=== PATIENT | female | born 2000 | race Caucasian/White ===

== ENCOUNTER 2021-01-19 09:00 | Emergency (ER) | payer BC, SELFPAY ==
[2021-01-19 09:09] VITALS: BP 142/97; PULSE 82; RESP 16; TEMP 36.9; O2SAT 98; BMI 35.4
--- NOTE | 2021-01-19 09:34 | ED_ITS ---
HPI - Nausea/Vomiting/Diarrhea General Chief complaint: Nausea/Vomiting/Diarrhea Stated complaint: flu like symptoms Time Seen by Provider: 01/19/21 09:27 Source: patient and family Mode of arrival: ambulatory Limitations: no limitations History of Present Illness HPI Narrative: 20 yo female here with upper AP, vomiting since Wednesday evening. Patient tells me she was drinking alot Wednesday night and since then continued pain and vomiting. Emesis NBNB. Also some chills and body aches. No fevers, urinary symptoms, diarrhea or constipation. No sick contact. Associated nausea: Yes Related Data Previous Rx's Medication Instructions Recorded omeprazole 40 mg capsule,delayed 40 mg PO DAILY #20 cap 01/19/21 release ondansetron 4 mg disintegrating 4 mg PO Q6H PRN #10 tab 01/19/21 tablet sucralfate 1 gram tablet (Carafate) 1 g PO .achs #60 tab 01/19/21 Allergies Allergy/AdvReac Type Severity Reaction Status Date / Time No Known Allergies Allergy Verified 01/19/21 09:09 Review of Systems Review of Systems: Yes all other systems are reviewed and are negative Constitutional: Constitutional: Reports no additional constitutional complaints, Reports body ache(s), Reports chills, Denies fever(s), Denies headache(s) and Denies weakness Eyes: Eyes: Reports no additional eye complaints and Denies change in vision ENT: Reports system reviewed and no additional complaints, except as documented, Denies dizziness, Denies headache(s), Denies nasal congestion, De nies nasal discharge and Denies neck pain Cardiovascular: Cardiovascular: Reports no additional cardiovascular complaints, Denies chest pain, Denies leg edema and Denies dyspnea Respiratory: Respiratory: Reports no additional respiratory complaints, Denies cough and Denies dyspnea Gastrointestinal: Gastrointestinal: Reports no additional gastrointestinal complaints, Reports abdominal pain, Denies diarrhea, Reports nausea and Reports vomiting Genitourinary: Genitourinary: Reports no additional female genitourinary complaints and Denies urinary incontinence Musculoskeletal: Musculoskeletal: Reports no additional musculoskeletal complaints, Denies back pain, Denies arthralgias, Denies joint swelling, Denies neck pain, Denies numbness and Denies tingling Integumentary/Breasts: Skin/Breast: Reports system reviewed and no additional complaints, except as docu and Denies rash Neurologic: Reports system reviewed and no additional complaints, except as documented, Denies Abnormal speech present, Denies dizziness, Denies headache(s), Denies numbness, Denies tingling and Denies weakness PMFSH Past Medical History Attestation statement: The following information was validated with the patient. Source: old records reviewed and nursing notes reviewed Social History Social History Advance Directives: No Advance Directives Information Provided: No Patient : No Physical Exam Vital Signs: Vital Signs: Last Vital Signs Temp 98.3 F 01/19/21 11:43 Pulse 76 01/19/21 11:43 Resp 16 01/19/21 11:43 BP 125/73 01/19/21 11:43 Pulse Ox 99 01/19/21 11:43 Body Mass Index 35.4 Const: General: cooperative, healthy appearing, comfortable and no acute distress Orientation/consciousness: patient oriented x3 Limitations: no limitations HENMT: Head: Yes normal to inspection Ears: hearing grossly normal bilaterally General nose exam: Normal external nose present Face and sinus: Yes normal facial exam Mouth: Normal oral and palatal mucosa present Throat: Yes posterior oropharynx normal Eyes: General: appearance normal, both eyes and all related structures Pupils: Equal, round and reactive pupils present Neck: Neck: Yes normal visual inspection Chest: Chest palpation & inspection: normal inspection of the chest Resp: Effort & Inspection: normal respiratory effort Auscultation: clear to auscultation bilaterally Cardio: Rate: regular rate Rhythm: regular rhythm Peripheral pulses: Peripheral pulses 2+ throughout GI: Inspection: Yes normal to inspection Palpation (GI): Soft to palpation, Tenderness to palpation present (GI) (mild epigastric ) Negative for with no rebound tenderness and no guarding Auscultation: normal bowel sounds Back/Spine/Pelvis: Thoracic/Lumbar Spine: thoracic and lumbar spine normal to inspection Skin: General skin exam: no rashes or lesions noted Neuro: General: patient oriented x3, no focal motor deficits and normal sensation to monofilament Cranial nerves: Yes Equal, round and reactive pupils present Cognition (Neuro): normal cognition Speech: No Abnormal speech present Gait exam (Neuro): Normal gait present Motor exam (neuro): 5/5 motor strength present throughout Extrem: General: Yes normal to inspection Course Course Course Narrative: 20 yo female here with complaints of epigastric AP, vomiting since Wednesday evening after drinking alcohol. Will check labs, UA,. WIll give NSB, antiemetic and PPI 1100-labs are unremarkable. Patient is complaining of some continued nausea. Pain is improved overall. Will re-dose with antiemetic and reassess. 1215-patient is feeling improved. Tolerating p.o.. Likely gastritis alcohol induced. Reviewed this with the patient. Recommended bland diet at home. Reviewed worrisome signs and symptoms when to return to the emergency department. Comfortable discharge home. MDM - Nausea/Vomiting/Diarrhea MDM Narrative Medical decision making narrative: gastritis Medical Records Attestation: I reviewed the patient's medical records. Lab Data Attestation: I reviewed the patient's lab results. Result diagrams: 01/19/21 09:45 01/19/21 09:45 Labs: Lab Results 01/19/21 01/19/21 01/19/21 Range/Units 09:45 09:45 09:45 WBC 9.4 (4.8-10.8) X10*3/uL RBC 4.44 (4.20-5.50) X10*6/uL Hgb 14.2 (12.0-16.0) g/dl Hct 41.9 (37-47) % MCV 94.4 (80-98) fL MCH 32.0 (27.0-33.0) pg MCHC 33.9 (31.0-35.0) g/dl RDW 12.3 (11.0-16.0) % Plt Count 286 (160-400) X10*3/uL MPV 10.2 (9.4-12.3) fL Immature Gran % (Auto) 0.3 (0.0-0.4) % Neut % (Auto) 75.8 H (45-73) % Lymph % (Auto) 16.0 L (20-40) % Kleberg % (Auto) 6.6 (2-11) % Eos % (Auto) 0.7 (0-4) % Baso % (Auto) 0.6 (0-2) % Lymph # (Auto) 1.5 (1.2-4.9) X10*3/uL Kle[place] # (Auto) 0.6 (0.1-1.2) X10*3/uL Eos # (Auto) 0.1 (0.0-0.4) X10*3/uL Baso # (Auto) 0.1 (0.0-0.2) X10*3/uL Abs Immat Gran (auto) 0.03 (0.00-0.03) X10*3/uL Absolute Neuts (auto) 7.1 (2.0-8.3) X10*3/uL Absolute Nucleated RBC 0.000 (0.0-0.012) X10*3/uL Nucleated RBC % (auto) 0.0 (0.0-0.2) /100WBC Sodium 139 (135-145) mmol/L Potassium 4.3 (3.3-5.1) mmol/L Chloride 107 (96-108) mmol/L Carbon Dioxide 21 L (22-29) mmol/L Anion Gap 15 (12-20) BUN 10 (9-16) mg/dL Creatinine 0.77 (0.5-1.4) mg/dL Estim Creat Clear Calc 125.6 Estimated GFR > 60 Random Glucose 93 (60-115) mg/dL Calcium 9.3 (8.4-10.2) mg/dL Magnesium 2.0 (1.6-2.6) mg/dL Total Bilirubin 1.1 H (0.0-1.0) mg/dL Direct Bilirubin 0.3 (0.0-0.5) mg/dL AST 23 (5-31) U/L ALT 14 (0-31) U/L Alkaline Phosphatase 59 (39-117) U/L Total Protein 7.2 (6.5-8.0) g/dL Albumin 4.1 (3.5-5.0) g/dL Lipase 4 L (8-78) U/L Urine Color Urine Appearance Urine pH (5.0-8.0) Ur Specific [place] (1.005-1.025) Urine Protein (NEG-TRACE) MG/DL Urine Glucose (UA) (NEG) MG/DL Urine Ketones (NEG) MG/DL Urine Blood (NEG) Urine Nitrite (NEG) Ur Leukocyte Esterase (NEG) Urine RBC (0) /HPF Urine WBC (0-4) /HPF Ur Squamous Epith Cells /LPF Urine Bacteria /LPF Urine Test (NEGATIVE) COVID-19 ([facility]ZZETTE) Negative (Negative) COVID-19 Clin Com See Note 01/19/21 01/19/21 Range/Units 10:29 10:29 WBC (4.8-10.8) X10*3/uL RBC (4.20-5.50) X10*6/uL Hgb (12.0-16.0) g/dl Hct (37-47) % MCV (80-98) fL MCH (27.0-33.0) pg MCHC (31.0-35.0) g/dl RDW (11.0-16.0) % Plt Count (160-400) X10*3/uL MPV (9.4-12.3) fL Immature Gran % (Auto) (0.0-0.4) % Neut % (Auto) (45-73) % Lymph % (Auto) (20-40) % Kleberg % (Auto) (2-11) % Eos % (Auto) (0-4) % Baso % (Auto) (0-2) % Lymph # (Auto) (1.2-4.9) X10*3/uL Kle[place] # (Auto) (0.1-1.2) X10*3/uL Eos # (Auto) (0.0-0.4) X10*3/uL Baso # (Auto) (0.0-0.2) X10*3/uL Abs Immat Gran (auto) (0.00-0.03) X10*3/uL Absolute Neuts (auto) (2.0-8.3) X10*3/uL Absolute Nucleated RBC (0.0-0.012) X10*3/uL Nucleated RBC % (auto) (0.0-0.2) /100WBC Sodium (135-145) mmol/L Potassium (3.3-5.1) mmol/L Chloride (96-108) mmol/L Carbon Dioxide (22-29) mmol/L Anion Gap (12-20) BUN (9-16) mg/dL Creatinine (0.5-1.4) mg/dL Estim Creat Clear Calc Estimated GFR Random Glucose (60-115) mg/dL Calcium (8.4-10.2) mg/dL Magnesium (1.6-2.6) mg/dL Total Bilirubin (0.0-1.0) mg/dL Direct Bilirubin (0.0-0.5) mg/dL AST (5-31) U/L ALT (0-31) U/L Alkaline Phosphatase (39-117) U/L Total Protein (6.5-8.0) g/dL Albumin (3.5-5.0) g/dL Lipase (8-78) U/L Urine Color YELLOW Urine Appearance HAZY Urine pH 6.0 (5.0-8.0) Ur Specific [place] 1.020 (1.005-1.025) Urine Protein NEG (NEG-TRACE) MG/DL Urine Glucose (UA) NEG (NEG) MG/DL Urine Ketones >=80 (NEG) MG/DL Urine Blood TRACE (NEG) Urine Nitrite NEG (NEG) Ur Leukocyte Esterase NEG (NEG) Urine RBC 0-2 (0) /HPF Urine WBC 0-2 (0-4) /HPF Ur Squamous Epith Cells 2+ /LPF Urine Bacteria 1+ /LPF Urine Test NEG (NEGATIVE) COVID-19 (LIZZETTE) (Negative) COVID-19 Clin Com Discharge Plan Discharge Clinical Impression: Gastritis Qualifiers: Gastritis type: alcoholic Chronicity: acute Gastritis bleeding: without bleeding Qualified Code(s): K29.20 - Alcoholic gastritis without bleeding Patient Disposition: Home, Self-Care Instructions: Gastritis (ED) Additional Instructions: Very bland diet Follow-up with GI if needed by end of week Prescriptions: New omeprazole 40 mg capsule,delayed release(DR/EC) 40 mg PO DAILY Qty: 20 RF: 0 sucralfate [Carafate] 1 gram tablet 1 g PO .achs Qty: 60 RF: 0 ondansetron 4 mg tablet,disintegrating 4 mg PO Q6H PRN (Reason: nausea and vomiting) Qty: 10 RF: 0 Referrals: Colin White MD [Physician] - 2 days Stand Alone Forms: Work/School Release Interventions: ED Discharge Assessment Last Done: 01/19/21 12:24 Discharge Date/Time: 01/19/21 12:24
[2021-01-19] MEDS: ondansetron HCL 4 MG/2 ML VIAL IVPUSH (09:47)
[2021-01-19] MEDS: Famotidine/PF 20 MG/2 ML VIAL IVPUSH (09:47)
[2021-01-19] MEDS: 0.9 % Sodium Chloride 1,000 ML 999 ML IV (09:48)
[2021-01-19 09:50] VITALS: BP 132/91; PULSE 62; RESP 18; O2SAT 100
[2021-01-19 09:58] LABS: MANUAL DIFF FLAG NO
[2021-01-19 10:00] LABS: Basophils Absolute Auto 0.1 X10*3/uL (0.0-0.2); Basophils Percent Auto 0.6 % (0-2); Eosinophils Absolute Auto 0.1 X10*3/uL (0.0-0.4); Eosinophils Percent Auto 0.7 % (0-4); Hematocrit 41.9 % (37-47); Hemoglobin 14.2 g/dl (12.0-16.0); Imm Gran Abs Auto 0.03 X10*3/uL (0.00-0.03); Imm Gran Pct Auto 0.3 % (0.0-0.4); Lymphocytes Absolute Auto 1.5 X10*3/uL (1.2-4.9); Mean Corpuscular HGB Conc 33.9 g/dl (31.0-35.0); Mean Corpuscular Volume 94.4 fL (80-98); Mean Platelet Volume 10.2 fL (9.4-12.3); Monocytes Absolute Auto 0.6 X10*3/uL (0.1-1.2); Monocytes Percent Auto 6.6 % (2-11); Neutrophils Absolute Auto 7.1 X10*3/uL (2.0-8.3); Neutrophils Percent Auto 75.8 % (45-73); Platelet Count 286 X10*3/uL (160-400); Red Blood Count 4.44 X10*6/uL (4.20-5.50); Red Cell Distribution Width 12.3 % (11.0-16.0); White Blood Count 9.4 X10*3/uL (4.8-10.8)
[2021-01-19 10:17] LABS: COVID-19 Test Negative (Negative)
[2021-01-19 10:33] LABS: Alanine Aminotransferase 14 U/L (0-31); Albumin Level 4.1 g/dL (3.5-5.0); Alkaline Phosphatase 59 U/L (39-117); Anion Gap 15 (12-20); Aspartate Amino Transferase 23 U/L (5-31); Bilirubin Direct 0.3 mg/dL (0.0-0.5); Bilirubin Total 1.1 mg/dL (0.0-1.0); Blood Urea Nitrogen 10 mg/dL (9-16); Calcium 9.3 mg/dL (8.4-10.2); Carbon Dioxide 21 mmol/L (22-29); Chloride 107 mmol/L (96-108); Creatinine Clr Calc Pharmacy 125.6; Estimated Glomerular Filt Rate > 60; Glucose Random 93 mg/dL (60-115); Lipase 4 U/L (8-78); Potassium 4.3 mmol/L (3.3-5.1); Sodium 139 mmol/L (135-145); Total Protein 7.2 g/dL (6.5-8.0)
[2021-01-19 10:44] LABS: Glucose Urine UA NEG (NEG); Leukocyte Esterase Urine NEG (NEG); Nitrite Urine NEG (NEG); UACC Culture Trigger NO; Urine Blood TRACE (NEG); Urine Ketones >=80 MG/DL (NEG); Urine Protein NEG (NEG-TRACE)
[2021-01-19] MEDS: Magnesium Hydrox/Alum Hydrox 30 ML ORAL.SUSP PO (10:44)
[2021-01-19] MEDS: Lidocaine HCl Viscous 2 % 15 ML SOLUTION MUCOUS MEM (10:44)
[2021-01-19 10:45] LABS: Appearance Urine HAZY; Color Urine YELLOW
[2021-01-19 10:48] LABS: UPreg QC Valid YES; Urine Pregnancy NEG (NEGATIVE)
[2021-01-19 10:54] LABS: Bacteria Urine 1+ /LPF; RBC Urine 0-2 /HPF (0); Squamous Epithelial Cell Urine 2+ /LPF; WBC Urine 0-2 /HPF (0-4)
[2021-01-19 11:43] VITALS: BP 125/73; PULSE 76; RESP 16; TEMP 36.8; O2SAT 99
== END 2021-01-19 12:24 | disposition home or self-care (01) ==
PROVIDERS: Nurse Practitioner Family; Emergency Provider Emergency Medicine
DX: K29.20 Alcoholic gastritis without bleeding (principal); R11.2 Nausea with vomiting, unspecified; R19.7 Diarrhea, unspecified; R79.89 Other specified abnormal findings of blood chemistry; Z79.899 Other long term (current) drug therapy; Z20.822 Contact with and (suspected) exposure to COVID-19
CPT/HCPCS: 36415; 80048; 80076; 81001; 81025; 83690; 83735; 85025; 87635; 99284; J2405; J2550

== ENCOUNTER 2022-02-16 01:30 | Emergency (ER) | payer BC, SELFPAY ==
--- NOTE | ~2022-02-16 | XR_ITS ---
EXAMINATION: XR CHEST CLINICAL INFORMATION: Cough, shortness of breath. COMPARISON: Most recent chest radiograph dated 10/02/2011. TECHNIQUE: 2 views of the chest were obtained. FINDINGS: The lungs are clear. The cardiomediastinal silhouette is normal in size. There is no pleural effusion or pneumothorax. No acute osseous abnormality. XR/XR chest 2V IMPRESSION: No acute cardiopulmonary findings.
[2022-02-16 02:02] LABS: Hematocrit 45.9 % (37.0-47.0); Hemoglobin 15.5 g/dl (12.0-16.0); Mean Corpuscular HGB Conc 33.8 g/dl (31.0-35.0); Mean Corpuscular Hemoglobin 31.5 pg (27.0-33.0); Mean Corpuscular Volume 93.3 fL (80.0-98.0); Mean Platelet Volume 9.5 fL (9.4-12.3); Platelet Count 330 X10*3/uL (160-400); Red Blood Count 4.92 X10*6/uL (4.20-5.50); Red Cell Distribution Width 12.5 % (11.0-16.0); White Blood Count 14.3 X10*3/uL (4.8-10.8)
[2022-02-16 02:05] VITALS: BP 116/86; PULSE 97; RESP 18; TEMP 36.9; O2SAT 95; BMI 35.4
[2022-02-16 02:14] LABS: IDNOW Serial# 16C4AD1C
[2022-02-16 02:15] LABS: COVID-19 Test Negative (Negative)
[2022-02-16 02:20] LABS: Alanine Aminotransferase 16 U/L (0-31); Albumin Level 4.6 g/dL (3.5-5.0); Alkaline Phosphatase 79 U/L (39-117); Anion Gap 16 (12-20); Aspartate Amino Transferase 18 U/L (5-31); Bilirubin Total 0.9 mg/dL (0.0-1.0); Blood Urea Nitrogen 11 mg/dL (9-16); Calcium 9.4 mg/dL (8.4-10.2); Carbon Dioxide 20 mmol/L (22-29); Chloride 108 mmol/L (96-108); Creatinine Clr Calc Pharmacy 127.9; Estimated Glomerular Filt Rate > 60; Glucose Random 117 mg/dL (60-115); Sodium 140 mmol/L (135-145); Total Protein 7.6 g/dL (6.5-8.0)
[2022-02-16 04:14] VITALS: BP 147/84; PULSE 81; RESP 18; O2SAT 96
[2022-02-16 07:41] VITALS: BP 155/87; PULSE 98; RESP 18; O2SAT 99
--- NOTE | 2022-02-16 10:53 | ED.GENADULT ---
HPI - General Adult General Chief complaint: General Medical Stated complaint: difficulty breathing, vomiting Time Seen by Provider: 02/16/22 10:16 Source: patient Mode of arrival: ambulatory Limitations: no limitations History of Present Illness HPI narrative: Patient is a 21 year old female presenting to the emergency department today with congestion and nausea. Patient states that for the last 3 days she has felt congested and starting last night, she began to feel nauseous and vomit. Patient denies any current dizziness, lightheadedness, abdominal pain, nausea, vomiting, fever, chills, blurry vision, double vision, loss of vision, chest pain, difficulty breathing, shortness of breath, back pain, night sweats, pain with urination, increased urinary frequency, increased urinary urgency, blood in her urine or stool, syncope or a near syncopal episode, recent trauma or falls, bowel incontinence, bladder incontinence, bowel retention, bladder retention, or any other complaints at this time. Onset (ago): day(s) (3) Severity: mild Severity scale (1-10): 1 Relieving factors: none Exacerbating factors: none Associated symptoms: nausea/vomiting Treatments prior to arrival: none Related Data Previous Rx's Medication Instructions Recorded omeprazole 40 mg capsule,delayed 40 mg PO DAILY #20 caps 01/19/21 release ondansetron 4 mg disintegrating 4 mg PO Q6H PRN nausea and 01/19/21 tablet vomiting #10 tabs sucralfate 1 gram tablet (Carafate) 1 g PO .achs #60 tabs 01/19/21 ondansetron 4 mg disintegrating 4 mg PO Q8H 3 days #9 tabs 02/16/22 tablet Allergies Allergy/AdvReac Type Severity Reaction Status Date / Time No Known Allergies Allergy Verified 01/19/21 09:09 Review of Systems Constitutional: Constitutional: Reports no additional constitutional complaints, Denies chills, Denies fever(s) and Denies night sweats Eyes: Eyes: Reports no additional eye complaints, Denies blurry vision, Denies change in vision, Denies diplopia, Denies eye discharge, Denies loss of vision and Denies eye pain ENT: Denies dizziness and Reports nasal congestion Cardiovascular: Cardiovascular: Reports no additional cardiovascular complaints, Denies chest pain, Denies lightheadedness, Denies Loss of Consciousness and Denies dyspnea Respiratory: Respiratory: Reports no additional respiratory complaints and Denies dyspnea Gastrointestinal: Gastrointestinal: Reports no additional gastrointestinal complaints, Denies abdominal pain, Denies melena, Denies hematochezia, Denies change in bowel habits, Denies change in stool character, Reports nausea and Reports vomiting Genitourinary: Genitourinary: Denies hematuria, Denies urinary frequency, Denies dysuria, Denies urinary incontinence, Denies urinary hesitancy and Denies urinary urgency Musculoskeletal: Musculoskeletal: Reports no additional musculoskeletal complaints, Denies numbness and Denies tingling Neurologic: Denies dizziness, Denies loss of vision, Denies numbness and Denies tingling Psychiatric: Psychiatric: Reports no additional psychiatric complaints Endocrine: Endocrine: Reports no additional endocrine complaints Hematologic/Lymphatic: Hematologic/Lymphatic: Reports no additional hematologic/lymphatic complaints Allergic/Immunologic: Allergic/Immunologic: Reports no additional allergic/immunologic complaints PMFSH Past Medical History Attestation statement: The following information was validated with the patient. Source: old records reviewed Social History Social History Advance Directives: No Advance Directives Information Provided: No Physical Exam ED Vital Signs: Vital Signs - 24 hr 02/16/22 02:05 02/16/22 04:14 02/16/22 07:41 Temperature 98.4 F Pulse Rate 97 81 98 Respiratory Rate 18 18 18 Blood Pressure 116/86 147/84 H 155/87 H Pulse Oximetry 95 96 99 Oxygen Delivery Method Room Air Room Air BMI result Body Mass Index 35.4 Const General: cooperative, no acute distress, alert and awake Nutritional Appearance: well nourished Orientation/consciousness: patient oriented x3 Limitations: no limitations HENWV Head: Yes normal to inspection and Yes atraumatic Ears: hearing grossly normal bilaterally and external ears normal General nose exam: Normal external nose present, no nasal discharge noted and no epistaxis Face and sinus: Yes normal facial exam, No abrasion and No laceration Mouth: Normal oral and palatal mucosa present, no drooling and no muffled voice Eyes General: appearance normal, both eyes and all related structures Periorbital: periorbital findings normal Eyelids: Yes eyelids normal Conjunctivae: conjunctivae normal Pupils: Equal, round and reactive pupils present EOM: EOMs intact bilaterally Neck Neck: Yes normal visual inspection, Yes full ROM and Yes no lymphadenopathy Chest Chest palpation & inspection: normal inspection of the chest Resp Effort & Inspection: normal respiratory effort and able to speak in complete sentences Auscultation: clear to auscultation bilaterally Cardio Rate: regular rate Rhythm: regular rhythm GI Inspection: Yes normal to inspection Palpation (GI): Soft to palpation, not firm, nontender and no guarding Neuro General: patient oriented x3 and moves all extremities Cranial nerves: Yes Equal, round and reactive pupils present Cognition (Neuro): normal cognition Motor exam (neuro): 5/5 motor strength present throughout Sensory Exam: Normal double simultaneous stimulation for sensation Coordination: [id number] test normal Extrem General: Yes normal to inspection, Yes full ROM and Yes capillary refill normal Psych Appearance: grossly normal Mental Status: mental status grossly normal Affect: normal affect Attitude: cooperative Thought process: Normal thought process present Thought content: Normal thought content present Insight: Good insight present (Psych) Medical Decision Making MDM Narrative Medical decision making narrative: Patient is a 21 year old female presenting to the emergency department today with nausea and congestion. Patient's physical exam was unremarkable. Patient's blood work showed an elevated WBC count however, I believe this to be a stress reaction secondary to the patient vomiting. Patient's chest x-ray showed no acute process. Based on the patient's clinical presentation, the patient is most likely experiencing a viral syndrome. I explained my physical exam findings as well as all test results to the patient. I answered all questions asked by the patient. I stressed the importance of the patient taking her medication as prescribed. I stressed the importance of the patient following up with her primary care provider. I stressed the importance of the patient returning to the emergency department immediately if her symptoms were to worsen or if she were to develop any dizziness, shortness of breath, difficulty breathing, chest pain, blurry vision, loss of vision, nausea, vomiting, abdominal pain, fever, chills, back pain, or any other complaints. Patient verbalized agreement and understanding with this treatment plan and discharge. Medical Records Medical records reviewed: Yes I reviewed the patient's medical records. Lab Data Lab results reviewed: Yes I reviewed the patient's lab results. Result diagrams: 02/16/22 01:47 02/16/22 01:47 Labs: Lab Results 02/16/22 02/16/22 02/16/22 Range/Units 01:47 01:47 01:47 WBC 14.3 H (4.8-10.8) X10*3/uL RBC 4.92 (4.20-5.50) X10*6/uL Hgb 15.5 (12.0-16.0) g/dl Hct 45.9 (37.0-47.0) % MCV 93.3 (80.0-98.0) fL MCH 31.5 (27.0-33.0) pg MCHC 33.8 (31.0-35.0) g/dl RDW 12.5 (11.0-16.0) % Plt Count 330 (160-400) X10*3/uL MPV 9.5 (9.4-12.3) fL Absolute Nucleated RBC 0.000 (0.0-0.012) X10*3/uL Nucleated RBC % (auto) 0.0 (0.0-0.2) /100WBC Sodium 140 (135-145) mmol/L Potassium 4.0 (3.3-5.1) mmol/L Chloride 108 (96-108) mmol/L Carbon Dioxide 20 L (22-29) mmol/L Anion Gap 16 (12-20) BUN 11 (9-16) mg/dL Creatinine 0.75 (0.5-1.4) mg/dL Estim Creat Clear Calc 127.9 Estimated GFR > 60 Random Glucose 117 H (60-115) mg/dL Calcium 9.4 (8.4-10.2) mg/dL Total Bilirubin 0.9 (0.0-1.0) mg/dL AST 18 (5-31) U/L ALT 16 (0-31) U/L Alkaline Phosphatase 79 D (39-117) U/L Total Protein 7.6 (6.5-8.0) g/dL Albumin 4.6 (3.5-5.0) g/dL COVID-19 ([facility]ZZETTE) Negative (Negative) COVID-19 Clin Com See Note Imaging Data Chest x-ray: Attestation: I personally reviewed and interpreted this imaging study as follows: My impression: No acute process. Radiologist's impression: EXAMINATION: XR CHEST CLINICAL INFORMATION: Cough, shortness of breath. COMPARISON: Most recent chest radiograph dated 10/02/2011. TECHNIQUE: 2 views of the chest were obtained. FINDINGS: The lungs are clear. The cardiomediastinal silhouette is normal in size. There is no pleural effusion or pneumothorax. No acute osseous abnormality. XR/XR chest 2V IMPRESSION: No acute cardiopulmonary findings. Dictated By: Femi Rodriguez MD Signed By: Electronically signed by Femi Rodriguez MD 02/16/22 [id number] Discharge Plan Discharge Clinical Impression: Viral illness Patient Disposition: Home, Self-Care Instructions: Viral Syndrome (ED) Additional Instructions: Follow up with your primary care provider. Return to the emergency department immediately if your symptoms worsen or if you develop any dizziness, shortness of breath, difficulty breathing, chest pain, blurry vision, loss of vision, nausea, vomiting, abdominal pain, fever, chills, back pain, or any other complaints. Prescriptions: New ondansetron 4 mg tablet,disintegrating 4 mg PO Q8H 3 Days Qty: 9 0RF No Action omeprazole 40 mg capsule,delayed release(DR/EC) 40 mg PO DAILY Qty: 20 0RF sucralfate [Carafate] 1 gram tablet 1 g PO .achs Qty: 60 0RF ondansetron 4 mg tablet,disintegrating 4 mg PO Q6H PRN (Reason: nausea and vomiting) Qty: 10 0RF Referrals: [facility] Group] (Call to establish and follow up with a primary care provider. If you already have a primary care provider, please follow up with them. ) [facility] [Provider Group] (Call to establish and follow up with a primary care provider. If you already have a primary care provider, please follow up with them. ) [facility] [Provider Group] (Call to establish and follow up with a primary care provider. If you already have a primary care provider, please follow up with them. ) Stand Alone Forms: Work/School Release Print Language: Portuguese
== END 2022-02-16 12:14 | disposition home or self-care (01) ==
PROVIDERS: Emergency Provider Emergency Medicine
DX: B34.9 Viral infection, unspecified (principal); Z20.822 Contact with and (suspected) exposure to COVID-19
CPT/HCPCS: 36415; 71046; 80053; 85027; 87635; 99283

== ENCOUNTER 2022-03-16 11:24 | Observation (INO) | payer BC, SELFPAY ==
--- NOTE | ~2022-03-16 | XR_ITS ---
EXAMINATION: PORTABLE CHEST 1 VIEW CLINICAL INFORMATION: sob cp . COMPARISON: 02/16/2022. TECHNIQUE: Portable frontal view of the chest was obtained. FINDINGS: The lungs are well expanded. No focal infiltrate, effusion, edema, or pneumothorax. Cardiac and mediastinal silhouettes are within normal limits for technique. No acute bony abnormality seen. XR/XR chest 1V IMPRESSION: No evidence of acute disease.
--- NOTE | ~2022-03-16 | XR_ITS ---
EXAMINATION: XR CHEST CLINICAL INFORMATION: Chest pain. COMPARISON: 03/16/2022 and 02/16/2022 chest radiographs. TECHNIQUE: Frontal view of the chest was obtained. FINDINGS: The lungs are clear. The heart and mediastinal structures are unremarkable. Old healed left lateral sixth rib fracture. XR/XR chest 1V IMPRESSION: No acute cardiopulmonary process.
[2022-03-16 12:46] VITALS: BP 148/86; PULSE 138; RESP 22; TEMP 36.8; O2SAT 96; BMI 35.4
--- NOTE | 2022-03-16 12:51 | PC.NURSE ---
CONGESTED AN WHEEZING THROUGHOUT
--- NOTE | 2022-03-16 16:21 | ED.SOB ---
HPI - SOB/Dyspnea General Chief Complaint: Dyspnea Stated Complaint: diff breathing Time Seen by Provider: 03/16/22 16:15 Source: patient Mode of arrival: ambulatory Limitations: no limitations History of Present Illness HPI Narrative: 21 year old female presents to the emergency department for progressively worsening difficulty breathing and dry cough x 2 days. Patient reports she has difficulty taking a deep breath in. Patient reports she went to [facility] earlier today in which she received 2 breathing treatments and steroids, which temporarily relieved her symptoms. Patient states she has a history of allergies, however states this feels different than her typical symptoms. Additionally patient reports a dry cough that has also worsened over the last two days. Patient denies smoking, recent travel. Patient reports she has nexplanon control. Patient is not on blood thinners. Denies fevers, chills, nausea, vomitting, weakness, headaches. Related Data Previous Rx's Medication Instructions Recorded omeprazole 40 mg capsule,delayed 40 mg PO DAILY #20 caps 01/19/21 release ondansetron 4 mg disintegrating 4 mg PO Q6H PRN nausea and 01/19/21 tablet vomiting #10 tabs sucralfate 1 gram tablet (Carafate) 1 g PO .achs #60 tabs 01/19/21 ondansetron 4 mg disintegrating 4 mg PO Q8H 3 days #9 tabs 02/16/22 tablet Allergies Allergy/AdvReac Type Severity Reaction Status Date / Time No Known Allergies Allergy Verified 01/19/21 09:09 Review of Systems Review of Systems: Constitutional : No Weight loss, No Fever, No Chills, No Fatigue, No Malaise ENT/Mouth : + sore throat, No Rhinorrhea Eyes: No Eye Pain, No Swelling, No Redness Cardiovascular : No Chest Pain, + SOB, No Dyspnea on Exertion, No Orthopnea, No Edema, No Palpitations Respiratory : + Cough, No Sputum, + Wheezing Gastrointestinal : No Nausea, No Vomiting, No Diarrhea, No Constipation, No abdominal Pain, No Hematochezia, No Melena Genitourinary : No Dysuria, No Urinary Frequency, No Hematuria, Musculoskeletal : No joint pain, No Myalgias, No Joint Swelling Skin : No Skin Lesions, No rash Neuro : No Weakness, No Numbness, No Dizziness, No Headache Psych : No Anxiety/Panic, No Depression Heme/Lymph: No Bruising, No Bleeding,No Lymphadenopathy Endocrine : No Polyuria, No Polydipsia All other systems reviewed and are negative Yes all other systems are reviewed and are negative [facility] Past Medical History Attestation statement: The following information was validated with the patient. Source: old records reviewed Social History Social History Advance Directives: No Advance Directives Information Provided: No Physical Exam Vital Signs: Vital Signs: Last Vital Signs Temp 987.2 F H 03/16/22 18:46 Pulse 127 H 03/16/22 18:46 Resp 29 H 03/16/22 18:46 BP 150/80 H 03/16/22 18:46 Pulse Ox 94 03/16/22 18:46 O2 Del Method 03/16/22 18:46 BMI result Body Mass Index 35.4 Tachycardia likely secondary to steroids, will repeat. Appearance: Alert.? Oriented X3.? No acute distress.? Head: Normocephalic, atraumatic, no step-offs or deformities Eyes: Pupils equal, round and reactive to light.? ENT: Pharynx normal.? Neck: Normal inspection.? Neck supple.? CVS: Normal heart rate and rhythm.? Pulses normal.? Respiratory: No respiratory distress.? Diminished breath sounds bilaterally with impressive expiratory wheezing throughout Abdomen: Soft and nontender.? Skin: Skin warm and dry.? Normal skin color.? Normal skin turgor.? Extremities: No lower extremity edema.? No calf ttp. 5/5 strength to bilateral upper and lower extremities Neuro: Oriented X 3.? No motor deficit.? No sensory deficit. CN 2-12 intact Course Reevaluation(s) Reevaluation #1: CBC with elevated leukocytosis likely reactive. Chemistry with no acute electrolyte abnormalities requiring intervention. Troponin negative, D-dimer negative. Unlikely ACS or PE. Urine clean. Flu/COVID/RSV negative. [place] negative. Strep negative. Chest x-ray with no acute findings. Despite multiple treatments, magnesium, Solu-Medrol patient continues to have significant wheezing. Discussed case with hospitalist who will admit patient for further evaluation and treatment. To note at time of admission patient is saturating 93% on room air at rest. Time: 20:00 MDM - SOB/Dyspnea MDM Narrative Medical decision making narrative: 1615 21 year old female reports to the emergency room for dyspnea and dry cough x 2 days. Patient came from urgent care. physical exam revealed wheezing through and diminished breath sounds bilaterally Likely asthma, or upper respiratory infection. Unlikely PE but will rule out Plan is to obtain basic labs, chest xray, dimer. Medical Records Attestation: I reviewed the patient's medical records. Lab Data Attestation: I reviewed the patient's lab results. Result diagrams: 03/16/22 16:38 03/16/22 16:38 Labs: Lab Results 03/16/22 03/16/22 03/16/22 Range/Units 16:38 16:38 16:38 WBC 15.4 H (4.8-10.8) X10*3/uL RBC 4.83 (4.20-5.50) X10*6/uL Hgb 15.6 (12.0-16.0) g/dl Hct 44.1 (37.0-47.0) % MCV 91.3 (80.0-98.0) fL MCH 32.3 (27.0-33.0) pg MCHC 35.4 H (31.0-35.0) g/dl RDW 12.6 (11.0-16.0) % Plt Count 309 (160-400) X10*3/uL MPV 10.1 (9.4-12.3) fL Immature Gran % (Auto) 0.4 (0.0-0.4) % Neut % (Auto) 95.6 H (45-73) % Lymph % (Auto) 3.1 L (20-40) % [place] % (Auto) 0.6 L (2-11) % Eos % (Auto) 0.0 (0-4) % Baso % (Auto) 0.3 (0-2) % Lymph # (Auto) 0.5 L (1.2-4.9) X10*3/uL [place] # (Auto) 0.1 (0.1-1.2) X10*3/uL Eos # (Auto) 0.0 (0.0-0.4) X10*3/uL Baso # (Auto) 0.1 (0.0-0.2) X10*3/uL Abs Immat Gran (auto) 0.06 H (0.00-0.03) X10*3/uL Absolute Neuts (auto) 14.7 H (2.0-8.3) x10*3/uL Absolute Nucleated RBC 0.000 (0.0-0.012) X10*3/uL Nucleated RBC % (auto) 0.0 (0.0-0.2) /100WBC Smear Tech's Comments VERIFIED D-Dimer High Sensitivty < 150 NG/ML Sodium 138 (135-145) mmol/L Potassium 4.2 (3.3-5.1) mmol/L Chloride 106 (96-108) mmol/L Carbon Dioxide 18 L (22-29) mmol/L Anion Gap 18 (12-20) BUN 10 (9-16) mg/dL Creatinine 0.76 (0.5-1.4) mg/dL Estim Creat Clear Calc 126.2 Estimated GFR > 60 Random Glucose 145 H (60-115) mg/dL Calcium 9.7 (8.4-10.2) mg/dL Magnesium 1.7 (1.6-2.6) mg/dL Total Bilirubin 0.7 (0.0-1.0) mg/dL AST 19 (5-31) U/L ALT 16 (0-31) U/L Alkaline Phosphatase 80 (39-117) U/L Troponin I High Sens (<3.5-17.0) ng/L Total Protein 7.6 (6.5-8.0) g/dL Albumin 4.5 (3.5-5.0) g/dL Urine Color Urine Appearance Urine pH (5.0-9.0) Ur Specific [place] (1.005-1.025) Urine Protein (Neg-Trace) mg/dL Urine Glucose (UA) (Negative) mg/dL Urine Ketones (Negative) mg/dL Urine Blood (Negative) Urine Nitrite (Negative) Ur Leukocyte Esterase (Negative) Urine RBC (0-2) /HPF Urine WBC (0-5) /HPF Ur Squamous Epith Cells (0-2) /HPF Urine Bacteria (None Seen) Hyaline Casts (0-2) /LPF COVID-19 (LIZZETTE) (Negative) COVID-19 Clin Com Monoscreen (Negative) Influenza Type A (PCR) (Negative) Influenza Type B (PCR) (Negative) RSV RNA Qual (PCR) (Negative) SARS-CoV-2 RNA (RT-PCR) (Negative) S. pyogenes GrpA NIGHAT (Negative) 03/16/22 03/16/22 03/16/22 Range/Units 16:38 16:38 16:40 WBC (4.8-10.8) X10*3/uL RBC (4.20-5.50) X10*6/uL Hgb (12.0-16.0) g/dl Hct (37.0-47.0) % MCV (80.0-98.0) fL MCH (27.0-33.0) pg MCHC (31.0-35.0) g/dl RDW (11.0-16.0) % Plt Count (160-400) X10*3/uL MPV (9.4-12.3) fL Immature Gran % (Auto) (0.0-0.4) % Neut % (Auto) (45-73) % Lymph % (Auto) (20-40) % [place] % (Auto) (2-11) % Eos % (Auto) (0-4) % Baso % (Auto) (0-2) % Lymph # (Auto) (1.2-4.9) X10*3/uL [place] # (Auto) (0.1-1.2) X10*3/uL Eos # (Auto) (0.0-0.4) X10*3/uL Baso # (Auto) (0.0-0.2) X10*3/uL Abs Immat Gran (auto) (0.00-0.03) X10*3/uL Absolute Neuts (auto) (2.0-8.3) x10*3/uL Absolute Nucleated RBC (0.0-0.012) X10*3/uL Nucleated RBC % (auto) (0.0-0.2) /100WBC Smear Tech's Comments D-Dimer High Sensitivty NG/ML Sodium (135-145) mmol/L Potassium (3.3-5.1) mmol/L Chloride (96-108) mmol/L Carbon Dioxide (22-29) mmol/L Anion Gap (12-20) BUN (9-16) mg/dL Creatinine (0.5-1.4) mg/dL Estim Creat Clear Calc Estimated GFR Random Glucose (60-115) mg/dL Calcium (8.4-10.2) mg/dL Magnesium (1.6-2.6) mg/dL Total Bilirubin (0.0-1.0) mg/dL AST (5-31) U/L ALT (0-31) U/L Alkaline Phosphatase (39-117) U/L Troponin I High Sens < 3.5 (<3.5-17.0) ng/L Total Protein (6.5-8.0) g/dL Albumin (3.5-5.0) g/dL Urine Color Urine Appearance Urine pH (5.0-9.0) Ur Specific [place] (1.005-1.025) Urine Protein (Neg-Trace) mg/dL Urine Glucose (UA) (Negative) mg/dL Urine Ketones (Negative) mg/dL Urine Blood (Negative) Urine Nitrite (Negative) Ur Leukocyte Esterase (Negative) Urine RBC (0-2) /HPF Urine WBC (0-5) /HPF Ur Squamous Epith Cells (0-2) /HPF Urine Bacteria (None Seen) Hyaline Casts (0-2) /LPF COVID-19 (LIZZETTE) Negative (Negative) COVID-19 Clin Com See Note Monoscreen (Negative) Influenza Type A (PCR) NEGATIVE (Negative) Influenza Type B (PCR) NEGATIVE (Negative) RSV RNA Qual (PCR) NEGATIVE (Negative) SARS-CoV-2 RNA (RT-PCR) NEGATIVE (Negative) S. pyogenes GrpA NIGHAT (Negative) 03/16/22 03/16/22 03/16/22 Range/Units 17:23 18:45 18:45 WBC (4.8-10.8) X10*3/uL RBC (4.20-5.50) X10*6/uL Hgb (12.0-16.0) g/dl Hct (37.0-47.0) % MCV (80.0-98.0) fL MCH (27.0-33.0) pg MCHC (31.0-35.0) g/dl RDW (11.0-16.0) % Plt Count (160-400) X10*3/uL MPV (9.4-12.3) fL Immature Gran % (Auto) (0.0-0.4) % Neut % (Auto) (45-73) % Lymph % (Auto) (20-40) % [place] % (Auto) (2-11) % Eos % (Auto) (0-4) % Baso % (Auto) (0-2) % Lymph # (Auto) (1.2-4.9) X10*3/uL [place] # (Auto) (0.1-1.2) X10*3/uL Eos # (Auto) (0.0-0.4) X10*3/uL Baso # (Auto) (0.0-0.2) X10*3/uL Abs Immat Gran (auto) (0.00-0.03) X10*3/uL Absolute Neuts (auto) (2.0-8.3) x10*3/uL Absolute Nucleated RBC (0.0-0.012) X10*3/uL Nucleated RBC % (auto) (0.0-0.2) /100WBC Smear Tech's Comments D-Dimer High Sensitivty NG/ML Sodium (135-145) mmol/L Potassium (3.3-5.1) mmol/L Chloride (96-108) mmol/L Carbon Dioxide (22-29) mmol/L Anion Gap (12-20) BUN (9-16) mg/dL Creatinine (0.5-1.4) mg/dL Estim Creat Clear Calc Estimated GFR Random Glucose (60-115) mg/dL Calcium (8.4-10.2) mg/dL Magnesium (1.6-2.6) mg/dL Total Bilirubin (0.0-1.0) mg/dL AST (5-31) U/L ALT (0-31) U/L Alkaline Phosphatase (39-117) U/L Troponin I High Sens (<3.5-17.0) ng/L Total Protein (6.5-8.0) g/dL Albumin (3.5-5.0) g/dL Urine Color Dark Yellow Urine Appearance Clear Urine pH 5.5 (5.0-9.0) Ur Specific [place] >= 1.030 H (1.005-1.025) Urine Protein 30 (1+) H (Neg-Trace) mg/dL Urine Glucose (UA) Negative (Negative) mg/dL Urine Ketones >=160 (Negative) mg/dL Urine Blood Small (1+) H (Negative) Urine Nitrite Negative (Negative) Ur Leukocyte Esterase Negative (Negative) Urine RBC 11-20 H (0-2) /HPF Urine WBC 0-5 (0-5) /HPF Ur Squamous Epith Cells 3-5 (0-2) /HPF Urine Bacteria 1+ (None Seen) Hyaline Casts 0-2 (0-2) /LPF COVID-19 (LIZZETTE) (Negative) COVID-19 Clin Com Monoscreen Negative (Negative) Influenza Type A (PCR) (Negative) Influenza Type B (PCR) (Negative) RSV RNA Qual (PCR) (Negative) SARS-CoV-2 RNA (RT-PCR) (Negative) S. pyogenes GrpA NIGHAT Negative (Negative) Critical Care Time Critical Care Time Critical Care Time: No Discharge Plan Discharge Clinical Impression: Asthma with exacerbation, Dyspnea Patient Disposition: Admitted As Inpatient Prescriptions: No Action omeprazole 40 mg capsule,delayed release(DR/EC) 40 mg PO DAILY Qty: 20 0RF sucralfate [Carafate] 1 gram tablet 1 g PO .achs Qty: 60 0RF ondansetron 4 mg tablet,disintegrating 4 mg PO Q6H PRN (Reason: nausea and vomiting) Qty: 10 0RF ondansetron 4 mg tablet,disintegrating 4 mg PO Q8H 3 Days Qty: 9 0RF
--- OUTSIDE RECORDS SUMMARY | 2022-03-16 16:22 | XMS_ITS | Continuity of Care Document ---
:2000 Author Organization [facility] Address [address] [place] [id number] Care Team Providers Name Role Phone Wendy Vargas MD Primary Care Physician Encounter [facility] Date(s): 02/16/22 - 02/16/[address] [id number]- Discharge Disposition: A-D/C Walkout Attending Physician: Not on Staff, Attending MD Admitting Physician: Not on Staff, Admitting MD Referring Physician: Not on Staff, Referring MD Allergies, Adverse Reactions, Alerts No Known Allergies Immunizations Given and Recorded Vaccine Date Status Refusal Reason Human Papillomavirus Vaccine 06/14/14 Given Human Papillomavirus Vaccine 02/08/14 Given Human Papillomavirus Vaccine 12/11/13 Given Meningococcal Conjugate Vaccine1 11/02/12 Given tetanus/diphtheria/pertussis, acel(Tdap)2 11/02/12 Given Measles/Mumps/Rubella/VaricellaVirusVac 10/04/06 Given Poliovirus Vaccine, Inactivated 10/04/06 Given Poliovirus Vaccine, Inactivated 10/11/02 Given Poliovirus Vaccine, Inactivated 01 Given Poliovirus Vaccine, Inactivated 01 Given Diphth/Pertussis,Acel/Tetanus (oldterm) 10/04/06 Given Haemophilus B conjugate (HbOC) vaccine 10/11/02 Given Haemophilus B conjugate (HbOC) vaccine 01 Given Haemophilus B conjugate (HbOC) vaccine 01 Given Haemophilus B conjugate (HbOC) vaccine 01 Given diphtheria/tetanus/pertussis, acel(DTaP) 10/11/02 Given diphtheria/tetanus/pertussis, acel(DTaP) 01 Given diphtheria/tetanus/pertussis, acel(DTaP) 01 Given diphtheria/tetanus/pertussis, acel(DTaP) 01 Given Varicella Virus Vaccine 07/20/02 Given Measles/Mumps/Rubella Virus Vaccine 07/20/02 Given pneumococcal 7-valent vaccine 03/15/02 Given pneumococcal 7-valent vaccine 01 Given pneumococcal 7-valent vaccine 01 Given hepatitis B pediatric vaccine 01 Given hepatitis B pediatric vaccine 01 Given hepatitis B pediatric vaccine 01 Given 1Admin Note: VIS dated 03/06/2011 [id number] Note: VIS dated 06/16/2011 given Medications naproxen 500 mg oral tablet 1 tablet = 500 mg, By Mouth, 2 times a day, PRN Pain, with food, # 20 tablet, 0 Refills, Maintenance, 10/14/16 17:00:34, Tablet Start Date: 10/14/16 Status: OrderedNo Home Meds Maintenance, 12/11/13 13:02:40, Compound Start Date: 12/11/13 Status: OrderedWrist splint/Immobilizer, left Wrist splint/Immobilizer, left, See Instructions, # 1 each, Refills 0, Tot. Refills 0, Maintenance, Use as directed during the day, 02/26/15 17:22:58, Compound Start Date: 02/26/15 Status: Ordered Problem List Condition Effective Dates Status Health Status Informant Obesity(Confirmed)(Improving) Active Social History Social History Type Response Smoking Status Never smoker; Tobacco user i n household: Yes; Type: Cigarettes; Other: mom; entered on: 10/14/16 Sex Care Team PersonnelName: Wendy Vargas MD [address]: [address] [place] [address] [address] [place], [place] [address]
[2022-03-16 16:30] VITALS: BP 152/91; PULSE 112; RESP 20; TEMP 37; O2SAT 95
[2022-03-16 16:41] VITALS: PULSE 126; RESP 22; O2SAT 97
[2022-03-16] MEDS: Albuterol Sulfate 7.5 MG, Albuterol Sulfate (0.083%) 2.5 MG 10 MG INHALE (16:41)
[2022-03-16 16:46] LABS: Basophils Absolute Auto 0.1 X10*3/uL (0.0-0.2); Basophils Percent Auto 0.3 % (0-2); Hematocrit 44.1 % (37.0-47.0); Hemoglobin 15.6 g/dl (12.0-16.0); Imm Gran Abs Auto 0.06 X10*3/uL (0.00-0.03); Imm Gran Pct Auto 0.4 % (0.0-0.4); Lymphocytes Absolute Auto 0.5 X10*3/uL (1.2-4.9); Lymphocytes Percent Auto 3.1 % (20-40); MANUAL DIFF FLAG SCAN; Mean Corpuscular HGB Conc 35.4 g/dl (31.0-35.0); Mean Corpuscular Hemoglobin 32.3 pg (27.0-33.0); Mean Corpuscular Volume 91.3 fL (80.0-98.0); Mean Platelet Volume 10.1 fL (9.4-12.3); Monocytes Absolute Auto 0.1 X10*3/uL (0.1-1.2); Monocytes Percent Auto 0.6 % (2-11); Neutrophils Absolute Auto 14.7 x10*3/uL (2.0-8.3); Neutrophils Percent Auto 95.6 % (45-73); Platelet Count 309 X10*3/uL (160-400); Red Blood Count 4.83 X10*6/uL (4.20-5.50); Red Cell Distribution Width 12.6 % (11.0-16.0); SCAN SMEAR FLAG 1; White Blood Count 15.4 X10*3/uL (4.8-10.8)
[2022-03-16] MEDS: methylPREDNISolone Sod Succ 125 MG/2 ML VIAL IVPUSH (16:53)
[2022-03-16] MEDS: Magnesium Sulfate/H2O 2 GM/50 ML PIGGYBACK IV (16:53)
[2022-03-16 16:56] LABS: D Dimer High Sensitivity < 150 NG/ML
[2022-03-16 17:04] LABS: COVID-19 Test Negative (Negative); IDNOW Serial# 16C4AD1C
[2022-03-16 17:06] LABS: Alanine Aminotransferase 16 U/L (0-31); Albumin Level 4.5 g/dL (3.5-5.0); Alkaline Phosphatase 80 U/L (39-117); Anion Gap 18 (12-20); Aspartate Amino Transferase 19 U/L (5-31); Bilirubin Total 0.7 mg/dL (0.0-1.0); Blood Urea Nitrogen 10 mg/dL (9-16); Calcium 9.7 mg/dL (8.4-10.2); Carbon Dioxide 18 mmol/L (22-29); Chloride 106 mmol/L (96-108); Creatinine Clr Calc Pharmacy 126.2; Estimated Glomerular Filt Rate > 60; Glucose Random 145 mg/dL (60-115); Magnesium 1.7 mg/dL (1.6-2.6); Potassium 4.2 mmol/L (3.3-5.1); Sodium 138 mmol/L (135-145); Total Protein 7.6 g/dL (6.5-8.0)
[2022-03-16 17:10] LABS: Troponin-I High Sensitivity < 3.5 ng/L (<3.5-17.0)
[2022-03-16 17:20] LABS: SLIDE REVIEW VERIFIED
[2022-03-16 17:28] LABS: Influenza A PCR NEGATIVE (Negative); Influenza B PCR NEGATIVE (Negative); Resp Syncy Virus RNA Qual PCR NEGATIVE (Negative); SARS COV2 PCR INHOUSE NEGATIVE (Negative)
[2022-03-16 17:36] LABS: Appearance Urine Clear; Color Urine Dark Yellow; Glucose Urine UA Negative (Negative); Leukocyte Esterase Urine Negative (Negative); Nitrite Urine Negative (Negative); PH 5.5 (5.0-9.0); Specific Gravity - Urine >= 1.030 (1.005-1.025); UMIC TRIGGER UACC YES; Urine Blood Small (1+) (Negative); Urine Ketones >=160 mg/dL (Negative); Urine Protein 30 (1+) mg/dL (Neg-Trace)
[2022-03-16 17:41] LABS: Bacteria Urine 1+ (None Seen); Hyaline Casts Urine 0-2 /LPF (0-2); WBC Urine 0-5 /HPF (0-5)
[2022-03-16] MEDS: LORazepam 1 MG TABLET PO (18:02)
[2022-03-16 18:46] VITALS: BP 150/80; PULSE 127; RESP 29; TEMP 530.7; TEMP 987.2; O2SAT 94
[2022-03-16 19:06] LABS: Strep A Nucleic Acid Negative (Negative)
[2022-03-16 19:07] LABS: Monotest Negative (Negative)
--- NOTE | 2022-03-16 19:10 | PC.NURSE ---
IV # 20 placed in right AC without problem
--- NOTE | 2022-03-16 19:44 | P.HPHOSP_ITS ---
History of Present Illness Date of Service: 03/16/22 Chief Complaint: Dyspnea and wheezing This is a 21-year-old female with no pertinent past medical history and who is not on prescription medications presents to the emergency department for evaluation of dyspnea and wheezing. Patient states it started 2 days prior to presentation. She has been having upper respiratory tract symptoms including runny nose and watering of eyes. Patient did not take anything for it and thought it was her allergies. Soon after she started having difficulty breathing, worse with ambulation and wheezing. Does not have history of asthma or COPD. Does smoke marijuana but no history of tobacco chewing or smoking. 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 Does have intermittent dry cough but no fever or chills, nausea, vomiting, chest discomfort, palpitations, abdominal pain, changes in urinary or bowel habits Patient went to urgent care earlier today where she received steroids and 2 rounds of breathing treatments. The treatment transiently relieved her symptoms but they recurred and she presented to the ER. In the emergency department patient got steroids, magnesium sulfate and multiple rounds of breathing treatments but continues to have significant expiratory wheezing and hence will be admitted for further evaluation and management. Review of Systems Review of Systems: All 13 review of systems are negative except as noted in [facility] Social History Advance Directives: No Advance Directives Information Provided: No Meds Allergies Allergy/AdvReac Type Severity Reaction Status Date / Time No Known Allergies Allergy Verified 01/19/21 09:09 Active Medications: Current Medications Acetaminophen (Acetaminophen 325 Mg Tablet) 650 mg PO Q6H PRN PRN Reason: Pain, Mild (Pain Scale 1-3) Albuterol/Ipratropium (Albuterol/Iprat 2.5/0.5mg 3 Ml Ampul.Neb) 3 ml INHALE Q4H EILEEN Albuterol/Ipratropium (Albuterol/Iprat 2.5/0.5mg 3 Ml Ampul.Neb) 3 ml INHALE Q4H PRN PRN Reason: Wheezing Benzonatate (Benzonatate 100 Mg Capsule) 200 mg PO TID PRN PRN Reason: Cough Fluticasone Propionate (Fluticasone Propionate Nasal 16 Gm [place]) 2 spray NOSTRIL-B BID EILEEN Melatonin (Melatonin 3 Mg Tablet) 6 mg PO BEDTIME PRN PRN Reason: Insomnia Ondansetron HCl (Ondansetron Hcl 4 Mg/2 Ml Vial) 4 mg IVPUSH Q8H PRN PRN Reason: Nausea and Vomiting Pharmacy Consult (Consult Rx Perform Med Rec) 1 each MISCELLANE ONCE STA Stop: 03/16/22 19:36 Prednisone (Prednisone 20 Mg Tablet) 40 mg PO DAILY [facility] Sodium Chloride (0.9 % Sodium Chloride Flush 3 Ml Syringe) 3 ml IVFLUSH QSHIFT EILEEN Physical Exam Vital Signs and Narrative: Vital Signs: Last Vital Signs Temp 987.2 F H 03/16/22 18:46 Pulse 127 H 03/16/22 18:46 Resp 29 H 03/16/22 18:46 BP 150/80 H 03/16/22 18:46 Pulse Ox 94 03/16/22 18:46 O2 Del Method 03/16/22 18:46 BMI result Body Mass Index 35.4 Young female lying in bed in no distress Neck supple, no JVD Tachycardic with regular rhythm, S1-S2 heard Bilateral expiratory wheeze appreciated Abdomen soft nontender, no guarding, no rigidity Patient is awake, alert and oriented to self, place, time and person ; no focal motor deficit Psych: Normal mood No pedal edema Results Labs CBC and Chem 7: 03/16/22 16:38 03/16/22 16:38 Labs: Laboratory Results - last 24 hr 03/16/22 03/16/22 03/16/22 16:38 16:38 16:38 MCV 91.3 MCH 32.3 MCHC 35.4 H RDW 12.6 Plt Count 309 MPV 10.1 Immature Gran % (Auto) 0.4 Neut % (Auto) 95.6 H Lymph % (Auto) 3.1 L [place] % (Auto) 0.6 L Eos % (Auto) 0.0 Baso % (Auto) 0.3 Lymph # (Auto) 0.5 L [place] # (Auto) 0.1 Eos # (Auto) 0.0 Baso # (Auto) 0.1 Abs Immat Gran (auto) 0.06 H Absolute Neuts (auto) 14.7 H Absolute Nucleated RBC 0.000 Nucleated RBC % (auto) 0.0 Smear Tech's Comments VERIFIED D-Dimer High Sensitivty < 150 Anion Gap 18 Estim Creat Clear Calc 126.2 Estimated GFR > 60 Random Glucose 145 H Calcium 9.7 Magnesium 1.7 Total Bilirubin 0.7 AST 19 ALT 16 Alkaline Phosphatase 80 Troponin I High Sens Total Protein 7.6 Albumin 4.5 Urine Color Urine Appearance Urine pH Ur Specific [place] Urine Protein Urine Glucose (UA) Urine Ketones Urine Blood Urine Nitrite Ur Leukocyte Esterase Urine RBC Urine WBC Ur Squamous Epith Cells Urine Bacteria Hyaline Casts COVID-19 (LIZZETTE) COVID-19 Clin Com Monoscreen Influenza Type A (PCR) Influenza Type B (PCR) RSV RNA Qual (PCR) SARS-CoV-2 RNA (RT-PCR) S. pyogenes GrpA NIGHAT 03/16/22 03/16/22 03/16/22 16:38 16:38 16:40 MCV MCH MCHC RDW Plt Count MPV Immature Gran % (Auto) Neut % (Auto) Lymph % (Auto) [place] % (Auto) Eos % (Auto) Baso % (Auto) Lymph # (Auto) [place] # (Auto) Eos # (Auto) Baso # (Auto) Abs Immat Gran (auto) Absolute Neuts (auto) Absolute Nucleated RBC Nucleated RBC % (auto) Smear Tech's Comments D-Dimer High Sensitivty Anion Gap Estim Creat Clear Calc Estimated GFR Random Glucose Calcium Magnesium Total Bilirubin AST ALT Alkaline Phosphatase Troponin I High Sens < 3.5 Total Protein Albumin Urine Color Urine Appearance Urine pH Ur Specific [place] Urine Protein Urine Glucose (UA) Urine Ketones Urine Blood Urine Nitrite Ur Leukocyte Esterase Urine RBC Urine WBC Ur Squamous Epith Cells Urine Bacteria Hyaline Casts COVID-19 (LIZZETTE) Negative COVID-19 Clin Com See Note Monoscreen Influenza Type A (PCR) NEGATIVE Influenza Type B (PCR) NEGATIVE RSV RNA Qual (PCR) NEGATIVE SARS-CoV-2 RNA (RT-PCR) NEGATIVE S. pyogenes GrpA NIGHAT 03/16/22 03/16/22 03/16/22 17:23 18:45 18:45 MCV MCH MCHC RDW Plt Count MPV Immature Gran % (Auto) Neut % (Auto) Lymph % (Auto) [place] % (Auto) Eos % (Auto) Baso % (Auto) Lymph # (Auto) [place] # (Auto) Eos # (Auto) Baso # (Auto) Abs Immat Gran (auto) Absolute Neuts (auto) Absolute Nucleated RBC Nucleated RBC % (auto) Smear Tech's Comments D-Dimer High Sensitivty Anion Gap Estim Creat Clear Calc Estimated GFR Random Glucose Calcium Magnesium Total Bilirubin AST ALT Alkaline Phosphatase Troponin I High Sens Total Protein Albumin Urine Color Dark Yellow Urine Appearance Clear Urine pH 5.5 Ur Specific [place] >= 1.030 H Urine Protein 30 (1+) H Urine Glucose (UA) Negative Urine Ketones >=160 Urine Blood Small (1+) H Urine Nitrite Negative Ur Leukocyte Esterase Negative Urine RBC 11-20 H Urine WBC 0-5 Ur Squamous Epith Cells 3-5 Urine Bacteria 1+ Hyaline Casts 0-2 COVID-19 (LIZZETTE) COVID-19 Clin Com Monoscreen Negative Influenza Type A (PCR) Influenza Type B (PCR) RSV RNA Qual (PCR) SARS-CoV-2 RNA (RT-PCR) S. pyogenes GrpA NIGHAT Negative Imaging Radiologist's Impressions: Impressions Chest X-Ray 03/16/22 17:00 IMPRESSION: No evidence of acute disease. Assessment and Plan (1) Dyspnea: Status: Acute (2) Exacerbation of asthma: Status: Acute Plan This is a 21-year-old female with no pertinent past medical history and who is not on prescription medications presents to the emergency department for evaluation of dyspnea and wheezing. #. Acute dyspnea due to exacerbation of obstructive lung disease, likely asthma -due to viral upper respiratory tract infection. No concern for bacterial superinfection. Will admit patient and initiate DuoNeb scheduled and p.r.n.. Initiate oral prednisone 40 mg daily. Does not have a history of asthma or COPD, will need spirometry after discharge as an outpatient. Also not on home maintenance inhalers. Symptomatic treatment for viral URI. #. Sinus tachycardia in the setting of above -monitor #. Leukocytosis due to steroid use DVT prophylaxis: None. Patient is ambulatory Diet: Regular diet Full code Quality Stroke Does the patient have a stroke diagnosis?: No VTE Prior VTE?: No VTE Risk Level:: Medical - low VTE Device Contraindication: Treatment Not Indicated VTE Drug Contraindication: Treatment Not Indicated
--- NOTE | 2022-03-16 20:38 | PHA.MEDREC ---
Pharmacy Consult ? Medication Reconciliation Pharmacy has completed the medication reconciliation. spoke with pt.
[2022-03-16 22:48] VITALS: BP 160/81; PULSE 120; RESP 20; TEMP 36.8; O2SAT 95
[2022-03-16] MEDS: Acetaminophen 325 MG TABLET 650 MG PO (23:00)
[2022-03-16] MEDS: Melatonin 3 MG TABLET 6 MG PO (23:11)
[2022-03-16] MEDS: Benzonatate 100 MG CAPSULE 200 MG PO (23:16)
[2022-03-17] VITALS (11 sets, daily range): BP systolic 115–172; BP diastolic 57–94; PULSE 94–139; RESP 12–22; TEMP 36.6–37.1; O2SAT 92–97
[2022-03-17] MEDS: Ketorolac Tromethamine 30 MG/ML VIAL IVPUSH (02:12)
--- NOTE | 2022-03-17 02:40 | PC.NURSE ---
pt ambulated to the bathroom with a steady gait.
[2022-03-17] MEDS: Butalb/Acetamin/Caff 50/325/40 TABLET 1 TAB PO (04:19)
--- NOTE | 2022-03-17 04:25 | PC.NURSE ---
The pt requested a PRN Duoneb approximately 60 minutes ago. She was administered the neb by RT and it completed approximately 30 minutes ago. the pt now [id number] to complain of a severe MAHER and her HR is elevated in the 140's. She also continues to have inspiratory and expiratory wheezes. Her room air sat's remain 95% or better. Her RR is WNL, no cyanosis, no retractions. Hospitalist Sanaz informed of all of this at this time via tiger text and he replied that he is aware. Patients' father remains at the bedside.
[2022-03-17 04:47] LABS: Basophils Percent Auto 0.1 % (0-2); Hematocrit 40.7 % (37.0-47.0); Hemoglobin 14.3 g/dl (12.0-16.0); Imm Gran Abs Auto 0.14 X10*3/uL (0.00-0.03); Imm Gran Pct Auto 0.6 % (0.0-0.4); Lymphocytes Absolute Auto 0.7 X10*3/uL (1.2-4.9); Lymphocytes Percent Auto 2.9 % (20-40); MANUAL DIFF FLAG SCAN; Mean Corpuscular HGB Conc 35.1 g/dl (31.0-35.0); Mean Corpuscular Hemoglobin 32.4 pg (27.0-33.0); Mean Corpuscular Volume 92.1 fL (80.0-98.0); Mean Platelet Volume 9.8 fL (9.4-12.3); Monocytes Absolute Auto 0.6 X10*3/uL (0.1-1.2); Monocytes Percent Auto 2.6 % (2-11); Neutrophils Absolute Auto 21.6 x10*3/uL (2.0-8.3); Neutrophils Percent Auto 93.8 % (45-73); Platelet Count 326 X10*3/uL (160-400); Red Blood Count 4.42 X10*6/uL (4.20-5.50); Red Cell Distribution Width 12.6 % (11.0-16.0); SCAN SMEAR FLAG 1
[2022-03-17 05:08] LABS: SLIDE REVIEW VERIFIED
[2022-03-17 05:09] LABS: Anion Gap 16 (12-20); Blood Urea Nitrogen 8 mg/dL (9-16); Calcium 9.2 mg/dL (8.4-10.2); Carbon Dioxide 18 mmol/L (22-29); Chloride 107 mmol/L (96-108); Estimated Glomerular Filt Rate > 60; Glucose Random 166 mg/dL (60-115); Potassium 3.3 mmol/L (3.3-5.1); Sodium 138 mmol/L (135-145)
[2022-03-17] MEDS: Albuterol/Iprat 2.5/0.5MG 3 ML AMPUL.NEB INHALE ×2 (05:30→07:54)
[2022-03-17] MEDS: Benzonatate 100 MG CAPSULE 200 MG PO ×2 (06:37→14:00)
[2022-03-17] MEDS: Metoprolol Tartrate 5 MG/5 ML VIAL 2.5 MG IVPUSH ×2 (06:38→19:59)
--- NOTE | 2022-03-17 07:47 | PC.NURSE ---
pt is a/o x 4 c/o sob no alysa noted. speaks in full sentences. lungs - insp/exp wheezing. heart sounds - regular but tachy (131). abd soft non-tender. bs + x 4 quads.c/o sore throat when swallowing. pt aware of plan of care.
[2022-03-17] MEDS: 0.9 % Sodium Chloride Flush 3 ML SYRINGE IVFLUSH ×3 (07:52→21:25)
[2022-03-17] MEDS: methylPREDNISolone Sod Succ 40 MG/ML VIAL IVPUSH ×2 (09:31→21:09)
[2022-03-17] MEDS: Loratadine 10 MG TABLET PO (09:31)
--- NOTE | 2022-03-17 10:22 | HO.PM.IMPN ---
Subjective Subjective Date of Service: 03/17/22 Interval History: seen and examined this AM feeling better but still has MACIAS and wheezing denies personal or family history of eczema or asthma; endorses personal history of allergies Review of Systems negative except HPI Physical Exam Vital Signs: Vital Signs: Last Vital Signs Temp 98.2 F 03/17/22 07:08 Pulse 139 H 03/17/22 07:58 Resp 21 H 03/17/22 07:58 BP 158/94 H 03/17/22 07:08 Pulse Ox 96 03/17/22 07:08 O2 Del Method 03/17/22 07:08 BMI result Body Mass Index 35.4 Const: Other: General - no acute distress, appears comfortable Cardiovascular -sinus tachycardia in the 120s on monitor Lungs - comfortable at rest but mildly tachypneic after convseraion Abdomen - soft, nontender, no rebound or guarding Extremities - no edema bilaterally Neuro - awake and alert, no focal deficits Objective Data Active Medications Acetaminophen (Acetaminophen 325 Mg Tablet) 650 mg PO Q6H PRN PRN Reason: Pain, Mild (Pain Scale 1-3) Last Admin: 03/16/22 23:00 Dose: 650 mg Documented By: RAVI Benzonatate (Benzonatate 100 Mg Capsule) 200 mg PO TID PRN PRN Reason: Cough Last Admin: 03/17/22 06:37 Dose: 200 mg Documented By: RAVI Fluticasone Propionate (Fluticasone Propionate Nasal 16 Gm [place]) 2 spray NOSTRIL-B BID [facility] Last Admin: 03/16/22 23:30 Dose: Not Given Documented By: RAVI Non-Admin Reason: Med Not Available Ipratropium [place] (Ipratropium [place] 0.5 Mg/2.5 Ml Solution) 0.5 mg INHALE RQ4H WHILE AWAKE [facility] Levalbuterol HCl (Levalbuterol Hcl 1.25 Mg/0.5 Ml Vial.Neb) 1.25 mg INHALE RQ4H WHILE AWAKE [facility] Levalbuterol HCl (Levalbuterol Hcl 1.25 Mg/0.5 Ml Vial.Neb) 1.25 mg INHALE Q3H PRN PRN Reason: Wheezing Loratadine (Loratadine 10 Mg Tablet) 10 mg PO DAILY [facility] Last Admin: 03/17/22 09:31 Dose: 10 mg Documented By: HERNANDEZ Melatonin (Melatonin 3 Mg Tablet) 6 mg PO BEDTIME PRN PRN Reason: Insomnia Last Admin: 03/16/22 23:11 Dose: 6 mg Documented By: RAVI Methylprednisolone Sodium Succinate (Methylprednisolone Sod Succ 40 Mg/Ml Vial) 40 mg IVPUSH BID [facility] Last Admin: 03/17/22 09:31 Dose: 40 mg Documented By: HERNANDEZ Ondansetron HCl (Ondansetron Hcl 4 Mg/2 Ml Vial) 4 mg IVPUSH Q8H PRN PRN Reason: Nausea and Vomiting Sodium Chloride (0.9 % Sodium Chloride Flush 3 Ml Syringe) 3 ml IVFLUSH QSHIFT [facility] Last Admin: 03/17/22 07:52 Dose: 3 ml Documented By: HERNANDEZ Labs CBC & Chem 7: 03/17/22 04:10 03/17/22 04:10 Labs: Laboratory Results - last 24 hr 03/16/22 03/16/22 03/16/22 16:38 16:38 16:38 MCV 91.3 MCH 32.3 MCHC 35.4 H RDW 12.6 Plt Count 309 MPV 10.1 Immature Gran % (Auto) 0.4 Neut % (Auto) 95.6 H Lymph % (Auto) 3.1 L [place] % (Auto) 0.6 L Eos % (Auto) 0.0 Baso % (Auto) 0.3 Lymph # (Auto) 0.5 L [place] # (Auto) 0.1 Eos # (Auto) 0.0 Baso # (Auto) 0.1 Abs Immat Gran (auto) 0.06 H Absolute Neuts (auto) 14.7 H Absolute Nucleated RBC 0.000 Nucleated RBC % (auto) 0.0 Smear Tech's Comments VERIFIED D-Dimer High Sensitivty < 150 Anion Gap 18 Estim Creat Clear Calc 126.2 Estimated GFR > 60 Random Glucose 145 H Calcium 9.7 Magnesium 1.7 Total Bilirubin 0.7 AST 19 ALT 16 Alkaline Phosphatase 80 Troponin I High Sens Total Protein 7.6 Albumin 4.5 Urine Color Urine Appearance Urine pH Ur Specific [place] Urine Protein Urine Glucose (UA) Urine Ketones Urine Blood Urine Nitrite Ur Leukocyte Esterase Urine RBC Urine WBC Ur Squamous Epith Cells Urine Bacteria Hyaline Casts COVID-19 ([facility]TE) COVID-19 Clin Com Monoscreen Influenza Type A (PCR) Influenza Type B (PCR) RSV RNA Qual (PCR) SARS-CoV-2 RNA (RT-PCR) S. pyogenes GrpA NIGHAT 03/16/22 03/16/22 03/16/22 16:38 16:38 16:40 MCV MCH MCHC RDW Plt Count MPV Immature Gran % (Auto) Neut % (Auto) Lymph % (Auto) [place] % (Auto) Eos % (Auto) Baso % (Auto) Lymph # (Auto) [place] # (Auto) Eos # (Auto) Baso # (Auto) Abs Immat Gran (auto) Absolute Neuts (auto) Absolute Nucleated RBC Nucleated RBC % (auto) Smear Tech's Comments D-Dimer High Sensitivty Anion Gap Estim Creat Clear Calc Estimated GFR Random Glucose Calcium Magnesium Total Bilirubin AST ALT Alkaline Phosphatase Troponin I High Sens < 3.5 Total Protein Albumin Urine Color Urine Appearance Urine pH Ur Specific [place] Urine Protein Urine Glucose (UA) Urine Ketones Urine Blood Urine Nitrite Ur Leukocyte Esterase Urine RBC Urine WBC Ur Squamous Epith Cells Urine Bacteria Hyaline Casts COVID-19 ([facility]TE) Negative COVID-19 Clin Com See Note Monoscreen Influenza Type A (PCR) NEGATIVE Influenza Type B (PCR) NEGATIVE RSV RNA Qual (PCR) NEGATIVE SARS-CoV-2 RNA (RT-PCR) NEGATIVE S. pyogenes GrpA NIGHAT 03/16/22 03/16/22 03/16/22 17:23 18:45 18:45 MCV MCH MCHC RDW Plt Count MPV Immature Gran % (Auto) Neut % (Auto) Lymph % (Auto) [place] % (Auto) Eos % (Auto) Baso % (Auto) Lymph # (Auto) [place] # (Auto) Eos # (Auto) Baso # (Auto) Abs Immat Gran (auto) Absolute Neuts (auto) Absolute Nucleated RBC Nucleated RBC % (auto) Smear Tech's Comments D-Dimer High Sensitivty Anion Gap Estim Creat Clear Calc Estimated GFR Random Glucose Calcium Magnesium Total Bilirubin AST ALT Alkaline Phosphatase Troponin I High Sens Total Protein Albumin Urine Color Dark Yellow Urine Appearance Clear Urine pH 5.5 Ur Specific [place] >= 1.030 H Urine Protein 30 (1+) H Urine Glucose (UA) Negative Urine Ketones >=160 Urine Blood Small (1+) H Urine Nitrite Negative Ur Leukocyte Esterase Negative Urine RBC 11-20 H Urine WBC 0-5 Ur Squamous Epith Cells 3-5 Urine Bacteria 1+ Hyaline Casts 0-2 COVID-19 ([facility]TE) COVID-19 Clin Com Monoscreen Negative Influenza Type A (PCR) Influenza Type B (PCR) RSV RNA Qual (PCR) SARS-CoV-2 RNA (RT-PCR) S. pyogenes GrpA NIGHAT Negative 03/17/22 03/17/22 04:10 04:10 MCV 92.1 MCH 32.4 MCHC 35.1 H RDW 12.6 Plt Count 326 MPV 9.8 Immature Gran % (Auto) 0.6 H Neut % (Auto) 93.8 H Lymph % (Auto) 2.9 L [place] % (Auto) 2.6 Eos % (Auto) 0.0 Baso % (Auto) 0.1 Lymph # (Auto) 0.7 L [place] # (Auto) 0.6 Eos # (Auto) 0.0 Baso # (Auto) 0.0 Abs Immat Gran (auto) 0.14 H Absolute Neuts (auto) 21.6 H Absolute Nucleated RBC 0.000 Nucleated RBC % (auto) 0.0 Smear Tech's Comments VERIFIED D-Dimer High Sensitivty Anion Gap 16 Estim Creat Clear Calc 137.0 Estimated GFR > 60 Random Glucose 166 H Calcium 9.2 Magnesium Total Bilirubin AST ALT Alkaline Phosphatase Troponin I High Sens Total Protein Albumin Urine Color Urine Appearance Urine pH Ur Specific [place] Urine Protein Urine Glucose (UA) Urine Ketones Urine Blood Urine Nitrite Ur Leukocyte Esterase Urine RBC Urine WBC Ur Squamous Epith Cells Urine Bacteria Hyaline Casts COVID-19 ([facility]ZZETTE) COVID-19 Clin Com Monoscreen Influenza Type A (PCR) Influenza Type B (PCR) RSV RNA Qual (PCR) SARS-CoV-2 RNA (RT-PCR) S. pyogenes GrpA NIGHAT Assessment and Plan (1) Asthma with exacerbation: Status: Acute Plan 21 yo F with a history of seasonal allergies who presents with a several day history of URI / allergic symptoms. Found to have diffuse wheezing with respiratory distress and tachycardia. Admitted for further treatment. 1. Suspected acute asthma exacerbation (undiagnosed formally) Change prednisone to solu-medrol BID for today change DuoNEbs to xopenex in light of tachycardia -- continue scheduled + PRN will likely need outpatient pulmonary follow up 2. Sinus tachycardia likely compensation due to acute asthma exacerbation + use of albuterol; changed to xopenex as above 3. Leukocytosis likely reactive + secondary to steroid use no evidence of acute infection at this time Reason for continued hospitalization: Pt continues to have wheezing and MACIAS on minimal exertion. Will continue with treatment for 24 hours and re-evaluate with likely d/c tomrorrow. Quality Stroke Does the patient have a stroke diagnosis?: No VTE Prior VTE?: No VTE Risk Level:: Medical - low VTE Device Contraindication: Treatment Not Indicated VTE Drug Contraindication: Treatment Not Indicated
[2022-03-17] MEDS: Ipratropium Bromide 0.5 MG/2.5 ML SOLUTION INHALE ×3 (11:04→19:29)
--- NOTE | 2022-03-17 13:59 | PC.NURSE ---
pt c/o sob, lungs - diminished all lobes, 02 applied at 2l/m via n/c. rt called for neb tx. pt aware of plan of care.
[2022-03-17] MEDS: Acetaminophen 325 MG TABLET 650 MG PO (14:00)
--- NOTE | 2022-03-17 16:30 | PC.NURSE ---
assumed care of pt in ED overflow, father at bedside.
--- NOTE | 2022-03-17 17:39 | PC.NURSE ---
pt a&ox3, sinus tach on monitor, single ep of hr going up to 160, rhythm strip sent by ICU monitor to provider. pt tearful in room after ending a phone call, other vss.
--- NOTE | 2022-03-17 18:01 | PM.EVENT ---
Event Note Date of Service: 03/17/22 Event Note: Transient tachycardia sinus tachy related to anxiety, beta agonist effect. Monitor
[2022-03-17] MEDS: LORazepam 1 MG TABLET PO (19:58)
--- NOTE | 2022-03-17 20:04 | PC.NURSE ---
pt having increased anxiety, hyperventilating, crying, father at bedside, HR in 160s, provider contacted, medicated per provider order. O2 @ 2L, other vss.
[2022-03-18] VITALS (8 sets, daily range): BP systolic 119–137; BP diastolic 62–88; PULSE 81–112; RESP 15–18; TEMP 36.6–37.3; O2SAT 92–98
[2022-03-18] MEDS: Acetaminophen 325 MG TABLET 650 MG PO (04:45)
[2022-03-18] MEDS: 0.9 % Sodium Chloride Flush 3 ML SYRINGE IVFLUSH ×3 (07:32→23:35)
[2022-03-18] MEDS: methylPREDNISolone Sod Succ 40 MG/ML VIAL IVPUSH (07:32)
[2022-03-18] MEDS: Loratadine 10 MG TABLET PO (07:32)
[2022-03-18] MEDS: Ipratropium Bromide 0.5 MG/2.5 ML SOLUTION INHALE ×3 (08:32→16:57)
--- NOTE | 2022-03-18 10:27 | MHC.CM.PN ---
ADITI 03/18/22, CM MET W/PT AND FATHER AT BEDSIDE, PT REPORTS SHE LIVES W/HER PARENTS,IS INDEP W/ALL CARE, DENIES USE OF DME/HOME SERVICES, PT VERIFIES [facility]ER[facility] X3 AND HER PCP IS CINTHIA VALDIVIA WHOM SHE HAS YET TO SEE BUT PLANS ON MAKING APPT ONCE DISCHARGED FROM HOSPITAL, PT EDUCATED ON AND DECLINED TO COMPLETE A HCP. DCP: HOME NO SERVICES W/FAMILY FOR TRANSPORT.
[2022-03-18] MEDS: Montelukast Sodium 10 MG TABLET PO (11:38)
[2022-03-18] MEDS: methylPREDNISolone Sod Succ 125 MG/2 ML VIAL 60 MG IVPUSH ×3 (11:38→23:31)
--- NOTE | 2022-03-18 14:02 | HO.PM.IMPN ---
Subjective Subjective Date of Service: 03/18/22 Interval History: Feels better today but remains wheezy Review of Systems Denies chest pain Denies shortness of breath Denies nausea vomiting diarrhea Denies fever chills Physical Exam Vital Signs: Vital Signs: Last Vital Signs Temp 98 F 03/18/22 11:02 Pulse 110 H 03/18/22 12:08 Resp 18 03/18/22 12:08 BP 137/77 03/18/22 11:02 Pulse Ox 95 03/18/22 11:02 O2 Del Method 03/18/22 11:02 BMI result Body Mass Index 35.4 Const: Other: Awake alert no acute distress speaking in full sentences. Neck: Other: No retractions Resp: Other: Diminished at bases with dense expiratory wheezes throughout Cardio: Other: No S4; positive S1-S2; no S3 murmurs rubs or gallops GI: Other: Soft nontender nondistended with normoactive bowel sounds Neuro: Other: Cranial nerves 2-12 grossly intact as tested. Motor is 5/5 all extremities sensation intact Extrem: Other: No edema bilaterally Objective Data Active Medications Acetaminophen (Acetaminophen 325 Mg Tablet) 650 mg PO Q6H PRN PRN Reason: Pain, Mild (Pain Scale 1-3) Last Admin: 03/18/22 04:45 Dose: 650 mg Documented By: MORRINL Benzonatate (Benzonatate 100 Mg Capsule) 200 mg PO TID PRN PRN Reason: Cough Last Admin: 03/17/22 14:00 Dose: 200 mg Documented By: HERNANDEZ Fluticasone Propionate (Fluticasone Propionate Nasal 16 Gm [place]) 2 spray NOSTRIL-B BID [facility] Last Admin: 03/18/22 09:17 Dose: Not Given Documented By: DEBBI Non-Admin Reason: Med Not Available Ipratropium [place] (Ipratropium [place] 0.5 Mg/2.5 Ml Solution) 0.5 mg INHALE RQ4H WHILE AWAKE [facility] Last Admin: 03/18/22 12:06 Dose: 0.5 mg Documented By: RIGOBERTO Levalbuterol HCl (Levalbuterol Hcl 1.25 Mg/0.5 Ml Vial.Neb) 1.25 mg INHALE RQ4H WHILE AWAKE [facility] Last Admin: 03/18/22 12:07 Dose: 1.25 mg Documented By: RIGOBERTO Levalbuterol HCl (Levalbuterol Hcl 1.25 Mg/0.5 Ml Vial.Neb) 1.25 mg INHALE Q3H PRN PRN Reason: Wheezing Loratadine (Loratadine 10 Mg Tablet) 10 mg PO DAILY [facility] Last Admin: 03/18/22 07:32 Dose: 10 mg Documented By: DEBBI Melatonin (Melatonin 3 Mg Tablet) 6 mg PO BEDTIME PRN PRN Reason: Insomnia Last Admin: 03/16/22 23:11 Dose: 6 mg Documented By: RAVI Methylprednisolone Sodium Succinate (Methylprednisolone Sod Succ 125 Mg/2 Ml Vial) 60 mg IVPUSH Q6H [facility] Last Admin: 03/18/22 11:38 Dose: 60 mg Documented By: DEBBI Ondansetron HCl (Ondansetron Hcl 4 Mg/2 Ml Vial) 4 mg IVPUSH Q8H PRN PRN Reason: Nausea and Vomiting Sodium Chloride (0.9 % Sodium Chloride Flush 3 Ml Syringe) 3 ml IVFLUSH QSHIFT [facility] Last Admin: 03/18/22 07:32 Dose: 3 ml Documented By: DEBBI Labs CBC & Chem 7: 03/17/22 04:10 03/17/22 04:10 Assessment and Plan (1) Asthma with exacerbation: Status: Acute Plan 21 yo F with a history of seasonal allergies who presents with a several day history of URI / allergic symptoms. Found to have diffuse wheezing with respiratory distress and tachycardia. Admitted for further treatment. 1. Suspected acute asthma exacerbation (undiagnosed formally) -continue methylprednisolone IV times 24 hours -scheduled Xopenex nebs -add Singulair 10 mg daily -spirometry done pre and post treatment with improvement after bronchodilation. Likely asthma recommend pulmonary follow-up as outpatient 2. Sinus tachycardia -likely related to asthma exacerbation and/beta agonists 3. Leukocytosis -likely combination of demarginalization secondary to steroids Requires ongoing hospitalization for IV steroids for minimal of 24 hours Quality Stroke Does the patient have a stroke diagnosis?: No VTE Prior VTE?: No VTE Risk Level:: Medical - low VTE Device Contraindication: Treatment Not Indicated VTE Drug Contraindication: Treatment Not Indicated
--- NOTE | 2022-03-18 15:14 | ECG_ITS ---
Test Reason : CHEST PAIN Blood Pressure : / mmHG Vent. Rate : 100 BPM Atrial Rate : 100 BPM P-R Int : 116 ms QRS Dur : 080 ms QT Int : 338 ms P-R-T Axes : 065 074 044 degrees QTc Int : 436 ms Normal sinus rhythm Sinus Arrhythmia Normal ECG No previous ECGs available Referred By: José Miguel Davison Electronically Signed By:LACI MARAVILLA MD
[2022-03-18] MEDS: Morphine Sulfate 4 MG/ML CARTRIDGE IVPUSH (15:52)
[2022-03-19] VITALS (13 sets, daily range): BP systolic 121–173; BP diastolic 62–99; PULSE 66–111; RESP 16–22; TEMP 36–37.1; O2SAT 93–97
[2022-03-19] MEDS: Morphine Sulfate 4 MG/ML CARTRIDGE IVPUSH (03:21)
[2022-03-19] MEDS: Milk of Magnesia 30 ML ORAL.SUSP PO ×2 (03:40→16:45)
[2022-03-19] MEDS: Ipratropium Bromide 0.5 MG/2.5 ML SOLUTION INHALE ×5 (03:42→19:21)
[2022-03-19] MEDS: methylPREDNISolone Sod Succ 125 MG/2 ML VIAL 60 MG IVPUSH ×3 (05:45→16:49)
[2022-03-19 07:16] LABS: MANUAL DIFF FLAG NO
[2022-03-19 07:20] LABS: Basophils Percent Auto 0.2 % (0-2); Hematocrit 42.7 % (37.0-47.0); Hemoglobin 14.8 g/dl (12.0-16.0); Imm Gran Abs Auto 0.18 X10*3/uL (0.00-0.03); Mean Corpuscular HGB Conc 34.7 g/dl (31.0-35.0); Mean Corpuscular Hemoglobin 32.6 pg (27.0-33.0); Mean Corpuscular Volume 94.1 fL (80.0-98.0); Mean Platelet Volume 10.5 fL (9.4-12.3); Monocytes Absolute Auto 0.6 X10*3/uL (0.1-1.2); Monocytes Percent Auto 3.2 % (2-11); Neutrophils Absolute Auto 15.5 x10*3/uL (2.0-8.3); Neutrophils Percent Auto 89.6 % (45-73); Platelet Count 321 X10*3/uL (160-400); Red Blood Count 4.54 X10*6/uL (4.20-5.50); Red Cell Distribution Width 13.2 % (11.0-16.0); White Blood Count 17.3 X10*3/uL (4.8-10.8)
[2022-03-19 08:02] LABS: Alanine Aminotransferase 6 U/L (0-31); Alkaline Phosphatase 71 U/L (39-117); Anion Gap 16 (12-20); Aspartate Amino Transferase 11 U/L (5-31); Bilirubin Total 0.4 mg/dL (0.0-1.0); Blood Urea Nitrogen 14 mg/dL (9-16); Calcium 9.1 mg/dL (8.4-10.2); Carbon Dioxide 21 mmol/L (22-29); Chloride 106 mmol/L (96-108); Creatinine Clr Calc Pharmacy 131.4; Estimated Glomerular Filt Rate > 60; Glucose Fasting 121 mg/dL (60-99); Potassium 4.5 mmol/L (3.3-5.1); Sodium 138 mmol/L (135-145); Total Protein 6.8 g/dL (6.5-8.0)
[2022-03-19] MEDS: Loratadine 10 MG TABLET PO (09:17)
[2022-03-19] MEDS: 0.9 % Sodium Chloride Flush 3 ML SYRINGE IVFLUSH ×2 (09:17→17:37)
[2022-03-19] MEDS: Fluticasone Propionate Nasal 16 GM SPRAY 2 SPRAY NOSTRIL-B ×2 (09:21→20:13)
--- NOTE | 2022-03-19 14:26 | HO.PM.IMPN ---
Subjective Subjective Date of Service: 03/19/22 Interval History: Breathing improved this morning. No further chest pain Review of Systems Denies chest pain Denies shortness of breath Denies nausea vomiting diarrhea Denies fever chills Physical Exam Vital Signs: Vital Signs: Last Vital Signs Temp 96.8 F 03/19/22 11:19 Pulse 103 H 03/19/22 11:49 Resp 18 03/19/22 11:49 BP 144/80 H 03/19/22 11:19 Pulse Ox 94 03/19/22 11:19 O2 Del Method 03/19/22 11:19 BMI result Body Mass Index 35.4 Const: Other: Awake alert no acute distress speaking in full sentences. Neck: Other: No retractions Resp: Other: Diminished at bases with dense expiratory wheezes throughout Cardio: Other: No S4; positive S1-S2; no S3 murmurs rubs or gallops GI: Other: Soft nontender nondistended with normoactive bowel sounds Neuro: Other: Cranial nerves 2-12 grossly intact as tested. Motor is 5/5 all extremities sensation intact Extrem: Other: No edema bilaterally Objective Data Active Medications Acetaminophen (Acetaminophen 325 Mg Tablet) 650 mg PO Q6H PRN PRN Reason: Pain, Mild (Pain Scale 1-3) Last Admin: 03/18/22 04:45 Dose: 650 mg Documented By: MORRINL Benzonatate (Benzonatate 100 Mg Capsule) 200 mg PO TID PRN PRN Reason: Cough Last Admin: 03/17/22 14:00 Dose: 200 mg Documented By: HERNANDEZ Fluticasone Propionate (Fluticasone Propionate Nasal 16 Gm [place]) 2 spray NOSTRIL-B BID [facility] Last Admin: 03/19/22 09:21 Dose: 2 spray Documented By: BEST Ipratropium [place] (Ipratropium [place] 0.5 Mg/2.5 Ml Solution) 0.5 mg INHALE RQ4H WHILE AWAKE [facility] Last Admin: 03/19/22 11:47 Dose: 0.5 mg Documented By: YG Levalbuterol HCl (Levalbuterol Hcl 1.25 Mg/0.5 Ml Vial.Neb) 1.25 mg INHALE RQ4H WHILE AWAKE [facility] Last Admin: 03/19/22 11:47 Dose: 1.25 mg Documented By: YG Levalbuterol HCl (Levalbuterol Hcl 1.25 Mg/0.5 Ml Vial.Neb) 1.25 mg INHALE Q3H PRN PRN Reason: Wheezing Loratadine (Loratadine 10 Mg Tablet) 10 mg PO DAILY [facility] Last Admin: 03/19/22 09:17 Dose: 10 mg Documented By: BEST Magnesium Hydroxide (Milk Of Magnesia 30 Ml Oral.Susp) 30 ml PO TID PRN PRN Reason: Heartburn Last Admin: 03/19/22 03:40 Dose: 30 ml Documented By: GISELLE Melatonin (Melatonin 3 Mg Tablet) 6 mg PO BEDTIME PRN PRN Reason: Insomnia Last Admin: 03/16/22 23:11 Dose: 6 mg Documented By: RAVI Methylprednisolone Sodium Succinate (Methylprednisolone Sod Succ 125 Mg/2 Ml Vial) 60 mg IVPUSH Q6H [facility] Last Admin: 03/19/22 11:40 Dose: 60 mg Documented By: BEST Morphine Sulfate (Morphine Sulfate 4 Mg/Ml Cartridge) 4 mg IVPUSH Q4H PRN; Protocol PRN Reason: Chest Pain Last Admin: 03/19/22 03:21 Dose: 4 mg Documented By: GISELLE Ondansetron HCl (Ondansetron Hcl 4 Mg/2 Ml Vial) 4 mg IVPUSH Q8H PRN PRN Reason: Nausea and Vomiting Sodium Chloride (0.9 % Sodium Chloride Flush 3 Ml Syringe) 3 ml IVFLUSH QSHIFT [facility] Last Admin: 03/19/22 09:17 Dose: 3 ml Documented By: BEST Labs CBC & Chem 7: 03/19/22 06:12 03/19/22 06:12 Labs: Laboratory Results - last 24 hr 03/19/22 03/19/22 06:12 06:12 MCV 94.1 MCH 32.6 MCHC 34.7 RDW 13.2 Plt Count 321 MPV 10.5 Immature Gran % (Auto) 1.0 H Neut % (Auto) 89.6 H Lymph % (Auto) 6.0 L [place] % (Auto) 3.2 Eos % (Auto) 0.0 Baso % (Auto) 0.2 Lymph # (Auto) 1.0 L [place] # (Auto) 0.6 Eos # (Auto) 0.0 Baso # (Auto) 0.0 Abs Immat Gran (auto) 0.18 H Absolute Neuts (auto) 15.5 H Absolute Nucleated RBC 0.000 Nucleated RBC % (auto) 0.0 Anion Gap 16 Estim Creat Clear Calc 131.4 Estimated GFR > 60 Fasting Glucose 121 H Calcium 9.1 Total Bilirubin 0.4 AST 11 D ALT 6 Alkaline Phosphatase 71 Total Protein 6.8 Albumin 4.0 Assessment and Plan (1) Asthma with exacerbation: Status: Acute Plan 21 yo F with a history of seasonal allergies who presents with a several day history of URI / allergic symptoms. Found to have diffuse wheezing with respiratory distress and tachycardia. Admitted for further treatment. 1. Suspected acute asthma exacerbation (undiagnosed formally) -continue methylprednisolone IV -scheduled Xopenex nebs -add Singulair 10 mg daily -spirometry done pre and post treatment with improvement after bronchodilation. -pulmonary consult 2. Sinus tachycardia -likely related to asthma exacerbation and/beta agonists 3. Leukocytosis -likely combination of demarginalization secondary to steroids Requires ongoing hospitalization for IV steroids for minimal of 24 hours Quality Stroke Does the patient have a stroke diagnosis?: No VTE Prior VTE?: No VTE Risk Level:: Medical - low VTE Device Contraindication: Treatment Not Indicated VTE Drug Contraindication: Treatment Not Indicated
[2022-03-19] MEDS: Acetaminophen 325 MG TABLET 650 MG PO (16:45)
[2022-03-19] MEDS: Benzonatate 100 MG CAPSULE 200 MG PO ×2 (16:59→20:07)
[2022-03-19] MEDS: oxyCODONE HCl Immed Release 5 MG TABLET PO (17:36)
--- NOTE | 2022-03-19 17:38 | PM.EVENT ---
Event Note Date of Service: 03/19/22 Event Note: I HAVE SEEN THIS PATIENT FOR PULMONARY CONSULTATION. COMPLETE NOTE WILL BE DICTATED. IMP. ACUTE EXACERBATION OF BRONCHIAL ASTHMA, PATIENT IMPROVING. [place] ; AGREE WITH THE CURRENT TREATMENT PLAN, EXPLAINED TO THE PATIENT AND SHE IS REASSURED. WILL CONTINUE TO FOLLOW HER ALONG.
[2022-03-19] MEDS: Ketorolac Tromethamine 30 MG/ML VIAL IVPUSH (20:07)
[2022-03-19] MEDS: Melatonin 3 MG TABLET 6 MG PO (20:07)
[2022-03-20] VITALS: BP 123/70; PULSE 75; RESP 14; TEMP 36.2; O2SAT 93
[2022-03-20] MEDS: methylPREDNISolone Sod Succ 125 MG/2 ML VIAL 60 MG IVPUSH ×2 (00:20→06:00)
[2022-03-20] MEDS: 0.9 % Sodium Chloride Flush 3 ML SYRINGE IVFLUSH ×2 (00:20→09:11)
[2022-03-20] MEDS: Milk of Magnesia 30 ML ORAL.SUSP PO (00:54)
[2022-03-20] MEDS: oxyCODONE HCl Immed Release 5 MG TABLET PO (00:54)
[2022-03-20 04:00] VITALS: BP 137/94; PULSE 70; RESP 17; TEMP 36.3; O2SAT 93
[2022-03-20 06:11] LABS: Alanine Aminotransferase 7 U/L (0-31); Albumin Level 3.5 g/dL (3.5-5.0); Alkaline Phosphatase 72 U/L (39-117); Anion Gap 17 (12-20); Aspartate Amino Transferase 11 U/L (5-31); Bilirubin Total 0.2 mg/dL (0.0-1.0); Blood Urea Nitrogen 23 mg/dL (9-16); Calcium 8.5 mg/dL (8.4-10.2); Carbon Dioxide 17 mmol/L (22-29); Chloride 107 mmol/L (96-108); Creatinine Clr Calc Pharmacy 129.6; Estimated Glomerular Filt Rate > 60; Glucose Fasting 108 mg/dL (60-99); Potassium 4.5 mmol/L (3.3-5.1); Sodium 136 mmol/L (135-145)
[2022-03-20 06:21] VITALS: PULSE 70; RESP 16; O2SAT 93
[2022-03-20 06:41] LABS: Basophils Percent Auto 0.2 % (0-2); Hematocrit 41.4 % (37.0-47.0); Hemoglobin 14.1 g/dl (12.0-16.0); Imm Gran Abs Auto 0.35 X10*3/uL (0.00-0.03); Imm Gran Pct Auto 1.8 % (0.0-0.4); Lymphocytes Absolute Auto 1.4 X10*3/uL (1.2-4.9); Lymphocytes Percent Auto 7.2 % (20-40); Mean Corpuscular HGB Conc 34.1 g/dl (31.0-35.0); Mean Corpuscular Hemoglobin 32.3 pg (27.0-33.0); Monocytes Absolute Auto 1.3 X10*3/uL (0.1-1.2); Monocytes Percent Auto 6.9 % (2-11); Neutrophils Absolute Auto 15.9 x10*3/uL (2.0-8.3); Neutrophils Percent Auto 83.9 % (45-73); Platelet Count 310 X10*3/uL (160-400); Red Blood Count 4.36 X10*6/uL (4.20-5.50); Red Cell Distribution Width 12.8 % (11.0-16.0); White Blood Count 18.9 X10*3/uL (4.8-10.8)
[2022-03-20 06:50] LABS: MANUAL DIFF FLAG NO
[2022-03-20 06:52] VITALS: BP 147/85; PULSE 85; RESP 16; TEMP 36.1; O2SAT 93
[2022-03-20] MEDS: Ipratropium Bromide 0.5 MG/2.5 ML SOLUTION INHALE (08:11)
[2022-03-20] MEDS: Fluticasone Propionate Nasal 16 GM SPRAY 2 SPRAY NOSTRIL-B (09:11)
[2022-03-20] MEDS: Loratadine 10 MG TABLET PO (09:11)
--- NOTE | 2022-03-20 09:25 | PM.DS ---
DS: Providers Provider Date of Service: 03/20/22 Date of admission: 03/16/22 19:41 Primary care physician: Darby Ramirez MD Consults: 03/19/22 09:11 Consult to Pulmonology Stat Consulting Provider: Elizabeth Molina Reason for consultation: Query asthma Has provider been notified: Yes DS: Diagnosis Discharge Diagnosis (1) Asthma with exacerbation: Status: Acute DS: Summary Hospital Course Hospital Course: Chief Complaint: Dyspnea and wheezing This is a 21-year-old female with no pertinent past medical history and who is not on prescription medications presents to the emergency department for evaluation of dyspnea and wheezing.? Patient states it started 2 days prior to presentation.? She has been having upper respiratory tract symptoms including runny nose and watering of eyes.? Patient did not take anything for it and thought it was her allergies.? Soon after she started having difficulty breathing, worse with ambulation and wheezing.? Does not have history of asthma or COPD.? Does smoke marijuana but no history of tobacco chewing or smoking.? Is not on any home inhalers and does not have a secretary receptionist.? Does have intermittent dry cough but no fever or chills, nausea, vomiting, chest discomfort, palpitations, abdominal pain, changes in urinary or bowel habits Patient went to urgent care earlier today where she received steroids and 2 rounds of breathing treatments.? The treatment transiently relieved her symptoms but they recurred and she presented to the ER.? In the emergency department patient got steroids, magnesium sulfate and multiple rounds of breathing treatments but continues to have significant expiratory wheezing and hence will be admitted for further evaluation and management. Hospital course: Patient with known history of asthma with presented with acute exacerbation associated with tachycardia, and respiratory distress but no evidence of acute infection, negative covid..required close monitoring of her respriatory status and was treated with IV steroid (solumedrol), bronchodilators (Levalbuterol due to tachycardia) by Neb sheduled and PRN, was seen by Rodding Anode Worker.. Over the course of hospitalization, she has signficantly improved and now brething easy, tachycardia resolved and feels comofortable going home. she had leukocytosis up to 23 and down to 18 likely reative and effect of steroid. Will discharge with oral prednisone meaghan. She advised to avoid marijuana, and tobacco Time Spent with Patient Time attestation: Total time spent providing and/or coordinating discharge services: Discharge coordination time: Greater than 30 minutes Quality: Safe Use of Opioids Does Pt have an Active Cancer Diagnosis on the Problem List?: No Quality: Stroke Does the patient have a stroke diagnosis?: No Physical Exam Vital Signs: Vital Signs: Last Vital Signs Temp 97 F 03/20/22 06:52 Pulse 85 03/20/22 06:52 Resp 16 03/20/22 06:52 BP 147/85 H 03/20/22 06:52 Pulse Ox 93 03/20/22 06:52 O2 Del Method 03/20/22 06:52 O2 Flow Rate 2.0 03/19/22 18:52 BMI result Body Mass Index 35.4 Const: Other: General: AO X 3, no acute distress Resp: mild rhonchi, no wheeze, no accessaory muscle use CVS: S1,S2,RRR GI: +BS, NT, no distention Skin: No rash Neuro: motor grossly intact Psych: appropriate affect DS: Data Data Completed and Pending Labs on day of discharge: Laboratory Results - last 24 hr 03/20/22 03/20/22 05:27 06:27 WBC 18.9 H RBC 4.36 Hgb 14.1 Hct 41.4 MCV 95.0 MCH 32.3 MCHC 34.1 RDW 12.8 Plt Count 310 MPV 10.0 Immature Gran % (Auto) 1.8 H Neut % (Auto) 83.9 H Lymph % (Auto) 7.2 L [place] % (Auto) 6.9 Eos % (Auto) 0.0 Baso % (Auto) 0.2 Lymph # (Auto) 1.4 [place] # (Auto) 1.3 H Eos # (Auto) 0.0 Baso # (Auto) 0.0 Abs Immat Gran (auto) 0.35 H Absolute Neuts (auto) 15.9 H Absolute Nucleated RBC 0.000 Nucleated RBC % (auto) 0.0 Sodium 136 Potassium 4.5 Chloride 107 Carbon Dioxide 17 L Anion Gap 17 BUN 23 H D Creatinine 0.74 Estim Creat Clear Calc 129.6 Estimated GFR > 60 Fasting Glucose 108 H Calcium 8.5 D Total Bilirubin 0.2 AST 11 ALT 7 Alkaline Phosphatase 72 Total Protein 6.0 L Albumin 3.5 Discharge Plan Discharge Anticipated Discharge Date/Time: 03/20/22 09:22 Patient Disposition: Home, Self-Care Discharge Diagnosis: Asthma exacerbation Referrals: Darby Davis MD [Primary Care Provider] - 1 Week Discharge Medications: New albuterol sulfate 90 mcg/actuation HFA aerosol inhaler 2 puff inhalation QID PRN (Reason: shortness of breath or wheezing) Qty: 8.5 0RF prednisone 10 mg tablet See Taper PO DAILY Qty: 20 0RF Taper: Prednisone 40 mg daily for 3 Days and 0 Hour 30 mg daily for 3 Days and 0 Hour 20 mg daily for 3 Days and 0 Hour 10 mg daily for 3 Days and 0 Hour No Action No Known Home Meds Discharge Orders: Discharge Order (Routine); Ordered 03/20/22 Ordered By: Gildardo Rosas Diet: Advance to usual diet Activity on Discharge: As tolerated Stand Alone Forms: Patient Portal Discharge page Care Plan Goals: Full recovery from asthma exacerbation. Health Concerns: Asthma Plan of Treatment: Use inhalers as directed, take prednisone as directed and follow up with primary care physician avoid smoking Assessment: As above
--- NOTE | 2022-03-20 10:09 | MHC.CM.PN ---
DP: PT MEDICALLY CLEARED FOR DC HOME , NO SERVICES. FAMILY TO TRANSPORT HOME.
--- NOTE | 2022-03-20 10:46 | P.CONPL_ITS ---
History of Present Illness History of Present Illness Consult date: 03/19/22 Requesting physician: José Miguel Davison Reason for consult: asthma Chief complaint: Dyspnea Narrative: This 21 years old female patient was seen by me for pulmonary consultation on 03/19 . She is a 21-year-old female with no pertinent past medical history , especially negative for bronchial asthma or COPD. Developed to nonspecific upper respiratory symptoms a few days earlier. Progressing into increased dyspnea ,cough and tachycardia. Because of tachycardia she was admitted to ICU for 2 days, and now she is in IMC unit . She has been treated with IV Solu-Medrol, nebulized levalbuterol, and Atrovent. As well as oxygen supplements. She has improved, and now she is off oxygen, still having mild intermittent cough and congested feeling in the chest. As noted above she does not have history of the bronchial asthma or COPD. She denies smoking cigarettes, but admits smoking marijuana about 2 times a day. She denies using any other illicit drugs. Review of Systems Review of Systems: Except for cough and shortness of breath she denies any other significant symptoms. Yes all other systems are reviewed and are negative PMFSH Social History Social History Household Members: Family Housing: House Do you presently have visiting nurse or other home services: No Alcohol intake: current Patient Tobacco Use Status: Never used Tobacco Smoked in Last 30 Days: No Patient Interested in Nicotine Replacement: No Second Hand Smoke Exposure: No Use of substances other than those prescribed or required for medical reasons: Yes Substance Use Type: Marijuana Substance Use Frequency: Daily Last Used Substance: Days (ago) Currently Displaying Signs/Symptoms of Drug Intoxication Withdrawal: No Any prior treatment program specific to substance use: No Have you been hit, kicked, punched, or otherwise hurt by someone within the past year? If so, by whom?: No Do you feel safe in your current relationship?: Yes Is there a partner from a previous relationship who is making you feel unsafe now?: No Are you made to feel afraid or neglected: No Spiritual Healthcare Practices: NA Episcopal Healthcare Practices: NA Cultural Healthcare Practices: NA Advance Directives: No Advance Directives Information Provided: No Do you have thoughts of harming others: None Do you have a plan to hurt others: No Plan Recently lost weight without trying: No How much weight loss: Not applicable Eating poorly because of decreased appetite: Yes Nutrition screen score: 1 Nutrition Risks: No Nutritional Risk Patient : No : No Poor oral hygiene: No service: No Current occupational status: employed Meds Allergies Allergy/AdvReac Type Severity Reaction Status Date / Time No Known Allergies Allergy Verified 01/19/21 09:09 Active Medications: Current Medications Acetaminophen (Acetaminophen 325 Mg Tablet) 650 mg PO Q6H PRN PRN Reason: Pain, Mild (Pain Scale 1-3) Last Admin: 03/19/22 16:45 Dose: 650 mg Benzonatate (Benzonatate 100 Mg Capsule) 200 mg PO TID PRN PRN Reason: Cough Last Admin: 03/19/22 20:07 Dose: 200 mg Fluticasone Propionate (Fluticasone Propionate Nasal 16 Gm [place]) 2 spray NOSTRIL-B BID [facility] Last Admin: 03/20/22 09:11 Dose: 2 spray Ipratropium [place] (Ipratropium [place] 0.5 Mg/2.5 Ml Solution) 0.5 mg INHALE RQ4H WHILE AWAKE [facility] Last Admin: 03/20/22 08:11 Dose: 0.5 mg Ketorolac Tromethamine (Ketorolac Tromethamine 30 Mg/Ml Vial) 30 mg IVPUSH Q6H PRN PRN Reason: Pain, Moderate (Pain Scale 4-6 Levalbuterol HCl (Levalbuterol Hcl 1.25 Mg/0.5 Ml Vial.Neb) 1.25 mg INHALE RQ4H WHILE AWAKE [facility] Last Admin: 03/20/22 08:11 Dose: 1.25 mg Levalbuterol HCl (Levalbuterol Hcl 1.25 Mg/0.5 Ml Vial.Neb) 1.25 mg INHALE Q3H PRN PRN Reason: Wheezing Last Admin: 03/20/22 06:19 Dose: 1.25 mg Loratadine (Loratadine 10 Mg Tablet) 10 mg PO DAILY [facility] Last Admin: 03/20/22 09:11 Dose: 10 mg Magnesium Hydroxide (Milk Of Magnesia 30 Ml Oral.Susp) 30 ml PO TID PRN PRN Reason: Heartburn Last Admin: 03/20/22 00:54 Dose: 30 ml Melatonin (Melatonin 3 Mg Tablet) 6 mg PO BEDTIME PRN PRN Reason: Insomnia Last Admin: 03/19/22 20:07 Dose: 6 mg Methylprednisolone Sodium Succinate (Methylprednisolone Sod Succ 125 Mg/2 Ml Vial) 60 mg IVPUSH Q6H [facility] Last Admin: 03/20/22 06:00 Dose: 60 mg Morphine Sulfate (Morphine Sulfate 4 Mg/Ml Cartridge) 4 mg IVPUSH Q4H PRN; Protocol PRN Reason: Chest Pain Last Admin: 03/19/22 03:21 Dose: 4 mg Ondansetron HCl (Ondansetron Hcl 4 Mg/2 Ml Vial) 4 mg IVPUSH Q8H PRN PRN Reason: Nausea and Vomiting Oxycodone HCl (Oxycodone Hcl Immed Release 5 Mg Tablet) 5 mg PO Q4H PRN PRN Reason: Pain, Severe (Pain Scale 7-10) Last Admin: 03/20/22 00:54 Dose: 5 mg Sodium Chloride (0.9 % Sodium Chloride Flush 3 Ml Syringe) 3 ml IVFLUSH QSHIFT [facility] Last Admin: 03/20/22 09:11 Dose: 3 ml Home Medications Medication Instructions Recorded Confirmed Last Taken Type No Known Home Meds 03/16/22 03/16/22 Unknown History Physical Exam Vital Signs: Vital Signs: Last Vital Signs Temp 97 F 03/20/22 06:52 Pulse 85 03/20/22 06:52 Resp 16 03/20/22 06:52 BP 147/85 H 03/20/22 06:52 Pulse Ox 93 03/20/22 06:52 O2 Del Method 03/20/22 06:52 O2 Flow Rate 2.0 03/19/22 18:52 BMI result Body Mass Index 35.4 Const: General: healthy appearing, comfortable, no acute distress, alert and awake Orientation/consciousness: patient oriented x3 HEENT: Head: Yes normal to inspection General nose exam: No nasal polyps present and No nasal discharge present Face and sinus: Yes sinuses nontender Mouth: oropharynx normal Throat: Yes posterior oropharynx normal Eyes: General: appearance normal, both eyes and all related structures Neck: Neck: Yes normal visual inspection, Yes no lymphadenopathy, Yes trachea midline and Yes no JVD Thyroid: Thyroid normal Chest: Chest palpation & inspection: normal inspection of the chest, normal palpation of entire chest wall and no tenderness Resp: Other: Percussion note is resonant, Breath sounds are equal on both sides. She does have a few expiratory wheezes more confined to the right mid chest in the back. Cardio: Palpation: normal PMI Rate: regular rate Rhythm: regular rhythm Heart sounds: no gallops and no murmurs Peripheral pulses: Peripheral pulses 2+ throughout GI: Palpation (GI): Soft to palpation, nontender, No hepatosplenomegaly present and no masses Auscultation: normal bowel sounds Back/Spine/Pelvis: Thoracic/Lumbar Spine: thoracic and lumbar spine normal to inspection Skin: General skin exam: no rashes or lesions noted Neuro: General: patient oriented x3 and no focal motor deficits Cranial nerves: Yes CN's II-XII intact bilaterally Extrem: General: Yes normal to inspection, Yes no clubbing, cyanosis or edema and Yes no calf tenderness Psych: Appearance: grossly normal and well kempt Speech and movement: Normal speech and movement present Results Laboratory Findings CBC and BMP: 03/20/22 06:27 03/20/22 05:27 Abnormal lab findings: Abnormal Labs 03/16/22 03/16/22 03/16/22 16:38 16:38 17:23 WBC 15.4 H MCHC 35.4 H Immature Gran % (Auto) Neut % (Auto) 95.6 H Lymph % (Auto) 3.1 L [place] % (Auto) 0.6 L Lymph # (Auto) 0.5 L [place] # (Auto) Abs Immat Gran (auto) 0.06 H Absolute Neuts (auto) 14.7 H Carbon Dioxide 18 L BUN Random Glucose 145 H Fasting Glucose Total Protein Ur Specific [place] >= 1.030 H Urine Protein 30 (1+) H Urine Blood Small (1+) H Urine RBC 11-20 H 03/17/22 03/17/22 03/19/22 04:10 04:10 06:12 WBC 23.0 H 17.3 H MCHC 35.1 H Immature Gran % (Auto) 0.6 H 1.0 H Neut % (Auto) 93.8 H 89.6 H Lymph % (Auto) 2.9 L 6.0 L [place] % (Auto) Lymph # (Auto) 0.7 L 1.0 L [place] # (Auto) Abs Immat Gran (auto) 0.14 H 0.18 H Absolute Neuts (auto) 21.6 H 15.5 H Carbon Dioxide 18 L BUN 8 L Random Glucose 166 H Fasting Glucose Total Protein Ur Specific [place] Urine Protein Urine Blood Urine RBC 03/19/22 03/20/22 03/20/22 06:12 05:27 06:27 WBC 18.9 H MCHC Immature Gran % (Auto) 1.8 H Neut % (Auto) 83.9 H Lymph % (Auto) 7.2 L [place] % (Auto) Lymph # (Auto) [place] # (Auto) 1.3 H Abs Immat Gran (auto) 0.35 H Absolute Neuts (auto) 15.9 H Carbon Dioxide 21 L 17 L BUN 23 H D Random Glucose Fasting Glucose 121 H 108 H Total Protein 6.0 L Ur Specific [place] Urine Protein Urine Blood Urine RBC Leukocytosis is more likely reactive , secondary to steroids Diagnostic Findings Chest x-ray: report reviewed and image reviewed Assessment and Plan (1) Asthma with exacerbation: Status: Acute Plan I think this patient does have underlying bronchial asthma, not diagnosed before. This time she is recovering from an acute exacerbation, which may be due to mild nonspecific respiratory infection. Smoking of marijuana may have contributed to some of her respiratory problem. Recc . Patient may be treated with prednisone 40 mg a day for 5 more days, Use levalbuterol updraft q.4 hours p.r.n., and may be prescribed HFA as outpatient. May be started on Flovent-220 2 puffs b.i.d. for the time being. Patient would need to have evaluation as outpatient, with complete pulmonary function test, and then the treatment regimen may be adjusted. For the time being she should be instructed not to smoke marijuana. Procedures Date of Service Date of Service: 03/19/22
[2022-03-20 11:04] VITALS: BP 128/60; PULSE 88; RESP 16; TEMP 36.8; O2SAT 94
== END 2022-03-20 12:08 | disposition home or self-care (01) ==
LOC: HO.ED 20:02 → HO.EDOVER 20:11 → HO.S3 03-17 19:06
PROVIDERS: Hospitalist; Physician Assistant; Admitting Provider Student in an Organized Health Care Education/Training Program; Emergency Provider Emergency Medicine; PCP Internal Medicine; Visit Provider Internal Medicine
DX: J06.9 Acute upper respiratory infection, unspecified (principal); J45.901 Unspecified asthma with (acute) exacerbation; R06.00 Dyspnea, unspecified; R00.0 Tachycardia, unspecified; D72.829 Elevated white blood cell count, unspecified; F12.90 Cannabis use, unspecified, uncomplicated; Z20.822 Contact with and (suspected) exposure to COVID-19
CPT/HCPCS: 0241U; 36415; 71045; 80048; 80053; 81001; 83735; 84484; 85025; 85379; 86308; 87635; 87651; 93005; 94640; 96365; 96366; 96375; 96376; 99218; 99285; J1885; J2270; J2920; J2930; J3475

== ENCOUNTER 2022-04-23 14:48 | Outpatient (REF) | payer BC, SELFPAY ==
--- NOTE | 2022-04-23 16:57 | PFT_ITS ---
FLOWS: FEV1 108% of predicted at 3.50 L. FVC 116% of predicted at 4.28 L. FEV1 to FVC ratio of 0.82. No bronchodilator response except in small to medium airways. LUNG VOLUMES: Total lung capacity 105% of predicted at 5.19 L. Residual volume 89% of predicted at 1.03 L. Slow vital capacity 111% of predicted at 4.17 L. Expiratory reserve volume 58% of predicted at 0.87 L. Diffusion capacity is normal. IMPRESSION: No obstructive or restrictive ventilatory defect. No bronchodilator response except in small to medium airways. Decreased expiratory reserve volume suggests extrathoracic restriction likely secondary to abdominal obesity. Cristofer Hand MD AP/MODL / [id number]
== END 2022-04-23 14:49 | disposition home or self-care (01) ==
LOC: HO.RESP 14:48
PROVIDERS: Visit Provider Internal Medicine
DX: J45.909 Unspecified asthma, uncomplicated (principal)
CPT/HCPCS: 94060; 94727; 94729

== ENCOUNTER → 2022-11-02 13:39 | Outpatient (BNVA) | payer BC, SELFPAY | PROVIDERS: PCP Internal Medicine; Visit Provider Internal Medicine ==

== ENCOUNTER 2022-12-23 13:36 | Outpatient (AMB) | payer BC, SELFPAY ==
[2022-12-23 13:53] VITALS: BP 138/76; PULSE 114; O2SAT 96; BMI 36.5
--- NOTE | 2022-12-23 13:53 | A.OFFVIS_ITS ---
Intake Vital Signs 12/23/22 13:53 Height 5 ft 3 in Weight 206 lb 2.115 oz BMI 36.5 BP 138/76 Blood Pressure Location Rt brachial Position Sitting Pulse 114 H Pulse Source Pulse Oximeter Pulse Oximetry (%) 96 Oxygen Delivery Method Room Air Intake Visit Reasons: Dyspnea, cough Intake Note: Pt reports wanting to get back on Symbicort. Hospice Home Care Coordinator Required: No Allergies No Known Allergies Allergy (Verified 12/23/22 14:14) Medication List - Last Reconciled 12/23/22 by Elizabeth Molina MD albuterol sulfate 90 mcg/actuation 2 puffs inhalation Q6H PRN fluticasone propionate 50 mcg/actuation (Flonase Allergy Relief) 1 spray intranasal BID fluticasone propionate 220 mcg/actuation (Flovent HFA) 2 puffs inhalation BID 30 days peak flow meter As directed Do you need a note to return to daycare/school/sports/work: No HPI Dyspnea HPI Details 22 years old female, with history of allergic rhinitis and bronchial asthma. Comes back for follow-up. Complains of increased amount of cough and shortness of breath on minimal exertion. Also continues to have runny nose on a daily basis and has been out of her Flonase. For her bronchial asthma she was prescribed Flovent 222 puffs b.i.d. which helped to some extent, but not completely. She has been checking her peak flows and daily twice a day and they have ranged between 200-300 L. [facility] Medical History Allergic rhinitis Asthma Social History Household Members: Family Housing: House Do you presently have visiting nurse or other home services: No Alcohol intake: current Patient Tobacco Use Status: Never used Tobacco Second Hand Smoke Exposure: No Substance Use Type: Marijuana service: No Current occupational status: employed Review of Systems Const All systems reviewed & are unremarkable except as noted in HPI and below Denies snoring Eyes Reports no additional complaints ENT Reports nasal congestion (Mild off and on) Card Reports no additional complaints and Denies dyspnea Resp Reports cough (Mild occasional), Denies dyspnea, Denies snoring and Denies wheezing GI Reports no additional complaints Reports no additional complaints Musc Reports no additional complaints Skin/Breast Reports system reviewed and no additional complaints, except as documented Neuro Reports no additional complaints Endo Reports no additional complaints Aller/Immun Reports no additional complaints and Denies wheezing Physical Exam Vital Signs: Last Vital Signs Pulse 114 H 12/23/22 13:53 BP 138/76 12/23/22 13:53 Pulse Ox 96 12/23/22 13:53 Oxygen Delivery Method Room Air 12/23/22 13:53 BMI result Body Mass Index 36.5 Const General: healthy appearing, comfortable, no acute distress, alert and awake Orientation/consciousness: patient oriented x3 HEENT Head: Yes normal to inspection General nose exam: No nasal polyps present, No nasal discharge present and Other nasal findings present (Mild nasal congestion in Both nostrils) Face and sinus: Yes sinuses nontender Mouth: oropharynx normal Throat: Yes posterior oropharynx normal Eyes General: appearance normal, both eyes and all related structures Neck Neck: Yes normal visual inspection, Yes no lymphadenopathy, Yes trachea midline and Yes no JVD Thyroid: Thyroid normal Chest Chest palpation & inspection: normal inspection of the chest, normal palpation of entire chest wall and no tenderness Resp Other: Percussion note resonant, has good breath sounds on both sides. SCATTERED EXPIRATORY WHEEZES CAN BE HEARD ON BOTH SIDES OF THE CHEST. Cardio Palpation: normal PMI Rate: regular rate Rhythm: regular rhythm Heart sounds: no gallops and no murmurs Peripheral pulses: Peripheral pulses 2+ throughout GI Palpation (GI): Soft to palpation, nontender, No hepatosplenomegaly present and no masses Auscultation: normal bowel sounds Back/Spine/Pelvis Thoracic/Lumbar Spine: thoracic and lumbar spine normal to inspection Skin General skin exam: no rashes or lesions noted Neuro General: patient oriented x3 and no focal motor deficits Cranial nerves: Yes CN's II-XII intact bilaterally Extrem General: Yes normal to inspection, Yes no clubbing, cyanosis or edema and Yes no calf tenderness Psych Speech and movement: Normal speech and movement present Results Reviewed Results Reviewed: Peak Flow with her personal peak flow meter= 225 L Assessment & Plan Assessment & Plan (1) Allergic rhinitis: Comment: She has mild intermittent nasal congestion with postnasal drip. Most likely has a mild allergic rhinitis, TX : Advised to resume using Flonase -50 1 spray intranasal b.i.d.. Code(s): J30.9 - Allergic rhinitis, unspecified (2) Asthma: Comment: Patient has the bronchial asthma in addition to allergic rhinitis. Symptoms are not well controlled at this time. TX: I think she will benefit from combination of ICS/LABA AND HENCE I HAVE ORDERED SYMBICORT 80-4.52 PUFFS B.I.D.. USE ALBUTEROL HFA 2 PUFFS Q. 4-6 HOURS P.R.N. WILL RECHECK IN 4-6 WEEKS Code(s): J45.909 - Unspecified asthma, uncomplicated Medications: New budesonide-formoterol 80-4.5 mcg/actuation (Symbicort) 2 puffs inhalation Q12H 10.2 grams 3RF ASTHMA 30 days albuterol sulfate 90 mcg/actuation 2 puffs inhalation Q4-6H PRN 8.5 grams 3RF shortness of breath or wheezing 30 days Coding Level of Care Code Est Pt Level 3 (55481) Diagnoses Allergic rhinitis J30.9 Asthma J45.909
== END 2022-12-23 14:15 | disposition home or self-care (01) ==
PROVIDERS: PCP Internal Medicine; Visit Provider Internal Medicine
DX: J45.909 Unspecified asthma, uncomplicated (principal)
CPT/HCPCS: 99213

== ENCOUNTER → 2022-12-23 13:36 | Outpatient (BNVA) | payer BC, SELFPAY | PROVIDERS: PCP Internal Medicine; Visit Provider Internal Medicine ==

== ENCOUNTER 2023-01-19 03:27 | Observation (INO) | payer BC, SELFPAY ==
[2023-01-19] VITALS (14 sets, daily range): BP systolic 130–142; BP diastolic 59–86; PULSE 92–155; RESP 13–26; TEMP 36.4–37.2; O2SAT 91–96; BMI 35.8
--- NOTE | 2023-01-19 | ECG_ITS ---
Test Reason : SOB/CHESTPAIN Blood Pressure : / mmHG Vent. Rate : 117 BPM Atrial Rate : 117 BPM P-R Int : 118 ms QRS Dur : 076 ms QT Int : 300 ms P-R-T Axes : 075 084 031 degrees QTc Int : 418 ms Sinus tachycardia Otherwise normal ECG When compared with ECG of 18-MAR-2022 15:19, No significant change was found Referred By: Generic ED Physician Electronically Signed By:AVINASH AMBROSE
--- NOTE | ~2023-01-19 | XR_ITS ---
EXAMINATION: XR CHEST CLINICAL INFORMATION: Dyspnea. COMPARISON: None available. TECHNIQUE: Frontal view of the chest was obtained. FINDINGS: The cardiomediastinal silhouette is normal. There is no focal lung consolidation or pleural effusion. The bony structures and soft tissues are unremarkable. XR/XR chest 1V IMPRESSION: No active cardiopulmonary disease.
--- NOTE | 2023-01-19 03:49 | ED.PEDSOB ---
HPI - Pediatric SOB/Dyspnea General Chief Complaint: Dyspnea Stated Complaint: Difficulty breathing Time Seen by Provider: 01/19/23 03:42 Source: patient Mode of arrival: ambulatory Limitations: no limitations History of Present Illness HPI Narrative: Patient comes to the emergency room complaining of asthma exacerbation for the last 3 days. Patient used inhaler treatments at home with no improvement. Patient went to see her coding quality analyst Dr. Molina on 12/23/2022, a prescription of Symbicort was sent to the patient's pharmacy. Patient states that her insurance did not cover it and therefore she has not been using it. Related Data Home Medications Medication Instructions Recorded Confirmed fluticasone propionate 50 1 spray intranasal BID 03/31/22 12/23/22 mcg/actuation nasal spray,suspension (Flonase Allergy Relief) albuterol sulfate 90 mcg/actuation 2 puff inhalation Q6H PRN 05/06/22 12/23/22 aerosol inhaler Previous Rx's Medication Instructions Recorded fluticasone propionate 220 2 puff inhalation BID ASTHMA 30 11/02/22 mcg/actuation HFA aerosol inhaler days #12 grams (Flovent HFA) peak flow meter #1 ea 11/02/22 albuterol sulfate 90 mcg/actuation 2 puff inhalation Q4-6H PRN 12/23/22 aerosol inhaler shortness of breath or wheezing 30 days #8.5 grams budesonide-formoterol HFA 80 2 puff inhalation Q12H ASTHMA 30 12/23/22 mcg-4.5 mcg/actuation aerosol days #10.2 grams inhaler (Symbicort) Allergies Allergy/AdvReac Type Severity Reaction Status Date / Time No Known Allergies Allergy Verified 12/23/22 14:14 Pediatric Review of Systems Review of Systems: Constitutional : No Weight loss, No Fever, No Chills, No Night Sweats, No Fatigue, No Malaise ENT/Mouth : No Hearing loss, No Ear Pain, No Nasal Congestion, No Sinus Pain, No Hoarseness, No sore throat, No Rhinorrhea, No Swallowing Difficulty Eyes: No Eye Pain, No Swelling, No Redness, No Foreign Body, No Discharge, No Vision Changes Cardiovascular : No Chest Pain, No SOB, No Dyspnea on Exertion, No Orthopnea, No Edema, No Palpitations Respiratory : No Cough, No Sputum, complaining of wheezing, No Smoke Exposure, No Dyspnea Gastrointestinal : No Nausea, No Vomiting, No Diarrhea, No Constipation, No abdominal Pain, No Hematochezia, No Melena Genitourinary : no irregular bleeding, No Dysuria, No Urinary Frequency, No Hematuria, No Urinary Incontinence, No Urgency, No Flank Pain, No Urinary Flow Changes, No Hesitancy Musculoskeletal : No joint pain, No Myalgias, No Joint Swelling Skin : No Skin Lesions, No rash Neuro : No Weakness, No Numbness, No Paresthesias, No Loss of Consciousness, No Dizziness, No Headache Psych : No Anxiety/Panic, No Depression, No SI/HI/AH/VH, No Social Issues, Heme/Lymph: No Bruising, No Bleeding,No Lymphadenopathy Endocrine : No Polyuria, No Polydipsia, No Temperature Intolerance PMFSH Past Medical History Medical History Allergic rhinitis Asthma Social History Social History Household Members: Family Housing: House Do you presently have visiting nurse or other home services: No Alcohol intake: current Alcohol intake frequency: holidays/special occasions only Patient Tobacco Use Status: Never used Tobacco Smoked in Last 30 Days: No Second Hand Smoke Exposure: No Use of substances other than those prescribed or required for medical reasons: Yes Substance Use Type: Marijuana Last Used Substance: Days (ago) Advance Directives: No Advance Directives Information Provided: Yes service: No Current occupational status: employed Pediatric Exam Narrative: Physical exam: Appearance: Alert. Oriented X3. No acute distress. Eyes: Pupils equal, round and reactive to light. ENT: Pharynx normal. Neck: Normal inspection. Neck supple. No lymph nodes noted. No crepitus CVS: Normal heart rate and rhythm. Pulses normal. Normal S1 and S2 Respiratory: No respiratory distress. Bilateral wheezing, no rales Abdomen: Soft and nontender. No rigidity. No distention. Skin: Skin warm and dry. Normal skin color. Normal skin turgor. Extremities: No lower extremity edema. No Lacerations. No Rash Neuro: Oriented X 3. No motor deficit. No sensory deficit. Moving all extremities. No slurred speech. CN 2 through 12 grossly intact Psych: calm, cooperative, normal affect General: Limitations: no limitations Course Course Course Narrative: -patient is getting an hour long nebulization treatment, IV Solu-Medrol and magnesium. Medications Administered Discontinued Medications Generic Name Dose Route Start Last Admin Trade Name Ed PRN Reason Stop Dose Admin Albuterol Sulfate 10 mg 01/19/23 03:47 01/19/23 03:53 Albuterol Sulfate (0.083%) 2.5 Mg/3 Ml Vial.Neb INHALE 01/19/23 03:48 10 mg ONCE ONE Administration Magnesium Sulfate 2 gm in 50 mls @ 25 mls/hr 01/19/23 03:47 01/19/23 04:06 Magnesium Sulfate/H2o IV 01/19/23 05:46 25 mls/hr ONCE ONE Administration Methylprednisolone Sodium Succinate 125 mg 01/19/23 03:47 01/19/23 04:06 Methylprednisolone Sod Succ 125 Mg/2 Ml Vial IVPUSH 01/19/23 03:48 125 mg ONCE ONE Administration Ondansetron HCl 4 mg 01/19/23 05:27 01/19/23 05:32 Ondansetron Hcl 4 Mg/2 Ml Vial IVPUSH 01/19/23 05:28 4 mg ONCE ONE Administration Medical Decision Making Medical Decision Making [facility] Narrative: -despite IV treatment and multiple nebulization treatments, patient remains wheezing. Oxygen saturation 93%. However, patient still tachypneic and still has significant wheezing. I discussed the patient with Dr. Zee , patient being admitted -patient agrees with plan Differential Diagnosis Differential Diagnoses: The differential diagnosis associated with the presentation includes (Asthma, pneumonia, viral URI) Admission/Observation Consideration of admission/observation: Escalation of care including admission/observation considered Consult Healthcare Provider Management of the patient was discussed with: Hospitalist Lab Data [facility] Lab Attestation statement: I reviewed the patient's lab results. 01/19/23 03:40 01/19/23 04:32 Labs: Lab Results 01/19/23 01/19/23 01/19/23 Range/Units 03:40 03:40 04:32 WBC 12.6 H (4.8-10.8) X10*3/uL RBC 4.88 (4.20-5.50) X10*6/uL Hgb 15.6 (12.0-16.0) g/dl Hct 45.1 (37.0-47.0) % MCV 92.4 (80.0-98.0) fL MCH 32.0 (27.0-33.0) pg MCHC 34.6 (31.0-35.0) g/dl RDW 12.4 (11.0-16.0) % Plt Count 287 (160-400) X10*3/uL MPV 10.9 (9.4-12.3) fL Immature Gran % (Auto) 0.2 (0.0-0.4) % Neut % (Auto) 66.7 (45-73) % Lymph % (Auto) 16.4 L (20-40) % [place] % (Auto) 6.9 (2-11) % Eos % (Auto) 8.5 H (0-4) % Baso % (Auto) 1.3 (0-2) % Lymph # (Auto) 2.1 (1.2-4.9) X10*3/uL [place] # (Auto) 0.9 (0.1-1.2) X10*3/uL Eos # (Auto) 1.1 H (0.0-0.4) X10*3/uL Baso # (Auto) 0.2 (0.0-0.2) X10*3/uL Abs Immat Gran (auto) 0.03 (0.00-0.03) X10*3/uL Absolute Neuts (auto) 8.4 H (2.0-8.3) x10*3/uL Absolute Nucleated RBC 0.000 (0.0-0.012) X10*3/uL Nucleated RBC % (auto) 0.0 (0.0-0.2) /100WBC Sodium 138 (135-145) mmol/L Potassium 3.1 L D (3.3-5.1) mmol/L Chloride 109 H (96-108) mmol/L Carbon Dioxide 18 L (22-29) mmol/L Anion Gap 14 (12-20) BUN 10 (9-16) mg/dL Creatinine 0.80 (0.5-1.4) mg/dL Estim Creat Clear Calc 119.5 Estimated GFR > 60 Random Glucose 165 H (60-115) mg/dL Calcium 8.8 (8.4-10.2) mg/dL Total Bilirubin 0.5 (0.0-1.0) mg/dL AST 19 (5-31) U/L ALT 11 (0-31) U/L Alkaline Phosphatase 68 (39-117) U/L Troponin I High Sens (<3.5-17.0) ng/L Total Protein 7.3 (6.5-8.0) g/dL Albumin 4.1 (3.5-5.0) g/dL Influenza Type A (PCR) NEGATIVE (Negative) Influenza Type B (PCR) NEGATIVE (Negative) RSV RNA Qual (PCR) NEGATIVE (Negative) SARS-CoV-2 RNA (RT-PCR) NEGATIVE (Negative) 01/19/23 Range/Units 04:32 WBC (4.8-10.8) X10*3/uL RBC (4.20-5.50) X10*6/uL Hgb (12.0-16.0) g/dl Hct (37.0-47.0) % MCV (80.0-98.0) fL MCH (27.0-33.0) pg MCHC (31.0-35.0) g/dl RDW (11.0-16.0) % Plt Count (160-400) X10*3/uL MPV (9.4-12.3) fL Immature Gran % (Auto) (0.0-0.4) % Neut % (Auto) (45-73) % Lymph % (Auto) (20-40) % [place] % (Auto) (2-11) % Eos % (Auto) (0-4) % Baso % (Auto) (0-2) % Lymph # (Auto) (1.2-4.9) X10*3/uL [place] # (Auto) (0.1-1.2) X10*3/uL Eos # (Auto) (0.0-0.4) X10*3/uL Baso # (Auto) (0.0-0.2) X10*3/uL Abs Immat Gran (auto) (0.00-0.03) X10*3/uL Absolute Neuts (auto) (2.0-8.3) x10*3/uL Absolute Nucleated RBC (0.0-0.012) X10*3/uL Nucleated RBC % (auto) (0.0-0.2) /100WBC Sodium (135-145) mmol/L Potassium (3.3-5.1) mmol/L Chloride (96-108) mmol/L Carbon Dioxide (22-29) mmol/L Anion Gap (12-20) BUN (9-16) mg/dL Creatinine (0.5-1.4) mg/dL Estim Creat Clear Calc Estimated GFR Random Glucose (60-115) mg/dL Calcium (8.4-10.2) mg/dL Total Bilirubin (0.0-1.0) mg/dL AST (5-31) U/L ALT (0-31) U/L Alkaline Phosphatase (39-117) U/L Troponin I High Sens < 2.7 (<3.5-17.0) ng/L Total Protein (6.5-8.0) g/dL Albumin (3.5-5.0) g/dL Influenza Type A (PCR) (Negative) Influenza Type B (PCR) (Negative) RSV RNA Qual (PCR) (Negative) SARS-CoV-2 RNA (RT-PCR) (Negative) Independent Interpretation I performed an independent interpretation of an: Plain X-Ray Radiology Impression Discussion of test interpretation with radiology: I have reviewed the radiologist's reading. Radiologist Impression: The cardiomediastinal silhouette is normal. There is no focal lung consolidation or pleural effusion. The bony structures and soft tissues are unremarkable. XR/XR chest 1V IMPRESSION: No active cardiopulmonary disease. Critical Care Time Critical Care Time Critical Care Time: Yes Total Critical Care Time: 60 Attestation: I have personally provided critical care time. Time includes review of lab data, radiology results, discussion with consultants, and monitoring for potential decompensation. Intervention performed as documented. Discharge Plan Discharge Clinical Impression: Asthma Patient Disposition: Admitted As Inpatient Prescriptions: No Action fluticasone propionate [Flonase Allergy Relief] 50 mcg/actuation spray,suspension 1 spray intranasal BID Rx Instructions: administer into each nostril albuterol sulfate 90 mcg/actuation HFA aerosol inhaler 2 puff inhalation Q6H PRN fluticasone propionate [Flovent HFA] 220 mcg/actuation HFA aerosol inhaler 2 puff inhalation BID 30 Days Qty: 12 3RF Rx Instructions: administer with spacer (DME) peak flow meter Device See Rx Instructions .Route Qty: 1 0RF Rx Instructions: As directed budesonide-formoterol [Symbicort] 80-4.5 mcg/actuation HFA aerosol inhaler 2 puff inhalation Q12H 30 Days Qty: 10.2 3RF albuterol sulfate 90 mcg/actuation HFA aerosol inhaler 2 puff inhalation Q4-6H PRN (Reason: shortness of breath or wheezing) 30 Days Qty: 8.5 3RF
[2023-01-19 03:52] LABS: MANUAL DIFF FLAG NO
[2023-01-19 03:53] LABS: Mean Platelet Volume 10.9 fL (9.4-12.3); Monocytes Absolute Auto 0.9 X10*3/uL (0.1-1.2); Neutrophils Percent Auto 66.7 % (45-73)
[2023-01-19] MEDS: Albuterol Sulfate (0.083%) 2.5 MG/3 ML VIAL.NEB 10 MG INHALE ×2 (03:53→06:38)
[2023-01-19 03:55] LABS: Basophils Absolute Auto 0.2 X10*3/uL (0.0-0.2); Basophils Percent Auto 1.3 % (0-2); Eosinophils Absolute Auto 1.1 X10*3/uL (0.0-0.4); Eosinophils Percent Auto 8.5 % (0-4); Hematocrit 45.1 % (37.0-47.0); Hemoglobin 15.6 g/dl (12.0-16.0); Imm Gran Abs Auto 0.03 X10*3/uL (0.00-0.03); Imm Gran Pct Auto 0.2 % (0.0-0.4); Lymphocytes Absolute Auto 2.1 X10*3/uL (1.2-4.9); Lymphocytes Percent Auto 16.4 % (20-40); Mean Corpuscular HGB Conc 34.6 g/dl (31.0-35.0); Mean Corpuscular Volume 92.4 fL (80.0-98.0); Monocytes Percent Auto 6.9 % (2-11); Neutrophils Absolute Auto 8.4 x10*3/uL (2.0-8.3); Red Blood Count 4.88 X10*6/uL (4.20-5.50); Red Cell Distribution Width 12.4 % (11.0-16.0)
[2023-01-19 03:58] LABS: Platelet Count 287 X10*3/uL (160-400); White Blood Count 12.6 X10*3/uL (4.8-10.8)
[2023-01-19] MEDS: Magnesium Sulfate/H2O 2 GM/50 ML PIGGYBACK IV (04:06)
[2023-01-19] MEDS: methylPREDNISolone Sod Succ 125 MG/2 ML VIAL IVPUSH (04:06)
[2023-01-19 04:32] LABS: Influenza A PCR NEGATIVE (Negative); Influenza B PCR NEGATIVE (Negative); Resp Syncy Virus RNA Qual PCR NEGATIVE (Negative); SARS COV2 PCR INHOUSE NEGATIVE (Negative)
[2023-01-19 05:10] LABS: Alanine Aminotransferase 11 U/L (0-31); Albumin Level 4.1 g/dL (3.5-5.0); Alkaline Phosphatase 68 U/L (39-117); Anion Gap 14 (12-20); Aspartate Amino Transferase 19 U/L (5-31); Bilirubin Total 0.5 mg/dL (0.0-1.0); Blood Urea Nitrogen 10 mg/dL (9-16); Calcium 8.8 mg/dL (8.4-10.2); Carbon Dioxide 18 mmol/L (22-29); Chloride 109 mmol/L (96-108); Creatinine Clr Calc Pharmacy 119.5; Estimated Glomerular Filt Rate > 60; Glucose Random 165 mg/dL (60-115); Potassium 3.1 mmol/L (3.3-5.1); Sodium 138 mmol/L (135-145); Total Protein 7.3 g/dL (6.5-8.0); Troponin-I High Sensitivity < 2.7 ng/L (<3.5-17.0)
[2023-01-19] MEDS: ondansetron HCL 4 MG/2 ML VIAL IVPUSH (05:32)
--- NOTE | 2023-01-19 06:29 | P.HPHOSP_ITS ---
History of Present Illness Date of Service: 01/19/23 Chief Complaint: Dyspnea This is a 22-year-old female with pertinent history of asthma and allergic rhinitis who presents to the emergency department for evaluation of dyspnea and wheezing.? Patient states it started 3 days prior to presentation.? Patient states she has been having dyspnea, worse with ambulation which has been progressive over the last 2-3 days. She woke up in the middle of the night on the day of presentation because she could not breathe. It is associated with wheezing and nonproductive cough. Denies fevers or chills. 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 Patient states it was canceled as insurance did not cover it. Patient tried her home inhaler without relief. No chest discomfort, palpitations, abdominal pain, changes in urinary or bowel habits. In the emergency department, patient with wheezing despite multiple DuoNeb treatments. Review of Systems Constitutional: Constitutional: Reports fatigue Cardiovascular: Cardiovascular: Reports dyspnea on exertion Respiratory: Respiratory: Reports cough, Reports dyspnea on exertion and Reports wheezing Gastrointestinal: Gastrointestinal: Reports no additional gastrointestinal complaints Genitourinary: Genitourinary: Reports no additional female genitourinary complaints Endocrine: Endocrine: Reports fatigue Allergic/Immunologic: Allergic/Immunologic: Reports wheezing [facility] Medical History Allergic rhinitis Asthma Pertinent family history: No pertinent family history of CAD Social History Household Members: Family Housing: House Do you presently have visiting nurse or other home services: No Alcohol intake: current Alcohol intake frequency: holidays/special occasions only Patient Tobacco Use Status: Never used Tobacco Smoked in Last 30 Days: No Second Hand Smoke Exposure: No Use of substances other than those prescribed or required for medical reasons: Yes Substance Use Type: Marijuana Last Used Substance: Days (ago) Advance Directives: No Advance Directives Information Provided: Yes service: No Current occupational status: employed Meds Allergies Allergy/AdvReac Type Severity Reaction Status Date / Time No Known Allergies Allergy Verified 12/23/22 14:14 Active Medications: Current Medications Potassium Chloride (Potassium Chloride Packet 20 Meq Packet) 40 meq PO ONCE ONE Stop: 01/19/23 06:28 Home Medications Medication Instructions Recorded Confirmed Last Taken Type fluticasone propionate 50 1 spray intranasal BID 03/31/22 12/23/22 Unknown History mcg/actuation nasal spray,suspension (Flonase Allergy Relief) albuterol sulfate 90 mcg/actuation 2 puff inhalation Q6H PRN Wheezing 05/06/22 12/23/22 Unknown History aerosol inhaler Physical Exam Vital Signs and Narrative: Vital Signs: Last Vital Signs Temp 98.0 F 01/19/23 05:37 Pulse 136 H 01/19/23 05:37 Resp 14 01/19/23 05:37 BP 134/75 01/19/23 05:37 Pulse Ox 96 01/19/23 05:37 O2 Del Method Room Air 01/19/23 03:30 BMI result Body Mass Index 35.8 Young female lying in bed in mild di stress Neck supple , no JVD Tachycard ic with regular rh ythm, S1-S2 heard Bilateral expirato ry wheeze apprecia armida Abdomen soft n ontender, no guard ing, no rigidity P atient is awake, a lert and oriented to self, place, ti me and person ; no focal motor defic it Psych: Normal m ood No pedal edema Results Labs 01/19/23 03:40 01/19/23 04:32 Labs: Laboratory Results - last 24 hr 01/19/23 01/19/23 01/19/23 03:40 03:40 04:32 MCV 92.4 MCH 32.0 MCHC 34.6 RDW 12.4 Plt Count 287 MPV 10.9 Immature Gran % (Auto) 0.2 Neut % (Auto) 66.7 Lymph % (Auto) 16.4 L [place] % (Auto) 6.9 Eos % (Auto) 8.5 H Baso % (Auto) 1.3 Lymph # (Auto) 2.1 [place] # (Auto) 0.9 Eos # (Auto) 1.1 H Baso # (Auto) 0.2 Abs Immat Gran (auto) 0.03 Absolute Neuts (auto) 8.4 H Absolute Nucleated RBC 0.000 Nucleated RBC % (auto) 0.0 Anion Gap 14 Estim Creat Clear Calc 119.5 Estimated GFR > 60 Random Glucose 165 H Calcium 8.8 Total Bilirubin 0.5 AST 19 ALT 11 Alkaline Phosphatase 68 Total Protein 7.3 Albumin 4.1 Influenza Type A (PCR) NEGATIVE Influenza Type B (PCR) NEGATIVE RSV RNA Qual (PCR) NEGATIVE SARS-CoV-2 RNA (RT-PCR) NEGATIVE Imaging Radiologist's Impressions: Impressions Chest X-Ray 01/19/23 03:54 IMPRESSION: No active cardiopulmonary disease. Assessment and Plan (1) Asthma: Status: Acute Plan This is a 21-year-old female with no pertinent past medical history and who is not on prescription medications presents to the emergency department for evaluation of dyspnea and wheezing. #.? Acute dyspnea due to acute exacerbation of asthma -Will admit patient and initiate DuoNeb scheduled and p.r.n..? Initiate IV Solu- Medrol.? Not on home maintenance inhalers as Symbicort was not covered by insurance. #.? Sinus tachycardia in the setting of above. Monitor #. Hypokalemia. Repleted #.? Reactive leukocytosis DVT prophylaxis: None.? Patient is ambulatory Diet: Regular diet Full code Time Spent With Patient Time: Total time managing care of this patient today ____ minutes. Quality Stroke Does the patient have a stroke diagnosis?: No VTE Prior VTE?: No VTE Risk Level:: Medical - low VTE Device Contraindication: Treatment Not Indicated VTE Drug Contraindication: Treatment Not Indicated
[2023-01-19] MEDS: Potassium Chloride Packet 20 MEQ PACKET 40 MEQ PO (06:42)
--- NOTE | 2023-01-19 07:20 | PC.NURSE ---
CARE ASSUMED OF THIS PATIENT. PT REPORTS TO BE ON THIRD ALBUTEROL TREATMENT. 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 SINUS TACH 160S
[2023-01-19] MEDS: 0.9 % Sodium Chloride Flush 3 ML SYRINGE IVFLUSH ×3 (07:32→22:24)
[2023-01-19] MEDS: methylPREDNISolone Sod Succ 40 MG/ML VIAL IVPUSH ×2 (07:32→17:56)
[2023-01-19] MEDS: Acetaminophen 325 MG TABLET 650 MG PO (10:31)
--- NOTE | 2023-01-19 10:33 | PC.NURSE ---
medicated with tylenol for headache. jamal sent to md for medication for acid reflux.
--- NOTE | 2023-01-19 12:19 | PC.NURSE ---
Paged Dr. Hawley patient c/o acid reflux and headache awaiting medications or response
--- NOTE | 2023-01-19 12:25 | MHC.CM.PN ---
Met with patient and father, Lance, in regards to discharge planning. Patient lives with her parents, ambulates independently and had no services prior to coming to the hospital. No services anticipated to be needed because patient is not homebound. PCP verified. Patient has received 3 Moderna vaccines. Obs notice explained and signed. Family will transport patient when medically stable. Continue to monitor for d/c needs.
--- NOTE | 2023-01-19 12:34 | PM.EVENT ---
Event Note Date of Service: 01/19/23 Event Note: Seen and evaluated get winded quickly with ambulation wheezing seems to be improving Continue steroids, nebulizers and Azithromycin Cough medicine Time Spent With Patient Time: Total time managing care of this patient today ____ minutes.
[2023-01-19] MEDS: Butalb/Acetamin/Caff 50/325/40 TABLET 1 TAB PO ×2 (13:18→21:42)
[2023-01-19] MEDS: Magnesium Hydrox/Alum Hydrox 30 ML ORAL.SUSP PO (13:18)
--- NOTE | 2023-01-19 13:21 | PC.NURSE ---
Patient alert and oriented x 3. independent. 94% on room air. tele: sinus tachycardia 120-130's. Called report to Jennifer MCDOWELL awaiting transport. medicated for headache and acid reflux just prior to leaving ER. Will continue with plan of care.
[2023-01-19] MEDS: levalbuterol HCL 1.25 MG/3 ML VIAL.NEB INHALE ×2 (14:42→19:36)
[2023-01-19] MEDS: Melatonin 3 MG TABLET 6 MG PO (22:22)
[2023-01-20] MEDS: Acetaminophen 325 MG TABLET 650 MG PO (01:20)
[2023-01-20 03:04] VITALS: BP 153/73; PULSE 64; RESP 20; TEMP 36.4; O2SAT 98
[2023-01-20] MEDS: levalbuterol HCL 1.25 MG/3 ML VIAL.NEB INHALE ×2 (03:33→07:39)
[2023-01-20 03:37] VITALS: PULSE 64; RESP 20; O2SAT 98
[2023-01-20] MEDS: diphenhydrAMINE HCL 50 MG/ML VIAL IVPUSH (04:06)
[2023-01-20 05:56] LABS: Hematocrit 40.8 % (37.0-47.0); Mean Corpuscular HGB Conc 34.3 g/dl (31.0-35.0); Mean Corpuscular Volume 93.2 fL (80.0-98.0); Mean Platelet Volume 9.5 fL (9.4-12.3); Platelet Count 359 X10*3/uL (160-400); Red Blood Count 4.38 X10*6/uL (4.20-5.50); Red Cell Distribution Width 12.7 % (11.0-16.0)
[2023-01-20 05:57] LABS: WBC ABN SCTR FOR CBC 1
[2023-01-20 06:10] LABS: Anion Gap 14 (12-20); Blood Urea Nitrogen 8 mg/dL (9-16); Calcium 10.3 mg/dL (8.4-10.2); Carbon Dioxide 19 mmol/L (22-29); Chloride 110 mmol/L (96-108); Estimated Glomerular Filt Rate > 60; Glucose Random 132 mg/dL (60-115); Potassium 4.6 mmol/L (3.3-5.1); Sodium 138 mmol/L (135-145)
[2023-01-20] MEDS: methylPREDNISolone Sod Succ 40 MG/ML VIAL IVPUSH (06:42)
[2023-01-20] MEDS: Butalb/Acetamin/Caff 50/325/40 TABLET 1 TAB PO (06:44)
[2023-01-20 07:08] VITALS: BP 124/65; PULSE 89; RESP 18; TEMP 36.7; O2SAT 95
[2023-01-20 07:40] VITALS: PULSE 100; RESP 18; O2SAT 98
[2023-01-20 07:40] LABS: Band Neutrophils Percent 4 % (3-5); Lymphocytes Percent Manual 3 % (20-40); Monocytes Percent Manual 2 % (2-11); Neutrophils Percent Manual 91 % (45-73)
[2023-01-20 07:41] LABS: Lymphocytes Absolute Manual 0.9 X10*3/uL (1.2-4.9); Monocytes Absolute Manual 0.6 X10*3/uL (0.1-1.2); Neutrophils Absolute Manual 28.1 X10*3/uL (2.0-8.3); Platelet Estimate NORMAL (NORMAL); Platelet Morphology Comment NORMAL; RBC Morphology NORMAL; White Blood Count 29.6 X10*3/uL (4.8-10.8)
[2023-01-20] MEDS: 0.9 % Sodium Chloride Flush 3 ML SYRINGE IVFLUSH (09:23)
--- NOTE | 2023-01-20 10:49 | P.DS_ITS ---
DS: Providers Provider Date of Service: 01/20/23 Date of admission: 01/19/23 06:27 Primary care physician: Darby Ramirez MD DS: Diagnosis Discharge Diagnosis (1) Asthma: Status: Acute DS: Summary Hospital Course Hospital Course: from initial hpi: 22-year-old female with pertinent history of asthma and allergic rhinitis who presents to the emergency department for evaluation of dyspnea and wheezing.? Patient states it started 3 days prior to presentation.? Patient states she has been having dyspnea, worse with ambulation which has been progressive over the last 2-3 days.? She woke up in the middle of the night on the day of presentation because she could not breathe.? It is associated with wheezing and nonproductive cough.? Denies fevers or chills.? Patient saw her linseed oil temperer earlier this month and was sent a prescription of Symbicort.? Patient states it was canceled as insurance did not cover it.? Patient tried her home inhaler without relief.? No chest discomfort, palpitations, abdominal pain, changes in urinary or bowel habits. In the emergency department, patient with wheezing despite multiple DuoNeb treatments. hospital course: Patient was admitted for moderate persistent asthma with acute decompensation. She was treated with IV Solu-Medrol and bronchodilators. She will be discharged home with 5 more days of prednisone and follow up with Pulmonary. Hypokalemia was replaced. Time Spent with Patient Time attestation: Total time managing care of this patient today ____ minutes. Discharge coordination time: Greater than 30 minutes Quality: Safe Use of Opioids Does Pt have an Active Cancer Diagnosis on the Problem List?: No Quality: Stroke Does the patient have a stroke diagnosis?: No Physical Exam Vital Signs: Vital Signs: Last Vital Signs Temp 98.1 F 01/20/23 07:08 Pulse 100 01/20/23 07:40 Resp 18 01/20/23 07:40 BP 124/65 01/20/23 07:08 Pulse Ox 95 01/20/23 07:08 O2 Del Method Room Air 01/20/23 07:08 BMI result Body Mass Index 35.8 General: AO X 3, no acute distress Resp: CTA bilateral, no accessory muscles used CVS: S1,S2,RRR GI: soft, non tender, non distended Neuro: motor grossly intact, alert Psych: appropriate affect, appropriate insight DS: Data Data Completed and Pending Labs on day of discharge: Laboratory Results - last 24 hr 01/20/23 01/20/23 05:41 05:41 WBC 29.6 H RBC 4.38 Hgb 14.0 Hct 40.8 MCV 93.2 MCH 32.0 MCHC 34.3 RDW 12.7 Plt Count 359 D MPV 9.5 Immature Gran % (Auto) Cancelled Neut % (Auto) Cancelled Lymph % (Auto) Cancelled [place] % (Auto) Cancelled Eos % (Auto) Cancelled Baso % (Auto) Cancelled Lymph # (Auto) Cancelled [place] # (Auto) Cancelled Eos # (Auto) Cancelled Baso # (Auto) Cancelled Abs Immat Gran (auto) Cancelled Absolute Neuts (auto) Cancelled Absolute Nucleated RBC 0.000 Nucleated RBC % (auto) 0.0 Neutrophils % (Manual) 91 H Band Neutrophils % 4 Lymphocytes % (Manual) 3 L Monocytes % (Manual) 2 Abs Neuts (Manual) 28.1 H Lymphocytes # (Manual) 0.9 L Monocytes # (Manual) 0.6 Platelet Estimate NORMAL Plt Morphology Comment NORMAL RBC Morphology NORMAL Sodium 138 Potassium 4.6 D Chloride 110 H Carbon Dioxide 19 L Anion Gap 14 BUN 8 L Creatinine 0.73 Estim Creat Clear Calc 131.0 Estimated GFR > 60 Random Glucose 132 H Calcium 10.3 H D Discharge Plan Discharge Anticipated Discharge Date/Time: 01/20/23 10:43 Patient Disposition: Home, Self-Care Discharge Diagnosis: asthma Referrals: Darby Davis MD [Primary Care Provider] - 1 Week Discharge Medications: New levalbuterol HCl 1.25 mg/3 mL Solution For Nebulization 1.25 mg inhalation Q3H PRN (Reason: Shortness Of Breath/Wheezing) Qty: 90 1RF prednisone 20 mg tablet 40 mg PO DAILY Qty: 10 0RF Continued albuterol sulfate 90 mcg/actuation HFA aerosol inhaler 2 puff inhalation Q6H PRN (Reason: Wheezing) Qty: 8.5 1RF fluticasone propionate [Flovent HFA] 220 mcg/actuation HFA aerosol inhaler 2 puff inhalation BID 30 Days Qty: 12 3RF Rx Instructions: administer with spacer (DME) peak flow meter Device See Rx Instructions .Route Qty: 1 0RF Rx Instructions: As directed Discharge Orders: Discharge Order (Routine); Ordered 01/20/23 Ordered By: Anthony Colunga Diet: Advance to usual diet Activity on Discharge: As tolerated Stand Alone Forms: Patient Portal Discharge page Care Plan Goals: recovery Health Concerns: asthma Plan of Treatment: prednisone, inhalers, nebs, follow up pulmonary Assessment: see above
--- NOTE | 2023-01-20 11:01 | MHC.CM.PN ---
Patient has been medically cleared for dc to home today, self care.
[2023-01-20 11:12] VITALS: BP 132/63; PULSE 97; RESP 18; TEMP 37; O2SAT 97
== END 2023-01-20 12:12 | disposition home or self-care (01) ==
LOC: HO.ED 06:28 → HO.EDOVER 06:32 → HO.IMC 12:31
PROVIDERS: Admitting Provider Student in an Organized Health Care Education/Training Program; Emergency Provider Emergency Medicine; PCP Internal Medicine; Visit Provider Internal Medicine
DX: J45.901 Unspecified asthma with (acute) exacerbation (principal); E87.6 Hypokalemia; D72.829 Elevated white blood cell count, unspecified; R06.00 Dyspnea, unspecified; J30.9 Allergic rhinitis, unspecified; R00.0 Tachycardia, unspecified; Z20.822 Contact with and (suspected) exposure to COVID-19; Z20.828 Contact with and (suspected) exposure to other viral communicable diseases
CPT/HCPCS: 0241U; 36415; 71045; 80048; 80053; 84484; 85007; 85025; 85027; 93005; 94640; 96365; 96366; 96375; 96376; 99222; 99285; J1200; J2405; J2920; J2930; J3475

== ENCOUNTER → 2023-01-19 06:27 | Outpatient (BNV) | payer BC, SELFPAY | PROVIDERS: Admitting Provider Student in an Organized Health Care Education/Training Program; Emergency Provider Emergency Medicine; Visit Provider Student in an Organized Health Care Education/Training Program | DX: J45.909 Unspecified asthma, uncomplicated (principal) | CPT/HCPCS: 99222; 99239; 99499 ==

== ENCOUNTER 2023-02-11 09:13 | Outpatient (AMB) | payer BC, SELFPAY ==
[2023-02-11 09:19] VITALS: BP 100/70; PULSE 77; O2SAT 98; BMI 37.0
--- NOTE | 2023-02-11 09:19 | A.OFFVIS_ITS ---
Intake Vital Signs 02/11/23 09:19 Height 5 ft 3 in Weight 209 lb BMI 37.0 BP 100/70 Blood Pressure Location Lt brachial Position Sitting Pulse 77 Pulse Source Pulse Oximeter Pulse Oximetry (%) 98 Oxygen Delivery Method Room Air Intake Visit Reasons: Dyspnea Intake Note: pt is here for follow up and states she was in for overnight stay for asthma, and now feels okay, she is using a nebulizer at home now, that is helping a lot. Now using nebulizer bid prn. Supervisor Cigarette Making Department Required: No Allergies No Known Allergies Allergy (Verified 02/11/23 09:35) Medication List - Last Reconciled 02/11/23 by Elizabeth Molina MD albuterol sulfate 90 mcg/actuation 2 puffs inhalation Q6H PRN fluticasone propionate 220 mcg/actuation (Flovent HFA) 2 puffs inhalation BID 30 days levalbuterol HCl 1.25 mg (3 mL) inhalation Q3H PRN peak flow meter As directed Do you need a note to return to daycare/school/sports/work: No HPI Dyspnea HPI Details This 22 years old female, a known asthmatic, also has allergic rhinitis. Was admitted to the hospital for overnight treatment of acute exacerbation of asthma, a few weeks ago. She since then has been doing well. In addition to Flovent and albuterol she also has inhalation solution of levalbuterol, to use in the nebulizer 2 or 3 times a day as needed. Since her discharge home she has cut down its use, but still uses about once or twice a day. She was not able to get Symbicort due to insurance restriction. So had to go back to Flovent. She also is not able to get Flonase is, so continues to have mild nasal congestion on a daily basis. Does not smoke cigarettes but she does smoke marijuana a few times during the day. [facility] Medical History Allergic rhinitis Asthma Social History Household Members: Family Housing: House Do you presently have visiting nurse or other home services: No Alcohol intake: current Alcohol intake frequency: holidays/special occasions only Patient Tobacco Use Status: Never used Tobacco Second Hand Smoke Exposure: No Substance Use Type: Marijuana service: No Current occupational status: employed Review of Systems Const All systems reviewed & are unremarkable except as noted in HPI and below Denies snoring Eyes Reports no additional complaints ENT Reports nasal congestion (Mild off and on) Card Reports no additional complaints and Denies dyspnea Resp Reports cough (Mild occasional), Denies dyspnea, Denies snoring and Denies wheezing GI Reports no additional complaints Reports no additional complaints Musc Reports no additional complaints Skin/Breast Reports system reviewed and no additional complaints, except as documented Neuro Reports no additional complaints Endo Reports no additional complaints Aller/Immun Reports no additional complaints and Denies wheezing Physical Exam Vital Signs: Last Vital Signs Pulse 77 02/11/23 09:19 BP 100/70 02/11/23 09:19 Pulse Ox 98 02/11/23 09:19 Oxygen Delivery Method Room Air 02/11/23 09:19 BMI result Body Mass Index 37.0 Const General: healthy appearing, comfortable, no acute distress, alert and awake Orientation/consciousness: patient oriented x3 HEENT Head: Yes normal to inspection General nose exam: No nasal polyps present, No nasal discharge present and Other nasal findings present (Mild nasal congestion in Both nostrils) Face and sinus: Yes sinuses nontender Mouth: oropharynx normal Throat: Yes posterior oropharynx normal Eyes General: appearance normal, both eyes and all related structures Neck Neck: Yes normal visual inspection, Yes no lymphadenopathy, Yes trachea midline and Yes no JVD Thyroid: Thyroid normal Chest Chest palpation & inspection: normal inspection of the chest, normal palpation of entire chest wall and no tenderness Resp Other: Percussion note resonant, has good breath sounds on both sides. Today her lungs are very clear and no wheezes or rhonchi are noted, PEAK FLOW, 325 L/MINUTE Cardio Palpation: normal PMI Rate: regular rate Rhythm: regular rhythm Heart sounds: no gallops and no murmurs Peripheral pulses: Peripheral pulses 2+ throughout GI Palpation (GI): Soft to palpation, nontender, No hepatosplenomegaly present and no masses Auscultation: normal bowel sounds Back/Spine/Pelvis Thoracic/Lumbar Spine: thoracic and lumbar spine normal to inspection Skin General skin exam: no rashes or lesions noted Neuro General: patient oriented x3 and no focal motor deficits Cranial nerves: Yes CN's II-XII intact bilaterally Extrem General: Yes normal to inspection, Yes no clubbing, cyanosis or edema and Yes no calf tenderness Psych Speech and movement: Normal speech and movement present Assessment & Plan Assessment & Plan (1) Asthma: Comment: TREATED IN HOSPITAL FOR AN ACUTE EXACERBATION OF BRONCHIAL ASTHMA, A FEW WEEKS AGO, HAS COMPLETED THE COURSE OF PREDNISONE. STABLE AT PRESENT. AT TO GO BACK ON TO FLOVENT-220 , 2 PUFFS B.I.D. ( NON COVERAGE OF SYMBICORT BY INSURANCE ) ALBUTEROL HFA 2 PUFFS Q 4-6 HOURS P.R.N. WHEN OUTDOORS. LEVALBUTEROL SOLUTION FOR WHY NEBULIZER Q 4- 6 HOURS P.R.N. AT HOME CHECK 5 PEAK FLOWS ON A DAILY BASIS, GOAL IS TO KEEP IT ABOVE 300. Code(s): J45.909 - Unspecified asthma, uncomplicated (2) Allergic rhinitis: Comment: She has mild intermittent nasal congestion with postnasal drip. Most likely has a mild allergic rhinitis, [place] : Advised to resume using Flonase-50 1 spray intranasal b.i.d( however it is not covered by insurance and she has hard time to buy out of pocket) May use loratadine 10 mg once a day p.r.n.. Code(s): J30.9 - Allergic rhinitis, unspecified Coding Level of Care Code Est Pt Level 3 (79192) Diagnoses Asthma J45.909 Allergic rhinitis J30.9
== END 2023-02-11 09:34 | disposition home or self-care (01) ==
PROVIDERS: PCP Internal Medicine; Visit Provider Internal Medicine
DX: J45.909 Unspecified asthma, uncomplicated (principal); J30.9 Allergic rhinitis, unspecified
CPT/HCPCS: 99213

== ENCOUNTER → 2023-02-11 09:13 | Outpatient (BNVA) | payer BC, SELFPAY | PROVIDERS: PCP Internal Medicine; Visit Provider Internal Medicine ==

== ENCOUNTER 2023-02-20 09:38 | Inpatient (IN) | payer BC, SELFPAY ==
[2023-02-20] VITALS (15 sets, daily range): BP systolic 122–152; BP diastolic 48–88; PULSE 113–168; RESP 17–35; TEMP 36.6–37.3; O2SAT 92–95; BMI 35.4; BMI 35.6
--- NOTE | ~2023-02-20 | XR_ITS ---
EXAMINATION: XR PORTABLE CHEST CLINICAL INFORMATION: Shortness of breath COMPARISON: 01/19/2023 TECHNIQUE: AP portable upright view of the chest FINDINGS: Lungs are clear. No consolidation, pneumothorax, or pleural effusion. Cardiac and mediastinal contours are normal. Pulmonary vasculature is unremarkable. Old healed right clavicular fracture. No acute fractures. XR/XR chest 1V IMPRESSION: No acute cardiopulmonary findings
--- NOTE | ~2023-02-20 | CT_ITS ---
EXAMINATION: CT CHEST WITHOUT CONTRAST CLINICAL INFORMATION: Asthma COMPARISON: Radiograph 02/20/2023 TECHNIQUE: Multidetector volumetric CT imaging of the chest was done. Axial MIP volume rendering provided. Sagittal and coronal reformatted images were obtained. This CT examination was performed using dose optimization techniques as appropriate, variously including the following: *Automated exposure control *Adjustment of mA and/or kV according to patient size (this includes techniques or standardized protocols for targeted exams where dose is matched to indication/reason for exam; i.e. extremities or head) *Use of iterative reconstruction technique DLP: 388 mGy-cm FINDINGS: COMPUTER BUILDER: Hyperinflation consistent with asthma. LUNGS: Hyperinflation consistent with airway disease with scattered areas of groundglass opacities consistent small airway disease. There is minor atelectasis at both lung bases medially within the medial segment of the right middle lobe and inferior segment lingula of the left upper lobe. MEDIASTINUM: The mediastinum is normal. CORONARY ARTERY CALCIFICATION: None visualized on this study. PLEURA: There is no pleural effusion. No pleural mass or thickening. AXILLA: No lymphadenopathy. UPPER ABDOMEN: Unremarkable. OSSEOUS STRUCTURES: Unremarkable. CT/CT chest wo IV con IMPRESSION: Hyperinflation and minor groundglass opacities most consistent with asthma. Minor atelectasis. No suspicious pulmonary nodules. Fleischner guidelines were followed.
--- NOTE | 2023-02-20 09:45 | ED.GENADULT ---
HPI - General Adult General Chief complaint: Asthma Stated complaint: asthma Time Seen by Provider: 02/20/23 09:44 Source: patient Mode of arrival: ambulatory Limitations: no limitations History of Present Illness HPI narrative: Patient is a 22 year old assigned female at with a history of asthma presenting to the emergency department today with an asthma exacerbation. Patient states that she was admitted here in December for the same thing. Patient states that she is short of breath with increased wheezing. Patient denies any dizziness, lightheadedness, abdominal pain, nausea, vomiting, fever, chills, blurry vision, double vision, loss of vision, chest pain, back pain, night sweats, pain with urination, increased urinary frequency, increased urinary urgency, blood in her urine or stool, syncope or a near syncopal episode, recent trauma or falls, bowel incontinence, bladder incontinence, bowel retention, bladder retention, or any other complaints at this time. Onset (ago): day(s) Severity: moderate Severity scale (1-10): 5 Relieving factors: none Exacerbating factors: none Associated symptoms: shortness of breath Treatments prior to arrival: none Related Data Home Medications Medication Instructions Recorded Confirmed acetaminophen 500 mg tablet 1,500 mg PO BID PRN Pain 02/20/23 02/20/23 levalbuterol HCl 1.25 mg/0.5 mL 1.25 mg inhalation BID 02/20/23 02/20/23 solution for nebulization Previous Rx's Medication Instructions Recorded fluticasone propionate 220 2 puff inhalation BID ASTHMA 30 11/02/22 mcg/actuation HFA aerosol inhaler days #12 grams (Flovent HFA) peak flow meter #1 ea 11/02/22 albuterol sulfate 90 mcg/actuation 2 puff inhalation Q6H PRN Wheezing 01/20/23 aerosol inhaler #8.5 grams levalbuterol HCl 1.25 mg/3 mL 1.25 mg (3 mL) inhalation Q3H PRN 01/20/23 solution for nebulization Shortness Of Breath/Wheezing #90 mL Allergies Allergy/AdvReac Type Severity Reaction Status Date / Time No Known Allergies Allergy Verified 02/11/23 09:35 Review of Systems Constitutional: Constitutional: Reports no additional constitutional complaints, Denies chills, Denies fever(s) and Denies night sweats Eyes: Eyes: Reports no additional eye complaints, Denies blurry vision, Denies change in vision, Denies diplopia, Denies eye discharge, Denies loss of vision and Denies eye pain ENT: Denies dizziness Cardiovascular: Cardiovascular: Reports no additional cardiovascular complaints, Denies chest pain, Denies lightheadedness, Denies Loss of Consciousness and Reports dyspnea Respiratory: Respiratory: Reports no additional respiratory complaints, Reports dyspnea and Reports wheezing Gastrointestinal: Gastrointestinal: Reports no additional gastrointestinal complaints, Denies abdominal pain, Denies melena, Denies hematochezia, Denies change in bowel habits and Denies change in stool character Genitourinary: Genitourinary: Denies hematuria, Denies urinary frequency, Denies dysuria, Denies urinary incontinence, Denies urinary hesitancy and Denies urinary urgency Musculoskeletal: Musculoskeletal: Reports no additional musculoskeletal complaints, Denies numbness and Denies tingling Neurologic: Denies dizziness, Denies loss of vision, Denies numbness and Denies tingling Psychiatric: Psychiatric: Reports no additional psychiatric complaints Endocrine: Endocrine: Reports no additional endocrine complaints Hematologic/Lymphatic: Hematologic/Lymphatic: Reports no additional hematologic/lymphatic complaints Allergic/Immunologic: Allergic/Immunologic: Reports no additional allergic/immunologic complaints and Reports wheezing PMFSH Past Medical History Attestation statement: The following information was validated with the patient. Source: old records reviewed and nursing notes reviewed Medical History Allergic rhinitis Asthma Social History Social History Household Members: Family Housing: House Do you presently have visiting nurse or other home services: No Alcohol intake: current Alcohol intake frequency: holidays/special occasions only Patient Tobacco Use Status: Never used Tobacco Smoked in Last 30 Days: No Second Hand Smoke Exposure: No Use of substances other than those prescribed or required for medical reasons: Yes Substance Use Type: Marijuana Advance Directives: No Advance Directives Information Provided: No service: No Current occupational status: employed Physical Exam ED Vital Signs: Vital Signs - 24 hr 02/20/23 09:47 02/20/23 10:28 02/20/23 10:51 Temperature 98.1 F Pulse Rate 150 H 137 H 168 H Respiratory Rate 28 H 28 H 35 H Blood Pressure 148/88 H Pulse Oximetry 92 Oxygen Delivery Method Nasal Cannula 02/20/23 11:15 02/20/23 12:00 02/20/23 12:59 Temperature 99.2 F Pulse Rate 153 H 147 H 155 H Respiratory Rate 25 H 32 H 30 H Blood Pressure 152/88 H 127/48 L Pulse Oximetry 93 93 94 Oxygen Delivery Method Room Air Room Air Room Air BMI result Body Mass Index 35.4 Const General: cooperative, no acute distress, alert and awake Nutritional Appearance: well nourished Orientation/consciousness: patient oriented x3 Limitations: no limitations HENMT Head: Yes normal to inspection and Yes atraumatic Ears: hearing grossly normal bilaterally and external ears normal General nose exam: Normal external nose present, no nasal discharge noted and no epistaxis Face and sinus: Yes normal facial exam, No abrasion and No laceration Mouth: Normal oral and palatal mucosa present, no drooling and no muffled voice Eyes General: appearance normal, both eyes and all related structures Periorbital: periorbital findings normal Eyelids: Yes eyelids normal Conjunctivae: conjunctivae normal Pupils: Equal, round and reactive pupils present EOM: EOMs intact bilaterally Neck Neck: Yes normal visual inspection, Yes full ROM and Yes no lymphadenopathy Chest Chest palpation & inspection: normal inspection of the chest Resp Effort & Inspection: able to speak in complete sentences and labored Auscultation: wheezes scattered wheezes and throughout Cardio Rate: regular rate Rhythm: regular rhythm GI Inspection: Yes normal to inspection Palpation (GI): Soft to palpation, not firm, nontender and no guarding Neuro General: patient oriented x3 and moves all extremities Cranial nerves: Yes Equal, round and reactive pupils present Cognition (Neuro): normal cognition Motor exam (neuro): 5/5 motor strength present throughout Sensory Exam: Normal double simultaneous stimulation for sensation Coordination: [id number] test normal Extrem General: Yes normal to inspection, Yes full ROM and Yes capillary refill normal Psych Appearance: grossly normal Mental Status: mental status grossly normal Affect: normal affect Attitude: cooperative Thought process: Normal thought process present Thought content: Normal thought content present Insight: Good insight present (Psych) Medications Administered Discontinued Medications Generic Name Dose Route Start Last Admin Trade Name Freq PRN Reason Stop Dose Admin Adenosine 6 mg 02/20/23 10:07 02/20/23 10:14 Adenosine 6 Mg/2 Ml Vial IVPUSH 02/20/23 10:08 6 mg ONCE ONE Administration Adenosine 12 mg 02/20/23 10:16 02/20/23 10:14 Adenosine 6 Mg/2 Ml Vial IVPUSH 02/20/23 10:17 12 mg STAT STA Administration Albuterol Sulfate 7.5 mg/ 10 mg 02/20/23 10:26 02/20/23 10:27 Albuterol Sulfate 2.5 mg INHALE 02/20/23 10:27 10 mg ONCE ONE Administration Benzonatate 200 mg 02/20/23 11:20 02/20/23 11:59 Benzonatate 100 Mg Capsule PO 02/20/23 11:21 200 mg ONCE ONE Administration Levalbuterol HCl 5 mg/ 0 mg 02/20/23 10:49 02/20/23 10:50 Ipratropium [place] 0.5 mg INHALE 02/20/23 10:50 5 dose ONCE ONE Administration Diltiazem HCl 20 mg 02/20/23 11:00 02/20/23 11:08 Diltiazem Hcl 50 Mg/10 Ml Vial IVPUSH 02/20/23 11:01 20 mg STAT STA Administration Sodium Chloride 1,000 mls @ 999 mls/hr 02/20/23 10:15 02/20/23 11:12 Ns IV 02/20/23 11:15 Infused .Q1H1M EILEEN Infusion Magnesium Sulfate 2 gm in 50 mls @ 25 mls/hr 02/20/23 10:16 02/20/23 12:48 Magnesium Sulfate/H2o IV 02/20/23 12:15 Infused ONCE ONE Infusion Lorazepam 1 mg 02/20/23 10:22 02/20/23 10:18 Lorazepam 2 Mg/Ml Vial IVPUSH 02/20/23 10:23 1 mg ONCE ONE Administration Lorazepam 1 mg 02/20/23 10:32 02/20/23 10:43 Lorazepam 2 Mg/Ml Vial IVPUSH 02/20/23 10:33 1 mg ONCE ONE Administration Methylprednisolone Sodium Succinate 60 mg 02/20/23 09:56 02/20/23 10:04 Methylprednisolone Sod Succ 125 Mg/2 Ml Vial IVPUSH 02/20/23 09:57 60 mg ONCE ONE Administration Ondansetron HCl 4 mg 02/20/23 11:24 02/20/23 11:27 Ondansetron Hcl 4 Mg/2 Ml Vial IVPUSH 02/20/23 11:25 4 mg ONCE ONE Administration Medical Decision Making Medical Decision Making [facility] Narrative: Patient is a 22 year old assigned female at with a history of asthma presenting to the emergency department today with wheezing and an asthma exacerbation. Patient's physical exam was as noted in the physical exam portion of this note. Patient's blood work showed an elevated WBC count of 16.7. Patient's WBC count appears to be chronically elevated. Patient's chest x-ray showed no acute process. Patient was immediately given a duoneb breathing treatment, IV solu-medrol and IV magnesium. Approximately 3/[address]ths of [address] way through her breathing treatment, the patient's heart rate jumped to 190bpm. EKG was obtained that showed SVT. At that time, I consulted my attending physician Dr. Parsons. He recommended giving 6mg of IV adenosine and 1mg of IV Ativan. Patient's heart rate remained unchanged. Patient was then given 12mg of Adenosine which decreased her heart rate to 160bpm. Repeat EKG was obtained which showed sinus tachycardia. Patient was then given 20mg of IV Cardizem. Patient's heart rate remaind elevated in the 150s. I consulted with cardiology who recommended treating the asthma as that is the underlying cause of the tachycardia. Patient was given a treatment of Xopenex however, she continued to have profound wheezing. I spoke to the hospitalist who agreed to admission. I explained my physical exam findings as well as all test results to the patient. I answered all questions asked by the patient. Patient verbalized agreement and understanding with this treatment plan and admission. Differential Diagnosis Differential Diagnoses: The differential diagnosis associated with the presentation includes Asthma exacerbation SVT Sinus tachycardia Admission/Observation Consideration of admission/observation: Escalation of care including admission/observation considered Patient admitted. Consult Healthcare Provider Management of the patient was discussed with: Hospitalist (agreed to admission) and Mold Yard Crane Operator (spoke to the hydraulic strainer operator as noted in the rational portion of this note.) Lab Data [facility] Lab Attestation statement: I reviewed the patient's lab results. My interpretation of these results are noted in the rationale portion of this note. 02/20/23 10:40 02/20/23 10:40 Labs: Lab Results 02/20/23 02/20/23 02/20/23 Range/Units 10:30 10:31 10:40 WBC 16.7 H (4.8-10.8) X10*3/uL RBC 4.43 (4.20-5.50) X10*6/uL Hgb 14.6 (12.0-16.0) g/dl Hct 42.5 (37.0-47.0) % MCV 95.9 (80.0-98.0) fL MCH 33.0 (27.0-33.0) pg MCHC 34.4 (31.0-35.0) g/dl RDW 12.8 (11.0-16.0) % Plt Count 363 (160-400) X10*3/uL MPV 9.2 L (9.4-12.3) fL Immature Gran % (Auto) 0.4 (0.0-0.4) % Neut % (Auto) 89.2 H (45-73) % Lymph % (Auto) 3.9 L (20-40) % Ripley % (Auto) 5.6 (2-11) % Eos % (Auto) 0.4 (0-4) % Baso % (Auto) 0.5 (0-2) % Lymph # (Auto) 0.7 L (1.2-4.9) X10*3/uL Ripley # (Auto) 0.9 (0.1-1.2) X10*3/uL Eos # (Auto) 0.1 (0.0-0.4) X10*3/uL Baso # (Auto) 0.1 (0.0-0.2) X10*3/uL Abs Immat Gran (auto) 0.06 H (0.00-0.03) X10*3/uL Absolute Neuts (auto) 14.9 H (2.0-8.3) x10*3/uL Absolute Nucleated RBC 0.000 (0.0-0.012) X10*3/uL Nucleated RBC % (auto) 0.0 (0.0-0.2) /100WBC PT 12.1 (11.1-13.3) SEC INR 1.0 (0.9-1.1) APTT 29.8 (26.0-36.4) SEC D-Dimer High Sensitivty < 150 NG/ML Sodium 143 (135-145) mmol/L Potassium 3.3 D (3.3-5.1) mmol/L Chloride 110 H (96-108) mmol/L Carbon Dioxide 18 L (22-29) mmol/L Anion Gap 18 (12-20) BUN 11 (9-16) mg/dL Creatinine 0.77 (0.5-1.4) mg/dL Estim Creat Clear Calc 123.5 Estimated GFR > 60 Random Glucose 172 H (60-115) mg/dL Calcium 9.2 D (8.4-10.2) mg/dL Phosphorus (2.7-4.5) mg/dL Total Bilirubin 0.8 (0.0-1.0) mg/dL AST 15 (5-31) U/L ALT 11 (0-31) U/L Alkaline Phosphatase 69 (39-117) U/L Total Protein 7.0 (6.5-8.0) g/dL Albumin 4.2 (3.5-5.0) g/dL TSH (0.32-4.0) uIU/mL Beta HCG, Quant < 2 mIU/mL Urine Opiates Screen (Not Detect) Urine Fentanyl Screen (Not Detect) Ur Barbiturates Screen (Not Detect) Ur Phencyclidine Scrn (Not Detect) Ur Amphetamines Screen (Not Detect) U Benzodiazepines Scrn (Not Detect) Urine Cocaine Screen (Not Detect) U Marijuana (THC) Screen (Not Detect) Influenza Type A (PCR) NEGATIVE (Negative) Influenza Type B (PCR) NEGATIVE (Negative) RSV RNA Qual (PCR) NEGATIVE (Negative) SARS-CoV-2 RNA (RT-PCR) NEGATIVE (Negative) S. pyogenes GrpA NIGHAT Negative (Negative) 02/20/23 02/20/23 Range/Units 13:09 13:14 WBC (4.8-10.8) X10*3/uL RBC (4.20-5.50) X10*6/uL Hgb (12.0-16.0) g/dl Hct (37.0-47.0) % MCV (80.0-98.0) fL MCH (27.0-33.0) pg MCHC (31.0-35.0) g/dl RDW (11.0-16.0) % Plt Count (160-400) X10*3/uL MPV (9.4-12.3) fL Immature Gran % (Auto) (0.0-0.4) % Neut % (Auto) (45-73) % Lymph % (Auto) (20-40) % Ripley % (Auto) (2-11) % Eos % (Auto) (0-4) % Baso % (Auto) (0-2) % Lymph # (Auto) (1.2-4.9) X10*3/uL [place]ipley # (Auto) (0.1-1.2) X10*3/uL Eos # (Auto) (0.0-0.4) X10*3/uL Baso # (Auto) (0.0-0.2) X10*3/uL Abs Immat Gran (auto) (0.00-0.03) X10*3/uL Absolute Neuts (auto) (2.0-8.3) x10*3/uL Absolute Nucleated RBC (0.0-0.012) X10*3/uL Nucleated RBC % (auto) (0.0-0.2) /100WBC PT (11.1-13.3) SEC INR (0.9-1.1) APTT (26.0-36.4) SEC D-Dimer High Sensitivty NG/ML Sodium (135-145) mmol/L Potassium (3.3-5.1) mmol/L Chloride (96-108) mmol/L Carbon Dioxide (22-29) mmol/L Anion Gap (12-20) BUN (9-16) mg/dL Creatinine (0.5-1.4) mg/dL Estim Creat Clear Calc Estimated GFR Random Glucose (60-115) mg/dL Calcium (8.4-10.2) mg/dL Phosphorus 1.7 L (2.7-4.5) mg/dL Total Bilirubin (0.0-1.0) mg/dL AST (5-31) U/L ALT (0-31) U/L Alkaline Phosphatase (39-117) U/L Total Protein (6.5-8.0) g/dL Albumin (3.5-5.0) g/dL TSH 0.67 (0.32-4.0) uIU/mL Beta HCG, Quant mIU/mL Urine Opiates Screen Not Detected (Not Detect) Urine Fentanyl Screen Not Detected (Not Detect) Ur Barbiturates Screen Not Detected (Not Detect) Ur Phencyclidine Scrn Not Detected (Not Detect) Ur Amphetamines Screen Not Detected (Not Detect) U Benzodiazepines Scrn Not Detected (Not Detect) Urine Cocaine Screen Not Detected (Not Detect) U Marijuana (THC) Screen POSITIVE H (Not Detect) Influenza Type A (PCR) (Negative) Influenza Type B (PCR) (Negative) RSV RNA Qual (PCR) (Negative) SARS-CoV-2 RNA (RT-PCR) (Negative) S. pyogenes GrpA NIGHAT (Negative) Independent Interpretation I performed an independent interpretation of an: EKG and Plain X-Ray Interpretation: My interpretation is in agreement with the radiologist's impression of this imaging study. EXAMINATION: XR PORTABLE CHEST CLINICAL INFORMATION: Shortness of breath COMPARISON: 01/19/2023 TECHNIQUE: AP portable upright view of the chest FINDINGS: Lungs are clear. No consolidation, pneumothorax, or pleural effusion. Cardiac and mediastinal contours are normal. Pulmonary vasculature is unremarkable. Old healed right clavicular fracture. No acute fractures. XR/XR chest 1V IMPRESSION: No acute cardiopulmonary findings Dictated By: N Signed By: Electronically signed by N 02/20/23 1147 Vent. Rate: 179 BPM Atrial Rate: 000 BPM P-R Int: 000 ms QRS Dur: 070 ms QT Int: 268 ms P-R-T Axes: 000 074 032 degrees QTc Int: [address] & T wave abnormality, consider inferior ischemia Abnormal ECG When compared with ECG of 19-JAN-2023 03:39, Vent. rate has increased BY 62 BPM DD/ 1000 Vent. Rate: 165 BPM Atrial Rate: 165 BPM P-R Int: 128 ms QRS Dur: 074 ms QT Int: 264 ms P-R-T Axes: 084 075 017 degrees QTc Int: [address] & T wave abnormality, consider inferior ischemia Abnormal ECG DD/ 1016 Radiology Impression Discussion of test interpretation with radiology: I have reviewed the radiologist's reading. External Record Review External record reviewed: Inpatient record and Office record Chronic Conditions Patient?s care impacted by: Other (asthma) Critical Care Time Critical Care Time Critical Care Time: Yes Total Critical Care Time: 60 Attestation: I spent 60 minutes of Critical Care Time with this patient. This does not include time spent on separately reported billable procedures. Discharge Plan Discharge Clinical Impression: Asthma, SVT (supraventricular tachycardia), Tachycardia Patient Disposition: Admitted As Inpatient Prescriptions: No Action levalbuterol HCl 1.25 mg/3 mL Solution For Nebulization 1.25 mg inhalation Q3H PRN (Reason: Shortness Of Breath/Wheezing) Qty: 90 1RF albuterol sulfate 90 mcg/actuation HFA aerosol inhaler 2 puff inhalation Q6H PRN (Reason: Wheezing) Qty: 8.5 1RF acetaminophen 500 mg Tablet 1,500 mg PO BID PRN (Reason: Pain) levalbuterol HCl 1.25 mg/0.5 mL solution for nebulization 1.25 mg inhalation BID fluticasone propionate [Flovent HFA] 220 mcg/actuation HFA aerosol inhaler 2 puff inhalation BID 30 Days Qty: 12 3RF Rx Instructions: administer with spacer (DME) peak flow meter Device See Rx Instructions .Route Qty: 1 0RF Rx Instructions: As directed
--- NOTE | 2023-02-20 09:55 | ECG_ITS ---
Test Reason : PALPITATIONS Blood Pressure : / mmHG Vent. Rate : 179 BPM Atrial Rate : 000 BPM P-R Int : 000 ms QRS Dur : 070 ms QT Int : 268 ms P-R-T Axes : 000 074 032 degrees QTc Int : [address] & T wave abnormality, consider inferior ischemia Abnormal ECG When compared with ECG of 19-JAN-2023 03:39, Vent. rate has increased BY 62 BPM Referred By: Maria E Elizabeth Electronically Signed By:AVINASH AMBROSE
[2023-02-20] MEDS: methylPREDNISolone Sod Succ 125 MG/2 ML VIAL 60 MG IVPUSH (10:04)
[2023-02-20] MEDS: 0.9 % Sodium Chloride 1,000 ML 999 ML IV (10:04)
[2023-02-20] MEDS: Adenosine 6 MG/2 ML VIAL IVPUSH (10:14)
[2023-02-20] MEDS: Adenosine 6 MG/2 ML VIAL 12 MG IVPUSH (10:14)
[2023-02-20] MEDS: LORazepam 2 MG/ML VIAL 1 MG IVPUSH ×2 (10:18→10:43)
[2023-02-20] MEDS: Magnesium Sulfate/H2O 2 GM/50 ML PIGGYBACK IV (10:23)
[2023-02-20] MEDS: Albuterol Sulfate 7.5 MG, Albuterol Sulfate (0.083%) 2.5 MG 10 MG INHALE (10:27)
[2023-02-20 10:45] LABS: MANUAL DIFF FLAG NO
[2023-02-20 10:47] LABS: Basophils Absolute Auto 0.1 X10*3/uL (0.0-0.2); Basophils Percent Auto 0.5 % (0-2); Eosinophils Absolute Auto 0.1 X10*3/uL (0.0-0.4); Eosinophils Percent Auto 0.4 % (0-4); Hematocrit 42.5 % (37.0-47.0); Hemoglobin 14.6 g/dl (12.0-16.0); Imm Gran Abs Auto 0.06 X10*3/uL (0.00-0.03); Imm Gran Pct Auto 0.4 % (0.0-0.4); Lymphocytes Absolute Auto 0.7 X10*3/uL (1.2-4.9); Lymphocytes Percent Auto 3.9 % (20-40); Mean Corpuscular HGB Conc 34.4 g/dl (31.0-35.0); Mean Corpuscular Volume 95.9 fL (80.0-98.0); Mean Platelet Volume 9.2 fL (9.4-12.3); Monocytes Absolute Auto 0.9 X10*3/uL (0.1-1.2); Monocytes Percent Auto 5.6 % (2-11); Neutrophils Absolute Auto 14.9 x10*3/uL (2.0-8.3); Neutrophils Percent Auto 89.2 % (45-73); Platelet Count 363 X10*3/uL (160-400); Red Blood Count 4.43 X10*6/uL (4.20-5.50); Red Cell Distribution Width 12.8 % (11.0-16.0); White Blood Count 16.7 X10*3/uL (4.8-10.8)
--- NOTE | 2023-02-20 10:48 | PC.NURSE ---
pt aox4, comes in with asthma exacerbation. pt HR elevated up to high 180s during albuterol treatment. EKG indicates SVT. adenosine 6mg followed by 12mg given followed by 1mg Ativan IV push. Pt HR remains high 160s. another 1mg Ativan given. plan of care ongoing
[2023-02-20] MEDS: levalbuterol HCL 5 MG, Ipratropium Bromide 0.5 MG INHALE (10:50)
[2023-02-20 10:54] LABS: Prothrombin Time 12.1 SEC (11.1-13.3)
[2023-02-20 10:56] LABS: Partial Thromboplastin Time 29.8 SEC (26.0-36.4)
[2023-02-20 11:01] LABS: D Dimer High Sensitivity < 150 NG/ML
[2023-02-20 11:07] LABS: IDNOW Serial# 08D9AD1C; Strep A Nucleic Acid Negative (Negative)
[2023-02-20 11:08] LABS: Alanine Aminotransferase 11 U/L (0-31); Albumin Level 4.2 g/dL (3.5-5.0); Alkaline Phosphatase 69 U/L (39-117); Anion Gap 18 (12-20); Aspartate Amino Transferase 15 U/L (5-31); Bilirubin Total 0.8 mg/dL (0.0-1.0); Blood Urea Nitrogen 11 mg/dL (9-16); Calcium 9.2 mg/dL (8.4-10.2); Carbon Dioxide 18 mmol/L (22-29); Chloride 110 mmol/L (96-108); Creatinine Clr Calc Pharmacy 123.5; Estimated Glomerular Filt Rate > 60; Glucose Random 172 mg/dL (60-115); HCG Quantitative < 2 mIU/mL; Potassium 3.3 mmol/L (3.3-5.1); Sodium 143 mmol/L (135-145)
[2023-02-20] MEDS: dilTIAZem HCL 50 MG/10 ML VIAL 20 MG IVPUSH (11:08)
[2023-02-20 11:27] LABS: Influenza A PCR NEGATIVE (Negative); Influenza B PCR NEGATIVE (Negative); Resp Syncy Virus RNA Qual PCR NEGATIVE (Negative); SARS COV2 PCR INHOUSE NEGATIVE (Negative)
[2023-02-20] MEDS: ondansetron HCL 4 MG/2 ML VIAL IVPUSH ×2 (11:27→17:27)
--- NOTE | 2023-02-20 11:29 | PC.NURSE ---
cardizem brought heart rate to 150s, with coughing spell HR came back up to 170s. pt had bought of vomiting with coughing. zofran given. tesselon PO waiting for nausea to subside.
[2023-02-20] MEDS: Benzonatate 100 MG CAPSULE 200 MG PO (11:59)
[2023-02-20 13:30] LABS: Amphetamine Screen Urine Not Detected (Not Detect); Barbiturates, Urine Not Detected (Not Detect); Benzodiazepines Screen Urine Not Detected (Not Detect); Cannabinoid Screen Urine POSITIVE (Not Detect); Cocaine Screen Urine Not Detected (Not Detect); Fentanyl, urine Not Detected (Not Detect); Opiate Screen Urine Not Detected (Not Detect); Phencyclidine Screen Urine Not Detected (Not Detect)
[2023-02-20 14:01] LABS: Phosphorus 1.7 mg/dL (2.7-4.5)
--- NOTE | 2023-02-20 14:02 | PM.IMHP ---
History of Present Illness Date of Service: 02/20/23 <ASHLEY Dyson - Last Filed: 02/20/23 16:34> Attending physician on admission: Renata Awad <ASHLEY Dyson - Last Filed: 02/20/23 16:34> Chief Complaint: Wheezing, SOB <ASHLEY Dyson - Last Filed: 02/20/23 16:34> Pt is a 22-year-old female with a PMH significant for?moderate persistent asthma and allergic rhinitis who presents to the ED with?increased shortness of breath and wheezing since last night. Patient states she is having such significant D.O. E that she can barely walk across the room. Has taken her home inhalers to no effect. Patient also has been experiencing sore throat and stuffiness/congestion since yesterday. States she has been breathing through her mouth which makes it harder for her to breathe. Of note, patient was admitted to the hospital for similar symptoms 1 month ago on 01/19/2023 through 01/20/2023 and treated for asthma exacerbation. Patient is followed by Dr. Talita Guerrero and pulmonology. Was prescribed Symbicort but patient's insurance does not cover it so patient has been unable to fill this prescription. She has had no medications/inhaler changes since last admission. In the ED pt was immediately given Solu-Medrol, Mag, and DuoNebs. About [address] through her treatment heart rate franchesca into 190s and EKG read rhythm as SVT. Patient was then given adenosine which decreased heart rate into the 60s, and patient was then given 20 mg IV Cardizem. ED consult Cardiology who recommended treating asthma as the underlying condition for a tachycardia. Patient currently endorses palpitations, SOB, wheezing, and continue MACIAS. Has had some nausea and increased nonproductive cough, but no vomiting. Denies chest pain/pressure. No fever, chills, abdominal pain. In the ED patient was afebrile, but tachycardic up to 200s, tachypneic up to 35, and hypertensive as high as 152/88, satting at 93% on RA. Labs were significant for chronic leukocytosis of 16.7, phosphorus 1.7, potassium borderline at 3.3. Patient tested negative for influenza type a and B, RSV, COVID, and strep throat. CXR showed no acute cardiopulmonary findings. EKG demonstrated sinus tachycardia [address] and T-wave abnormalities. Pt was treated with Solu-Medrol, IVF, adenosine, lorazepam, Mag sulfate, DuoNebs, diltiazem, ondansetron, and benzonatate. Pt will be admitted to the hospital for treatment and further evaluation of acute asthma exacerbation and persistent tachycardia. <ASHLEY Dyson - Last Filed: 02/20/23 16:34> Review of Systems Review of Systems: Shortness of breath, wheezing, MACIAS Sore throat, congestion Nonproductive cough Palpitations Nausea, no vomiting Denies chest pain/pressure No fever, chills, abdominal pain <ASHLEY Dyson - Last Filed: 02/20/23 16:34> [facility] Medical History: Medical History Allergic rhinitis Asthma <ASHLEY Dyson - Last Filed: 02/20/23 16:34> Social History: Social History Household Members: Family Housing: House Do you presently have visiting nurse or other home services: No Alcohol intake: current Alcohol intake frequency: holidays/special occasions only Patient Tobacco Use Status: Never used Tobacco Smoked in Last 30 Days: No Second Hand Smoke Exposure: No Use of substances other than those prescribed or required for medical reasons: Yes Substance Use Type: Marijuana Substance Use Frequency: Daily Last Used Substance: Days (ago) Currently Displaying Signs/Symptoms of Drug Intoxication Withdrawal: No Any prior treatment program specific to substance use: No Do you feel safe in your current relationship?: Yes Is there a partner from a previous relationship who is making you feel unsafe now?: No Advance Directives: No Advance Directives Information Provided: No Do you have thoughts of harming others: None Do you have a plan to hurt others: No Plan Nutrition Risks: No Nutritional Risk Patient : No service: No Current occupational status: employed <ASHLEY Dyson - Last Filed: 02/20/23 16:34> Meds Allergies/Adverse reactions: Allergies Allergy/AdvReac Type Severity Reaction Status Date / Time No Known Allergies Allergy Verified 02/11/23 09:35 <ASHLEY Dyson - Last Filed: 02/20/23 16:34> Home medications: Home Medications Medication Instructions Recorded Confirmed Last Taken Type acetaminophen 500 mg tablet 1,500 mg PO BID PRN Pain 02/20/23 02/20/23 Unknown History levalbuterol HCl 1.25 mg/0.5 mL 1.25 mg inhalation BID 02/20/23 02/20/23 Unknown History solution for nebulization <ASHLEY Dyson Last Filed: 02/20/23 16:34> Physical Exam Vital Signs and Narrative: Vital Signs: Last Vital Signs Temp 99.2 F 02/20/23 12:59 Pulse 155 H 02/20/23 12:59 Resp 30 H 02/20/23 12:59 BP 127/48 L 02/20/23 12:00 Pulse Ox 94 02/20/23 12:59 O2 Del Method Room Air 02/20/23 12:59 BMI result Body Mass Index 35.4 <ASHLEY Dyson - Last Filed: 02/20/23 16:34> Constitutional: Alert, in no acute distress. Mental Status: Oriented to person, place and time. Eyes: Pupils are equal, round, and reactive to light. Ear, Nose, and Throat: Oropharynx clear, mucous membranes moist. Ears and nose without deformities. Trachea midline. Rear of oropharynx erythematous, no exudate seen Respiratory: Diffuse wheezing bilaterally Cardiovascular: S1, S2, tachycardic. No murmurs, rubs, or gallops. Gastrointestinal: Abdomen soft, non-tender, non-distended. Normal bowel sounds. Neurologic: Cranial nerves II-XII are grossly intact bilaterally. No focal neurological deficits. Moves all extremities spontaneously. Skin: No rashes or lesions noted. Musculoskeletal: No cyanosis or clubbing. Extremities: No edema. Psychiatric: Normal mood and affect. <ASHLEY Dyson - Last Filed: 02/20/23 16:34> Results Labs CBC and Chem 7: 02/21/23 05:41 02/21/23 05:41 <ASHLEY Dyson - Last Filed: 02/20/23 16:34> Labs: Laboratory Results - last 24 hr 02/20/23 02/20/23 02/20/23 10:30 10:31 10:40 MCV 95.9 MCH 33.0 MCHC 34.4 RDW 12.8 Plt Count 363 MPV 9.2 L Immature Gran % (Auto) 0.4 Neut % (Auto) 89.2 H Lymph % (Auto) 3.9 L Moca % (Auto) 5.6 Eos % (Auto) 0.4 Baso % (Auto) 0.5 Lymph # (Auto) 0.7 L Moca # (Auto) 0.9 Eos # (Auto) 0.1 Baso # (Auto) 0.1 Abs Immat Gran (auto) 0.06 H Absolute Neuts (auto) 14.9 H Absolute Nucleated RBC 0.000 Nucleated RBC % (auto) 0.0 PT 12.1 INR 1.0 APTT 29.8 D-Dimer High Sensitivty < 150 Anion Gap 18 Estim Creat Clear Calc 123.5 Estimated GFR > 60 Random Glucose 172 H Calcium 9.2 D Total Bilirubin 0.8 AST 15 ALT 11 Alkaline Phosphatase 69 Total Protein 7.0 Albumin 4.2 Beta HCG, Quant < 2 Urine Opiates Screen Urine Fentanyl Screen Ur Barbiturates Screen Ur Phencyclidine Scrn Ur Amphetamines Screen U Benzodiazepines Scrn Urine Cocaine Screen U Marijuana (THC) Screen Influenza Type A (PCR) NEGATIVE Influenza Type B (PCR) NEGATIVE RSV RNA Qual (PCR) NEGATIVE SARS-CoV-2 RNA (RT-PCR) NEGATIVE S. pyogenes GrpA NIGHAT Negative 02/20/23 13:09 MCV MCH MCHC RDW Plt Count MPV Immature Gran % (Auto) Neut % (Auto) Lymph % (Auto) Moca % (Auto) Eos % (Auto) Baso % (Auto) Lymph # (Auto) Moca # (Auto) Eos # (Auto) Baso # (Auto) Abs Immat Gran (auto) Absolute Neuts (auto) Absolute Nucleated RBC Nucleated RBC % (auto) PT INR APTT D-Dimer High Sensitivty Anion Gap Estim Creat Clear Calc Estimated GFR Random Glucose Calcium Total Bilirubin AST ALT Alkaline Phosphatase Total Protein Albumin Beta HCG, Quant Urine Opiates Screen Not Detected Urine Fentanyl Screen Not Detected Ur Barbiturates Screen Not Detected Ur Phencyclidine Scrn Not Detected Ur Amphetamines Screen Not Detected U Benzodiazepines Scrn Not Detected Urine Cocaine Screen Not Detected U Marijuana (THC) Screen POSITIVE H Influenza Type A (PCR) Influenza Type B (PCR) RSV RNA Qual (PCR) SARS-CoV-2 RNA (RT-PCR) S. pyogenes GrpA NIGHAT <ASHLEY Dyson - Last Filed: 02/20/23 16:34> Imaging Radiologist's Impressions: Impressions Chest X-Ray 02/20/23 11:31 IMPRESSION: No acute cardiopulmonary findings <ASHLEY Dyson - Last Filed: 02/20/23 16:34> Assessment and Plan (1) Tachycardia: Status: Acute <ASHLEY Dyson - Last Filed: 02/20/23 16:34> (2) Exacerbation of asthma: Qualifiers: Asthma persistence: persistent Asthma severity: moderate Qualified Code(s): J45.41 - Moderate persistent asthma with (acute) exacerbation <ASHLEY Dyson - Last Filed: 02/20/23 16:34> Status: Resolved <ASHLEY Dyson - Last Filed: 02/20/23 16:34> Pt is a 22-year-old female with a PMH significant for?moderate persistent asthma and allergic rhinitis who presents to the ED with?increased shortness of breath and wheezing since last night. Acute moderate persistent asthma exacerbation Patient with wheezing, SOB, D.O. E since last night; patient admitted for similar symptoms 1 month prior Likely caused by URI: Patient will sore throat, congestion, nonproductive cough Symptomatic treatment for URI; pt tested negative for strep throat, influenza a and B, COVID, RSV Patient with significant wheezing on exam despite receiving multiple rounds of breathing treatments as well as Solu-Medrol Will give Xopenex, Solu-Medrol Hold albuterol d/t tachycardia Tachycardia Patient with elevated heart rate as high as 190s, likely secondary to asthma exacerbation and albuterol treatments Patient treated in ED for SVT with adenosine, Ativan, vagal maneuvers, and IV carvedilol Cardiology consulted, recommend treating underlying asthma exacerbation as above Will hold albuterol Will monitor on telemetry Hypophosphatemia Patient's phosphorus 1.7 at time of admission Will supplement with Neutra-Phos Check phosphorus levels tomorrow Borderline potassium Patient's potassium low normal at 3.3 Will give potassium 40 mEq x1 dose Leukocytosis Patient with chronically elevated leukocytosis Likely due to steroid use Pt not septic, tachypnea secondary to asthma exacerbation, tachycardia d/t albuterol treatments; no sign of bacterial infection Full Code Attending:?Dr. Awad DVT Prophylaxis: Lovenox Pt will require a hospitalization of at least two nights for treatment of?acute moderate persistent asthma attack with persistent tachycardia with breathing treatments, IV steroids, and close monitoring. <ASHLEY Dyson - Last Filed: 02/20/23 16:34> Pt is a 22-year-old female with a PMH significant for?moderate persistent asthma and allergic rhinitis who presents to the ED with?increased shortness of breath and wheezing since last night. Acute moderate persistent asthma exacerbation Patient with wheezing, SOB, D.O. E since last night; patient admitted for similar symptoms 1 month prior Likely caused by URI: Patient will sore throat, congestion, nonproductive cough Symptomatic treatment for URI; pt tested negative for strep throat, influenza a and B, COVID, RSV Patient with significant wheezing on exam despite receiving multiple rounds of breathing treatments as well as Solu-Medrol Will give Xopenex, Solu-Medrol Hold albuterol d/t tachycardia Tachycardia Patient with elevated heart rate as high as 190s, likely secondary to asthma exacerbation and albuterol treatments Patient treated in ED for SVT with adenosine, Ativan, vagal maneuvers, and IV carvedilol Cardiology consulted, recommend treating underlying asthma exacerbation as above Will hold albuterol Will monitor on telemetry Hypophosphatemia Patient's phosphorus 1.7 at time of admission Will supplement with Neutra-Phos Check phosphorus levels tomorrow Borderline potassium Patient's potassium low normal at 3.3 Will give potassium 40 mEq x1 dose Leukocytosis Patient with chronically elevated leukocytosis Likely due to steroid use Pt not septic, tachypnea secondary to asthma exacerbation, tachycardia d/t albuterol treatments; no sign of bacterial infection Full Code Attending:?Dr. Awad DVT Prophylaxis: Lovenox Pt will require a hospitalization of at least two nights for treatment of?acute moderate persistent asthma attack with persistent tachycardia with breathing treatments, IV steroids, and close monitoring. Addendum to history and physical by the advanced practice provider, ASHLEY Phillips I interviewed and examined the patient. I discussed their presentation and management with the ADDIS. I reviewed the history and physical and agree with the documentation, with the following additions and corrections: 22yo F with recently diagnosed mod persistent asthma, prescribed Symbicort but not covered by her insurance presenting with 1d of URI symptoms and worsening dyspnea flu/RSV/Covid negative persistent wheezing and then developed tachycardia to 190s [pred max heart rate, though, is 220-21 = 199]. EKG read by computer as SVT but I see P waves in V1. However, ED gaver her adenosine and revealed the underlying sinus tachycardia likely tachycardia triggered by albuterol admit to [facility] for status asthmaticus- levalbuterol, methylprednisolone <Renata Awad MD - Last Filed: 02/21/23 10:36> Time Spent With Patient Time: Total time managing care of this patient today ____ minutes. <ASHLEY Dyson - Last Filed: 02/20/23 16:34> Quality Stroke Does the patient have a stroke diagnosis?: No <ASHLEY Dyson - Last Filed: 02/20/23 16:34> VTE Prior VTE?: No <ASHLEY Dyson - Last Filed: 02/20/23 16:34> VTE Risk Level:: Medical - moderate - high <ASHLEY Dyson - Last Filed: 02/20/23 16:34> VTE Device Contraindication: Treatment Not Indicated <ASHLEY Dyson - Last Filed: 02/20/23 16:34> VTE Drug Contraindication: N/A - Med Ordered <ASHLEY Dyson - Last Filed: 02/20/23 16:34>
--- NOTE | 2023-02-20 14:12 | PHA.MEDREC ---
Pharmacy Consult ? Medication Reconciliation Pharmacy has completed the medication reconciliation. spoke with patient to confirm medications. patient explained she sometimes forgets to take her flovent and that she usually uses her nebulizer BID but when having SOB, uses q3h.
[2023-02-20 14:17] LABS: TSH reflex Free T4 0.67 uIU/mL (0.32-4.0)
[2023-02-20] MEDS: Ketorolac Tromethamine 15 MG/ML VIAL IVPUSH (14:22)
[2023-02-20] MEDS: levalbuterol HCL 1.25 MG/3 ML VIAL.NEB INHALE ×3 (16:44→22:53)
[2023-02-20] MEDS: Enoxaparin Sodium 40 MG/0.4 ML SYRINGE SUBCUT (17:03)
[2023-02-20] MEDS: Potassium Chloride Packet 20 MEQ PACKET 40 MEQ PO (17:03)
[2023-02-20] MEDS: 0.9 % Sodium Chloride Flush 3 ML SYRINGE IVFLUSH ×2 (17:09→23:16)
[2023-02-20] MEDS: Acetaminophen 325 MG TABLET 650 MG PO ×2 (18:03→23:43)
[2023-02-20] MEDS: Benzonatate 100 MG CAPSULE PO (18:03)
--- NOTE | 2023-02-20 18:04 | PC.NURSE ---
pt had bought of coughing which precipitated vomiting. medicated for nausea, pain and cough with prn medications
[2023-02-20] MEDS: Fluticasone Propionate 250 MCG BLST.W.DEV 2 PUFF INHALE (19:42)
[2023-02-20] MEDS: methylPREDNISolone Sod Succ 40 MG/ML VIAL IVPUSH (23:15)
[2023-02-21] VITALS (24 sets, daily range): BP systolic 120–149; BP diastolic 56–83; PULSE 68–169; RESP 15–25; TEMP 36.5–37; O2SAT 89–99
[2023-02-21] MEDS: levalbuterol HCL 1.25 MG/3 ML VIAL.NEB INHALE ×6 (03:24→23:12)
--- NOTE | 2023-02-21 05:49 | PC.NURSE ---
patient heart rate 120's-130's with increased work of breathing when ambulating to the bathroom. MD made aware and applied 2L Via NC. patient heart rate now sinus rhythm to low sinus tachycardia.
[2023-02-21 06:03] LABS: Hemoglobin 13.8 g/dl (12.0-16.0); Mean Corpuscular HGB Conc 33.7 g/dl (31.0-35.0); Mean Corpuscular Hemoglobin 32.5 pg (27.0-33.0); Mean Corpuscular Volume 96.7 fL (80.0-98.0); Mean Platelet Volume 9.6 fL (9.4-12.3); Platelet Count 369 X10*3/uL (160-400); Red Blood Count 4.24 X10*6/uL (4.20-5.50); Red Cell Distribution Width 13.2 % (11.0-16.0)
[2023-02-21 06:17] LABS: Anion Gap 15 (12-20); Blood Urea Nitrogen 9 mg/dL (9-16); Calcium 9.6 mg/dL (8.4-10.2); Carbon Dioxide 17 mmol/L (22-29); Chloride 111 mmol/L (96-108); Creatinine Clr Calc Pharmacy 144.5; Estimated Glomerular Filt Rate > 60; Glucose Random 122 mg/dL (60-115); Phosphorus 3.4 mg/dL (2.7-4.5); Potassium 4.6 mmol/L (3.3-5.1); Sodium 138 mmol/L (135-145)
[2023-02-21] MEDS: Benzonatate 100 MG CAPSULE PO (07:40)
[2023-02-21] MEDS: Acetaminophen 325 MG TABLET 650 MG PO ×2 (07:40→18:30)
[2023-02-21] MEDS: 0.9 % Sodium Chloride Flush 3 ML SYRINGE IVFLUSH ×3 (07:41→23:20)
[2023-02-21] MEDS: Fluticasone Propionate 250 MCG BLST.W.DEV 2 PUFF INHALE ×2 (08:28→19:33)
--- NOTE | 2023-02-21 08:34 | MHC.CM.PN ---
Lives w/parents; owns nebulizer, no prev. services, drives self. At time of D/C, Pt. will drive self home; car in [facility] lot. CM to follow.
[2023-02-21] MEDS: methylPREDNISolone Sod Succ 40 MG/ML VIAL IVPUSH (10:09)
--- NOTE | 2023-02-21 10:36 | HO.PM.IMPN ---
Subjective Subjective Date of Service: 02/21/23 Interval History: ongoing wheezing, dyspnea, tachycardia no fever Review of Systems Review of Systems: Yes all other systems are reviewed and are negative Physical Exam Vital Signs: Vital Signs: Last Vital Signs Temp 98.2 F 02/21/23 07:43 Pulse 127 H 02/21/23 08:30 Resp 20 02/21/23 08:30 BP 128/56 L 02/21/23 07:43 Pulse Ox 98 02/21/23 07:43 O2 Del Method Nasal Cannula 02/21/23 07:43 O2 Flow Rate 3 02/21/23 07:43 BMI result Body Mass Index 35.6 Gen: mild resp distress HEENT: sclera anicteric, moist mucus membranes Neck: supple Lungs: extensive insp + exp wheezing Heart: regular, tachycardic, no murmurs Abd: soft, non-tender, non-distended Ext: no edema Skin: warm/well-perfused Neuro: alert and oriented x3, no focal findings Psych: appropriate affect Objective Data Active Medications Acetaminophen (Acetaminophen 325 Mg Tablet) 650 mg PO Q6H PRN PRN Reason: Pain, Mild (Pain Scale 1-3) Last Admin: 02/21/23 07:40 Dose: 650 mg Documented By: VIKAS-SAROJ Benzonatate (Benzonatate 100 Mg Capsule) 100 mg PO TID PRN PRN Reason: Cough Last Admin: 02/21/23 07:40 Dose: 100 mg Documented By: VIKAS-SAROJ Docusate Sodium (Docusate Sodium 100 Mg Capsule) 100 mg PO DAILY PRN PRN Reason: Constipation Enoxaparin Sodium (Enoxaparin Sodium 40 Mg/0.4 Ml Syringe) 40 mg SUBCUT Q24H ON LICENSE OF [facility] Last Admin: 02/20/23 17:03 Dose: 40 mg Documented By: JOSE MARIA Fluticasone Propionate (Fluticasone Propionate 250 Mcg Blst.W.Dev) 2 puff INHALE RBID ON LICENSE OF [facility] Last Admin: 02/21/23 08:28 Dose: 2 puff Documented By: NELSY Ipratropium Brierfield (Ipratropium [place] 0.5 Mg/2.5 Ml Solution) 0.5 mg INHALE RQ4H WHILE AWAKE ON LICENSE OF [facility] Levalbuterol HCl (Levalbuterol Hcl 1.25 Mg/3 Ml Vial.Neb) 1.25 mg INHALE Q2H PRN PRN Reason: Shortness of Breath/Wheezing Levalbuterol HCl (Levalbuterol Hcl 1.25 Mg/3 Ml Vial.Neb) 1.25 mg INHALE RQ4H ON LICENSE OF [facility] Last Admin: 02/21/23 08:28 Dose: 1.25 mg Documented By: NELSY Methylprednisolone Sodium Succinate (Methylprednisolone Sod Succ 40 Mg/Ml Vial) 40 mg IVPUSH Q12H ON LICENSE OF [facility] Last Admin: 02/21/23 10:09 Dose: 40 mg Documented By: ORVILLE Ondansetron HCl (Ondansetron Hcl 4 Mg/2 Ml Vial) 4 mg IVPUSH Q8H PRN PRN Reason: Nausea and Vomiting Last Admin: 02/20/23 17:27 Dose: 4 mg Documented By: JOSE MARIA Sodium Chloride (0.9 % Sodium Chloride Flush 3 Ml Syringe) 3 ml IVFLUSH QSHIFT ON LICENSE OF [facility] Last Admin: 02/21/23 10:09 Dose: 3 ml Documented By: ORVILLE Labs 02/21/23 05:41 02/21/23 05:41 Labs: Laboratory Results - last 24 hr 02/20/23 02/20/23 02/20/23 10:30 10:31 10:40 MCV 95.9 MCH 33.0 MCHC 34.4 RDW 12.8 Plt Count 363 MPV 9.2 L Immature Gran % (Auto) 0.4 Neut % (Auto) 89.2 H Lymph % (Auto) 3.9 L [place] % (Auto) 5.6 Eos % (Auto) 0.4 Baso % (Auto) 0.5 Lymph # (Auto) 0.7 L [place] # (Auto) 0.9 Eos # (Auto) 0.1 Baso # (Auto) 0.1 Abs Immat Gran (auto) 0.06 H Absolute Neuts (auto) 14.9 H Absolute Nucleated RBC 0.000 Nucleated RBC % (auto) 0.0 PT 12.1 INR 1.0 APTT 29.8 D-Dimer High Sensitivty < 150 Anion Gap 18 Estim Creat Clear Calc 123.5 Estimated GFR > 60 Random Glucose 172 H Calcium 9.2 D Phosphorus Total Bilirubin 0.8 AST 15 ALT 11 Alkaline Phosphatase 69 Total Protein 7.0 Albumin 4.2 TSH Beta HCG, Quant < 2 Urine Opiates Screen Urine Fentanyl Screen Ur Barbiturates Screen Ur Phencyclidine Scrn Ur Amphetamines Screen U Benzodiazepines Scrn Urine Cocaine Screen U Marijuana (THC) Screen Influenza Type A (PCR) NEGATIVE Influenza Type B (PCR) NEGATIVE RSV RNA Qual (PCR) NEGATIVE SARS-CoV-2 RNA (RT-PCR) NEGATIVE S. pyogenes GrpA NIGHAT Negative 02/20/23 02/20/23 02/21/23 13:09 13:14 05:41 MCV 96.7 MCH 32.5 MCHC 33.7 RDW 13.2 Plt Count 369 MPV 9.6 Immature Gran % (Auto) Neut % (Auto) Lymph % (Auto) Sandoval % (Auto) Eos % (Auto) Baso % (Auto) Lymph # (Auto) [place] # (Auto) Eos # (Auto) Baso # (Auto) Abs Immat Gran (auto) Absolute Neuts (auto) Absolute Nucleated RBC 0.000 Nucleated RBC % (auto) 0.0 PT INR APTT D-Dimer High Sensitivty Anion Gap 15 Estim Creat Clear Calc 144.5 Estimated GFR > 60 Random Glucose 122 H Calcium 9.6 Phosphorus 1.7 L 3.4 Total Bilirubin AST ALT Alkaline Phosphatase Total Protein Albumin TSH 0.67 Beta HCG, Quant Urine Opiates Screen Not Detected Urine Fentanyl Screen Not Detected Ur Barbiturates Screen Not Detected Ur Phencyclidine Scrn Not Detected Ur Amphetamines Screen Not Detected U Benzodiazepines Scrn Not Detected Urine Cocaine Screen Not Detected U Marijuana (THC) Screen POSITIVE H Influenza Type A (PCR) Influenza Type B (PCR) RSV RNA Qual (PCR) SARS-CoV-2 RNA (RT-PCR) S. pyogenes GrpA NIGHAT Assessment and Plan (1) Status asthmaticus: Status: Acute Plan d2 22yo F with recently diagnosed mod persistent asthma presenting with 1d of URI symptoms and admitted for status asthmaticus moderate persistent asthma with status asthmaticus - methylprednisolone IV 02/20-, give continuous 5 mg levalbuterol/0.5 mg ipratropium neb now, scheduled 1.25 mg levalbuterol/0.5 mg ipratropium q4h, prn levalbuterol q2h - checked with [facility] and both Symbicort and Advair are covered with $15 copay - needs outpt Pulm f/u and should also have allergy testing [had 8.5% eosinophils in December] sinus tachycardia - due to albuterol; no SVT VTE ppx - LMWH Time Spent With Patient Time: Total time managing care of this patient today __40__ minutes. Quality Stroke Does the patient have a stroke diagnosis?: No VTE Prior VTE?: No VTE Risk Level:: Medical - moderate - high VTE Device Contraindication: Treatment Not Indicated VTE Drug Contraindication: N/A - Med Ordered
[2023-02-21] MEDS: levalbuterol HCL 1.25 MG/3 ML VIAL.NEB 5 MG INHALE (10:40)
[2023-02-21] MEDS: Ipratropium Bromide 0.5 MG/2.5 ML SOLUTION INHALE ×3 (10:40→19:33)
--- NOTE | 2023-02-21 11:42 | PC.NURSE ---
Patient was on nebulizer treatment when HR spiked to 169bpm, Sinus Tachycardia with some narrow complexes- Dr. Ritesh MD aware at this time. Treatment taken off immediately. Respiratory at bedside, continues with ins/exp wheezes throughout, increased WOB, and anxious at this time. at 1149- patient HR sustaining in the 150's. At 1158- patient began c/o dull sternal chest pain, reproducible upon palpation, nonradiating. Dr. Ritesh MD. aware. Patient administered meds- see eMAR. At 1210- patient desaturated to 89% on room air and placed on 2L via NC. Dr. Ritesh MD. aware
[2023-02-21] MEDS: Morphine Sulfate 2 MG/ML CARTRIDGE IVPUSH (12:16)
[2023-02-21] MEDS: methylPREDNISolone Sod Succ 125 MG/2 ML VIAL IVPUSH (12:21)
[2023-02-21] MEDS: Enoxaparin Sodium 40 MG/0.4 ML SYRINGE SUBCUT (12:27)
--- NOTE | 2023-02-21 13:15 | P.CONCC_ITS ---
History of Present Illness Data of Consult Service Date: 02/21/23 Requesting physician: Renata Awad Primary Care Provider: Darby Ramirez MD HPI Reason for consult: status asthmaticus/persistent tachycardia 22-year-old female with a recent history dating back 2-3 years of asthma no etiology ever discovered and she is just on maintenance nebulizer therapy at home including inhaled fluticasone presented to the emergency room with increased shortness of breath and cough without fever chills nor any sputum productivity and a toxicology screen was positive only for cannabis and for 24 hours she seen no improvement despite aggressive high-dose inhaled albuterol and leave albuterol therapy and she has remained afebrile and chest x-ray that basically shows no evidence of barotrauma no fluid no infiltrate and rome sinus tachycardia with heart rates as high as almost 200 but purely sinus no acute ST- T changes no dysrhythmia unchanged from previous EKGs and lab work that really is not telltale and I brought her down for BiPAP therapy and if that were not to improve her subjectively over the 1st 3-4 hours we will going to start her on IV aminophylline I am holding off on any systemic use of sympathomimetics including ketamine or IV epinephrine drips etc. because of the persistent degree of tachycardia I question the possibility of toxicity even though this is commercially sold cannabis at a dispensary and I plan to send her over for a dry CT scan of the chest bedside echo showed globally normal systolic wall motion of left ventricle and right ventricle and no primary valve or pericardial disease Review of Systems 2 Review of Systems: Yes all other systems are reviewed and are negative PMFSH Past Medical History Medical History (Updated 02/21/23 @ 18:31 by Pippa Anthony MD) Allergic rhinitis Asthma Social History Social History Household Members: Family Housing: House Do you presently have visiting nurse or other home services: No Alcohol intake: current Alcohol intake frequency: holidays/special occasions only Patient Tobacco Use Status: Never used Tobacco Smoked in Last 30 Days: No Second Hand Smoke Exposure: No Use of substances other than those prescribed or required for medical reasons: Yes Substance Use Type: Marijuana Substance Use Frequency: Daily Last Used Substance: Days (ago) Currently Displaying Signs/Symptoms of Drug Intoxication Withdrawal: No Any prior treatment program specific to substance use: No Do you feel safe in your current relationship?: Yes Is there a partner from a previous relationship who is making you feel unsafe now?: No Advance Directives: No Advance Directives Information Provided: No Do you have thoughts of harming others: None Do you have a plan to hurt others: No Plan Nutrition Risks: No Nutritional Risk Patient : No service: No Current occupational status: employed Meds Allergies Allergy/AdvReac Type Severity Reaction Status Date / Time No Known Allergies Allergy Verified 02/11/23 09:35 Active Medications: Current Medications Acetaminophen (Acetaminophen 325 Mg Tablet) 650 mg PO Q6H PRN PRN Reason: Pain, Mild (Pain Scale 1-3) Last Admin: 02/21/23 07:40 Dose: 650 mg Enoxaparin Sodium (Enoxaparin Sodium 40 Mg/0.4 Ml Syringe) 40 mg SUBCUT Q24H [facility] Last Admin: 02/21/23 12:27 Dose: 40 mg Fluticasone Propionate (Fluticasone Propionate 250 Mcg Blst.W.Dev) 2 puff INHALE RBID [facility] Last Admin: 02/21/23 08:28 Dose: 2 puff Ipratropium Goldsmith (Ipratropium Goldsmith 0.5 Mg/2.5 Ml Solution) 0.5 mg INHALE RQ4H WHILE AWAKE [facility] Last Admin: 02/21/23 10:45 Dose: Not Given Levalbuterol HCl (Levalbuterol Hcl 1.25 Mg/3 Ml Vial.Neb) 1.25 mg INHALE Q2H PRN PRN Reason: Shortness of Breath/Wheezing Levalbuterol HCl (Levalbuterol Hcl 1.25 Mg/3 Ml Vial.Neb) 1.25 mg INHALE RQ4H [facility] Last Admin: 02/21/23 10:45 Dose: Not Given Methylprednisolone Sodium Succinate (Methylprednisolone Sod Succ 40 Mg/Ml Vial) 60 mg IVPUSH Q8H [facility] Last Admin: 02/21/23 12:21 Dose: Not Given Methylprednisolone Sodium Succinate (Methylprednisolone Sod Succ 125 Mg/2 Ml Vial) 125 mg IVPUSH ONCE ONE Stop: 02/21/23 20:01 Last Admin: 02/21/23 12:21 Dose: 125 mg Sodium Chloride (0.9 % Sodium Chloride Flush 3 Ml Syringe) 3 ml IVFLUSH QSHIFT [facility] Last Admin: 02/21/23 10:09 Dose: 3 ml Home Medications Medication Instructions Recorded Confirmed Last Taken Type acetaminophen 500 mg tablet 1,500 mg PO BID PRN Pain 02/20/23 02/20/23 Unknown History levalbuterol HCl 1.25 mg/0.5 mL 1.25 mg inhalation BID 02/20/23 02/20/23 Unknown History solution for nebulization Physical Exam 2 Vital Signs: Vital Signs: Last Vital Signs Temp 97.8 F 02/21/23 11:19 Pulse 131 H 02/21/23 11:19 Resp 15 02/21/23 11:19 BP 149/68 H 02/21/23 11:19 Pulse Ox 99 02/21/23 11:19 O2 Del Method Nasal Cannula 02/21/23 07:43 O2 Flow Rate 3 02/21/23 07:43 BMI result Body Mass Index 35.6 sinus tachycardia at 01:24 unchanged with blood pressure 140/70 respiratory rate is not bad without accessory muscle use at 16-20 and oxygen saturations are compensated FiO2 is 28% and that is at 96% good bilateral carotid upstrokes no neck vein distension no gallops no murmurs no rubs abdomen soft no organomegaly definitely no has paddle splenomegaly no lymphadenopathy skin is clear lungs without accessory muscle use and no significant diaphragmatic effort but there is definitely bilateral end-expiratory wheezing Results Labs 02/21/23 05:41 02/21/23 05:41 Labs: Short CBC 02/21/23 Range/Units 05:41 WBC 18.0 H (4.8-10.8) X10*3/uL Hgb 13.8 (12.0-16.0) g/dl Hct 41.0 (37.0-47.0) % Plt Count 369 (160-400) X10*3/uL BMP 02/21/23 05:41 Sodium 138 Potassium 4.6 D Chloride 111 H Carbon Dioxide 17 L BUN 9 Creatinine 0.66 Calcium 9.6 Assessment and Plan (1) Status asthmaticus: Status: Acute (2) Tachycardia: Status: Acute (3) Allergic rhinitis: Status: Acute (4) 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
--- NOTE | 2023-02-21 13:58 | PC.NURSE ---
Called report to JEREMIAS Gray assuming care of patient in ICU.
--- NOTE | 2023-02-21 15:00 | PC.NURSE ---
Patient off floor at this time.
--- NOTE | 2023-02-21 15:58 | PC.RT ---
Pt placed on bipap per MD order. Pt aleena well initially but began coughing spurts causing discomfort while wearing Bipap 02/25. Dr. nAthony aware . Will try cpap after pt rests, RN aware.
[2023-02-21] MEDS: DEXTROSE 5% IV ×2 (19:42→20:13)
[2023-02-21] MEDS: AMINOPHYLLINE IV ×2 (19:42→20:13)
[2023-02-21] MEDS: methylPREDNISolone Sod Succ 40 MG/ML VIAL 60 MG IVPUSH (20:11)
[2023-02-21] MEDS: Pantoprazole Sodium 40 MG/10 ML VIAL IVPUSH (23:20)
[2023-02-22] VITALS (31 sets, daily range): BP systolic 101–154; BP diastolic 39–80; PULSE 81–151; RESP 13–33; TEMP 36.4–37.3; O2SAT 29–97; BMI 36.3
[2023-02-22] MEDS: ondansetron HCL 4 MG/2 ML VIAL IVPUSH ×2 (01:51→08:31)
[2023-02-22] MEDS: Acetaminophen 325 MG TABLET 650 MG PO ×3 (02:59→20:39)
[2023-02-22] MEDS: levalbuterol HCL 1.25 MG/3 ML VIAL.NEB INHALE ×6 (03:11→23:11)
[2023-02-22] MEDS: methylPREDNISolone Sod Succ 40 MG/ML VIAL 60 MG IVPUSH (04:02)
[2023-02-22 05:33] LABS: Basophils Percent Auto 0.1 % (0-2); Hematocrit 40.4 % (37.0-47.0); Hemoglobin 13.5 g/dl (12.0-16.0); Imm Gran Abs Auto 0.17 X10*3/uL (0.00-0.03); Imm Gran Pct Auto 0.8 % (0.0-0.4); Lymphocytes Absolute Auto 0.7 X10*3/uL (1.2-4.9); Lymphocytes Percent Auto 3.2 % (20-40); MANUAL DIFF FLAG SCAN; Mean Corpuscular HGB Conc 33.4 g/dl (31.0-35.0); Mean Corpuscular Hemoglobin 32.1 pg (27.0-33.0); Mean Platelet Volume 9.5 fL (9.4-12.3); Monocytes Percent Auto 4.9 % (2-11); Neutrophils Absolute Auto 18.4 x10*3/uL (2.0-8.3); Platelet Count 412 X10*3/uL (160-400); Red Blood Count 4.21 X10*6/uL (4.20-5.50); Red Cell Distribution Width 13.2 % (11.0-16.0); SCAN SMEAR FLAG 1; White Blood Count 20.3 X10*3/uL (4.8-10.8)
[2023-02-22] MEDS: DEXTROSE 5% IV (05:45)
[2023-02-22] MEDS: AMINOPHYLLINE IV (05:45)
[2023-02-22 05:51] LABS: Alanine Aminotransferase 10 U/L (0-31); Albumin Level 4.2 g/dL (3.5-5.0); Alkaline Phosphatase 61 U/L (39-117); Anion Gap 15 (12-20); Aspartate Amino Transferase 14 U/L (5-31); Bilirubin Total 0.3 mg/dL (0.0-1.0); Blood Urea Nitrogen 11 mg/dL (9-16); Calcium 9.3 mg/dL (8.4-10.2); Carbon Dioxide 20 mmol/L (22-29); Chloride 107 mmol/L (96-108); Creatinine Clr Calc Pharmacy 136.3; Estimated Glomerular Filt Rate > 60; Glucose Random 155 mg/dL (60-115); Magnesium 1.9 mg/dL (1.6-2.6); Potassium 3.8 mmol/L (3.3-5.1); Sodium 138 mmol/L (135-145); Total Protein 7.1 g/dL (6.5-8.0)
[2023-02-22 06:00] LABS: SLIDE REVIEW VERIFIED
[2023-02-22] MEDS: Pantoprazole Sodium 40 MG/10 ML VIAL IVPUSH (06:37)
[2023-02-22] MEDS: Fluticasone Propionate 250 MCG BLST.W.DEV 2 PUFF INHALE ×2 (07:34→19:53)
[2023-02-22] MEDS: Ipratropium Bromide 0.5 MG/2.5 ML SOLUTION INHALE ×4 (07:35→19:54)
[2023-02-22] MEDS: 0.9 % Sodium Chloride Flush 3 ML SYRINGE IVFLUSH ×3 (08:04→21:42)
[2023-02-22] MEDS: methylPREDNISolone Sod Succ 125 MG/2 ML VIAL IVPUSH ×3 (09:01→20:39)
[2023-02-22] MEDS: LORazepam 2 MG/ML VIAL 0.5 MG IVPUSH ×3 (09:18→20:38)
--- NOTE | 2023-02-22 12:34 | PM.CCPN ---
Subjective Subjective Date of Service: 02/22/23 Interval History: 22-year-old female who I believe from the CT scan appearance and history smoked pot and now has a hypersensitivity pneumonitis with status asthmaticus which I think is beginning to subside because today initially she was clearly hyperventilating panicked heart rate up to 160 in sinus and then after 0.5 mg of IV Ativan the whole process went away she remained on the CPAP of 6 with tidal volumes in the mid for to mid 500s as opposed to the hyperventilatory at tidal volumes that were close to 1500 cc which probably led to some degree of air trapping so at this point I think she is actually doing well not using accessory muscles and her diaphragmatic effort although it is mildly prolonged his is not terrible Critical Care Time (minutes): 35 Physical Exam Vital Signs: Vital Signs: Last Vital Signs Temp 97.5 F 02/22/23 12:00 Pulse 122 H 02/22/23 12:03 Resp 24 H 02/22/23 12:03 BP 117/62 02/22/23 12:00 Pulse Ox 94 02/22/23 12:00 O2 Del Method Nasal Cannula 02/22/23 12:00 O2 Flow Rate 2 02/22/23 12:00 FiO2 28 02/22/23 11:00 BMI result Body Mass Index 36.3 again she initially was in distress but is she really looked like she was hyperventilating and given the Ativan response sleeping very comfortably with no respiratory effort and comfortable tidal volumes made the case she tripled her resting tidal volume when she was hyperventilating no adventitious sounds bedside echo again reveals normal LV function abdomen soft benign with no organomegaly Objective Data Labs 02/22/23 05:10 02/22/23 05:10 Labs: Laboratory Results - last 24 hr 02/22/23 05:10 WBC 20.3 H RBC 4.21 Hgb 13.5 Hct 40.4 MCV 96.0 MCH 32.1 MCHC 33.4 RDW 13.2 Plt Count 412 H MPV 9.5 Immature Gran % (Auto) 0.8 H Neut % (Auto) 91.0 H Lymph % (Auto) 3.2 L [place] % (Auto) 4.9 Eos % (Auto) 0.0 Baso % (Auto) 0.1 Lymph # (Auto) 0.7 L [place] # (Auto) 1.0 Eos # (Auto) 0.0 Baso # (Auto) 0.0 Abs Immat Gran (auto) 0.17 H Absolute Neuts (auto) 18.4 H Absolute Nucleated RBC 0.000 Nucleated RBC % (auto) 0.0 Smear Tech's Comments VERIFIED Sodium 138 Potassium 3.8 Chloride 107 Carbon Dioxide 20 L Anion Gap 15 BUN 11 Creatinine 0.70 Estim Creat Clear Calc 136.3 Estimated GFR > 60 Random Glucose 155 H Calcium 9.3 Magnesium 1.9 Total Bilirubin 0.3 AST 14 ALT 10 Alkaline Phosphatase 61 Total Protein 7.1 Albumin 4.2 Progress Note: A&P Assessment and plan (1) 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: Status: Acute (2) Status asthmaticus: Status: Acute (3) Tachycardia: Status: Acute (4) Asthma: Status: Acute (5) Allergic rhinitis: Status: Acute (6) Asthma: Status: Acute Plan I stop the aminophylline and I increased her steroids but I think the p.r.nRosio Amy is going to help make a difference if she is comfortable by this evening I might yet be able to transfer her backup status to the floor without the use of CPAP Quality Stroke Does the patient have a stroke diagnosis?: No VTE Prior VTE?: No VTE Risk Level:: Medical - moderate - high VTE Device Contraindication: Treatment Not Indicated VTE Drug Contraindication: N/A - Med Ordered
[2023-02-22] MEDS: Enoxaparin Sodium 40 MG/0.4 ML SYRINGE SUBCUT (15:00)
--- NOTE | 2023-02-22 15:47 | MHC.CM.PN ---
EMR REVIEWED. PT REMAINS ON CPAP INTERMITTENTLY FOR WOB IN ICU. CM WILL CONTINUE TO FOLLOW FOR ANY CHANGES IN DC PLAN/NEEDS.
[2023-02-23] VITALS (32 sets, daily range): BP systolic 108–147; BP diastolic 52–89; PULSE 69–139; RESP 12–30; TEMP 36.3–37.4; O2SAT 83–100; BMI 36.9
[2023-02-23] MEDS: levalbuterol HCL 1.25 MG/3 ML VIAL.NEB INHALE ×2 (00:59→04:08)
[2023-02-23] MEDS: methylPREDNISolone Sod Succ 125 MG/2 ML VIAL IVPUSH ×4 (02:55→20:25)
[2023-02-23] MEDS: LORazepam 2 MG/ML VIAL 0.5 MG IVPUSH (02:55)
[2023-02-23 04:59] LABS: VBG HCO3 21 mmol/L (22-26); VBG pCO2 29 mmHg; VBG pH 7.46 (7.32-7.43); VBG pO2 65 mmHg
[2023-02-23 05:09] LABS: Basophils Percent Auto 0.1 % (0-2); Hemoglobin 14.1 g/dl (12.0-16.0); Imm Gran Abs Auto 0.17 X10*3/uL (0.00-0.03); Lymphocytes Absolute Auto 0.7 X10*3/uL (1.2-4.9); Lymphocytes Percent Auto 3.9 % (20-40); MANUAL DIFF FLAG SCAN; Mean Corpuscular HGB Conc 33.6 g/dl (31.0-35.0); Mean Corpuscular Hemoglobin 32.4 pg (27.0-33.0); Mean Corpuscular Volume 96.6 fL (80.0-98.0); Mean Platelet Volume 9.4 fL (9.4-12.3); Monocytes Absolute Auto 0.5 X10*3/uL (0.1-1.2); Monocytes Percent Auto 2.7 % (2-11); Neutrophils Absolute Auto 15.2 x10*3/uL (2.0-8.3); Neutrophils Percent Auto 92.3 % (45-73); Platelet Count 390 X10*3/uL (160-400); Red Blood Count 4.35 X10*6/uL (4.20-5.50); Red Cell Distribution Width 13.2 % (11.0-16.0); SCAN SMEAR FLAG 1; White Blood Count 16.5 X10*3/uL (4.8-10.8)
[2023-02-23 05:32] LABS: Albumin Level 4.2 g/dL (3.5-5.0); Anion Gap 16 (12-20); Blood Urea Nitrogen 15 mg/dL (9-16); Calcium 9.5 mg/dL (8.4-10.2); Carbon Dioxide 20 mmol/L (22-29); Chloride 105 mmol/L (96-108); Creatinine Clr Calc Pharmacy 122.1; Estimated Glomerular Filt Rate > 60; Glucose Random 143 mg/dL (60-115); Magnesium 2.1 mg/dL (1.6-2.6); Potassium 3.9 mmol/L (3.3-5.1); Sodium 137 mmol/L (135-145)
[2023-02-23] MEDS: Pantoprazole Sodium 40 MG/10 ML VIAL IVPUSH (05:43)
[2023-02-23 06:18] LABS: SLIDE REVIEW VERIFIED
[2023-02-23 06:19] LABS: Venous Blood Gas Refer to POC result
[2023-02-23] MEDS: Albuterol/Iprat 2.5/0.5MG 3 ML AMPUL.NEB INHALE ×4 (07:56→19:44)
[2023-02-23] MEDS: Fluticasone Propionate 250 MCG BLST.W.DEV 2 PUFF INHALE ×2 (07:56→19:44)
[2023-02-23] MEDS: 0.9 % Sodium Chloride Flush 3 ML SYRINGE IVFLUSH ×3 (09:17→20:24)
[2023-02-23] MEDS: Doxycycline Hyclate 100 MG in 0.9 % Sodium Chloride 250 ML 166.67 MG IV ×2 (09:58→20:24)
[2023-02-23] MEDS: Ketamine HCl 500 MG in 0.9 % Sodium Chloride 250 ML 19.28 MG IVCONT (09:58)
[2023-02-23] MEDS: Ketamine HCl/NS 50 MG/5 ML SYRINGE IVPUSH (11:23)
--- NOTE | 2023-02-23 13:52 | MHC.CM.PN ---
Pt continues care in ICU: on nasal cannula O2 and showing clinical improvement. D/C plan remains for a return to home w/family who will transport pt when d/c'd.
[2023-02-23] MEDS: Enoxaparin Sodium 40 MG/0.4 ML SYRINGE SUBCUT (14:55)
--- NOTE | 2023-02-23 16:35 | P.PNCC_ITS ---
Subjective Subjective Date of Service: 02/23/23 Interval History: 22-year-old with short history of asthma unqualified came in with clinical status asthmaticus with very very subtle ground-glass bilateral infiltrates and toxicology was positive for marijuana and this may very well have been a form of hypersensitivity pneumonitis Presented with an elevated white count before any steroids were administered but she remained on steroids empiric support with intermittent CPAP which she never really seemed to tolerate comfortably without increased coughing and then was on IV aminophylline in addition to bronchodilator therapy and that was stopped because of nausea and then actually today placed on a ketamine drip which made her feel little bit trunk but it certainly took some of the emotional overlay and and the contribution of her Angst which always made her increasingly tachypneic because it always seems that when she did fall asleep she breathes very much more comfortably and that took away the the hyperventilation which was davalos in her ability to tolerate But without having significantly improved at least subjectively and she I objectively still has persistent bilateral wheezing I am going to empirically add doxycycline I did the initial bedside echo demonstrating perfectly normal LV and RV function with no primary valve or pericardial disease Critical Care Time (minutes): 45 Physical Exam 2 Vital Signs: Vital Signs: Last Vital Signs Temp 99.3 F 02/23/23 16:28 Pulse 120 H 02/23/23 16:28 Resp 22 H 02/23/23 16:28 BP 146/75 H 02/23/23 16:28 Pulse Ox 95 02/23/23 16:28 O2 Del Method Nasal Cannula 02/23/23 16:28 O2 Flow Rate 3 02/23/23 16:28 FiO2 36 02/23/23 06:00 Oxygen Flow Rate 4 02/23/23 01:21 BMI result Body Mass Index 36.9 The degree of sinus tachycardia is much diminished over time and I take that as an objective or surrogate indicator of diminished work of breathing Persistent bilateral wheezing Abdomen soft with no organomegaly No peripheral edema with excellent peripheral color no acrocyanosis Objective Data Labs 02/24/23 04:45 02/24/23 04:45 Labs: Laboratory Results - last 24 hr 02/23/23 02/23/23 04:53 04:54 WBC 16.5 H RBC 4.35 Hgb 14.1 Hct 42.0 MCV 96.6 MCH 32.4 MCHC 33.6 RDW 13.2 Plt Count 390 MPV 9.4 Immature Gran % (Auto) 1.0 H Neut % (Auto) 92.3 H Lymph % (Auto) 3.9 L [place] % (Auto) 2.7 Eos % (Auto) 0.0 Baso % (Auto) 0.1 Lymph # (Auto) 0.7 L [place] # (Auto) 0.5 Eos # (Auto) 0.0 Baso # (Auto) 0.0 Abs Immat Gran (auto) 0.17 H Absolute Neuts (auto) 15.2 H Absolute Nucleated RBC 0.000 Nucleated RBC % (auto) 0.0 Smear Tech's Comments VERIFIED VBG pH 7.46 H VBG pCO2 29 VBG pO2 65 VBG HCO3 21 L VBG O2 Saturation 92.0 VBG Base Excess -1.0 Sodium 137 Potassium 3.9 Chloride 105 Carbon Dioxide 20 L Anion Gap 16 BUN 15 Creatinine 0.79 Estim Creat Clear Calc 122.1 Estimated GFR > 60 Random Glucose 143 H Calcium 9.5 Phosphorus 4.0 Magnesium 2.1 Albumin 4.2 Progress Note: A&P Assessment and plan (1) 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 use of CPAP and time I think is going to move this in the right direction Quality Stroke Does the patient have a stroke diagnosis?: No VTE Prior VTE?: No VTE Risk Level:: Medical - moderate - high VTE Device Contraindication: Treatment Not Indicated VTE Drug Contraindication: N/A - Med Ordered
[2023-02-23] MEDS: ondansetron HCL 4 MG/2 ML VIAL IVPUSH (16:48)
[2023-02-23] MEDS: Acetaminophen 325 MG TABLET 650 MG PO (20:29)
[2023-02-23] MEDS: hydrOXYzine HCL 25 MG TABLET PO (20:29)
--- NOTE | 2023-02-23 22:06 | PC.NURSE ---
Assumed care of patient at 19:00. Ketamine gtt dispensed/delivered directly from pharmacy (not from the pyxis) and initiated during the day was discontinued per [employer] order. Remaining volume of 80.837ml was wasted with RN witness VIOLA.
[2023-02-24] VITALS (19 sets, daily range): BP systolic 106–148; BP diastolic 48–83; PULSE 66–109; RESP 14–26; TEMP 36.4–37.3; O2SAT 92–95; BMI 36.9
[2023-02-24] MEDS: methylPREDNISolone Sod Succ 125 MG/2 ML VIAL IVPUSH (03:40)
[2023-02-24 04:51] LABS: VBG Base Excess 2.5 mmol/L; VBG HCO3 25 mmol/L (22-26); VBG pCO2 35 mmHg; VBG pH 7.47 (7.32-7.43); VBG pO2 75 mmHg
[2023-02-24 04:56] LABS: MANUAL DIFF FLAG NO
[2023-02-24 05:00] LABS: Basophils Percent Auto 0.3 % (0-2); Hematocrit 38.5 % (37.0-47.0); Hemoglobin 13.1 g/dl (12.0-16.0); Imm Gran Abs Auto 0.14 X10*3/uL (0.00-0.03); Imm Gran Pct Auto 1.2 % (0.0-0.4); Lymphocytes Absolute Auto 0.8 X10*3/uL (1.2-4.9); Lymphocytes Percent Auto 7.1 % (20-40); Mean Platelet Volume 9.5 fL (9.4-12.3); Monocytes Absolute Auto 0.5 X10*3/uL (0.1-1.2); Monocytes Percent Auto 3.8 % (2-11); Neutrophils Absolute Auto 10.2 x10*3/uL (2.0-8.3); Neutrophils Percent Auto 87.6 % (45-73); Platelet Count 348 X10*3/uL (160-400); Red Blood Count 3.97 X10*6/uL (4.20-5.50); Red Cell Distribution Width 13.1 % (11.0-16.0); White Blood Count 11.7 X10*3/uL (4.8-10.8)
[2023-02-24 05:10] LABS: Venous Blood Gas Refer to POC result
[2023-02-24 05:20] LABS: Albumin Level 3.7 g/dL (3.5-5.0); Anion Gap 12 (12-20); Blood Urea Nitrogen 15 mg/dL (9-16); Carbon Dioxide 24 mmol/L (22-29); Chloride 106 mmol/L (96-108); Creatinine Clr Calc Pharmacy 133.2; Estimated Glomerular Filt Rate > 60; Glucose Random 133 mg/dL (60-115); Magnesium 2.2 mg/dL (1.6-2.6); Phosphorus 4.4 mg/dL (2.7-4.5); Potassium 4.4 mmol/L (3.3-5.1); Sodium 138 mmol/L (135-145)
[2023-02-24] MEDS: Pantoprazole Sodium 40 MG/10 ML VIAL IVPUSH (06:06)
--- NOTE | 2023-02-24 07:17 | P.PNCC_ITS ---
Subjective Subjective Date of Service: 02/24/23 Interval History: 22-year-old female with status asthmaticus I believe based on a hypersensitivity pneumonitis from the smoked marijuana as the very subtle ground-glass infiltrates for implying and she definitely has a ever diminishing white count and finally subjectively says she still has a sense of persistent congestion but definitely better and at this point she clearly has less respiratory rate no diaphragmatic effort what so ever normal expiratory time Critical Care Time (minutes): 35 Physical Exam 2 Vital Signs: Vital Signs: Last Vital Signs Temp 97.6 F 02/23/23 22:00 Pulse 92 02/24/23 06:00 Resp 14 02/24/23 06:00 BP 116/49 L 02/24/23 06:00 Pulse Ox 93 02/24/23 06:00 O2 Del Method Nasal Cannula 02/24/23 06:00 O2 Flow Rate 3 02/24/23 06:00 FiO2 35 02/23/23 23:00 Oxygen Flow Rate 4 02/23/23 01:21 BMI result Body Mass Index 36.9 Stable vital signs No neck vein distension and has good bilateral carotid upstrokes and peripheral pulses with no peripheral edema Abdomen benign no organomegaly Significantly diminished bilateral wheezing Objective Data Labs 02/24/23 04:45 02/24/23 04:45 Labs: Laboratory Results - last 24 hr 02/24/23 02/24/23 04:45 04:46 WBC 11.7 H RBC 3.97 L Hgb 13.1 Hct 38.5 MCV 97.0 MCH 33.0 MCHC 34.0 RDW 13.1 Plt Count 348 MPV 9.5 Immature Gran % (Auto) 1.2 H Neut % (Auto) 87.6 H Lymph % (Auto) 7.1 L [place] % (Auto) 3.8 Eos % (Auto) 0.0 Baso % (Auto) 0.3 Lymph # (Auto) 0.8 L [place] # (Auto) 0.5 Eos # (Auto) 0.0 Baso # (Auto) 0.0 Abs Immat Gran (auto) 0.14 H Absolute Neuts (auto) 10.2 H Absolute Nucleated RBC 0.000 Nucleated RBC % (auto) 0.0 VBG pH 7.47 H VBG pCO2 35 VBG pO2 75 VBG HCO3 25 VBG O2 Saturation 96.0 VBG Base Excess 2.5 Sodium 138 Potassium 4.4 Chloride 106 Carbon Dioxide 24 Anion Gap 12 BUN 15 Creatinine 0.73 Estim Creat Clear Calc 133.2 Estimated GFR > 60 Random Glucose 133 H Calcium 9.0 Phosphorus 4.4 Magnesium 2.2 Albumin 3.7 Progress Note: A&P Assessment and plan (1) 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: Status: Acute (2) Status asthmaticus: Status: Acute (3) Tachycardia: Status: Acute (4) Asthma: Status: Acute (5) Allergic rhinitis: Status: Acute Plan Clinically the status asthmaticus is now broken at this point and I think we can start to switch her from high-dose Solu-Medrol over to prednisone and then very slowly taper and probably be able to start to mobilize her and transfer her upstairs at this point Quality Stroke Does the patient have a stroke diagnosis?: No VTE Prior VTE?: No VTE Risk Level:: Medical - moderate - high VTE Device Contraindication: Treatment Not Indicated VTE Drug Contraindication: N/A - Med Ordered
[2023-02-24] MEDS: Fluticasone Propionate 250 MCG BLST.W.DEV 2 PUFF INHALE ×2 (08:03→19:14)
[2023-02-24] MEDS: Albuterol/Iprat 2.5/0.5MG 3 ML AMPUL.NEB INHALE (08:03)
[2023-02-24] MEDS: 0.9 % Sodium Chloride Flush 3 ML SYRINGE IVFLUSH ×2 (08:19→22:16)
[2023-02-24] MEDS: Doxycycline Hyclate 100 MG in 0.9 % Sodium Chloride 250 ML 166.67 MG IV ×2 (08:19→20:45)
[2023-02-24] MEDS: predniSONE 20 MG TABLET 40 MG PO (08:19)
--- NOTE | 2023-02-24 11:37 | PC.NURSE ---
Patient transferred from ICU to Med/Tele room 452. Patient oriented to unit, call painter, and plan of care. High fall risk precautions in place. VSS. Assessment WNL, except on 3L NC, inspiratory/expiratory wheezing noted throughout. Patient verbalized understanding of plan. All needs met.
--- NOTE | 2023-02-24 12:06 | MHC.CM.PN ---
Patient is not yet medically cleared for dc (IV Doxycycline); home is the goal and CM will continue to follow.
[2023-02-24] MEDS: Acetaminophen 325 MG TABLET 650 MG PO (13:40)
[2023-02-24] MEDS: Enoxaparin Sodium 40 MG/0.4 ML SYRINGE SUBCUT (13:41)
--- NOTE | 2023-02-24 13:50 | HO.PM.IMPN ---
Subjective Subjective Date of Service: 02/24/23 Interval History: asthma Review of Systems sob and tachycardia improving denies any chest pain or fever orchills Physical Exam Vital Signs: Vital Signs: Last Vital Signs Temp 99.1 F 02/24/23 11:06 Pulse 85 02/24/23 11:06 Resp 20 02/24/23 11:06 BP 134/74 02/24/23 11:06 Pulse Ox 92 02/24/23 11:06 O2 Del Method Nasal Cannula 02/24/23 11:06 O2 Flow Rate 3 02/24/23 11:06 FiO2 35 02/23/23 23:00 Oxygen Flow Rate 4 02/23/23 01:21 BMI result Body Mass Index 36.9 Appearance: Alert.? Oriented X3.? not in distress.?. cvs: rrr, [id number] , no murmur res: air entry fair ,has b/l wheezing abd: no rebound or guarding ,nt, bs present. ext pulses present , no cyanosis . neuro: axo3 , nonfocal. Objective Data Active Medications Acetaminophen (Acetaminophen 325 Mg Tablet) 650 mg PO Q6H PRN PRN Reason: Pain, Mild (Pain Scale 1-3) Last Admin: 02/23/23 20:29 Dose: 650 mg Documented By: HATTIE Albuterol Sulfate (Albuterol Sulfate 90 Mcg 8 Gm Inhaler) 2 puff INHALE Q6H PRN PRN Reason: Wheezing Enoxaparin Sodium (Enoxaparin Sodium 40 Mg/0.4 Ml Syringe) 40 mg SUBCUT Q24H [facility] Last Admin: 02/23/23 14:55 Dose: 40 mg Documented By: TRACYMA Fluticasone Propionate (Fluticasone Propionate 250 Mcg Blst.W.Dev) 2 puff INHALE RBID [facility] Last Admin: 02/24/23 08:03 Dose: 2 puff Documented By: REINALDO Hydrocodone Bit/Homatropine Methylb (Hydrocodone/Homat 5/1.5/5 Ml 5 Ml Syrup) 5 ml PO Q6H PRN PRN Reason: Cough Hydroxyzine HCl (Hydroxyzine Hcl 25 Mg Tablet) 25 mg PO Q6H PRN PRN Reason: Anxiety Last Admin: 02/23/23 20:29 Dose: 25 mg Documented By: HATTIE Doxycycline Hyclate 100 mg/ (Sodium Chloride) 250 mls @ 166.67 mls/hr IV BID [facility] Last Infusion: 02/24/23 09:51 Dose: Infused Documented By: REGINALDO Levalbuterol HCl (Levalbuterol Hcl 1.25 Mg/3 Ml Vial.Neb) 1.25 mg INHALE Q3H PRN PRN Reason: Shortness Of Breath/Wheezing Levalbuterol HCl (Levalbuterol Hcl 1.25 Mg/3 Ml Vial.Shayne) 1.25 mg INHALE QID [facility] Lorazepam (Lorazepam 2 Mg/Ml Vial) 0.5 mg IVPUSH Q4H PRN PRN Reason: Anxiety Last Admin: 02/23/23 02:55 Dose: 0.5 mg Documented By: HATTIE Omeprazole (Omeprazole 20 Mg Capsule.Dr) 20 mg PO DAILY@0630 [facility] Prednisone (Prednisone 20 Mg Tablet) 40 mg PO DAILY [facility] Last Admin: 02/24/23 08:19 Dose: 40 mg Documented By: REGINALDO Sodium Chloride (0.9 % Sodium Chloride Flush 3 Ml Syringe) 3 ml IVFLUSH QSHIFT [facility] Last Admin: 02/24/23 08:19 Dose: 3 ml Documented By: REGINALDO Labs 02/24/23 04:45 02/24/23 04:45 Labs: Laboratory Results - last 24 hr 02/24/23 02/24/23 04:45 04:46 MCV 97.0 MCH 33.0 MCHC 34.0 RDW 13.1 Plt Count 348 MPV 9.5 Immature Gran % (Auto) 1.2 H Neut % (Auto) 87.6 H Lymph % (Auto) 7.1 L [place] % (Auto) 3.8 Eos % (Auto) 0.0 Baso % (Auto) 0.3 Lymph # (Auto) 0.8 L [place] # (Auto) 0.5 Eos # (Auto) 0.0 Baso # (Auto) 0.0 Abs Immat Gran (auto) 0.14 H Absolute Neuts (auto) 10.2 H Absolute Nucleated RBC 0.000 Nucleated RBC % (auto) 0.0 VBG pH 7.47 H VBG pCO2 35 VBG pO2 75 VBG HCO3 25 VBG O2 Saturation 96.0 VBG Base Excess 2.5 Anion Gap 12 Estim Creat Clear Calc 133.2 Estimated GFR > 60 Random Glucose 133 H Calcium 9.0 Phosphorus 4.4 Magnesium 2.2 Albumin 3.7 Assessment and Plan (1) 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 Minor atelectasis. No suspicious pulmonary nodules. Patient initially got IV Solu-Medrol, nebs-subsequently patient did not improve-needed ICU level of care: With aminophylline and ketamine drip as well as intermittent CPAP: With above management patient seems to be improved significantly: Work of breathing improving, continue nebs, steroids, cough syrup, doxycycline. sinus tachycardia - due to albuterol/anxiety, improved. VTE ppx - LMWH Ongoing hospitalization need: moderate persistent asthma with status asthmaticus-respiratory status is not abdominal CT, continue steroids, nebs, antibiotics. Time Spent With Patient Time: Total time managing care of this patient today ____ minutes. Quality Stroke Does the patient have a stroke diagnosis?: No VTE Prior VTE?: No VTE Risk Level:: Medical - moderate - high VTE Device Contraindication: Treatment Not Indicated VTE Drug Contraindication: N/A - Med Ordered
[2023-02-24] MEDS: HYDROcodone/Homat 5/1.5/5 ML 5 ML SYRUP PO ×2 (13:53→18:20)
[2023-02-24] MEDS: levalbuterol HCL 1.25 MG/3 ML VIAL.NEB INHALE ×3 (14:17→19:14)
--- NOTE | 2023-02-24 18:08 | PM.PSYCN ---
History of Present Illness Date of Service: 02/24/23 Chief Complaint: asthma exacerbation, SVT Reason for Consult: Severe anxiety Requesting physician: Ana Thorne Discussed with referring provider: Yes Sources of Information: patient interviewed, chart reviewed and crisis/core team assessment reviewed HPI Narrative: Pt is a 22-year-old female with a PMH significant for moderate persistent asthma and allergic rhinitis who presents to the ED with increased shortness of breath and wheezing. Patient was admitted to the hospital for similar symptoms 1 month ago on 01/19/2023 through 01/20/2023 and treated for asthma exacerbation. Pt admitted to the hospital for treatment and further evaluation of acute asthma exacerbation and persistent tachycardia. During psychiatric consult assessment, pt presents calm and cooperative; she reports coming into the hospital d/t an asthma attack . Patient stated, I'm anxious because I don't like being alone; it's been five days. Plus, I feel like I can't breath and I don't know exactly what's going on with my breathing . Patient denies any hx of mental illness. Pt stated, I'm a pretty happy person, just not when I'm in the hospital. I don't feel like I need a therapist . Denies SI/HI/VH/AH at this time. Past Psychiatric History: none. Review of Systems Constitutional: Reports as per HPI Eyes: Reports as per HPI Reports as per HPI Cardiovascular: Reports as per HPI Respiratory: Reports as per HPI Gastrointestinal: Reports as per HPI Genitourinary: Reports as per HPI Musculoskeletal: Reports as per HPI Skin/Breast: Reports as per HPI Reports as per HPI Psychiatric: Reports as per HPI Endocrine: Reports as per HPI Hematologic/Lymphatic: Reports as per HPI Allergic/Immunologic: Reports as per HPI [facility] Medical History (Updated 02/24/23 @ 18:09 by Kathryn Stallworth NP) Allergic rhinitis Asthma Family History: Twin brother has depression. Social History: Lives with parents, aunt and boyfriend. Works fulltime at [employer] in [place], [place]. No kids. Substance History: Smoke a gram of marijuana daily. Trauma History: denies Diagnostics Vital Signs (24Hr): Vital Signs - 24 hr 02/23/23 19:00 02/23/23 19:45 02/23/23 20:00 Temperature 97.8 F Pulse Rate 108 H 101 H 114 H Respiratory Rate 16 24 H 30 H Blood Pressure 128/65 128/65 Pulse Oximetry 91 L 92 Oxygen Delivery Method Nasal Cannula Nasal Cannula Oxygen Flow Rate 3 3 Fraction of Inspired Oxygen 02/23/23 21:00 02/23/23 21:18 02/23/23 22:00 Temperature 97.6 F Pulse Rate 89 76 Respiratory Rate 22 H 22 H 21 H Blood Pressure 123/68 120/61 Pulse Oximetry 93 94 Oxygen Delivery Method Nasal Cannula CPAP Oxygen Flow Rate 3 6 Fraction of Inspired Oxygen 35 02/23/23 23:00 02/24/23 00:00 02/24/23 01:00 Temperature Pulse Rate 82 69 106 H Respiratory Rate 23 H 20 20 Blood Pressure 120/61 108/71 110/63 Pulse Oximetry 95 94 94 Oxygen Delivery Method CPAP Nasal Cannula Nasal Cannula Oxygen Flow Rate 6 3 3 Fraction of Inspired Oxygen 35 02/24/23 02:00 02/24/23 03:00 02/24/23 04:00 Temperature Pulse Rate 70 70 66 Respiratory Rate 19 19 18 Blood Pressure 113/61 111/57 L 111/48 L Pulse Oximetry 94 93 94 Oxygen Delivery Method Nasal Cannula Nasal Cannula Nasal Cannula Oxygen Flow Rate 3 3 3 Fraction of Inspired Oxygen 02/24/23 05:00 02/24/23 06:00 02/24/23 07:00 Temperature Pulse Rate 68 92 93 Respiratory Rate 18 14 14 Blood Pressure 106/51 L 116/49 L 108/58 L Pulse Oximetry 93 93 93 Oxygen Delivery Method Nasal Cannula Nasal Cannula Nasal Cannula Oxygen Flow Rate 3 3 3 Fraction of Inspired Oxygen 02/24/23 08:00 02/24/23 08:04 02/24/23 09:00 Temperature 98.3 F Pulse Rate 109 H 87 92 Respiratory Rate 22 H 16 26 H Blood Pressure 126/68 120/66 Pulse Oximetry 92 93 Oxygen Delivery Method Nasal Cannula Nasal Cannula Oxygen Flow Rate 3 3 Fraction of Inspired Oxygen 02/24/23 10:00 02/24/23 11:06 02/24/23 14:18 Temperature 98.9 F 99.1 F Pulse Rate 99 85 89 Respiratory Rate 20 20 18 Blood Pressure 148/83 H 134/74 Pulse Oximetry 94 92 Oxygen Delivery Method Nasal Cannula Nasal Cannula Oxygen Flow Rate 3 3 Fraction of Inspired Oxygen 02/24/23 15:09 02/24/23 16:27 Temperature 98.8 F Pulse Rate 90 90 Respiratory Rate 20 18 Blood Pressure 129/60 Pulse Oximetry 92 Oxygen Delivery Method Nasal Cannula Oxygen Flow Rate 3 Fraction of Inspired Oxygen BMI result Body Mass Index 36.9 Labs 02/24/23 04:45 02/24/23 04:45 Labs: Laboratory Results - last 48 hr 02/23/23 02/23/23 02/24/23 04:53 04:54 04:45 WBC 16.5 H 11.7 H RBC 4.35 3.97 L Hgb 14.1 13.1 Hct 42.0 38.5 MCV 96.6 97.0 MCH 32.4 33.0 MCHC 33.6 34.0 RDW 13.2 13.1 Plt Count 390 348 MPV 9.4 9.5 Immature Gran % (Auto) 1.0 H 1.2 H Neut % (Auto) 92.3 H 87.6 H Lymph % (Auto) 3.9 L 7.1 L Barton % (Auto) 2.7 3.8 Eos % (Auto) 0.0 0.0 Baso % (Auto) 0.1 0.3 Lymph # (Auto) 0.7 L 0.8 L Barton # (Auto) 0.5 0.5 Eos # (Auto) 0.0 0.0 Baso # (Auto) 0.0 0.0 Abs Immat Gran (auto) 0.17 H 0.14 H Absolute Neuts (auto) 15.2 H 10.2 H Absolute Nucleated RBC 0.000 0.000 Nucleated RBC % (auto) 0.0 0.0 Smear Tech's Comments VERIFIED VBG pH 7.46 H VBG pCO2 29 VBG pO2 65 VBG HCO3 21 L VBG O2 Saturation 92.0 VBG Base Excess -1.0 Sodium 137 138 Potassium 3.9 4.4 Chloride 105 106 Carbon Dioxide 20 L 24 Anion Gap 16 12 BUN 15 15 Creatinine 0.79 0.73 Estim Creat Clear Calc 122.1 133.2 Estimated GFR > 60 > 60 Random Glucose 143 H 133 H Calcium 9.5 9.0 Phosphorus 4.0 4.4 Magnesium 2.1 2.2 Albumin 4.2 3.7 02/24/23 04:46 WBC RBC Hgb Hct MCV MCH MCHC RDW Plt Count MPV Immature Gran % (Auto) Neut % (Auto) Lymph % (Auto) Barton % (Auto) Eos % (Auto) Baso % (Auto) Lymph # (Auto) Barton # (Auto) Eos # (Auto) Baso # (Auto) Abs Immat Gran (auto) Absolute Neuts (auto) Absolute Nucleated RBC Nucleated RBC % (auto) Smear Tech's Comments VBG pH 7.47 H VBG pCO2 35 VBG pO2 75 VBG HCO3 25 VBG O2 Saturation 96.0 VBG Base Excess 2.5 Sodium Potassium Chloride Carbon Dioxide Anion Gap BUN Creatinine Estim Creat Clear Calc Estimated GFR Random Glucose Calcium Phosphorus Magnesium Albumin Imaging Radiology Impressions: ITS Impressions Chest X-Ray 02/20/23 11:31 IMPRESSION: No acute cardiopulmonary findings Chest CT 02/21/23 20:57 IMPRESSION: Hyperinflation and minor groundglass opacities most consistent with asthma. Minor atelectasis. No suspicious pulmonary nodules. Fleischner guidelines were followed. Mental Status Exam Mental Status Exam Narrative: Pt is alert and oriented; behavior is cooperative, friendly and calm; dressed in casual attire; mood is described as okay ; eye contact appropriate; Speech is normal rate, volume and prosody and not pressured; no psychomotor agitation/retardation present; thought process is organized; Thought content is on tx; otherwise pertinent to relevant topics and without any delusional content, paranoid ideations or grandiosity; denies SI/HI. There is no evidence of perceptual disturbance. Patients insight and judgment are fair. Medications Medications Current Medications Acetaminophen (Acetaminophen 325 Mg Tablet) 650 mg PO Q6H PRN PRN Reason: Pain, Mild (Pain Scale 1-3) Last Admin: 02/24/23 13:40 Dose: 650 mg Albuterol Sulfate (Albuterol Sulfate 90 Mcg 8 Gm Inhaler) 2 puff INHALE Q6H PRN PRN Reason: Wheezing Enoxaparin Sodium (Enoxaparin Sodium 40 Mg/0.4 Ml Syringe) 40 mg SUBCUT Q24H [facility] Last Admin: 02/24/23 13:41 Dose: 40 mg Fluticasone Propionate (Fluticasone Propionate 250 Mcg Blst.W.Dev) 2 puff INHALE RBID [facility] Last Admin: 02/24/23 08:03 Dose: 2 puff Hydrocodone Bit/Homatropine Methylb (Hydrocodone/Homat 5/1.5/5 Ml 5 Ml Syrup) 5 ml PO Q6H PRN PRN Reason: Cough Last Admin: 02/24/23 13:53 Dose: 5 ml Hydroxyzine HCl (Hydroxyzine Hcl 25 Mg Tablet) 25 mg PO Q6H PRN PRN Reason: Anxiety Last Admin: 02/23/23 20:29 Dose: 25 mg Doxycycline Hyclate 100 mg/ (Sodium Chloride) 250 mls @ 166.67 mls/hr IV BID [facility] Last Infusion: 02/24/23 09:51 Dose: Infused Levalbuterol HCl (Levalbuterol Hcl 1.25 Mg/3 Ml Vial.Neb) 1.25 mg INHALE Q3H PRN PRN Reason: Shortness Of Breath/Wheezing Levalbuterol HCl (Levalbuterol Hcl 1.25 Mg/3 Ml Vial.Neb) 1.25 mg INHALE QID [facility] Last Admin: 02/24/23 16:26 Dose: 1.25 mg Lorazepam (Lorazepam 2 Mg/Ml Vial) 0.5 mg IVPUSH Q4H PRN PRN Reason: Anxiety Last Admin: 02/23/23 02:55 Dose: 0.5 mg Omeprazole (Omeprazole 20 Mg Capsule.Dr) 20 mg PO DAILY@0630 [facility] Prednisone (Prednisone 20 Mg Tablet) 40 mg PO DAILY [facility] Last Admin: 02/24/23 08:19 Dose: 40 mg Sodium Chloride (0.9 % Sodium Chloride Flush 3 Ml Syringe) 3 ml IVFLUSH QSHIFT [facility] Last Admin: 02/24/23 14:28 Dose: Not Given Allergies Allergies Allergy/AdvReac Type Severity Reaction Status Date / Time No Known Allergies Allergy Verified 02/11/23 09:35 Assessment & Plan Assessment & Plan (1) Anxiety about health: Status: Acute Code(s): F41.8 - Other specified anxiety disorders Plan Pt is a 22-year-old female with a PMH significant for moderate persistent asthma and allergic rhinitis who presents to the ED with increased shortness of breath and wheezing. Patient was admitted to the hospital for similar symptoms 1 month ago on 01/19/2023 through 01/20/2023 and treated for asthma exacerbation. Pt admitted to the hospital for treatment and further evaluation of acute asthma exacerbation and persistent tachycardia. Consult was placed to psychiatry for severe anxiety. Recommendations: Patient appears to be presenting with anxiety d/t current illness. There is no clinical indication for start of psychiatric medications at this time. Patient would benefit from additional education regarding asthma. Total time managing care of this patient today _30___ minutes. Patient educated on: therapeutic strategies and medical condition Informed Consent: understands
[2023-02-25] VITALS (10 sets, daily range): BP systolic 118–131; BP diastolic 66–84; PULSE 76–101; RESP 18–20; TEMP 36.6–37.4; O2SAT 91–96
[2023-02-25] MEDS: Omeprazole 20 MG CAPSULE.DR PO (05:45)
[2023-02-25] MEDS: levalbuterol HCL 1.25 MG/3 ML VIAL.NEB INHALE ×2 (07:54→11:34)
[2023-02-25] MEDS: Fluticasone Propionate 250 MCG BLST.W.DEV 2 PUFF INHALE ×2 (08:00→19:16)
[2023-02-25] MEDS: predniSONE 20 MG TABLET 40 MG PO (08:13)
[2023-02-25] MEDS: HYDROcodone/Homat 5/1.5/5 ML 5 ML SYRUP PO ×2 (08:14→14:15)
[2023-02-25] MEDS: Doxycycline Hyclate 100 MG in 0.9 % Sodium Chloride 250 ML 166.67 MG IV (08:15)
[2023-02-25] MEDS: 0.9 % Sodium Chloride Flush 3 ML SYRINGE IVFLUSH (08:19)
--- NOTE | 2023-02-25 10:47 | HE.PHANOTE ---
RE IV TO PO DOXYCYCLINE DOXYCYCLINE IV 100 MG Q12 CHANGE TO PO 100 MG Q12 STARTING 02/25 @1999
--- NOTE | 2023-02-25 13:38 | HO.PM.IMPN ---
Subjective Subjective Date of Service: 02/25/23 Interval History: Asthma exacerbation, possible hypersensitivity pneumonitis. Review of Systems some feels short of breath with exertion. Also desats in 88 need 89 range with exertion Physical Exam Vital Signs: Vital Signs: Last Vital Signs Temp 98.8 F 02/25/23 11:48 Pulse 95 02/25/23 11:48 Resp 18 02/25/23 11:48 BP 128/72 02/25/23 11:48 Pulse Ox 93 02/25/23 11:48 O2 Del Method Room Air 02/25/23 11:48 O2 Flow Rate 2.5 02/25/23 07:48 FiO2 35 02/23/23 23:00 Oxygen Flow Rate 4 02/23/23 01:21 BMI result Body Mass Index 36.9 Appearance: Alert.? Oriented X3.? not in distress.?. cvs: rrr, [id number] , no murmur res: air entry fair ,has b/l wheezing abd: no rebound or guarding ,nt, bs present. ext pulses present , no cyanosis . neuro: axo3 , nonfocal. Objective Data Active Medications Acetaminophen (Acetaminophen 325 Mg Tablet) 650 mg PO Q6H PRN PRN Reason: Pain, Mild (Pain Scale 1-3) Last Admin: 02/24/23 13:40 Dose: 650 mg Documented By: JHOAN Albuterol Sulfate (Albuterol Sulfate 90 Mcg 8 Gm Inhaler) 2 puff INHALE Q6H PRN PRN Reason: Wheezing Doxycycline Monohydrate (Doxycycline Monohydrate 100 Mg Capsule) 100 mg PO Q12H [facility] Enoxaparin Sodium (Enoxaparin Sodium 40 Mg/0.4 Ml Syringe) 40 mg SUBCUT Q24H [facility] Last Admin: 02/24/23 13:41 Dose: 40 mg Documented By: JHOAN Fluticasone Propionate (Fluticasone Propionate 250 Mcg Blst.W.Dev) 2 puff INHALE RBID [facility] Last Admin: 02/25/23 08:00 Dose: 2 puff Documented By: JOHNATHAN Hydrocodone Bit/Homatropine Methylb (Hydrocodone/Homat 5/1.5/5 Ml 5 Ml Syrup) 5 ml PO Q6H PRN PRN Reason: Cough Last Admin: 02/25/23 08:14 Dose: 5 ml Documented By: MOHINI Hydroxyzine HCl (Hydroxyzine Hcl 25 Mg Tablet) 25 mg PO Q6H PRN PRN Reason: Anxiety Last Admin: 02/23/23 20:29 Dose: 25 mg Documented By: HATTIE Levalbuterol HCl (Levalbuterol Hcl 1.25 Mg/3 Ml Vial.Neb) 1.25 mg INHALE Q3H PRN PRN Reason: Shortness Of Breath/Wheezing Levalbuterol HCl (Levalbuterol Hcl 1.25 Mg/3 Ml Vial.Neb) 1.25 mg INHALE QID [facility] Last Admin: 02/25/23 11:34 Dose: 1.25 mg Documented By: JOHNATHAN Lorazepam (Lorazepam 2 Mg/Ml Vial) 0.5 mg IVPUSH Q4H PRN PRN Reason: Anxiety Last Admin: 02/23/23 02:55 Dose: 0.5 mg Documented By: HATTIE Omeprazole (Omeprazole 20 Mg Capsule.Dr) 20 mg PO DAILY@0630 [facility] Last Admin: 02/25/23 05:45 Dose: 20 mg Documented By: JANICE Prednisone (Prednisone 20 Mg Tablet) 40 mg PO DAILY [facility] Last Admin: 02/25/23 08:13 Dose: 40 mg Documented By: MOHINI Sodium Chloride (0.9 % Sodium Chloride Flush 3 Ml Syringe) 3 ml IVFLUSH QSHIFT [facility] Last Admin: 02/25/23 08:19 Dose: 3 ml Documented By: MOHINI Labs 02/24/23 04:45 02/24/23 04:45 Assessment and Plan (1) 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: Status: Acute (2) Status asthmaticus: Status: Acute (3) Anxiety about health: Status: Acute Plan DAY-8: 22yo F with recently diagnosed mod persistent asthma presenting with 1d of URI symptoms and admitted for status asthmaticus moderate persistent asthma with status asthmaticus ct chest:Hyperinflation and minor groundglass opacities most consistent with asthma. Minor atelectasis. No suspicious pulmonary nodules. Patient initially got IV Solu-Medrol, nebs-subsequently patient did not improve-needed ICU level of care: With aminophylline and ketamine drip as well as intermittent CPAP: With above management patient seems to be improved significantly: Work of breathing improving, continue nebs, steroids, cough syrup, doxycycline. sinus tachycardia - due to albuterol/anxiety, improved. VTE ppx - LMWH Ongoing hospitalization need: moderate persistent asthma with status asthmaticus-respiratory status is not Optimal yet, continue steroids, nebs, antibiotics. Time Spent With Patient Time: Total time managing care of this patient today ____ minutes. Quality Stroke Does the patient have a stroke diagnosis?: No VTE Prior VTE?: No VTE Risk Level:: Medical - moderate - high VTE Device Contraindication: Treatment Not Indicated VTE Drug Contraindication: N/A - Med Ordered
[2023-02-25] MEDS: Enoxaparin Sodium 40 MG/0.4 ML SYRINGE SUBCUT (15:27)
[2023-02-26] MEDS: Acetaminophen 325 MG TABLET 650 MG PO (00:15)
[2023-02-26 04:00] VITALS: BP 132/78; PULSE 81; RESP 18; TEMP 36.7; O2SAT 94
[2023-02-26] MEDS: Omeprazole 20 MG CAPSULE.DR PO (05:38)
[2023-02-26 06:00] VITALS: BMI 38.2
[2023-02-26 07:31] VITALS: BP 141/88; PULSE 75; RESP 12; TEMP 36.2; O2SAT 95
[2023-02-26 08:01] VITALS: PULSE 84; RESP 18; O2SAT 94
[2023-02-26] MEDS: Fluticasone Propionate 250 MCG BLST.W.DEV 2 PUFF INHALE (08:01)
[2023-02-26] MEDS: predniSONE 20 MG TABLET 40 MG PO (08:57)
[2023-02-26 11:36] VITALS: BP 134/64; PULSE 92; RESP 18; TEMP 36.3; O2SAT 94
[2023-02-26 12:32] VITALS: PULSE 98; RESP 18; O2SAT 94
--- NOTE | 2023-02-26 15:25 | PM.DS ---
DS: Providers Provider Date of Service: 02/26/23 Date of admission: 02/20/23 15:58 Date of discharge: 02/26/23 Primary care physician: Darby Ramirez MD Consults: 02/24/23 08:20 Consult to Psychiatry Routine Consulting Provider: Psych Covering Reason for consultation: Severe anxiety Has provider been notified: No Attending physician on discharge: Ana Thorne Discharging clinician: Ana Thorne DS: Diagnosis Discharge Diagnosis (1) 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: Status: Acute (2) Status asthmaticus: Status: Acute (3) Anxiety about health: Status: Acute DS: Summary Hospital Course Hospital Course: 22-year-old female with a PMH significant for?moderate persistent asthma and allergic rhinitis who presents to the ED with?increased shortness of breath and wheezing since last night. Patient states she is having such significant D.O. E that she can barely walk across the room. Has taken her home inhalers to no effect. Patient also has been experiencing sore throat and stuffiness/congestion since yesterday. States she has been breathing through her mouth which makes it harder for her to breathe. Of note, patient was admitted to the hospital for similar symptoms 1 month ago on 01/19/2023 through 01/20/2023 and treated for asthma exacerbation. Patient is followed by Dr. Talita Guerrero and pulmonology. Was prescribed Symbicort but patient's insurance does not cover it so patient has been unable to fill this prescription. She has had no medications/inhaler changes since last admission. In the ED pt was immediately given Solu-Medrol, Mag, and DuoNebs. About [address] through her treatment heart rate franchesca into 190s and EKG read rhythm as SVT. Patient was then given adenosine which decreased heart rate into the 60s, and patient was then given 20 mg IV Cardizem. ED consult Cardiology who recommended treating asthma as the underlying condition for a tachycardia. Patient currently endorses palpitations, SOB, wheezing, and continue MACIAS. Has had some nausea and increased nonproductive cough, but no vomiting. Denies chest pain/pressure. No fever, chills, abdominal pain. In the ED patient was afebrile, but tachycardic up to 200s, tachypneic up to 35, and hypertensive as high as 152/88, satting at 93% on RA. Labs were significant for chronic leukocytosis of 16.7, phosphorus 1.7, potassium borderline at 3.3. Patient tested negative for influenza type a and B, RSV, COVID, and strep throat. CXR showed no acute cardiopulmonary findings. EKG demonstrated sinus tachycardia [address] and T-wave abnormalities. Pt was treated with Solu-Medrol, IVF, adenosine, lorazepam, Mag sulfate, DuoNebs, diltiazem, ondansetron, and benzonatate. Pt will be admitted to the hospital for treatment and further evaluation of acute asthma exacerbation and persistent tachycardia. hospital course: Patient was admitted for status asthmaticus and also found to have hypersensitivity pneumonitis: Patient was started on IV steroids, nebs, also needed ICU level of care and received aminophylline and ketamine drip as well as intermittent CPAP.ct chest:Hyperinflation and minor groundglass opacities most consistent with asthma. Minor atelectasis. No suspicious pulmonary nodules. With above management patient shortness of breath seems to be improved significantly now patient is satting 93% with walking. No shortness of breath. Patient was strongly advised to abstain from marijuana smoking to avoid further episode of hypersensitivity pneumonitis. Patient was given p.o. steroid taper and doxycycline upon discharge, patient says that she has nebulizer at home. plan: Please complete steroid taper. Please complete p.o. doxycycline 100 mg b.i.d. for 7 days. Follow up with Pulmonary. Assessment plan coordination time spent 50 minute. Time Spent with Patient Time attestation: Total time managing care of this patient today ____ minutes. Discharge coordination time: Greater than 30 minutes Quality: Safe Use of Opioids Does Pt have an Active Cancer Diagnosis on the Problem List?: No Quality: Stroke Does the patient have a stroke diagnosis?: No Physical Exam Vital Signs: Vital Signs: Last Vital Signs Temp 97.3 F 02/26/23 11:36 Pulse 98 02/26/23 12:32 Resp 18 02/26/23 12:32 BP 134/64 02/26/23 11:36 Pulse Ox 94 02/26/23 11:36 O2 Del Method Room Air 02/26/23 11:36 O2 Flow Rate 1 02/26/23 07:31 FiO2 35 02/23/23 23:00 Oxygen Flow Rate 4 02/23/23 01:21 BMI result Body Mass Index 38.2 Appearance: Alert.? Oriented X3.? not in distress.?. cvs: rrr, [id number] , no murmur res: air entry fair ,has b/l wheezing abd: no rebound or guarding ,nt, bs present. ext pulses present , no cyanosis . neuro: axo3 , nonfocal. DS: Data Imaging Chest x-ray: Radiologist's impression: ITS Impressions Chest X-Ray 02/20/23 11:31 IMPRESSION: No acute cardiopulmonary findings Chest CT 02/21/23 20:57 IMPRESSION: Hyperinflation and minor groundglass opacities most consistent with asthma. Minor atelectasis. No suspicious pulmonary nodules. Fleischner guidelines were followed. Discharge Plan Discharge Anticipated Discharge Date/Time: 02/26/23 15:06 Patient Disposition: Home, Self-Care Discharge Diagnosis: asthmatic status , hypersensitivity pneumonitis Referrals: Darby Davis MD [Primary Care Provider] - 1 Week Discharge Medications: New budesonide-formoterol [Symbicort] 160-4.5 mcg/actuation HFA aerosol inhaler 2 puff inhalation BID Qty: 10.2 0RF doxycycline monohydrate 100 mg Capsule 100 mg PO Q12H Qty: 14 0RF prednisone 10 mg tablet See Taper PO DIRECTED Qty: 30 0RF Taper: Prednisone 40 mg daily for 3 Days and 0 Hour 30 mg daily for 3 Days and 0 Hour 20 mg daily for 3 Days and 0 Hour 10 mg daily for 3 Days and 0 Hour Rx Instructions: see taper instructions Continued levalbuterol HCl 1.25 mg/3 mL Solution For Nebulization 1.25 mg inhalation Q3H PRN (Reason: Shortness Of Breath/Wheezing) Qty: 90 1RF albuterol sulfate 90 mcg/actuation HFA aerosol inhaler 2 puff inhalation Q6H PRN (Reason: Wheezing) Qty: 8.5 1RF acetaminophen 500 mg Tablet 1,500 mg PO BID PRN (Reason: Pain) levalbuterol HCl 1.25 mg/0.5 mL solution for nebulization 1.25 mg inhalation BID (DME) peak flow meter Device See Rx Instructions .Route Qty: 1 0RF Rx Instructions: As directed Discontinued fluticasone propionate [Flovent HFA] 220 mcg/actuation HFA aerosol inhaler 2 puff inhalation BID 30 Days Qty: 12 3RF Rx Instructions: administer with spacer Discharge Orders: Discharge Order (Routine); Ordered 02/26/23 Ordered By: Ana Thorne Diet: Advance to usual diet Activity on Discharge: As tolerated Stand Alone Forms: Patient Portal Discharge page Care Plan Goals: Patient was admitted for status asthmaticus and also found to have hypersensitivity pneumonitis: Patient was started on IV steroids, nebs, also needed ICU level of care and received aminophylline and ketamine drip as well as intermittent CPAP.ct chest:Hyperinflation and minor groundglass opacities most consistent with asthma. Minor atelectasis. No suspicious pulmonary nodules. With above management patient shortness of breath seems to be improved significantly now patient is satting 93% with walking. No shortness of breath. Patient was strongly advised to abstain from marijuana smoking to avoid further episode of hypersensitivity pneumonitis. Patient was given p.o. steroid taper and doxycycline upon discharge, patient says that she has nebulizer at home. Assessment plan coordination time spent 50 minute. Health Concerns: As above. Plan of Treatment: Please complete steroid taper. Please complete p.o. doxycycline 100 mg b.i.d. for 7 days. Follow up with Pulmonary. Assessment: As above.
[2023-02-26 15:32] VITALS: BP 129/87; PULSE 89; RESP 20; TEMP 36.2; O2SAT 92
--- NOTE | 2023-02-26 15:35 | MHC.CM.PN ---
PT WILL DC HOME TODAY WITH NO SERVICES VIA SELF TRANSPORT
== END 2023-02-26 17:05 | disposition home or self-care (01) | DRG 141 ==
LOC: HO.ED 14:22 → HO.EDOVER 15:59 → HO.IMC 18:04 → HO.ICU 02-21 15:45 → HO.IMC 02-24 09:36
PROVIDERS: Internal Medicine Cardiovascular Disease; Nurse Practitioner Family; Physician Assistant Medical; Admitting Provider Student in an Organized Health Care Education/Training Program; Emergency Provider Emergency Medicine; PCP Internal Medicine; Visit Provider Internal Medicine
DX: J45.42 Moderate persistent asthma with status asthmaticus (principal); E83.39 Other disorders of phosphorus metabolism; J70.4 Drug-induced interstitial lung disorders, unspecified; Z68.38 Body mass index [BMI] 38.0-38.9, adult; E66.09 Other obesity due to excess calories; F41.8 Other specified anxiety disorders; R00.0 Tachycardia, unspecified; D72.829 Elevated white blood cell count, unspecified; T38.0X5A Adverse effect of glucocorticoids and synthetic analogues, initial encounter; Z20.822 Contact with and (suspected) exposure to COVID-19; Z79.899 Other long term (current) drug therapy
CPT/HCPCS: 0241U; 36415; 71045; 71250; 80048; 80053; 80307; 82040; 82803; 83735; 84100; 84443; 84702; 85025; 85027; 85379; 85610; 85730; 87651; 93005; 94640; 94660; 99285; J0153; J0280; J1650; J1885; J2060; J2270; J2405; J2920; J2930; J3475

== ENCOUNTER → 2023-02-20 15:58 | Outpatient (BNV) | payer BC, SELFPAY | PROVIDERS: Admitting Provider Student in an Organized Health Care Education/Training Program; Emergency Provider Emergency Medicine; PCP Internal Medicine; Visit Provider Registered Nurse | DX: F41.8 Other specified anxiety disorders (principal) | CPT/HCPCS: 99222 ==

== ENCOUNTER → 2023-02-20 15:58 | Outpatient (BNV) | payer BC, SELFPAY | PROVIDERS: Admitting Provider Student in an Organized Health Care Education/Training Program; Emergency Provider Emergency Medicine; PCP Internal Medicine; Visit Provider Student in an Organized Health Care Education/Training Program | DX: J67.9 Hypersensitivity pneumonitis due to unspecified organic dust (principal); J45.42 Moderate persistent asthma with status asthmaticus; F41.8 Other specified anxiety disorders | CPT/HCPCS: 99223; 99232; 99239 ==

== ENCOUNTER → 2023-02-20 15:58 | Outpatient (BNV) | payer BC, SELFPAY | PROVIDERS: Admitting Provider Student in an Organized Health Care Education/Training Program; Emergency Provider Emergency Medicine; PCP Internal Medicine; Visit Provider Internal Medicine Cardiovascular Disease | DX: J67.9 Hypersensitivity pneumonitis due to unspecified organic dust (principal); J45.902 Unspecified asthma with status asthmaticus; R00.0 Tachycardia, unspecified; J30.9 Allergic rhinitis, unspecified | CPT/HCPCS: 99233; 99291 ==

== ENCOUNTER 2023-03-18 09:45 | Outpatient (AMB) | payer BC, SELFPAY ==
--- NOTE | 2023-03-18 09:55 | MHC.OFFVIS ---
Intake Vital Signs 03/18/23 09:57 Height 5 ft 3 in Weight 213 lb BMI 37.7 BP 132/80 Blood Pressure Location Lt brachial Position Sitting Pulse 93 Pulse Source Pulse Oximeter Pulse Oximetry (%) 99 Oxygen Delivery Method Room Air Intake Visit Reasons: Asthma exacerbation Intake Note: pt is here for follow up of for asthma and now still struggling to get to baseline, chest feels like its on fire still, and chest heaviness with a lot of exertion or movement/picking up things. pcp is questioning pulmonary rehab. would like to discuss less hours and/or restrictions at work. 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 Allergies No Known Allergies Allergy (Verified 03/18/23 10:16) Medication List - Last Reconciled 03/18/23 by Elizabeth Molina MD acetaminophen 1,500 mg PO BID PRN albuterol sulfate 90 mcg/actuation 2 puffs inhalation Q6H PRN budesonide-formoterol 160-4.5 mcg/actuation (Symbicort) 2 puffs inhalation BID levalbuterol HCl 1.25 mg inhalation BID levalbuterol HCl 1.25 mg (3 mL) inhalation Q3H PRN peak flow meter As directed Do you need a note to return to daycare/school/sports/work: No HPI Asthma exacerbation HPI Details 22 YEARS OLD FEMALE A KNOWN ASTHMATIC, WAS TREATED FOR AN ACUTE EXACERBATION OF BRONCHIAL ASTHMA/BRONCHITIS IN THE HOSPITAL, 2 WEEKS AGO SHE IS RECOVERING SLOWLY, BUT STILL FEELS WEAK AND GETS TIRED EASILY. AND SHE STATES THAT SHE WOULD NOT BE ABLE TO WORK FOR MORE THAN 4-6 HOURS A DAY. 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 SHE HAS COMPLETED COURSE OF PREDNISONE AND ALSO HAS FINISHED HER ANTIBIOTIC, DOXYCYCLINE. NOW SHE DOES HAVE SYMBICORT 160-4.52 PUFFS B.I.D.. SHE USES ALBUTEROL LESS FREQUENTLY THAN BEFORE. [facility] Medical History Allergic rhinitis Asthma Social History Household Members: Family Housing: House Do you presently have visiting nurse or other home services: No Alcohol intake: current Alcohol intake frequency: holidays/special occasions only Patient Tobacco Use Status: Never used Tobacco Second Hand Smoke Exposure: No Substance Use Type: Marijuana service: No Current occupational status: employed Review of Systems Const All systems reviewed & are unremarkable except as noted in HPI and below Denies snoring Eyes Reports no additional complaints ENT Reports nasal congestion (Mild off and on) Card Reports no additional complaints and Denies dyspnea Resp Reports cough (Mild occasional), Denies dyspnea, Denies snoring and Denies wheezing GI Reports no additional complaints Reports no additional complaints Musc Reports no additional complaints Skin/Breast Reports system reviewed and no additional complaints, except as documented Neuro Reports no additional complaints Endo Reports no additional complaints Aller/Immun Reports no additional complaints and Denies wheezing Physical Exam Vital Signs: Last Vital Signs Pulse 93 03/18/23 09:57 BP 132/80 03/18/23 09:57 Pulse Ox 99 03/18/23 09:57 Oxygen Delivery Method Room Air 03/18/23 09:57 BMI result Body Mass Index 37.7 Const General: healthy appearing, comfortable, no acute distress, alert and awake Orientation/consciousness: patient oriented x3 HEENT Head: Yes normal to inspection General nose exam: No nasal polyps present, No nasal discharge present and Other nasal findings present (Mild nasal congestion in Both nostrils) Face and sinus: Yes sinuses nontender Mouth: oropharynx normal Throat: Yes posterior oropharynx normal Eyes General: appearance normal, both eyes and all related structures Neck Neck: Yes normal visual inspection, Yes no lymphadenopathy, Yes trachea midline and Yes no JVD Thyroid: Thyroid normal Chest Chest palpation & inspection: normal inspection of the chest, normal palpation of entire chest wall and no tenderness Resp Other: Percussion note resonant, has good breath sounds on both sides. Today her lungs are CLEAR and no wheezes or rhonchi are noted, However the breath sounds are somewhat harsh in cracked ir in the upper parts of the chest. Cardio Palpation: normal PMI Rate: regular rate Rhythm: regular rhythm Heart sounds: no gallops and no murmurs Peripheral pulses: Peripheral pulses 2+ throughout GI Palpation (GI): Soft to palpation, nontender, No hepatosplenomegaly present and no masses Auscultation: normal bowel sounds Back/Spine/Pelvis Thoracic/Lumbar Spine: thoracic and lumbar spine normal to inspection Skin General skin exam: no rashes or lesions noted Neuro General: patient oriented x3 and no focal motor deficits Cranial nerves: Yes CN's II-XII intact bilaterally Extrem General: Yes normal to inspection, Yes no clubbing, cyanosis or edema and Yes no calf tenderness Psych Speech and movement: Normal speech and movement present Results Reviewed Results Reviewed: Hospital course reviewed Assessment & Plan Assessment & Plan (1) Asthma: Comment: TREATED IN HOSPITAL FOR AN ACUTE EXACERBATION OF BRONCHIAL ASTHMA, A FEW WEEKS AGO, HAS COMPLETED THE COURSE OF PREDNISONE AND DOXY. STABLE AT PRESENT BUT WEAK TX : SYMBICORT 160-4.5 2 PUFFS B.I.D.. ALBUTEROL HFA 2 PUFFS Q 4-6 HOURS P.R.N. WHEN OUTDOORS. LEVALBUTEROL SOLUTION FOR WHY NEBULIZER Q 4-6 HOURS P.R.N. AT HOME CHECK 5 PEAK FLOWS ON A DAILY BASIS, GOAL IS TO KEEP IT ABOVE 300. * note given that she for the next 2 weeks she should work no more than 6 hours a day. Code(s): J45.909 - Unspecified asthma, uncomplicated (2) Allergic rhinitis: Comment: She has mild intermittent nasal congestion with postnasal drip. Most likely has a mild allergic rhinitis, [place] : Advised to resume using Flonase-50 1 spray intranasal b.i.d( however it is not covered by insurance and she has hard time to buy out of pocket) May use loratadine 10 mg once a day p.r.n.. I have added Singulair 10 mg p.o. daily, Code(s): J30.9 - Allergic rhinitis, unspecified Medications: New montelukast 10 mg PO QPM 30 days 30 tabs 3RF Allergic Rhinitis Coding Level of Care Code Est Pt Level 3 (11609) Diagnoses Asthma J45.909 Allergic rhinitis J30.9
[2023-03-18 09:57] VITALS: BP 132/80; PULSE 93; O2SAT 99; BMI 37.7
== END 2023-03-18 10:16 | disposition home or self-care (01) ==
PROVIDERS: PCP Internal Medicine; Visit Provider Internal Medicine
DX: J45.909 Unspecified asthma, uncomplicated (principal); J30.9 Allergic rhinitis, unspecified
CPT/HCPCS: 99213

== ENCOUNTER → 2023-03-18 09:45 | Outpatient (BNVA) | payer BC, SELFPAY | PROVIDERS: PCP Internal Medicine; Visit Provider Internal Medicine ==

== ENCOUNTER 2023-04-02 15:42 | Emergency (ER) | payer BC, SELFPAY ==
--- NOTE | 2023-04-02 15:44 | ECG_ITS ---
Test Reason : CHEST PAIN Blood Pressure : / mmHG Vent. Rate : 093 BPM Atrial Rate : 093 BPM P-R Int : 112 ms QRS Dur : 080 ms QT Int : 350 ms P-R-T Axes : 042 068 031 degrees QTc Int : 435 ms Normal sinus rhythm Normal ECG When compared with ECG of 20-FEB-2023 10:00, Vent. rate has decreased BY [address] no longer depressed in Lateral leads Referred By: Tonya Clifford Electronically Signed By:LACI MARAVILLA MD
[2023-04-02 16:04] VITALS: BP 145/87; PULSE 93; RESP 18; TEMP 36.9; O2SAT 98; BMI 37.6
--- NOTE | 2023-04-02 16:04 | ED_ITS ---
HPI - URI/Sore Throat General Chief Complaint: Upper Respiratory Symptoms Stated Complaint: Chest pain/SOB/+Covid Time Seen by Provider: 04/02/23 16:19 Source: patient Mode of arrival: ambulatory Limitations: no limitations History of Present Illness HPI Narrative: patient is a 22-year-old female who presents to the emergency department, tested COVID-19 positive 03/29/23, symptom onset 03/28/23. Diffuse anterior chest pain, worse with cough and deep breathing, onset 2 days ago, progressive SOB and wheezing has only been using symbicort inhaler not albuterol. She had a recent admission 1 month ago for 5 days due to asthma exacerbation requiring ICU care. She is worried about progression of symptoms. Denies fevers, chills, sore throat, orthopnea, edema Related Data Home Medications Medication Instructions Recorded Confirmed acetaminophen 500 mg tablet 1,500 mg PO BID PRN Pain 02/20/23 02/20/23 levalbuterol HCl 1.25 mg/0.5 mL 1.25 mg inhalation BID 02/20/23 02/20/23 solution for nebulization Previous Rx's Medication Instructions Recorded peak flow meter #1 ea 11/02/22 albuterol sulfate 90 mcg/actuation 2 puff inhalation Q6H PRN Wheezing 01/20/23 aerosol inhaler #8.5 grams levalbuterol HCl 1.25 mg/3 mL 1.25 mg (3 mL) inhalation Q3H PRN 01/20/23 solution for nebulization Shortness Of Breath/Wheezing #90 mL budesonide-formoterol HFA 160 2 puff inhalation BID #10.2 grams 02/21/23 mcg-4.5 mcg/actuation aerosol inhaler (Symbicort) montelukast 10 mg tablet 10 mg PO QPM Allergic Rhinitis 30 03/18/23 days #30 tabs Allergies Allergy/AdvReac Type Severity Reaction Status Date / Time No Known Allergies Allergy Verified 04/02/23 16:04 Review of Systems Review of Systems: Yes all other systems are reviewed and are negative PMFSH Past Medical History Attestation statement: The following information was validated with the patient. Source: old records reviewed Medical History Allergic rhinitis Asthma Social History Social History Household Members: Family Housing: House Do you presently have visiting nurse or other home services: No Alcohol intake: current Alcohol intake frequency: holidays/special occasions only Patient Tobacco Use Status: Never used Tobacco Second Hand Smoke Exposure: No Substance Use Type: Marijuana Advance Directives: No Advance Directives Information Provided: No service: No Current occupational status: employed Physical Exam Vital Signs: Vital Signs: Last Vital Signs Temp 98.5 F 04/02/23 16:04 Pulse 93 04/02/23 16:04 Resp 18 04/02/23 16:04 BP 145/87 H 04/02/23 16:04 Pulse Ox 98 04/02/23 16:04 O2 Del Method Room Air 04/02/23 16:04 BMI result Body Mass Index 37.6 Appearance: Alert.?Oriented to person, place and time. No acute distress.?Normal affect. Eyes: Pupils equal, round and reactive to light.? ENT: Pharynx normal.?? Neck: Normal inspection.? Neck supple.?? CVS: Heart sounds normal. Normal heart rate and rhythm.? Pulses normal.?? Respiratory: No respiratory distress.? Lung sounds clear to auscultation bilaterally. Chest wall tenderness to palp Abdomen: Soft and non-tender. Normoactive bowel sounds. Skin: Skin warm and dry.? Normal skin color.? Extremities: No lower extremity edema.? No calf ttp? Neuro: Moves all extremities spontaneously. Sensation intact bilaterally. No focal neuro deficits. Ambulates with normal steady gait. Medical Decision Making Medical Decision Making MDM Narrative: patient is a 22-year-old female past medical history of asthma presenting to emergency department for evaluation of cough, reproducible chest pain to inspiration and cough, shortness of breath on exertion. She has known COVID- 19 positive. She has not been using her albuterol inhaler at home. At the time my examination she is nontoxic, afebrile, no hypoxia tachypnea or tachycardia. She speaking clear full sentences. Her ambulatory O2 trial with O2 saturation greater than 96% for duration. Wells score negative, unlikely PE, examination not consistent with acute asthma exacerbation. Less likely ACS/ PNA. Symptoms greater than 5 days, does not meet criteria for Paxlovid treatment. discussed strict return precautuions, worrisome signs and symptoms that would warrant re- evaluation emergency department, outpatient follow-up with PCP. all questions answered. Stable for discharge. Differential Diagnosis Differential Diagnoses: The differential diagnosis associated with the presentation includes ( As noted above) External Record Review External record reviewed: Inpatient record (February 2023) Tests considered The following testing was considered but not selected: CXR: see narrative above Prescription Management I considered prescription management with: Antiviral ( see narrative above) Chronic Conditions Patient?s care impacted by: Other ( asthma) Discharge Plan Discharge Clinical Impression: COVID-19 Patient Disposition: Home, Self-Care Instructions: COVID-19 (Coronavirus Disease 2019) (ED) Additional Instructions: please be sure to use your albuterol inhaler if you are experiencing wheezing or shortness of breath. Be sure to rest, stay well hydrated drinking plenty of fluids, eat small frequent meals. Tylenol/ibuprofen can be used as needed for fever/pain. [id number] cold medications may be helpful as well for symptoms. Saline nasal spray, humidifier may be helpful for nasal congestion. You may return to the emergency department with any new or worsening symptoms or concerns. Follow-up with your primary care provider as needed. Prescriptions: No Action levalbuterol HCl 1.25 mg/3 mL Solution For Nebulization 1.25 mg inhalation Q3H PRN (Reason: Shortness Of Breath/Wheezing) Qty: 90 1RF albuterol sulfate 90 mcg/actuation HFA aerosol inhaler 2 puff inhalation Q6H PRN (Reason: Wheezing) Qty: 8.5 1RF acetaminophen 500 mg Tablet 1,500 mg PO BID PRN (Reason: Pain) levalbuterol HCl 1.25 mg/0.5 mL solution for nebulization 1.25 mg inhalation BID budesonide-formoterol [Symbicort] 160-4.5 mcg/actuation HFA aerosol inhaler 2 puff inhalation BID Qty: 10.2 0RF (DME) peak flow meter Device See Rx Instructions .Route Qty: 1 0RF Rx Instructions: As directed montelukast 10 mg tablet 10 mg PO QPM 30 Days Qty: 30 3RF Referrals: Darby Davis MD [Primary Care Provider] - Discharge Date/Time: 04/02/23 16:23
== END 2023-04-02 16:23 | disposition home or self-care (01) ==
PROVIDERS: Emergency Provider Emergency Medicine; PCP Internal Medicine
DX: U07.1 COVID-19 (principal); R07.89 Other chest pain; R06.02 Shortness of breath; R05.9 Cough, unspecified
CPT/HCPCS: 93005; 99283

== ENCOUNTER 2023-04-12 08:46 | Outpatient (AMB) | payer BC, SELFPAY ==
--- NOTE | 2023-04-12 08:57 | MHC.OFFVIS ---
Intake Vital Signs 04/12/23 08:59 Height 5 ft 3 in Weight 213 lb 13.574 oz BMI 37.9 BP 110/74 Blood Pressure Location Lt brachial Position Sitting Pulse 64 Pulse Oximetry (%) 99 Oxygen Delivery Method Room Air Intake Visit Reasons: Asthma exacerbation Intake Note: pt is here for follow but had ER visit for covid again, tx with paxlovid and feeling better. 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 Allergies No Known Allergies Allergy (Verified 04/12/23 09:03) Medication List - Last Reconciled 04/12/23 by Elizabeth Molina MD acetaminophen 1,500 mg PO BID PRN albuterol sulfate 90 mcg/actuation 2 puffs inhalation Q6H PRN budesonide-formoterol 160-4.5 mcg/actuation (Symbicort) 2 puffs inhalation BID levalbuterol HCl 1.25 mg inhalation BID levalbuterol HCl 1.25 mg (3 mL) inhalation Q3H PRN montelukast 10 mg PO QPM 30 days peak flow meter As directed Do you need a note to return to daycare/school/sports/work: No HPI Asthma exacerbation HPI Details 22 years old female with a diagnosis of bronchial asthma is here for routine follow-up. After her last visit , on 03/18 she contracted COVID-19 infection and was seen in the emergency room on 04/02. Her PCP . Did treat her with a course of Paxlovid and. She recovered well For the last few weeks she her bronchial asthma has been well controlled and she has not been using the rescue inhaler much, She has also not use the nebulizers. She is back to full-time work at . [facility] Medical History Allergic rhinitis Asthma Social History Household Members: Family Housing: House Do you presently have visiting nurse or other home services: No Alcohol intake: current Alcohol intake frequency: holidays/special occasions only Patient Tobacco Use Status: Never used Tobacco Second Hand Smoke Exposure: No Substance Use Type: Marijuana service: No Current occupational status: employed Review of Systems Const All systems reviewed & are unremarkable except as noted in HPI and below Denies snoring Eyes Reports no additional complaints ENT Reports nasal congestion (Mild off and on) Card Reports no additional complaints and Denies dyspnea Resp Reports cough (Mild occasional), Denies dyspnea, Denies snoring and Denies wheezing GI Reports no additional complaints Reports no additional complaints Musc Reports no additional complaints Skin/Breast Reports system reviewed and no additional complaints, except as documented Neuro Reports no additional complaints Endo Reports no additional complaints Aller/Immun Reports no additional complaints and Denies wheezing Physical Exam Vital Signs: Last Vital Signs Pulse 64 04/12/23 08:59 BP 110/74 04/12/23 08:59 Pulse Ox 99 04/12/23 08:59 Oxygen Delivery Method Room Air 04/12/23 08:59 BMI result Body Mass Index 37.9 Const General: healthy appearing, comfortable, no acute distress, alert and awake Orientation/consciousness: patient oriented x3 HEENT Head: Yes normal to inspection General nose exam: No nasal polyps present, No nasal discharge present and Other nasal findings present (Mild nasal congestion in Both nostrils) Face and sinus: Yes sinuses nontender Mouth: oropharynx normal Throat: Yes posterior oropharynx normal Eyes General: appearance normal, both eyes and all related structures Neck Neck: Yes normal visual inspection, Yes no lymphadenopathy, Yes trachea midline and Yes no JVD Thyroid: Thyroid normal Chest Chest palpation & inspection: normal inspection of the chest, normal palpation of entire chest wall and no tenderness Resp Other: Percussion note resonant, has good breath sounds on both sides. Today her lungs are CLEAR and no wheezes or rhonchi are noted, Cardio Palpation: normal PMI Rate: regular rate Rhythm: regular rhythm Heart sounds: no gallops and no murmurs Peripheral pulses: Peripheral pulses 2+ throughout GI Palpation (GI): Soft to palpation, nontender, No hepatosplenomegaly present and no masses Auscultation: normal bowel sounds Back/Spine/Pelvis Thoracic/Lumbar Spine: thoracic and lumbar spine normal to inspection Skin General skin exam: no rashes or lesions noted Neuro General: patient oriented x3 and no focal motor deficits Cranial nerves: Yes CN's II-XII intact bilaterally Extrem General: Yes normal to inspection, Yes no clubbing, cyanosis or edema and Yes no calf tenderness Psych Speech and movement: Normal speech and movement present Results Reviewed Results Reviewed: Peak flow recordings are reviewed. Mostly ranging FROM 300-400 L Assessment & Plan Assessment & Plan (1) Asthma: Comment: BRONCHIAL ASTHMA is well controlled at this time and she will continue the following meds, TX : SYMBICORT 160-4.5 2 PUFFS B.I.D.. SINGULAIR 10 MG DAILY ALBUTEROL HFA 2 PUFFS Q 4-6 HOURS P.R.N. WHEN OUTDOORS. LEVALBUTEROL SOLUTION FOR WHY NEBULIZER Q 4-6 HOURS P.R.N. AT HOME CHECK 5 PEAK FLOWS ON A DAILY BASIS, GOAL IS TO KEEP IT ABOVE 300. Code(s): J45.909 - Unspecified asthma, uncomplicated (2) Allergic rhinitis: Comment: She has mild intermittent nasal congestion with postnasal drip. Most likely has a mild allergic rhinitis, TX : Advised to resume using Flonase-50 1 spray intranasal b.i.d( however it is not covered by insurance and she has hard time to buy out of pocket) May use loratadine 10 mg once a day p.r.n.. Singulair 10 mg p.o. daily, Code(s): J30.9 - Allergic rhinitis, unspecified Coding Level of Care Code Est Pt Level 3 (68264) Diagnoses Asthma J45.909 Allergic rhinitis J30.9
[2023-04-12 08:59] VITALS: BP 110/74; PULSE 64; O2SAT 99; BMI 37.9
== END 2023-04-12 09:13 | disposition home or self-care (01) ==
PROVIDERS: PCP Internal Medicine; Visit Provider Internal Medicine
DX: J45.909 Unspecified asthma, uncomplicated (principal); J30.9 Allergic rhinitis, unspecified
CPT/HCPCS: 99213

== ENCOUNTER → 2023-04-12 08:46 | Outpatient (BNVA) | payer BC, SELFPAY | PROVIDERS: PCP Internal Medicine; Visit Provider Internal Medicine ==

== ENCOUNTER 2023-07-05 09:15 | Outpatient (AMB) | payer BC, SELFPAY ==
--- NOTE | 2023-07-05 09:20 | A.OFFVIS_ITS ---
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 Required: No Allergies No Known Allergies Allergy (Verified 07/05/23 09:25) Medication List - Last Reconciled 07/05/23 by Elizabeth Molina MD acetaminophen 1,500 mg PO BID PRN albuterol sulfate 90 mcg/actuation 2 puffs inhalation Q6H PRN budesonide-formoterol 160-4.5 mcg/actuation (Symbicort) 2 puffs inhalation BID levalbuterol HCl 1.25 mg inhalation BID levalbuterol HCl 1.25 mg (3 mL) inhalation Q3H PRN montelukast 10 mg PO QPM 30 days peak flow meter As directed Do you need a note to return to daycare/school/sports/work: No HPI Asthma exacerbation HPI Details 23 years old female, case of allergic rh initis and bronchial asthma, Comes for follow-up after a few months. Lately she has no active symptoms and has not been using Symbicort or montelukast. She does have the nebulizer with says levalbuterol solution, but also has not needed to use the rescue inhaler or nebulizer. She is working at and there is no problem during the workup hours. Also no specific allergy issues at home. [facility] Medical History Allergic rhinitis Asthma Social History Household Members: Family Housing: House Do you presently have visiting nurse or other home services: No Alcohol intake: current Alcohol intake frequency: holidays/special occasions only Comment: refused bed alarm. pt rings appropriately Patient Tobacco Use Status: Never used Tobacco Second Hand Smoke Exposure: No Substance Use Type: Marijuana service: No Current occupational status: employed Review of Systems Const All systems reviewed & are unremarkable except as noted in HPI and below Denies snoring Eyes Reports no additional complaints ENT Reports nasal congestion (Mild off and on) Card Reports no additional complaints and Denies dyspnea Resp Reports cough (Mild occasional), Denies dyspnea, Denies snoring and Denies wheezing GI Reports no additional complaints Reports no additional complaints Musc Reports no additional complaints Skin/Breast Reports system reviewed and no additional complaints, except as documented Neuro Reports no additional complaints Endo Reports no additional complaints Aller/Immun Reports no additional complaints and Denies wheezing Physical Exam Vital Signs: Last Vital Signs Pulse 87 07/05/23 09:21 BP 102/70 07/05/23 09:21 Pulse Ox 97 07/05/23 09:21 Oxygen Delivery Method Room Air 07/05/23 09:21 BMI result Body Mass Index 38.5 Const General: healthy appearing, comfortable, no acute distress, alert and awake Orientation/consciousness: patient oriented x3 HEENT Head: Yes normal to inspection General nose exam: No nasal polyps present, No nasal discharge present and Other nasal findings present (Mild nasal congestion in Both nostrils) Face and sinus: Yes sinuses nontender Mouth: oropharynx normal Throat: Yes posterior oropharynx normal Eyes General: appearance normal, both eyes and all related structures Neck Neck: Yes normal visual inspection, Yes no lymphadenopathy, Yes trachea midline and Yes no JVD Thyroid: Thyroid normal Chest Chest palpation & inspection: normal inspection of the chest, normal palpation of entire chest wall and no tenderness Resp Other: Percussion note resonant, has good breath sounds on both sides. Today her lungs are CLEAR and no wheezes or rhonchi are noted, Cardio Palpation: normal PMI Rate: regular rate Rhythm: regular rhythm Heart sounds: no gallops and no murmurs Peripheral pulses: Peripheral pulses 2+ throughout GI Palpation (GI): Soft to palpation, nontender, No hepatosplenomegaly present and no masses Auscultation: normal bowel sounds Back/Spine/Pelvis Thoracic/Lumbar Spine: thoracic and lumbar spine normal to inspection Skin General skin exam: no rashes or lesions noted Neuro General: patient oriented x3 and no focal motor deficits Cranial nerves: Yes CN's II-XII intact bilaterally Extrem General: Yes normal to inspection, Yes no clubbing, cyanosis or edema and Yes no calf tenderness Psych Speech and movement: Normal speech and movement present Office Procedures Spirometry Testing Spirometry Comments: In office spirometry testing completed. Results to Dr Molina. 58999- Spirometry Results Reviewed Results Reviewed: SPIROMETERY FVC=94 % FEV1=87% FEV1/FVC =81 FEF 25-75 = 64 % C/W MINIMAL SMALL AIRWAYS OBSTRUCTIVE DISORDER Assessment & Plan Assessment & Plan (1) Asthma: Comment: BRONCHIAL ASTHMA is well controlled at this time and she does not need to use the maintenance regimen. Code(s): J45.909 - Unspecified asthma, uncomplicated Plan: TX : SYMBICORT 160-4.5 keep on hand and use only p.r.n. SINGULAIR 10 MG DAILY keep on hand and start using if there is any recurrence of nasal congestion or cough or wheezing. ALBUTEROL HFA 2 PUFFS Q 4-6 HOURS P.R.N. WHEN OUTDOORS. LEVALBUTEROL SOLUTION FOR WHY NEBULIZER Q 4-6 HOURS P.R.N. AT HOME (2) Allergic rhinitis: Comment: She has history of paroxysmal nasal congestion with postnasal drip, . Goes along with bronchial asthma Most likely allergic rhinitis. Currently does not need to use any medicine. Code(s): J30.9 - Allergic rhinitis, unspecified Plan: Advised to start using montelukast 10 mg daily, and Flonase-52 spray in each nostril daily, if she starts having active symptoms of nasal congestion or postnasal drip. Orders: Orders AMB Spirometry Testing Today J45.909 - Unspecified asthma, uncomplicated Coding Level of Care Code Est Pt Level 3 (47133) Diagnoses Asthma J45.909 Allergic rhinitis J30.9 CPT Codes Spirometry - CPT: 53146- Spirometry ([id number])
[2023-07-05 09:21] VITALS: BP 102/70; PULSE 87; O2SAT 97; BMI 38.5
== END 2023-07-05 09:51 | disposition home or self-care (01) ==
PROVIDERS: PCP Internal Medicine; Visit Provider Internal Medicine
DX: J45.909 Unspecified asthma, uncomplicated (principal); J30.9 Allergic rhinitis, unspecified
CPT/HCPCS: 94010; 99213

== ENCOUNTER → 2023-07-05 09:15 | Outpatient (BNVA) | payer BC, SELFPAY | PROVIDERS: PCP Internal Medicine; Visit Provider Internal Medicine | DX: J45.909 Unspecified asthma, uncomplicated (principal) | CPT/HCPCS: 94010 ==

== ENCOUNTER 2023-07-24 10:23 | Observation (INO) | payer BC, SELFPAY ==
[2023-07-24] VITALS (8 sets, daily range): BP systolic 132–153; BP diastolic 81–95; PULSE 93–123; RESP 16–20; TEMP 36.3–36.9; O2SAT 95–99; BMI 37.7
--- NOTE | ~2023-07-24 | XR_ITS ---
EXAMINATION: XR CHEST CLINICAL INFORMATION: Chest tightness COMPARISON: 02/20/2023 TECHNIQUE: Frontal view of the chest was obtained. FINDINGS: No significant abnormality is noted involving the heart, lungs, mediastinum, bony thorax or soft tissues. XR/XR chest 1V IMPRESSION: Unremarkable examination.
--- NOTE | 2023-07-24 10:29 | ECG_ITS ---
Test Reason : CHEST TIGHTNESS Blood Pressure : / mmHG Vent. Rate : 101 BPM Atrial Rate : 101 BPM P-R Int : 128 ms QRS Dur : 080 ms QT Int : 326 ms P-R-T Axes : 062 078 037 degrees QTc Int : 422 ms Sinus tachycardia Otherwise normal ECG When compared with ECG of 02-APR-2023 15:58, No significant change was found Referred By: Generic ED Physician Electronically Signed By:BOB NOBLES
[2023-07-24 10:56] LABS: MANUAL DIFF FLAG NO
[2023-07-24 10:58] LABS: Basophils Absolute Auto 0.1 X10*3/uL (0.0-0.2); Basophils Percent Auto 0.7 % (0-2); Eosinophils Absolute Auto 0.1 X10*3/uL (0.0-0.4); Eosinophils Percent Auto 0.6 % (0-4); Hematocrit 42.8 % (37.0-47.0); Imm Gran Abs Auto 0.03 X10*3/uL (0.00-0.03); Imm Gran Pct Auto 0.3 % (0.0-0.4); Lymphocytes Absolute Auto 0.7 X10*3/uL (1.2-4.9); Lymphocytes Percent Auto 6.1 % (20-40); Mean Corpuscular Hemoglobin 31.7 pg (27.0-33.0); Mean Corpuscular Volume 90.5 fL (80.0-98.0); Mean Platelet Volume 9.5 fL (9.4-12.3); Monocytes Absolute Auto 0.7 X10*3/uL (0.1-1.2); Monocytes Percent Auto 6.2 % (2-11); Neutrophils Absolute Auto 9.3 x10*3/uL (2.0-8.3); Neutrophils Percent Auto 86.1 % (45-73); Platelet Count 308 X10*3/uL (160-400); Red Blood Count 4.73 X10*6/uL (4.20-5.50); Red Cell Distribution Width 12.5 % (11.0-16.0); White Blood Count 10.8 X10*3/uL (4.8-10.8)
[2023-07-24 11:12] LABS: Alanine Aminotransferase 12 U/L (0-31); Albumin Level 4.4 g/dL (3.5-5.0); Alkaline Phosphatase 77 U/L (39-117); Anion Gap 14 (12-20); Aspartate Amino Transferase 19 U/L (5-31); Bilirubin Total 0.8 mg/dL (0.0-1.0); Blood Urea Nitrogen 10 mg/dL (9-16); Calcium 9.5 mg/dL (8.4-10.2); Carbon Dioxide 19 mmol/L (22-29); Chloride 111 mmol/L (96-108); Creatinine Clr Calc Pharmacy 131.8; Estimated Glomerular Filt Rate > 60; Glucose Random 108 mg/dL (60-115); Potassium 3.9 mmol/L (3.3-5.1); Sodium 140 mmol/L (135-145); Total Protein 7.5 g/dL (6.5-8.0)
[2023-07-24 11:19] LABS: Troponin-I High Sensitivity < 2.7 ng/L (<3.5-17.0)
[2023-07-24 11:44] LABS: Influenza A PCR NEGATIVE (Negative); Influenza B PCR NEGATIVE (Negative); Resp Syncy Virus RNA Qual PCR NEGATIVE (Negative); SARS COV2 PCR INHOUSE NEGATIVE (Negative)
--- NOTE | 2023-07-24 13:57 | ED.ASTHMA ---
HPI - Asthma General Chief Complaint: Asthma Stated Complaint: asthma Time Seen by Provider: 07/24/23 13:39 Source: patient Mode of arrival: ambulatory Limitations: no limitations History of Present Illness HPI Narrative: This is a 23-year-old female history of asthma complicated by status asthmaticus, anxiety presenting to the emergency department for evaluation of shortness of breath, wheezing, cough, low-grade fever all of which started yesterday worsening. Patient reports she has been using nebulizing treatments at home with little to no relief. Patient tells me she just does not feel well. She has been hospitalized up to 6 days because of asthma. She is currently on Nexplanon, smokes marijuana, no recent travel and no history of malignancy. Reports this morning he thinks she was coughing so much she had an episode of vomiting. Denies chest pain, nausea, vomiting, headache, vision changes, dizziness, weakness, changes in urination or bowel habits at this time. Related Data Home Medications Medication Instructions Recorded Confirmed acetaminophen 500 mg tablet 1,500 mg PO BID PRN Pain 02/20/23 07/05/23 levalbuterol HCl 1.25 mg/0.5 mL 1.25 mg inhalation BID 02/20/23 07/05/23 solution for nebulization Previous Rx's Medication Instructions Recorded peak flow meter #1 ea 11/02/22 albuterol sulfate 90 mcg/actuation 2 puff inhalation Q6H PRN Wheezing 01/20/23 aerosol inhaler #8.5 grams levalbuterol HCl 1.25 mg/3 mL 1.25 mg (3 mL) inhalation Q3H PRN 01/20/23 solution for nebulization Shortness Of Breath/Wheezing #90 mL budesonide-formoterol HFA 160 2 puff inhalation BID #10.2 grams 02/21/23 mcg-4.5 mcg/actuation aerosol inhaler (Symbicort) montelukast 10 mg tablet 10 mg PO QPM Allergic Rhinitis 30 07/13/23 days #30 tabs Allergies Allergy/AdvReac Type Severity Reaction Status Date / Time No Known Allergies Allergy Verified 07/24/23 10:29 Review of Systems Review of Systems: Yes all other systems are reviewed and are negative PMFSH Past Medical History Attestation statement: The following information was validated with the patient. Source: old records reviewed and nursing notes reviewed Medical History Allergic rhinitis Asthma Social History Social History Household Members: Family Housing: House Do you presently have visiting nurse or other home services: No Alcohol intake: current Alcohol intake frequency: holidays/special occasions only Comment: refused bed alarm. pt rings appropriately Patient Tobacco Use Status: Never used Tobacco Second Hand Smoke Exposure: No Substance Use Type: Marijuana Advance Directives: No Advance Directives Information Provided: No service: No Current occupational status: employed Physical Exam Vital Signs: Vital Signs: Last Vital Signs Temp 98.1 F 07/24/23 14:02 Pulse 93 07/24/23 14:24 Resp 18 07/24/23 14:24 BP 140/95 H 07/24/23 14:02 Pulse Ox 97 07/24/23 14:02 O2 Del Method Room Air 07/24/23 14:02 BMI result Body Mass Index 37.7 tachycardia Appearance: Alert.? Oriented X3.? No acute distress.? Head: Normocephalic, atraumatic, no step-offs or deformities Eyes: Pupils equal, round and reactive to light.? ENT: Pharynx normal.? Neck: Normal inspection.? Neck supple.? CVS: Normal heart rate and rhythm.? Pulses normal.? Respiratory: No respiratory distress.? Breath sounds significant expiratory wheezinging b/l. .? Abdomen: Soft and nontender.? Skin: Skin warm and dry.? Normal skin color.? Normal skin turgor.? Extremities: No lower extremity edema.? No calf ttp. 5/5 strength to bilateral upper and lower extremities Neuro: Oriented X 3.? No motor deficit.? No sensory deficit. CN 2-12 intact Course Reevaluation(s) Reevaluation #1: CBC unremarkable. Chemistry no acute findings requiring intervention. Troponin negative, EKG nonischemic. COVID, flu, RSV negative. Chest x-ray unremarkable. Patient received a Xopenex treatment and is tachycardic in the 130s 140s. Patient with history of SVT secondary to treatments therefore will wait until giving another 1. Magnesium Solu-Medrol going. Patient will likely require hospital admission Time: 15:08 Reevaluation #2: Patient is still with significant wheezing, patient to be admitted to the hospital. She has complicated asthma. Time: 15:21 Medications Administered Generic Name Dose Route Start Last Admin Trade Name Freq PRN Reason Stop Dose Admin Magnesium Sulfate 2 gm in 50 mls @ 25 mls/hr 07/24/23 14:11 07/24/23 15:05 Magnesium Sulfate/H2o IV 07/24/23 16:10 25 mls/hr ONCE ONE Administration Discontinued Medications Generic Name Dose Route Start Last Admin Trade Name Freq PRN Reason Stop Dose Admin Levalbuterol HCl 2.5 mg/ 0 mg 07/24/23 14:18 07/24/23 14:24 Ipratropium [place] 0.5 mg INHALE 07/24/23 14:19 5 dose ONCE ONE Administration Methylprednisolone Sodium Succinate 125 mg 07/24/23 14:11 07/24/23 15:05 Methylprednisolone Sod Succ 125 Mg/2 Ml Vial IVPUSH 07/24/23 14:12 125 mg ONCE ONE Administration Medical Decision Making Medical Decision Making [facility] Narrative: 1413 23-year-old female presents with complaints of shortness breath, wheezing, cough since yesterday this morning also low-grade fever. Breath sounds significant expiratory wheezinging b/l. . History and physical exam concerning for viral illness with possible asthma as well. Unlikely acute respiratory distress, pulmonary embolism, ACS, pneumonia. Unlikely pneumothorax. Plan labs, x-ray, viral test Differential Diagnosis Differential Diagnoses: The differential diagnosis associated with the presentation includes History and physical exam concerning for viral illness with possible asthma as well. Unlikely acute respiratory distress, pulmonary embolism, ACS, pneumonia. Unlikely pneumothorax. Admission/Observation Consideration of admission/observation: Escalation of care including admission/observation considered Possible Lab Data [facility] Lab Attestation statement: I reviewed the patient's lab results. 07/24/23 10:48 07/24/23 10:48 Labs: Lab Results 07/24/23 Range/Units 10:48 WBC 10.8 (4.8-10.8) X10*3/uL RBC 4.73 (4.20-5.50) X10*6/uL Hgb 15.0 (12.0-16.0) g/dl Hct 42.8 (37.0-47.0) % MCV 90.5 (80.0-98.0) fL MCH 31.7 (27.0-33.0) pg MCHC 35.0 (31.0-35.0) g/dl RDW 12.5 (11.0-16.0) % Plt Count 308 (160-400) X10*3/uL MPV 9.5 (9.4-12.3) fL Immature Gran % (Auto) 0.3 (0.0-0.4) % Neut % (Auto) 86.1 H (45-73) % Lymph % (Auto) 6.1 L (20-40) % [place] % (Auto) 6.2 (2-11) % Eos % (Auto) 0.6 (0-4) % Baso % (Auto) 0.7 (0-2) % Lymph # (Auto) 0.7 L (1.2-4.9) X10*3/uL [place] # (Auto) 0.7 (0.1-1.2) X10*3/uL Eos # (Auto) 0.1 (0.0-0.4) X10*3/uL Baso # (Auto) 0.1 (0.0-0.2) X10*3/uL Abs Immat Gran (auto) 0.03 (0.00-0.03) X10*3/uL Absolute Neuts (auto) 9.3 H (2.0-8.3) x10*3/uL Absolute Nucleated RBC 0.000 (0.0-0.012) X10*3/uL Nucleated RBC % (auto) 0.0 (0.0-0.2) /100WBC Sodium 140 (135-145) mmol/L Potassium 3.9 (3.3-5.1) mmol/L Chloride 111 H (96-108) mmol/L Carbon Dioxide 19 L (22-29) mmol/L Anion Gap 14 (12-20) BUN 10 (9-16) mg/dL Creatinine 0.74 (0.5-1.4) mg/dL Estim Creat Clear Calc 131.8 Estimated GFR > 60 Random Glucose 108 (60-115) mg/dL Calcium 9.5 (8.4-10.2) mg/dL Total Bilirubin 0.8 (0.0-1.0) mg/dL AST 19 (5-31) U/L ALT 12 (0-31) U/L Alkaline Phosphatase 77 (39-117) U/L Troponin I High Sens < 2.7 (<3.5-17.0) ng/L Total Protein 7.5 (6.5-8.0) g/dL Albumin 4.4 (3.5-5.0) g/dL Influenza Type A (PCR) NEGATIVE (Negative) Influenza Type B (PCR) NEGATIVE (Negative) RSV RNA Qual (PCR) NEGATIVE (Negative) SARS-CoV-2 RNA (RT-PCR) NEGATIVE (Negative) Independent Interpretation I performed an independent interpretation of an: EKG and Plain X-Ray Radiology Impression Discussion of test interpretation with radiology: I have reviewed the radiologist's reading. Independent Historian Clinical information obtained from an independent historian. History obtained from or confirmed by: Parent External Record Review External record reviewed: Inpatient record, Office record, Outpatient record, Prior outpatient labs, Prior outpatient radiology, Primary care record and Outside ED record Chronic Conditions Patient?s care impacted by: Other (asthma ) Critical Care Time Critical Care Time Critical Care Time: Yes Total Critical Care Time: 35 Attestation: I attest to this time spent taking care of the patient, obtaining history, physical, reviewing labs, imaging, speaking to my attending, speaking to specialist. Discharge Plan Discharge Clinical Impression: Asthma with acute exacerbation Patient Disposition: Admitted As Inpatient
[2023-07-24] MEDS: levalbuterol HCL 2.5 MG, Ipratropium Bromide 0.5 MG INHALE (14:24)
[2023-07-24] MEDS: Magnesium Sulfate/H2O 2 GM/50 ML PIGGYBACK IV (15:05)
[2023-07-24] MEDS: methylPREDNISolone Sod Succ 125 MG/2 ML VIAL IVPUSH (15:05)
--- NOTE | 2023-07-24 15:44 | PHA.MEDREC ---
Pharmacy Consult ? Medication Reconciliation Pharmacy has completed the medication reconciliation. spoke with patient to confirm medications. She reports using ibuprofen this morning for fever but does not normally use this as needed.
--- NOTE | 2023-07-24 15:57 | PM.IMHP ---
History of Present Illness Date of Service: 07/24/23 Attending physician on admission: Anthony Colunga Chief Complaint: sob, cough 23-year-old female with history of mild intermittent asthma with history of status asthmaticus presented to the ED earlier today for evaluation of shortness of breath, wheezing, nonproductive cough. Reports she developed sore throat yesterday and then woke up with fever of 100.1 this morning with associated shortness of breath, wheezing, nonproductive cough. She woke multiple times overnight requiring the albuterol inhaler/nebs without improvement. Does have history of status asthmaticus with admissions to the hospital but has never been intubated. She denies any known sick contacts. On arrival, patient tachycardic to 119, vital signs otherwise stable. There is no leukocytosis. Renal function normal, electrolyte levels normal except for CO2 19. Negative for COVID-19, influenza, RSV. Chest x-ray unremarkable. In the ED, given 2 g IV magnesium, levalbuterol, and 125 mg IV methylprednisolone. Review of Systems Review of Systems: General: No fevers, malaise, unintentional weight loss HEENT: No blurred vision, diplopia. No sore throat, nasal congestion, rhinorrhea, sinus pain, ear pain Cardiovascular: No chest pain, palpitations, or leg edema Respiratory: +sob, +wheezing, +cough. GI: No abdominal pain, nausea, vomiting, diarrhea, constipation, melena, hematochezia : No dysuria, hematuria, increased urinary frequency, decreased urinary output MSK: No myalgia, back pain Neuro: No headaches, weakness, paresthesias Skin: No rashes or lesions [facility] Medical History Allergic rhinitis Asthma Social History Household Members: Family Housing: House Do you presently have visiting nurse or other home services: No Alcohol intake: current Alcohol intake frequency: holidays/special occasions only Comment: refused bed alarm. pt rings appropriately Patient Tobacco Use Status: Never used Tobacco Second Hand Smoke Exposure: No Substance Use Type: Marijuana Advance Directives: No Advance Directives Information Provided: No service: No Current occupational status: employed Meds Allergies Allergy/AdvReac Type Severity Reaction Status Date / Time No Known Allergies Allergy Verified 07/24/23 10:29 Active Medications: Current Medications Magnesium Sulfate (Magnesium Sulfate/H2o) 2 gm in 50 mls @ 25 mls/hr IV ONCE ONE Stop: 07/24/23 16:10 Last Infusion: 07/24/23 15:57 Dose: 25 mls/hr Home Medications Medication Instructions Recorded Confirmed Last Taken Type acetaminophen 500 mg tablet 1,500 mg PO BID PRN Pain 02/20/23 07/24/23 Unknown History etonogestrel 68 mg subdermal 68 mg subdermal DIRECTED 07/24/23 07/24/23 Unknown History implant (Nexplanon) Physical Exam Vital Signs and Narrative: Vital Signs: Last Vital Signs Temp 98.1 F 07/24/23 14:02 Pulse 93 07/24/23 14:24 Resp 18 07/24/23 14:24 BP 140/95 H 07/24/23 14:02 Pulse Ox 97 07/24/23 14:02 O2 Del Method Room Air 07/24/23 14:02 BMI result Body Mass Index 37.7 Constitutional - Awake and Alert, No apparent distress Eyes - PERRLA, EOMI Cardiovascular - S1S2, RRR, No edema Respiratory - Normal lung expansion, Normal respiratory effort, No respiratory distress, coarse lung sounds with expiratory wheezing Gastrointestinal - NT / ND; +BS; No rebound or guarding Extremities - no calf tenderness bilaterally, no swelling Skin - Warm/Dry Neurological - Alert & oriented x3 Psychological - Appropriate affect Results Labs 07/24/23 10:48 07/24/23 10:48 Labs: Laboratory Results - last 24 hr 07/24/23 10:48 MCV 90.5 MCH 31.7 MCHC 35.0 RDW 12.5 Plt Count 308 MPV 9.5 Immature Gran % (Auto) 0.3 Neut % (Auto) 86.1 H Lymph % (Auto) 6.1 L [place] % (Auto) 6.2 Eos % (Auto) 0.6 Baso % (Auto) 0.7 Lymph # (Auto) 0.7 L [place] # (Auto) 0.7 Eos # (Auto) 0.1 Baso # (Auto) 0.1 Abs Immat Gran (auto) 0.03 Absolute Neuts (auto) 9.3 H Absolute Nucleated RBC 0.000 Nucleated RBC % (auto) 0.0 Anion Gap 14 Estim Creat Clear Calc 131.8 Estimated GFR > 60 Random Glucose 108 Calcium 9.5 Total Bilirubin 0.8 AST 19 ALT 12 Alkaline Phosphatase 77 Troponin I High Sens < 2.7 Total Protein 7.5 Albumin 4.4 Influenza Type A (PCR) NEGATIVE Influenza Type B (PCR) NEGATIVE RSV RNA Qual (PCR) NEGATIVE SARS-CoV-2 RNA (RT-PCR) NEGATIVE Imaging Radiologist's Impressions: Impressions Chest X-Ray 07/24/23 10:37 IMPRESSION: Unremarkable examination. Assessment and Plan (1) Asthma with acute exacerbation: Status: Acute Plan 23-year-old female with history of mild intermittent asthma with history of status asthmaticus to be observed for acute asthma exacerbation #Acute asthma exacerbation -negative for COVID-19, influenza, RSV. Check full viral respiratory panel -IV methylprednisolone 40 mg b.i.d. -Xopenex q.4h while awake -albuterol p.r.n. -continue Singulair, add loratadine -symptomatic management DVT prophylaxis-early ambulation, SCP Full code Quality Stroke Does the patient have a stroke diagnosis?: No VTE Prior VTE?: No VTE Risk Level:: Medical - low VTE Device Contraindication: N/A - Device Ordered VTE Drug Contraindication: Treatment Not Indicated
[2023-07-24] MEDS: Loratadine 10 MG TABLET PO (16:19)
[2023-07-24] MEDS: 0.9 % Sodium Chloride Flush 3 ML SYRINGE IVFLUSH ×2 (16:19→21:13)
[2023-07-24] MEDS: Montelukast Sodium 10 MG TABLET PO (16:19)
[2023-07-24] MEDS: guaiFENesin 200 MG/10 ML 10 ML LIQUID PO ×2 (16:19→21:13)
[2023-07-24] MEDS: levalbuterol HCL 1.25 MG/3 ML VIAL.NEB INHALE ×3 (17:37→23:50)
[2023-07-24] MEDS: Acetaminophen 325 MG TABLET 650 MG PO (19:41)
[2023-07-24] MEDS: methylPREDNISolone Sod Succ 40 MG/ML VIAL IVPUSH (21:13)
[2023-07-25] MEDS: guaiFENesin 200 MG/10 ML 10 ML LIQUID PO ×2 (03:32→09:35)
[2023-07-25] MEDS: Albuterol Sulfate 90 MCG 8 GM INHALER 2 PUFF INHALE (03:35)
[2023-07-25 03:36] VITALS: BP 146/70; PULSE 105; RESP 19; TEMP 36.8; O2SAT 96
[2023-07-25] MEDS: Acetaminophen 325 MG TABLET 650 MG PO (04:10)
[2023-07-25 04:17] VITALS: PULSE 105; RESP 19; O2SAT 98
[2023-07-25] MEDS: levalbuterol HCL 1.25 MG/3 ML VIAL.NEB INHALE ×3 (04:17→11:09)
[2023-07-25 06:36] LABS: Basophils Percent Auto 0.1 % (0-2); Hematocrit 41.5 % (37.0-47.0); Hemoglobin 14.4 g/dl (12.0-16.0); Imm Gran Abs Auto 0.04 X10*3/uL (0.00-0.03); Imm Gran Pct Auto 0.5 % (0.0-0.4); Lymphocytes Absolute Auto 0.2 X10*3/uL (1.2-4.9); Lymphocytes Percent Auto 2.7 % (20-40); MANUAL DIFF FLAG SCAN; Mean Corpuscular HGB Conc 34.7 g/dl (31.0-35.0); Mean Corpuscular Volume 92.2 fL (80.0-98.0); Mean Platelet Volume 9.7 fL (9.4-12.3); Monocytes Absolute Auto 0.1 X10*3/uL (0.1-1.2); Monocytes Percent Auto 1.5 % (2-11); Neutrophils Absolute Auto 7.6 x10*3/uL (2.0-8.3); Neutrophils Percent Auto 95.2 % (45-73); Platelet Count 324 X10*3/uL (160-400); Red Cell Distribution Width 12.9 % (11.0-16.0); SCAN SMEAR FLAG 1
[2023-07-25 06:43] LABS: Anion Gap 14 (12-20); Blood Urea Nitrogen 10 mg/dL (9-16); Calcium 9.4 mg/dL (8.4-10.2); Carbon Dioxide 19 mmol/L (22-29); Chloride 110 mmol/L (96-108); Creatinine Clr Calc Pharmacy 143.5; Estimated Glomerular Filt Rate > 60; Glucose Random 156 mg/dL (60-115); Potassium 3.8 mmol/L (3.3-5.1); Sodium 139 mmol/L (135-145)
[2023-07-25 07:11] LABS: SLIDE REVIEW VERIFIED
[2023-07-25] MEDS: methylPREDNISolone Sod Succ 40 MG/ML VIAL IVPUSH (07:34)
[2023-07-25] MEDS: Montelukast Sodium 10 MG TABLET PO (07:34)
[2023-07-25] MEDS: Loratadine 10 MG TABLET PO (07:34)
[2023-07-25] MEDS: 0.9 % Sodium Chloride Flush 3 ML SYRINGE IVFLUSH (07:34)
[2023-07-25 08:00] VITALS: BP 125/69; PULSE 107; RESP 18; TEMP 36.1; O2SAT 99
[2023-07-25 08:05] VITALS: PULSE 88; RESP 19; O2SAT 98
[2023-07-25 09:31] LABS: Adenovirus PCR Not Detected (Not Detect.); Bordetella parapertussis PCR Not Detected (Not Detect.); Bordetella pertussis PCR Not Detected (Not Detect.); Chlamydia pneumoniae PCR Not Detected (Not Detect.); Coronavirus 229E PCR Not Detected (Not Detect.); Coronavirus HKU1 PCR Not Detected (Not Detect.); Coronavirus NL63 PCR Not Detected (Not Detect.); Coronavirus OC43 PCR Detected (Not Detect.); Human metapneumovirus PCR Not Detected (Not Detect.); Influenza A PCR Not Detected (Not Detect.); Influenza B PCR Not Detected (Not Detect.); Mycoplasma pneumoniae PCR Not Detected (Not Detect.); Parainfluenza 1 PCR Not Detected (Not Detect.); Parainfluenza 2 PCR Not Detected (Not Detect.); Parainfluenza 3 PCR Not Detected (Not Detect.); Parainfluenza 4 PCR Not Detected (Not Detect.); RSV PCR Not Detected (Not Detect.); Rhino/Enterovirus PCR Not Detected (Not Detect.)
[2023-07-25 09:49] LABS: SARS-CoV-2 PCR Not Detected (Not Detect.)
--- NOTE | 2023-07-25 10:51 | MHC.CM.PN ---
pt is indeepedent will not need servies when dcd
[2023-07-25 11:11] VITALS: PULSE 116; RESP 20; O2SAT 99
--- NOTE | 2023-07-25 11:16 | PM.DS ---
DS: Providers Provider Date of Service: 07/25/23 Date of admission: 07/24/23 15:50 Primary care physician: Darby Ramirez MD DS: Diagnosis Discharge Diagnosis (1) Asthma with acute exacerbation: Status: Acute DS: Summary Hospital Course Hospital Course: from initial hpi: 23-year-old female with history of Moderate persistent asthma with history of status asthmaticus presented to the ED earlier today for evaluation of shortness of breath, wheezing, nonproductive cough. Reports she developed sore throat yesterday and then woke up with fever of 100.1 this morning with associated shortness of breath, wheezing, nonproductive cough. She woke multiple times overnight requiring the albuterol inhaler/nebs without improvement. Does have history of status asthmaticus with admissions to the hospital but has never been intubated. She denies any known sick contacts. On arrival, patient tachycardic to 119, vital signs otherwise stable. There is no leukocytosis. Renal function normal, electrolyte levels normal except for CO2 19. Negative for COVID-19, influenza, RSV. Chest x-ray unremarkable. In the ED, given 2 g IV magnesium, levalbuterol, and 125 mg IV methylprednisolone. hospital course: Patient was admitted for moderate persistent asthma with acute decompensation due to non COVID Coronavirus. She was treated with IV Solu-Medrol, Xopenex, Singulair. Symptoms significantly improved. She still has some expiratory wheezes but has good air movement and not using accessory muscles. She will be discharged home on 5 more days of prednisone 40 mg daily. Time Attestation Discharge coordination time: Greater than 30 minutes Quality: Safe Use of Opioids Does Pt have an Active Cancer Diagnosis on the Problem List?: No Quality: Stroke Does the patient have a stroke diagnosis?: No Physical Exam Vital Signs: Vital Signs: Last Vital Signs Temp 97.0 F 07/25/23 08:00 Pulse 116 H 07/25/23 11:11 Resp 20 07/25/23 11:11 BP 125/69 07/25/23 08:00 Pulse Ox 99 07/25/23 08:00 O2 Del Method Room Air 07/25/23 08:00 BMI result Body Mass Index 37.7 General: AO X 3, no acute distress Resp: good aire movement with mild exp wheezes bilateral, no accessory muscles used CVS: S1,S2,RRR GI: soft, non tender, non distended Neuro: motor grossly intact, alert Psych: appropriate affect, appropriate insight DS: Data Data Completed and Pending Completed studies during hospitalization [Text1]: Procedures Assistance with Respiratory Ventilation, Less than 24 Consecutive Hours, Continuous Positive Airway Pressure (02/20/23) Labs on day of discharge: Laboratory Results - last 24 hr 07/24/23 07/24/23 07/25/23 10:48 16:55 05:27 WBC 8.0 RBC 4.50 Hgb 14.4 Hct 41.5 MCV 92.2 MCH 32.0 MCHC 34.7 RDW 12.9 Plt Count 324 MPV 9.7 Immature Gran % (Auto) 0.5 H Neut % (Auto) 95.2 H Lymph % (Auto) 2.7 L [place] % (Auto) 1.5 L Eos % (Auto) 0.0 Baso % (Auto) 0.1 Lymph # (Auto) 0.2 L [place] # (Auto) 0.1 Eos # (Auto) 0.0 Baso # (Auto) 0.0 Abs Immat Gran (auto) 0.04 H Absolute Neuts (auto) 7.6 Absolute Nucleated RBC 0.000 Nucleated RBC % (auto) 0.0 Smear Tech's Comments VERIFIED Sodium 139 Potassium 3.8 Chloride 110 H Carbon Dioxide 19 L Anion Gap 14 BUN 10 Creatinine 0.68 Estim Creat Clear Calc 143.5 Estimated GFR > 60 Random Glucose 156 H Calcium 9.4 Troponin I High Sens < 2.7 Respiratory Panel Dave See Note Adenovirus (Rapid PCR) Not Detected B.pert (TEM-PCR) Not Detected B.parapertussis DNA PCR Not Detected C. pneumoniae DNA (PCR) Not Detected Coronavirus OC43 (PCR) Detected A Coronavirus HKU1 (PCR) Not Detected Coronavirus 229E (PCR) Not Detected Coronavirus NL63 (PCR) Not Detected Human Metapneumovir PCR Not Detected Influenza A (RT-PCR) Not Detected Influenza Type A (PCR) NEGATIVE Influenza B (RT-PCR) Not Detected Influenza Type B (PCR) NEGATIVE M. pneumoniae (PCR) Not Detected Parainfluenza 1 (PCR) Not Detected Parainfluenza 2 (PCR) Not Detected Parainfluenza 3 (PCR) Not Detected Parainfluenza 4 (PCR) Not Detected RSV (PCR) Not Detected RSV RNA Qual (PCR) NEGATIVE Entero/Rhino (PCR) Not Detected SARS-CoV-2 RNA (RT-PCR) NEGATIVE Not Detected Discharge Plan Discharge Anticipated Discharge Date/Time: 07/25/23 11:14 Patient Disposition: Home, Self-Care Discharge Diagnosis: asthma Referrals: Darby Davis MD [Primary Care Provider] - 1 Week Discharge Medications: New prednisone 20 mg tablet 40 mg PO DAILY Qty: 10 0RF Continued montelukast 10 mg tablet 10 mg PO QPM 30 Days Qty: 30 3RF albuterol sulfate 90 mcg/actuation HFA aerosol inhaler 2 puff inhalation Q6H PRN (Reason: Wheezing) Qty: 8.5 1RF acetaminophen 500 mg Tablet 1,500 mg PO BID PRN (Reason: Pain) Nexplanon 68 mg Implant 68 mg SUBDERMAL DIRECTED levalbuterol HCl 1.25 mg/3 mL Solution For Nebulization 1.25 mg inhalation Q3H PRN (Reason: Shortness Of Breath/Wheezing) Qty: 90 1RF (DME) peak flow meter Device See Rx Instructions .Route Qty: 1 0RF Rx Instructions: As directed Discharge Orders: Discharge Order (Routine); Ordered 07/25/23 Ordered By: Anthony Colunga Diet: Advance to usual diet Activity on Discharge: As tolerated Stand Alone Forms: Patient Portal Discharge page, Work/School Release Care Plan Goals: recovery Health Concerns: asthma Plan of Treatment: prednisone 5 more days Assessment: see above
== END 2023-07-25 11:59 | disposition home or self-care (01) ==
LOC: HO.ED 15:09 → HO.EDOVER 16:01 → HO.S3 18:08
PROVIDERS: Admitting Provider Physician Assistant; Emergency Provider Emergency Medicine Emergency Medical Services; PCP Internal Medicine; Visit Provider Internal Medicine
DX: J45.901 Unspecified asthma with (acute) exacerbation (principal); R06.02 Shortness of breath; R05.9 Cough, unspecified; R50.9 Fever, unspecified; J02.9 Acute pharyngitis, unspecified; Z79.899 Other long term (current) drug therapy; Z11.52 Encounter for screening for COVID-19; Z20.828 Contact with and (suspected) exposure to other viral communicable diseases
CPT/HCPCS: 0241U; 36415; 71045; 80048; 80053; 84484; 85025; 87633; 93005; 94640; 96365; 96366; 96375; 96376; 99221; 99285; J2920; J2930; J3475

== ENCOUNTER → 2023-07-24 10:29 | Outpatient (BNV) | payer BC, SELFPAY | PROVIDERS: Admitting Provider Physician Assistant; Emergency Provider Emergency Medicine Emergency Medical Services; PCP Internal Medicine; Visit Provider Internal Medicine | DX: R07.89 Other chest pain (principal) | CPT/HCPCS: 93010 ==

== ENCOUNTER → 2023-07-24 15:50 | Outpatient (BNV) | payer BC, SELFPAY | PROVIDERS: Admitting Provider Physician Assistant; Emergency Provider Emergency Medicine Emergency Medical Services; PCP Internal Medicine; Visit Provider Physician Assistant | DX: J45.21 Mild intermittent asthma with (acute) exacerbation (principal) | CPT/HCPCS: 99222; 99238 ==

== ENCOUNTER 2023-08-10 10:33 | Outpatient (AMB) | payer BC, SELFPAY ==
--- NOTE | 2023-08-10 10:36 | MHC.OFFVIS ---
Intake Vital Signs 08/10/23 10:37 Weight 215 lb BP 130/98 H Blood Pressure Location Rt brachial Position Sitting Pulse 101 H Pulse Source Pulse Oximeter Pulse Oximetry (%) 98 Oxygen Delivery Method Room Air Intake Visit Reasons: asthma exacerbation Allergies No Known Allergies Allergy (Verified 08/10/23 10:40) Medication List - Last Reconciled 08/10/23 by Brooke Saavedra LPN acetaminophen 1,500 mg PO BID PRN albuterol sulfate 90 mcg/actuation 2 puffs inhalation Q6H PRN etonogestrel (Nexplanon) 68 mg subdermal DIRECTED levalbuterol HCl 1.25 mg (3 mL) inhalation Q3H PRN montelukast 10 mg PO QPM 30 days peak flow meter As directed prednisone 40 mg (2 x 20 mg) PO DAILY HPI asthma exacerbation HPI 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 Today she presents for a hospital follow up. She was admitted to [facility] on 07/23, with asthma exacerbation likely triggered by URI, +non COVID blevins virus. She was treated with magnesium, nebs and steroids, with significant improvement in symptoms. She continues to report dyspnea with moderate exertion, however only recently restarted her symbicort and singulair. Overall she feels as though she is back to baseline. [facility] Medical History Allergic rhinitis Asthma Social History Household Members: Family Housing: House Do you presently have visiting nurse or other home services: No Alcohol intake: current Alcohol intake frequency: holidays/special occasions only Comment: refused bed alarm. pt rings appropriately Patient Tobacco Use Status: Never used Tobacco Second Hand Smoke Exposure: No Substance Use Type: Marijuana service: No Current occupational status: employed Review of Systems Const Denies chills, Denies excessive sweating, Denies fever(s), Denies headache(s) and Denies night sweats Eyes Denies dry eyes, Denies irritation and Denies itchy eyes ENT Reports Normal hearing present, Denies headache(s), Denies nasal congestion, Denies nasal discharge, Denies post nasal drip and Denies sore throat Card Denies chest pain, Denies chest pain at rest, Denies chest pain with activity, Denies claudication, Denies leg edema, Denies orthopnea and Denies paroxysmal nocturnal dyspnea Resp Denies chest congestion, Denies cough, Denies excessive phlegm production, Denies pain on inspiration, Denies pain with cough, Denies stridor and Denies wheezing Musc Denies myalgias Neuro Reports Normal hearing present and Denies headache(s) Endo Denies excessive sweating Williams/Lymph Denies lymphadenopathy Aller/Immun Denies itchy eyes, Denies seasonal rhinorrhea and Denies wheezing Physical Exam Vital Signs: Last Vital Signs Pulse 101 H 08/10/23 10:37 BP 130/98 H 08/10/23 10:37 Pulse Ox 98 08/10/23 10:37 Oxygen Delivery Method Room Air 08/10/23 10:37 Const General: cooperative, healthy appearing, comfortable, no acute distress, well developed and alert Nutritional Appearance: obese Orientation/consciousness: patient oriented x3 Limitations: no limitations HEENT Head: Yes normal to inspection, Yes normocephalic and Yes atraumatic Ears: hearing grossly normal bilaterally and external ears normal Eyes General: appearance normal, both eyes and all related structures Eyelids: Yes eyelids normal Sclerae: sclerae normal EOM: EOMs intact bilaterally Neck Neck: Yes normal visual inspection and Yes no lymphadenopathy Lymphatic: no lymphadenopathy noted Chest Chest palpation & inspection: normal inspection of the chest Resp Effort & Inspection: normal respiratory effort, able to speak in complete sentences, no audible wheezes, no cough, no stridor, not tachypneic, no tripod positioning and no use of accessory muscles Auscultation: clear to auscultation bilaterally Cardio Jugular venous distension: no JVD Rate: regular rate Rhythm: regular rhythm Skin Other: warm, dry General skin exam: no rashes or lesions noted Neuro General: patient oriented x3 Cranial nerves: Yes Normal hearing present Cognition (Neuro): normal cognition Gait exam (Neuro): Normal gait present Extrem General: Yes normal to inspection, Yes capillary refill normal, Yes no clubbing, cyanosis or edema and Yes no pedal edema Psych Appearance: grossly normal and well kempt Speech and movement: Normal speech and movement present and Clear speech present Affect: normal affect Attitude: cooperative Thought process: Normal thought process present Thought content: Normal thought content present Insight: Good insight present (Psych) Judgement: Good judgement present (Psych) Assessment & Plan Assessment & Plan (1) Asthma: Code(s): J45.909 - Unspecified asthma, uncomplicated (2) Allergic rhinitis: Code(s): J30.9 - Allergic rhinitis, unspecified Plan 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 Overall feels back to baseline. Advised to stay on symbicort and singulair until reevaluated with Dr. Molina. Respiratory exam unremarkable today. All questions were answered and patient is in agreement of plan. Will follow up with Dr. Molina for regularly scheduled appointment. Coding Level of Care Code Est Pt Level 3 (14482) Diagnoses Asthma J45.909 Allergic rhinitis J30.9
[2023-08-10 10:37] VITALS: BP 130/98; PULSE 101; O2SAT 98
== END 2023-08-10 11:02 | disposition home or self-care (01) ==
PROVIDERS: PCP Internal Medicine; Visit Provider Nurse Practitioner Family
DX: J45.909 Unspecified asthma, uncomplicated (principal); J30.9 Allergic rhinitis, unspecified
CPT/HCPCS: 99213

== ENCOUNTER → 2023-08-10 10:33 | Outpatient (BNVA) | payer BC, SELFPAY | PROVIDERS: PCP Internal Medicine; Visit Provider Nurse Practitioner Family ==

== ENCOUNTER 2023-08-17 09:21 | Outpatient (AMB) | payer BC, SELFPAY ==
[2023-08-17 09:47] VITALS: BP 120/84; PULSE 97; O2SAT 97; BMI 38.9
--- NOTE | 2023-08-17 09:47 | A.OFFVIS_ITS ---
Intake Vital Signs 08/17/23 09:47 Height 5 ft 3 in Weight 219 lb 5.759 oz BMI 38.9 BP 120/84 Blood Pressure Location Lt brachial Position Sitting Pulse 97 Pulse Source Pulse Oximeter Pulse Oximetry (%) 97 Oxygen Delivery Method Room Air Intake Visit Reasons: Asthma Intake Note: pt is here for follow up and needs paperwork for work filled out, she states she has a lot of exertion which causes her to use her rescue inhaler at least 2 times a shift. Going in and out of the building, affects her breathing. 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 Allergies No Known Allergies Allergy (Verified 08/17/23 10:09) Medication List - Last Reconciled 08/17/23 by Elizabeth Molina MD acetaminophen 1,500 mg PO BID PRN albuterol sulfate 90 mcg/actuation 2 puffs inhalation Q6H PRN budesonide-formoterol 80-4.5 mcg/actuation (Symbicort) 2 puffs inhalation BID etonogestrel (Nexplanon) 68 mg subdermal DIRECTED levalbuterol HCl 1.25 mg (3 mL) inhalation Q3H PRN montelukast 10 mg PO QPM 30 days peak flow meter As directed Do you need a note to return to daycare/school/sports/work: No HPI Asthma HPI Details 23 years old female a known case of bron chial asthma, and allergic rhinitis, Is here for short-term follow-up, since she was hospitalized, and now planning to go back to her. She is relatively stable at this time with minimal cough and nasal congestion. She has no acute attacks of asthma. She is somewhat apprehensive that when she goes back to work she may start having increased symptoms. Her experiences that when she has to go back and forth the to the curb sides , or when she has to exert then she gets more short of breath than more wheezing. [facility] Medical History Allergic rhinitis Asthma Social History Household Members: Family Housing: House Do you presently have visiting nurse or other home services: No Alcohol intake: current Alcohol intake frequency: holidays/special occasions only Comment: refused bed alarm. pt rings appropriately Patient Tobacco Use Status: Never used Tobacco Second Hand Smoke Exposure: No Substance Use Type: Marijuana service: No Current occupational status: employed Review of Systems Const All systems reviewed & are unremarkable except as noted in HPI and below Denies snoring Eyes Reports no additional complaints ENT Reports nasal congestion (Mild off and on) Card Reports no additional complaints and Denies dyspnea Resp Reports cough (Mild occasional), Denies dyspnea, Denies snoring and Denies wheezing GI Reports no additional complaints Reports no additional complaints Musc Reports no additional complaints Skin/Breast Reports system reviewed and no additional complaints, except as documented Neuro Reports no additional complaints Endo Reports no additional complaints Aller/Immun Reports no additional complaints and Denies wheezing Physical Exam Vital Signs: Last Vital Signs Pulse 97 08/17/23 09:47 BP 120/84 08/17/23 09:47 Pulse Ox 97 08/17/23 09:47 Oxygen Delivery Method Room Air 08/17/23 09:47 BMI result Body Mass Index 38.9 Const General: healthy appearing, comfortable, no acute distress, alert and awake Orientation/consciousness: patient oriented x3 HEENT Head: Yes normal to inspection General nose exam: No nasal polyps present, No nasal discharge present and Other nasal findings present (Mild nasal congestion in Both nostrils) Face and sinus: Yes sinuses nontender Mouth: oropharynx normal Throat: Yes posterior oropharynx normal Eyes General: appearance normal, both eyes and all related structures Neck Neck: Yes normal visual inspection, Yes no lymphadenopathy, Yes trachea midline and Yes no JVD Thyroid: Thyroid normal Chest Chest palpation & inspection: normal inspection of the chest, normal palpation of entire chest wall and no tenderness Resp Other: Percussion note resonant, has good breath sounds on both sides. Today her lungs are CLEAR and no wheezes or rhonchi are noted, Cardio Palpation: normal PMI Rate: regular rate Rhythm: regular rhythm Heart sounds: no gallops and no murmurs Peripheral pulses: Peripheral pulses 2+ throughout GI Palpation (GI): Soft to palpation, nontender, No hepatosplenomegaly present and no masses Auscultation: normal bowel sounds Back/Spine/Pelvis Thoracic/Lumbar Spine: thoracic and lumbar spine normal to inspection Skin General skin exam: no rashes or lesions noted Neuro General: patient oriented x3 and no focal motor deficits Cranial nerves: Yes CN's II-XII intact bilaterally Extrem General: Yes normal to inspection, Yes no clubbing, cyanosis or edema and Yes no calf tenderness Psych Speech and movement: Normal speech and movement present Assessment & Plan Assessment & Plan (1) Asthma with acute exacerbation: Comment: She was hospitalized with acute exacerbation of bronchial asthma on , Discharged home on prednisone taper. And afterwards she has been using her Symbicort twice a day as usual and levalbuterol in the nebulizer Q 4-6 hours p.r.n.. She is also taking montelukast 10 mg daily. O2 sats have been normal. She has not been checking her peak flows . Code(s): J45.901 - Unspecified asthma with (acute) exacerbation Plan: Continue Symbicort 80-4.52 puffs b.i.d.. Albuterol HFA 2 puffs Q 4-6 hours p.r.n.. May use levalbuterol solution in the nebulizer Q 4-6 hours p.r.n. when at home. Montelukast 10 mg daily. * due check peak flow on a daily basis, if there is a sudden decline in the numbers call us. (2) Allergic rhinitis: Comment: She also has chronic allergic rhinitis, Her triggers include viruses, cold air, dust fumes, exertion, especially at work when she has to go in an out of the bed. Code(s): J30.9 - Allergic rhinitis, unspecified Plan: Avoid the triggers. I will complete the paperwork to request to her employer if job assignment can be modified, to shortening of the shifts and also to assign her to only in due type of work. Coding Level of Care Code Est Pt Level 3 (55803) Diagnoses Asthma with acute exacerbation J45.901 Allergic rhinitis J30.9
== END 2023-08-17 10:11 | disposition home or self-care (01) ==
PROVIDERS: PCP Internal Medicine; Visit Provider Internal Medicine
DX: J45.901 Unspecified asthma with (acute) exacerbation (principal); J30.9 Allergic rhinitis, unspecified
CPT/HCPCS: 99213

== ENCOUNTER → 2023-08-17 09:21 | Outpatient (BNVA) | payer BC, SELFPAY | PROVIDERS: PCP Internal Medicine; Visit Provider Internal Medicine ==

== ENCOUNTER 2023-09-28 09:45 | Outpatient (AMB) | payer BC, SELFPAY ==
--- NOTE | 2023-09-28 09:50 | MHC.OFFVIS ---
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 Allergies No Known Allergies Allergy (Verified 09/28/23 10:02) Medication List - Last Reconciled 09/28/23 by Elizabeth Molina MD acetaminophen 1,500 mg PO BID PRN albuterol sulfate 90 mcg/actuation 2 puffs inhalation Q4-6H PRN budesonide-formoterol 80-4.5 mcg/actuation (Symbicort) 2 puffs inhalation BID etonogestrel (Nexplanon) 68 mg subdermal DIRECTED montelukast 10 mg PO QPM 30 days peak flow meter As directed Do you need a note to return to daycare/school/sports/work: No HPI HPI Asthma: Details: This 23 years old female with diagnosis of allergic rhinitis and allergic bronchial asthma, comes back. For follow-up after 2 months In the last 2 months she has been working at [employer] . She is doing well but still ends up using albuterol a few times during the week. She continues to have low-grade nasal congestion. She has been checked by ALLERGY specialists. Advised to continue same medications and, skin testing allergies is deferred. [facility] Medical History Allergic rhinitis Asthma Social History Household Members: Family Housing: House Do you presently have visiting nurse or other home services: No Alcohol intake: current Alcohol intake frequency: holidays/special occasions only Comment: refused bed alarm. pt rings appropriately Patient Tobacco Use Status: Never used Tobacco Second Hand Smoke Exposure: No Substance Use Type: Marijuana service: No Current occupational status: employed Review of Systems Const All systems reviewed & are unremarkable except as noted in HPI and below Denies snoring Eyes Reports no additional complaints ENT Reports nasal congestion (Mild off and on) Card Reports no additional complaints and Denies dyspnea Resp Reports cough (Mild occasional), Denies dyspnea, Denies snoring and Denies wheezing GI Reports no additional complaints Reports no additional complaints Musc Reports no additional complaints Skin/Breast Reports system reviewed and no additional complaints, except as documented Neuro Reports no additional complaints Endo Reports no additional complaints Aller/Immun Reports no additional complaints and Denies wheezing Physical Exam Vital Signs: Last Vital Signs Pulse 91 09/28/23 09:51 BP 122/70 09/28/23 09:51 Pulse Ox 97 09/28/23 09:51 Oxygen Delivery Method Room Air 09/28/23 09:51 BMI result Body Mass Index 39.0 Const General: healthy appearing, comfortable, no acute distress, alert and awake Orientation/consciousness: patient oriented x3 HEENT Head: Yes normal to inspection General nose exam: No nasal polyps present, No nasal discharge present and Other nasal findings present (Mild nasal congestion in Both nostrils) Face and sinus: Yes sinuses nontender Mouth: oropharynx normal Throat: Yes posterior oropharynx normal Eyes General: appearance normal, both eyes and all related structures Neck Neck: Yes normal visual inspection, Yes no lymphadenopathy, Yes trachea midline and Yes no JVD Thyroid: Thyroid normal Chest Chest palpation & inspection: normal inspection of the chest, normal palpation of entire chest wall and no tenderness Resp Other: Percussion note resonant, has good breath sounds on both sides. Today her lungs are CLEAR and no wheezes or rhonchi are noted, Cardio Palpation: normal PMI Rate: regular rate Rhythm: regular rhythm Heart sounds: no gallops and no murmurs Peripheral pulses: Peripheral pulses 2+ throughout GI Palpation (GI): Soft to palpation, nontender, No hepatosplenomegaly present and no masses Auscultation: normal bowel sounds Back/Spine/Pelvis Thoracic/Lumbar Spine: thoracic and lumbar spine normal to inspection Skin General skin exam: no rashes or lesions noted Neuro General: patient oriented x3 and no focal motor deficits Cranial nerves: Yes CN's II-XII intact bilaterally Extrem General: Yes normal to inspection, Yes no clubbing, cyanosis or edema and Yes no calf tenderness Psych Speech and movement: Normal speech and movement present Assessment & Plan Assessment & Plan (1) Allergic rhinitis: Comment: She has chronic allergic rhinitis, Her triggers include viruses, cold air, dust fumes, exertion, especially at work when she has to go in an out of the bed. Code(s): J30.9 - Allergic rhinitis, unspecified Category: Medical Plan: Nasacort nasal spray 2 spray in each nostril daily Continue montelukast 10 mg daily (2) Asthma: Comment: BRONCHIAL ASTHMA is well controlled at this time . But she is still using albuterol HFA a few times during the week. Code(s): J45.909 - Unspecified asthma, uncomplicated Category: Medical Plan: Advised to continue using Symbicort in the does is increased to 160-4.52 puffs b.i.d.. Use albuterol HFA 1 or 2 puffs Q 6 hours p.r.n.. And goal is to cut it down to no more than once or twice a week. Also continued use of montelukast 10 mg daily will be helpful. Medications: New budesonide-formoterol 160-4.5 mcg/actuation 2 puffs inhalation BID 30 days 10.2 grams 5RF ASTHMA triamcinolone acetonide (Nasacort Allergy) administer into each nostril 2 sprays intranasal DAILY 30 days 16.9 mL 3RF allergic Rhinitis Coding Level of Care Code Est Pt Level 3 (87014) Diagnoses Allergic rhinitis J30.9 Asthma J45.909
[2023-09-28 09:51] VITALS: BP 122/70; PULSE 91; O2SAT 97; BMI 39.0
== END 2023-09-28 10:08 | disposition home or self-care (01) ==
PROVIDERS: PCP Internal Medicine; Visit Provider Internal Medicine
DX: J30.9 Allergic rhinitis, unspecified (principal); J45.909 Unspecified asthma, uncomplicated
CPT/HCPCS: 99213

== ENCOUNTER → 2023-09-28 09:45 | Outpatient (BNVA) | payer BC, SELFPAY | PROVIDERS: PCP Internal Medicine; Visit Provider Internal Medicine ==

== ENCOUNTER 2023-11-19 06:24 | Emergency (ER) | payer BC, SELFPAY ==
--- NOTE | ~2023-11-19 | XR_ITS ---
EXAMINATION: XR FOOT, RIGHT CLINICAL INFORMATION: Pain COMPARISON: None available. TECHNIQUE: AP, lateral, and oblique views of the right foot. FINDINGS: The bones and soft tissues are normal. No fracture. Alignment is anatomic. Joint spaces are maintained. XR/XR foot RT min 3V IMPRESSION: Normal right foot.
[2023-11-19 06:49] VITALS: BP 137/80; PULSE 87; RESP 16; TEMP 36.7; O2SAT 97; BMI 40.1
--- NOTE | 2023-11-19 07:53 | ED_ITS ---
HPI - URI/Sore Throat General Chief Complaint: Extremity Problem Stated Complaint: swollen eye, right foot pain Time Seen by Provider: 11/19/23 07:43 Source: patient Mode of arrival: ambulatory Limitations: no limitations History of Present Illness ED Provider: RAIMUNDO SANTAMARIA Narrative: 23 yo female with asthma here with c/o allergies then woke up with purulent drainage from R eye no vision changes and does not wear contact lens. Patient with R foot pain worse with walking NV intact. No known injury noted no rash no prior injury. MD elicited complaint: rhinorrhea and other (R foot pain) Pertinent past history: asthma Onset (ago): hour(s) (eye few hours , R foot 1 week) Consistency: constant Severity: mild Description of mucous: yellow Able to tolerate fluids by mouth: Yes Exacerbating factors: nothing Relieving factors: nothing Associated symptoms: denies other symptoms Treatments prior to arrival: none Related Data Home Medications ?Medication ?Instructions ?Recorded ?Confirmed acetaminophen 500 mg tablet 1,500 mg PO BID PRN Pain 02/20/23 09/28/23 etonogestrel 68 mg subdermal 68 mg subdermal DIRECTED 07/24/23 09/28/23 implant (Nexplanon) budesonide-formoterol HFA 80 2 puff inhalation BID 08/17/23 09/28/23 mcg-4.5 mcg/actuation aerosol inhaler (Symbicort) Previous Rx's ?Medication ?Instructions ?Recorded peak flow meter #1 ea 11/02/22 albuterol sulfate 90 mcg/actuation 2 puff inhalation Q4-6H PRN for 09/23/23 aerosol inhaler wheezing #8.5 ea budesonide-formoterol HFA 160 2 puff inhalation BID ASTHMA 30 09/28/23 mcg-4.5 mcg/actuation aerosol days #10.2 grams inhaler triamcinolone acetonide 55 mcg 2 spray intranasal DAILY allergic 09/28/23 nasal spray aerosol (Nasacort Rhinitis 30 days #16.9 mL Allergy) montelukast 10 mg tablet 10 mg PO QPM Allergic Rhinitis 30 10/12/23 days #30 tabs cetirizine 10 mg tablet 10 mg PO DAILY PRN allergy 11/19/23 symptoms #30 tabs erythromycin 5 mg/gram (0.5 %) eye 0.5 inch ophthalmic (eye) BID 5 11/19/23 ointment days #3.5 grams fluticasone propionate 50 1 spray intranasal DAILY PRN 11/19/23 mcg/actuation nasal allergy symptoms #16 grams spray,suspension Allergies Allergy/AdvReac Type Severity Reaction Status Date / Time No Known Allergies Allergy Verified 11/19/23 06:52 Review of Systems Review of Systems: Constitutional : No Fever, No Chills ENT/Mouth : No Ear Pain, No Hoarseness, No sore throat Eyes: No Eye Pain, No Swelling, No Redness, No Foreign Body, pos discharge, pos irritation Cardiovascular : No Chest Pain, No SOB Respiratory : No Cough, No Dyspnea Gastrointestinal : No Nausea, No Vomiting, No Diarrhea, No abdominal Pain Musculoskeletal : positive joint pain, No Myalgias, No Joint Swelling Skin : No Skin lacerations, No rash Neuro : No Weakness, No Numbness, No Loss of Consciousness, No Dizziness, No Headache Psych : No Anxiety/Panic, No Depression All other systems reviewed and are negative [facility] Past Medical History Attestation statement: The following information was validated with the patient. Source: old records reviewed Medical History Allergic rhinitis Asthma Social History Social History Household Members: Family Housing: House Do you presently have visiting nurse or other home services: No Alcohol intake: current Alcohol intake frequency: holidays/special occasions only Comment: refused bed alarm. pt rings appropriately Patient Tobacco Use Status: Never used Tobacco Smoked in Last 30 Days: No Second Hand Smoke Exposure: No Substance Use Type: Marijuana Substance Use Frequency: Daily Last Used Substance: Just Prior to Admission Advance Directives: No Advance Directives Information Provided: Yes Do you have a plan to hurt others: No Plan service: No Current occupational status: employed Physical Exam Vital Signs: Vital Signs: Last Vital Signs Temp 98.0 F 11/19/23 06:49 Pulse 87 11/19/23 06:49 Resp 16 11/19/23 06:49 BP 137/80 11/19/23 06:49 Pulse Ox 97 11/19/23 06:49 O2 Del Method Room Air 11/19/23 06:49 BMI result Body Mass Index 40.1 Appearance: Alert. Oriented X3. No acute distress. Eyes: Pupils equal, round and reactive to light. no pain with EOM or photophobia conjunctiva is injected with yellow discharge ENT: Pharynx normal. Neck: Normal inspection. Neck supple. CVS: Normal heart rate and rhythm. Pulses normal. Respiratory: No respiratory distress. Breath sounds normal. Abdomen: Soft and nontender. Skin: Skin warm and dry. Normal skin color. Normal skin turgor. Extremities: No lower extremity edema. R foot ttp along dorsum of foot NV intact no rash no swelling normal nails Neuro: Oriented X 3. No motor deficit. No sensory deficit. Medical Decision Making Medical Decision Making MDM Narrative: 23 yo female with PMH of asthma here with atraumatic R foot pain - NV intact and no signs of infection - xray ordered R eye conjunctivitis does not wear lens no concern for FB no vision change no pain with EOM no signs of deeper space infection at this time will start on erythromycin ointment allergic rhinitis - zyrtec and flonase Differential Diagnosis Differential Diagnoses: The differential diagnosis associated with the presentation includes allergic rhinitis conjunctivitis foot sprain/fracture Independent Interpretation I performed an independent interpretation of an: Plain X-Ray (no fx) Radiology Impression Discussion of test interpretation with radiology: I have reviewed the radiologi st's reading. External Record Review External record reviewed: Office record Prescription Management I considered prescription management with: Antibiotic and Other Discharge Plan Discharge Clinical Impression: Conjunctivitis, Foot sprain, Allergic rhinitis Patient Disposition: Home, Self-Care Instructions: Allergic Rhinitis (ED), Foot Sprain (ED), Conjunctivitis (ED) Additional Instructions: follow up with primary care doctor if foot still painful in one week return for worsening swelling, pain, vision changes or any other concerns no contact lens until better Prescriptions: New erythromycin 5 mg/gram (0.5 %) ointment 0.5 inch ophthalmic (eye) BID 5 Days Qty: 3.5 0RF cetirizine 10 mg tablet 10 mg PO DAILY PRN (Reason: allergy symptoms) Qty: 30 1RF fluticasone propionate 50 mcg/actuation spray,suspension 1 spray intranasal DAILY PRN (Reason: allergy symptoms) Qty: 16 1RF Rx Instructions: administer into each nostril No Action albuterol sulfate 90 mcg/actuation HFA aerosol inhaler 2 puff inhalation Q4-6H PRN (Reason: for wheezing) Qty: 8.5 3RF montelukast 10 mg tablet 10 mg PO QPM 30 Days Qty: 30 1RF acetaminophen 500 mg Tablet 1,500 mg PO BID PRN (Reason: Pain) Nexplanon 68 mg Implant 68 mg SUBDERMAL DIRECTED (DME) peak flow meter Device See Rx Instructions .Route Qty: 1 0RF Rx Instructions: As directed budesonide-formoterol 160-4.5 mcg/actuation HFA aerosol inhaler 2 puff inhalation BID 30 Days Qty: 10.2 5RF triamcinolone acetonide [Nasacort Allergy] 55 mcg aerosol,spray 2 spray intranasal DAILY 30 Days Qty: 16.9 3RF Rx Instructions: administer into each nostril budesonide-formoterol [Symbicort] 80-4.5 mcg/actuation HFA aerosol inhaler 2 puff inhalation BID Print Language: Citizen [place]
[2023-11-19 08:19] VITALS: BP 131/85; PULSE 66; RESP 14; TEMP 36.6; O2SAT 97
[2023-11-19] MEDS: Erythromycin Base 0.5% Oph Oin 1 GM TUBE 1 CM EYE-RIGHT (08:22)
[2023-11-19 08:45] VITALS: BP 120/70; PULSE 80; RESP 18; TEMP 36.6; O2SAT 98
== END 2023-11-19 08:46 | disposition home or self-care (01) ==
PROVIDERS: Emergency Provider Emergency Medicine; PCP Internal Medicine
DX: S93.601A Unspecified sprain of right foot, initial encounter (principal); H10.9 Unspecified conjunctivitis; J30.9 Allergic rhinitis, unspecified; M79.671 Pain in right foot; X58.XXXA Exposure to other specified factors, initial encounter; Y93.9 Activity, unspecified; Y92.9 Unspecified place or not applicable; Z79.899 Other long term (current) drug therapy; Y99.8 Other external cause status
CPT/HCPCS: 73630; 99283; 99284

== ENCOUNTER 2024-01-06 09:10 | Outpatient (AMB) | payer BC, SELFPAY ==
[2024-01-06 09:19] VITALS: BP 130/80; PULSE 83; O2SAT 98; BMI 40.6
--- NOTE | 2024-01-06 09:19 | MHC.OFFVIS ---
Vital Signs 01/06/24 09:19 Height 5 ft 3 in Weight 229 lb 4.492 oz BMI 40.6 BP 130/80 Blood Pressure Location Lt brachial Position Sitting Pulse 83 Pulse Source Pulse Oximeter Pulse Oximetry (%) 98 Oxygen Delivery Method Room Air Intake Visit Reasons: Asthma Intake Note: pt is here for follow up and asthma is under somewhat control, had allergy dx of dust mites, pt need refill on [facility] Required: No Allergies No Known Allergies Allergy (Verified 01/06/24 09:35) Medication List - Last Reconciled 01/06/24 by Elizabeth Molina MD acetaminophen 1,500 mg PO BID PRN albuterol sulfate 90 mcg/actuation 2 puffs inhalation Q4-6H PRN cetirizine 10 mg PO DAILY PRN erythromycin 0.5 inches ophthalmic (eye) BID 5 days etonogestrel (Nexplanon) 68 mg subdermal DIRECTED fluticasone propion-salmeterol 250-50 mcg/dose (Wixela Inhub) 1 inh inhalation BID fluticasone propionate 50 mcg/actuation 1 spray intranasal DAILY PRN fluticasone propionate 50 mcg/actuation (Flonase Allergy Relief) 1 spray intranasal BID montelukast 10 mg PO QPM 30 days peak flow meter As directed triamcinolone acetonide (Nasacort Allergy) 2 sprays intranasal DAILY 30 days Do you need a note to return to daycare/school/sports/work: No HPI HPI Asthma: Details: This 23 years old female is here for follow-up for her allergic rhinitis and bronchial asthma. She has been doing well except for a few episodes of increased symptoms during the past 4 months. She has been seen by allergy specialists, who told her that asthma is under control and she should continue the usual medical treatment. Her inhaler has been changed from Symbicort to Wixela 250-51 b.i.d.. She has been using montelukast 10 mg daily but now for the past 1 week she was out of this medicine. She does have mild nasal congestion, no wheezing, and cough is only mild and intermittent. [facility] Medical History Allergic rhinitis Asthma Social History Household Members: Family Housing: House Do you presently have visiting nurse or other home services: No Alcohol intake: current Alcohol intake frequency: holidays/special occasions only Comment: refused bed alarm. pt rings appropriately Patient Tobacco Use Status: Never used Tobacco Second Hand Smoke Exposure: No Substance Use Type: Marijuana service: No Current occupational status: employed Review of Systems Const All systems reviewed & are unremarkable except as noted in HPI and below Denies snoring Eyes Reports no additional complaints ENT Reports nasal congestion (Mild off and on) Card Reports no additional complaints and Denies dyspnea Resp Reports cough (Mild occasional), Denies dyspnea, Denies snoring and Denies wheezing GI Reports no additional complaints Reports no additional complaints Musc Reports no additional complaints Skin/Breast Reports system reviewed and no additional complaints, except as documented Neuro Reports no additional complaints Endo Reports no additional complaints Aller/Immun Reports no additional complaints and Denies wheezing Physical Exam Vital Signs: Last Vital Signs Pulse 83 01/06/24 09:19 BP 130/80 01/06/24 09:19 Pulse Ox 98 01/06/24 09:19 Oxygen Delivery Method Room Air 01/06/24 09:19 BMI result Body Mass Index 40.6 Const General: healthy appearing, comfortable, no acute distress, alert and awake Orientation/consciousness: patient oriented x3 HEENT Head: Yes normal to inspection General nose exam: No nasal polyps present, No nasal discharge present and Other nasal findings present (Mild nasal congestion in Both nostrils) Face and sinus: Yes sinuses nontender Mouth: oropharynx normal Throat: Yes posterior oropharynx normal Eyes General: appearance normal, both eyes and all related structures Neck Neck: Yes normal visual inspection, Yes no lymphadenopathy, Yes trachea midline and Yes no JVD Thyroid: Thyroid normal Chest Chest palpation & inspection: normal inspection of the chest, normal palpation of entire chest wall and no tenderness Resp Other: Percussion note resonant, has good breath sounds on both sides. Lungs are mostly clear but she has a few inspiratory wheezes in the upper part of the chest. Cardio Palpation: normal PMI Rate: regular rate Rhythm: regular rhythm Heart sounds: no gallops and no murmurs Peripheral pulses: Peripheral pulses 2+ throughout GI Palpation (GI): Soft to palpation, nontender, No hepatosplenomegaly present and no masses Auscultation: normal bowel sounds Back/Spine/Pelvis Thoracic/Lumbar Spine: thoracic and lumbar spine normal to inspection Skin General skin exam: no rashes or lesions noted Neuro General: patient oriented x3 and no focal motor deficits Cranial nerves: Yes CN's II-XII intact bilaterally Extrem General: Yes normal to inspection, Yes no clubbing, cyanosis or edema and Yes no calf tenderness Psych Speech and movement: Normal speech and movement present Assessment & Plan Assessment & Plan (1) Allergic rhinitis: Comment: She has chronic allergic rhinitis, Her triggers include viruses, cold air, dust fumes, exertion, especially at work when she has to go in an out of the store . 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 Code(s): J30.9 - Allergic rhinitis, unspecified Category: Medical Qualifiers: Allergic rhinitis seasonality: unspecified Allergic rhinitis trigger: unspecified Qualified Code(s): J30.9 - Allergic rhinitis, unspecified Plan: Montelukast 10 mg daily Cetirizine 10 mg once a day p.r.n. Flonase nasal spray 2 spray in each nostril daily (2) Asthma: Comment: BRONCHIAL ASTHMA is well controlled at this time . Her use of albuterol, is less than once a week. Code(s): J45.909 - Unspecified asthma, uncomplicated Category: Medical Plan: Continue Wixela 250-51 inhalation b.i.d. Montelukast. 10 mg daily Use albuterol HFA 2 puffs Q 6 hours only p.r.n., if the usage increases to 2 or 3 per week call us for a follow-up. * TO CHECK PEAK FLOW DAILY OR AT LEAST ONCE A WEEK. Coding Level of Care Code Est Pt Level 3 (49433) Diagnoses Allergic rhinitis J30.9 Allergic rhinitis seasonality: unspecified Allergic rhinitis trigger: unspecified Asthma J45.909
== END 2024-01-06 09:35 | disposition home or self-care (01) ==
PROVIDERS: PCP Internal Medicine; Visit Provider Internal Medicine
DX: J30.9 Allergic rhinitis, unspecified (principal); J45.909 Unspecified asthma, uncomplicated
CPT/HCPCS: 99213

== ENCOUNTER → 2024-01-06 09:10 | Outpatient (BNVA) | payer BC, SELFPAY | PROVIDERS: PCP Internal Medicine; Visit Provider Internal Medicine ==

== ENCOUNTER 2024-04-10 07:25 | Inpatient (IN) | payer BC, SELFPAY ==
[2024-04-10] VITALS (13 sets, daily range): BP systolic 142–155; BP diastolic 78–99; PULSE 110–160; RESP 16–26; TEMP 36.5–36.9; O2SAT 93–99; BMI 38.8; BMI 40.2
--- NOTE | ~2024-04-10 | CT_ITS ---
EXAMINATION: CT ANGIOGRAM CHEST CLINICAL INFORMATION: Shortness of breath. Tachycardia. COMPARISON: CT chest dated February 21, 2023. TECHNIQUE: Multiple axial images were obtained through the chest after the administration of 65 mL of Omnipaque 350 intravenous contrast without reported immediate complications. Extensive vascular post-processing including two-dimensional and three-dimensional reformatted images were created and reviewed on an independent workstation. This CT examination was performed using dose optimization techniques as appropriate, variously including the following: *Automated exposure control *Adjustment of mA and/or kV according to patient size (this includes techniques or standardized protocols for targeted exams where dose is matched to indication/reason for exam; i.e. extremities or head) *Use of iterative reconstruction technique DLP: 156 mGy-cm FINDINGS: Inadequate SmartPrep technique. No gross intraluminal filling defects within the main pulmonary artery or its main branches. Subsegmental pulmonary artery branches are not fully evaluated. No aneurysm or dissection, thoracic aorta. No pericardial effusion. No gross consolidation pleural effusion or pneumothorax. Linear attenuation right lung base. No bronchiectasis. No honeycombing. Respiratory airways patent. No lymphadenopathy, mediastinum or pulmonary perihilum. No lymphadenopathy in the axillary region. The thyroid gland is not enlarged. Multilevel thoracic spondylosis with multilevel Schmorl nodes. No acute fracture or listhesis. Reverse curvature apex at T11-12. No lytic or blastic lesions. Sternum is intact. Clavicles and scapula are intact. No acute cortical disruption in the ribs. CT/CT angio chest PE protocol IMPRESSION: No acute pulmonary artery emboli, central and main branches. No aneurysm or dissection, thoracic aorta. No acute airspace disease. Subsegmental atelectasis, right lung base. No acute fracture. Fleischner guidelines were followed. Electronically signed by: Dylan Israel MD 04/11/2024 01:20 PM [facility]
--- NOTE | ~2024-04-10 | XR_ITS ---
EXAMINATION: XR CHEST CLINICAL INFORMATION: cough, asthma COMPARISON: X-ray dated July 24, 2023. TECHNIQUE: 2 views of the chest were obtained. FINDINGS: Patchy opacities in the from the right perihilar into the right middle lobe. No pleural effusion. No pneumothorax. No hyperinflation. Heart silhouette size is normal. Osseous structures are grossly intact with multilevel mid to lower thoracic spondylosis. XR/XR chest 2V IMPRESSION: Concerning acute airspace disease, right middle lobe. Electronically signed by: Dylan Israel MD 04/10/2024 09:29 AM [facility]
--- NOTE | 2024-04-10 07:30 | ECG_ITS ---
Test Reason : cp Blood Pressure : / mmHG Vent. Rate : 098 BPM Atrial Rate : 098 BPM P-R Int : 118 ms QRS Dur : 080 ms QT Int : 346 ms P-R-T Axes : 052 062 015 degrees QTc Int : 441 ms Normal sinus rhythm Normal ECG When compared with ECG of 24-JUL-2023 10:40, No significant change was found Referred By: Generic ED Physician Electronically Signed By:ELSA VANESSA MD
[2024-04-10 07:44] LABS: MANUAL DIFF FLAG NO
[2024-04-10 07:45] LABS: Basophils Absolute Auto 0.1 X10*3/uL (0.0-0.2); Basophils Percent Auto 1.3 % (0-2); Eosinophils Absolute Auto 0.7 X10*3/uL (0.0-0.4); Eosinophils Percent Auto 6.8 % (0-4); Hematocrit 43.8 % (37.0-47.0); Hemoglobin 15.2 g/dl (12.0-16.0); Imm Gran Abs Auto 0.03 X10*3/uL (0.00-0.03); Imm Gran Pct Auto 0.3 % (0.0-0.4); Lymphocytes Absolute Auto 1.8 X10*3/uL (1.2-4.9); Lymphocytes Percent Auto 17.8 % (20-40); Mean Corpuscular HGB Conc 34.7 g/dl (31.0-35.0); Mean Corpuscular Hemoglobin 32.2 pg (27.0-33.0); Mean Corpuscular Volume 92.8 fL (80.0-98.0); Mean Platelet Volume 9.4 fL (9.4-12.3); Monocytes Absolute Auto 0.7 X10*3/uL (0.1-1.2); Monocytes Percent Auto 6.7 % (2-11); Neutrophils Percent Auto 67.1 % (45-73); Platelet Count 364 X10*3/uL (160-400); Red Blood Count 4.72 X10*6/uL (4.20-5.50); Red Cell Distribution Width 12.5 % (11.0-16.0); White Blood Count 10.4 X10*3/uL (4.8-10.8)
[2024-04-10] MEDS: levalbuterol HCL 1.25 MG/3 ML VIAL.NEB 3.75 MG INHALE (07:56)
--- NOTE | 2024-04-10 07:56 | ED.CHESTPAIN ---
HPI - Chest Pain General Chief Complaint: Chest Pain Stated Complaint: asthma Time Seen by Provider: 04/10/24 07:46 Source: patient, RN notes reviewed and old records reviewed Mode of arrival: ambulatory History of Present Illness ED Provider: Carmelita Garcia PA-C HPI narrative: 23-year-old female with a past medical history of asthma, anxiety, allergic rhinitis, presenting to the ED complaining of asthma attack since last night w/ dry cough, SOB, and chest burning. Admits to using inhalers and machine without relief. Denies recent steroid use. Denies fever, chills, travel, sick contacts, pedal edema Related Data Home Medications ?Medication ?Instructions ?Recorded ?Confirmed acetaminophen 500 mg tablet 1,500 mg PO BID PRN Pain 02/20/23 01/06/24 etonogestrel 68 mg subdermal 68 mg subdermal DIRECTED 07/24/23 01/06/24 implant (Nexplanon) fluticasone 250 mcg-salmeterol 50 1 inh inhalation BID 01/06/24 01/06/24 mcg/dose blistr powdr for inhalation (Wixela Inhub) fluticasone propionate 50 1 spray intranasal BID 01/06/24 01/06/24 mcg/actuation nasal spray,suspension (Flonase Allergy Relief) Previous Rx's ?Medication ?Instructions ?Recorded peak flow meter #1 ea 11/02/22 albuterol sulfate 90 mcg/actuation 2 puff inhalation Q4-6H PRN for 09/23/23 aerosol inhaler wheezing #8.5 ea triamcinolone acetonide 55 mcg 2 spray intranasal DAILY allergic 09/28/23 nasal spray aerosol (Nasacort Rhinitis 30 days #16.9 mL Allergy) cetirizine 10 mg tablet 10 mg PO DAILY PRN allergy 11/19/23 symptoms #30 tabs erythromycin 5 mg/gram (0.5 %) eye 0.5 inch ophthalmic (eye) BID 5 11/19/23 ointment days #3.5 grams fluticasone propionate 50 1 spray intranasal DAILY PRN 11/19/23 mcg/actuation nasal allergy symptoms #16 grams spray,suspension montelukast 10 mg tablet 10 mg PO QPM Allergic Rhinitis 30 01/07/24 days #90 tabs Allergies Allergy/AdvReac Type Severity Reaction Status Date / Time No Known Allergies Allergy Verified 04/10/24 07:30 Review of Systems Review of Systems: Yes all other systems are reviewed and are negative Constitutional: Constitutional: Reports as per [facility] Past Medical History Attestation statement: The following information was validated with the patient. Source: old records reviewed Medical History Allergic rhinitis Asthma Social History Social History Household Members: Family Housing: House Do you presently have visiting nurse or other home services: No Alcohol intake: current Alcohol intake frequency: holidays/special occasions only Comment: refused bed alarm. pt rings appropriately Patient Tobacco Use Status: Never used Tobacco Smoked in Last 30 Days: No Second Hand Smoke Exposure: No Use of substances other than those prescribed or required for medical reasons: Yes Substance Use Type: Marijuana Advance Directives: No Advance Directives Information Provided: No Do you have a plan to hurt others: No Plan service: No Current occupational status: employed Physical Exam Vital Signs: Vital Signs: Last Vital Signs Temp 98.3 F 04/10/24 10:33 Pulse 140 H 04/10/24 10:33 Resp 20 04/10/24 10:33 BP 155/82 H 04/10/24 10:33 Pulse Ox 98 04/10/24 10:33 O2 Del Method Room Air 04/10/24 10:33 BMI result Body Mass Index 38.8 Const: General: cooperative, healthy appearing and no acute distress Orientation/consciousness: patient oriented x3 Limitations: no limitations HEENT: Head: Yes normal to inspection and Yes atraumatic Ears: hearing grossly normal bilaterally General nose exam: Normal external nose present Face and sinus: Yes normal facial exam Eyes: General: appearance normal, both eyes and all related structures EOM: EOMs intact bilaterally Neck: Neck: Yes normal visual inspection and Yes no meningeal signs Resp: Effort & Inspection: normal respiratory effort and no respiratory distress Auscultation: wheezes expiratory wheezes and throughout Cardio: Rate: regular rate and tachycardic Heart sounds: S1 normal heart sound present and S2 normal heart sound present Skin: Rashes: no rashes Wounds: no wounds Neuro: General: patient oriented x3, tone normal and no meningeal signs Cranial nerves: Yes CN's II-XII intact bilaterally Gait exam (Neuro): Normal gait present Extrem: General: Yes normal to inspection, Yes no pedal edema and Yes no calf tenderness Course Course Course Narrative: -929--on re-evaluation patient is still with end expiratory wheeze. Will give p.o. prednisone and have Respiratory give additional DuoNeb -0938--no leukocytosis. Labs otherwise reassuring XR chest 2V IMPRESSION: Concerning acute airspace disease, right middle lobe. > will obtain lactic/blood cultures. -patient's heart rate spikes to 140-160 with deep breathing or talking @ rest >> EKG shows sinus tachycardia. Patient is symptomatic with palpitations -lactic acidosis 3.7. Plan will be for admission for further management. Empiric Rocephin/Azithromycin and IVF ordered Medications Administered Generic Name Dose Route Start Last Admin Trade Name Freq PRN Reason Stop Dose Admin Azithromycin 500 mg/ Sodium 250 mls @ 125 mls/hr 04/10/24 10:42 04/10/24 10:53 Chloride IV 04/10/24 12:41 125 mls/hr ONCE ONE Administration Sodium Chloride 1,000 mls @ 999 mls/hr 04/10/24 11:00 04/10/24 10:55 Ns IV 04/10/24 12:00 999 mls/hr .Q1H1M EILEEN Administration Discontinued Medications Generic Name Dose Route Start Last Admin Trade Name Freq PRN Reason Stop Dose Admin Ceftriaxone Sodium 1 gm 04/10/24 10:42 04/10/24 10:52 Ceftriaxone Sodium 1 Gm Vial IVPUSH 04/10/24 10:43 1 gm ONCE ONE Administration Levalbuterol HCl 5 mg/ 0 mg 04/10/24 09:40 04/10/24 09:47 Ipratropium [place]ell 0.5 mg INHALE 04/10/24 09:41 5 dose ONCE ONE Administration Levalbuterol HCl 3.75 mg 04/10/24 07:52 04/10/24 07:56 Levalbuterol Hcl 1.25 Mg/3 Ml Vial.Neb INHALE 04/10/24 07:53 3.75 mg ONCE ONE Administration Prednisone 40 mg 04/10/24 09:29 04/10/24 09:47 Prednisone 20 Mg Tablet PO 04/10/24 09:30 40 mg ONCE ONE Administration Medical Decision Making Medical Decision Making [facility] Narrative: 23-year-old female with a past medical history of asthma, anxiety, allergic rhinitis, presenting to the ED complaining of asthma attack since last night w/ dry cough, SOB, and chest burning. On exam tachycardic, tachypneic, likely from albuterol use [employer]. Concern for asthma exacerbation vs viral illness vs pneumonia. Low suspicion for severe sepsis at this time. Unlikely PE or DVT Plan: EKG, labs, CXR, viral studies, ED bronch protocol Please refer to course for remaining clinical decision making, interpretation of labs/imaging results, and discussions with consultants and/or family members. Differential Diagnosis Differential Diagnoses: The differential diagnosis associated with the presentation includes As above Admission/Observation Consideration of admission/observation: Escalation of care including admission/observation considered Consult Healthcare Provider Management of the patient was discussed with: Hospitalist Lab Data MDM Lab Attestation statement: I reviewed the patient's lab results. 04/10/24 07:40 04/10/24 07:40 Labs: Lab Results 04/10/24 04/10/24 04/10/24 Range/Units 07:40 09:02 10:09 WBC 10.4 (4.8-10.8) X10*3/uL RBC 4.72 (4.20-5.50) X10*6/uL Hgb 15.2 (12.0-16.0) g/dl Hct 43.8 (37.0-47.0) % MCV 92.8 (80.0-98.0) fL MCH 32.2 (27.0-33.0) pg MCHC 34.7 (31.0-35.0) g/dl RDW 12.5 (11.0-16.0) % Plt Count 364 (160-400) X10*3/uL MPV 9.4 (9.4-12.3) fL Immature Gran % (Auto) 0.3 (0.0-0.4) % Neut % (Auto) 67.1 (45-73) % Lymph % (Auto) 17.8 L (20-40) % Bland % (Auto) 6.7 (2-11) % Eos % (Auto) 6.8 H (0-4) % Baso % (Auto) 1.3 (0-2) % Lymph # (Auto) 1.8 (1.2-4.9) X10*3/uL Bland # (Auto) 0.7 (0.1-1.2) X10*3/uL Eos # (Auto) 0.7 H (0.0-0.4) X10*3/uL Baso # (Auto) 0.1 (0.0-0.2) X10*3/uL Abs Immat Gran (auto) 0.03 (0.00-0.03) X10*3/uL Absolute Neuts (auto) 7.0 (2.0-8.3) x10*3/uL Absolute Nucleated RBC 0.000 (0.0-0.012) X10*3/uL Nucleated RBC % (auto) 0.0 (0.0-0.2) /100WBC Sodium 139 (135-145) mmol/L Potassium 4.0 (3.3-5.1) mmol/L Chloride 110 H (96-108) mmol/L Carbon Dioxide 20 L (22-29) mmol/L Anion Gap 13 (12-20) BUN 10 (9-16) mg/dL Creatinine 0.84 (0.5-1.4) mg/dL Estim Creat Clear Calc 118.0 Estimated GFR > 60 Random Glucose 128 H (60-115) mg/dL Lactic Acid 3.7 H* (0.5-2.0) mmol/L Calcium 9.1 (8.4-10.2) mg/dL Troponin I High Sens < 2.7 (<3.5-17.0) ng/L Influenza Type A (PCR) NEGATIVE (Negative) Influenza Type B (PCR) NEGATIVE (Negative) RSV RNA Qual (PCR) NEGATIVE (Negative) SARS-CoV-2 RNA (RT-PCR) NEGATIVE (Negative) Independent Interpretation I performed an independent interpretation of an: EKG and Plain X-Ray Radiology Impression Discussion of test interpretation with radiology: I have reviewed the radiologist's reading. External Record Review External record reviewed: Inpatient record, Office record, Outpatient record, Prior outpatient labs, Prior outpatient radiology, Primary care record and Outside ED record Tests considered The following testing was considered but not selected: As above Prescription Management I considered prescription management with: Pain Medication Chronic Conditions Patient?s care impacted by: Other Social Determinants Patient?s care significantly limited by Social Determinants of Health including: Other Social Determinant of Health Critical Care Time Critical Care Time Critical Care Time: Yes Total Critical Care Time: 35 Attestation: I have personally provided critical care time exclusive of time spent on separately billable procedures. Time includes review of lab data, radiology results, discussion with consultants, and monitoring for potential decompensation. Intervention performed as documented. Discharge Plan Discharge Clinical Impression: Asthma with acute exacerbation, Tachycardia Patient Disposition: Admitted As Inpatient Print Language: Tajik
[2024-04-10 08:09] LABS: Anion Gap 13 (12-20); Blood Urea Nitrogen 10 mg/dL (9-16); Calcium 9.1 mg/dL (8.4-10.2); Carbon Dioxide 20 mmol/L (22-29); Chloride 110 mmol/L (96-108); Estimated Glomerular Filt Rate > 60; Glucose Random 128 mg/dL (60-115); Sodium 139 mmol/L (135-145)
[2024-04-10 08:11] LABS: Troponin-I High Sensitivity < 2.7 ng/L (<3.5-17.0)
--- NOTE | 2024-04-10 08:44 | PC.NURSE ---
Pt presents to ED from home, reports SOB and wheezing since late last night worsening. HX of asthma, has been using inhaler and neb with no relief. Hx of previous ICU stays due to asthma, no intubations. Alert and oriented, breathing initially increased with coughing and wheezing, improved after RT gave RX. Tachy on bedside monitor.
[2024-04-10 09:45] LABS: Influenza A PCR NEGATIVE (Negative); Influenza B PCR NEGATIVE (Negative); Resp Syncy Virus RNA Qual PCR NEGATIVE (Negative); SARS COV2 PCR INHOUSE NEGATIVE (Negative)
[2024-04-10] MEDS: predniSONE 20 MG TABLET 40 MG PO (09:47)
[2024-04-10] MEDS: levalbuterol HCL 5 MG, Ipratropium Bromide 0.5 MG INHALE (09:47)
--- NOTE | 2024-04-10 10:35 | ECG_ITS ---
Test Reason : TACHYCARDIA Blood Pressure : / mmHG Vent. Rate : 145 BPM Atrial Rate : 145 BPM P-R Int : 120 ms QRS Dur : 074 ms QT Int : 348 ms P-R-T Axes : 057 065 031 degrees QTc Int : 540 ms Sinus tachycardia T wave abnormality, consider inferior ischemia Abnormal ECG When compared with ECG of 10-APR-2024 07:26, No significant change was found Referred By: Carmelita Garcia Electronically Signed By:ELSA VANESSA MD
[2024-04-10 10:42] LABS: Lactic Acid 3.7 mmol/L (0.5-2.0)
[2024-04-10] MEDS: cefTRIAXone sodium 1 GM VIAL IVPUSH (10:52)
[2024-04-10] MEDS: Azithromycin 500 MG in 0.9 % Sodium Chloride 250 ML 125 MG IV (10:53)
[2024-04-10] MEDS: 0.9 % Sodium Chloride 1,000 ML 999 ML IV (10:55)
--- NOTE | 2024-04-10 11:01 | PC.NURSE ---
Pt continues to have episodes of tachycardia that elevate into the 150-160s briefly, mostly maintains around 120-130. Provider is aware. Pt afebrile. Has a hx of issues with tachycardia
--- NOTE | 2024-04-10 11:40 | PHA.MEDREC ---
Addendum entered by Yulisa Jaeger RPh 04/10/24 11:46: Reviewed by [facility] Original Note: Pharmacy Consult ? Medication Reconciliation Pharmacy has completed the medication reconciliation. Spoke to patient to confirm med list. Patient states she is no longer using Fluticasone prop nasal spray and Triamcinolone any 55 mcg nasal spray.
[2024-04-10 12:13] LABS: Reflex Lactate? Lactic Acid Added
--- NOTE | 2024-04-10 12:25 | PM.IMHP ---
History of Present Illness Date of Service: 04/10/24 <Kathie Goldstein PA-C - Last Filed: 04/10/24 16:07> Attending physician on admission: Phani Hernandez <Kathie Goldstein PA-C - Last Filed: 04/10/24 16:07> Chief Complaint: sepsis, pneumonia, asthma exacerbation <Kathie Goldstein PA-C - Last Filed: 04/10/24 16:07> Patient is a 23-year-old female with a past medical history significant for moderate persistent asthma and allergic rhinitis, with multiple admissions for acute asthma exacerbations who presented to the ED today with cough, wheezing and shortness of breath. She reports that her symptoms began in the middle of the night, nebulizer did not help. She reports that she was admitted to the ICU once before needing CPAP however never intubated. She has a dry cough, no fever, chills, nausea, vomiting, nasal congestion, runny nose or recent sick contacts. She reports she was diagnosed with asthma 2 years ago. She smokes marijuana daily, no cigarettes alcohol or IV drug use. <Kathie Goldstein PA-C - Last Filed: 04/10/24 16:07> Patient is a 23-year-old female with a past medical history significant for moderate persistent asthma and allergic rhinitis, with multiple admissions for acute asthma exacerbations who presented to the ED today with cough, wheezing and shortness of breath. She reports that her symptoms began in the middle of the night, nebulizer did not help. She reports that she was admitted to the ICU once before needing CPAP however never intubated. She has a dry cough, no fever, chills, nausea, vomiting, nasal congestion, runny nose or recent sick contacts. She reports she was diagnosed with asthma 2 years ago. She smokes marijuana daily, no cigarettes alcohol or IV drug use. On examination Able to talk in full sentences Lungs bilateral expiratory wheeze, diminished breath sounds Heart tachy regular Extremities no edema Acute exacerbation of moderate persistent asthma Agree with treatment plan as per [facility], place online publisher , low threshold to transfer to ICU if noted to have worsening shortness of breath chest tightness or hypoxia. <Phani Hernandez MD - Last Filed: 04/11/24 14:53> Review of Systems Constitutional: Constitutional: Denies body ache(s), Denies chills, Denies fatigue, Denies fever(s) and Denies headache(s) <Kathie Goldstein PA-C Loulou Last Filed: 04/10/24 16:07> Eyes: Eyes: Denies change in vision <CUCA Nguyen Loulou Last Filed: 04/10/24 16:07> ENT: Denies headache(s), Denies nasal congestion, Denies nasal discharge and Denies sore throat <CUCA Nguyen ScoreFeeder Last Filed: 04/10/24 16:07> Cardiovascular: Cardiovascular: Denies chest pain, Reports rapid heart rate, Denies leg edema and Reports dyspnea <CUCA Nguyen ScoreFeeder Filed: 04/10/24 16:07> Respiratory: Respiratory: Denies chest congestion, Reports cough, Reports dyspnea and Reports wheezing <CUCA Nguyen ScoreFeeder Last Filed: 04/10/24 16:07> Gastrointestinal: Gastrointestinal: Denies constipation, Denies diarrhea, Denies nausea and Denies vomiting <CUCA Nguyen ScoreFeeder Last Filed: 04/10/24 16:07> Genitourinary: Genitourinary: Denies dysuria and Denies urinary urgency <CUCA Nguyen ScoreFeeder Last Filed: 04/10/24 16:07> Musculoskeletal: Musculoskeletal: Denies numbness and Denies tingling <CUCA Nguyen ScoreFeeder Last Filed: 04/10/24 16:07> Integumentary/Breasts: Skin/Breast: Denies rash <CUCA Nguyen ScoreFeeder Last Filed: 04/10/24 16:07> Neurologic: Denies confusion, Denies headache(s), Denies numbness and Denies tingling <CUCA Nguyen ScoreFeeder Last Filed: 04/10/24 16:07> Psychiatric: Psychiatric: Denies confusion <CUCA Nguyen ScoreFeeder Last Filed: 04/10/24 16:07> Endocrine: Endocrine: Denies fatigue <CUCA Nguyen ScoreFeeder Last Filed: 04/10/24 16:07> Allergic/Immunologic: Allergic/Immunologic: Reports wheezing <Kathie Goldstein PA-C - Last Filed: 04/10/24 16:07> [facility] Medical History: Medical History Allergic rhinitis Asthma <MARKUS Nguyen Last Filed: 04/10/24 16:07> Functional capacity: independent ambulation <MARKUS Nguyen Last Filed: 04/10/24 16:07> Social History: Social History Household Members: Family Housing: House Do you presently have visiting nurse or other home services: No Alcohol intake: current Alcohol intake frequency: holidays/special occasions only Comment: refused bed alarm. pt rings appropriately Patient Tobacco Use Status: Never used Tobacco Smoked in Last 30 Days: No Second Hand Smoke Exposure: No Use of substances other than those prescribed or required for medical reasons: Yes Substance Use Type: Marijuana Substance Use Frequency: Daily Last Used Substance: Days (ago) Currently Displaying Signs/Symptoms of Drug Intoxication Withdrawal: No Any prior treatment program specific to substance use: No Have you been hit, kicked, punched, or otherwise hurt by someone within the past year? If so, by whom?: No Do you feel safe in your current relationship?: Yes Is there a partner from a previous relationship who is making you feel unsafe now?: No Are you made to feel afraid or neglected: No Advance Directives: No Advance Directives Information Provided: No Do you have a plan to hurt others: No Plan Recently lost weight without trying: No How much weight loss: Not applicable Eating poorly because of decreased appetite: No Nutrition screen score: 0 Nutrition Risks: No Nutritional Risk Patient : No : No Poor oral hygiene: No service: No Current occupational status: employed <MARKUS Nguyen Last Filed: 04/10/24 16:07> Meds Allergies/Adverse reactions: Allergies Allergy/AdvReac Type Severity Reaction Status Date / Time No Known Allergies Allergy Verified 04/10/24 07:30 <MARKUS Nguyen Last Filed: 04/10/24 16:07> Active Medications: Current Medications Acetaminophen (Acetaminophen 325 Mg Tablet) 650 mg PO Q6H PRN PRN Reason: Pain, Mild (Pain Scale 1-3), fever or headache Calcium Carbonate (Calcium Carbonate 750 Mg Tab.Chew) 750 mg PO Q4H PRN PRN Reason: Heartburn Levalbuterol HCl 2.5 mg/ (Ipratropium [place] 0.5 mg) 0 mg INHALE RQ4H WHILE AWAKE EILEEN Enoxaparin Sodium (Enoxaparin Sodium 40 Mg/0.4 Ml Syringe) 40 mg SUBCUT Q24H EILEEN Azithromycin 500 mg/ Sodium (Chloride) 250 mls @ 125 mls/hr IV ONCE ONE Stop: 04/10/24 12:41 Last Admin: 04/10/24 10:53 Dose: 125 mls/hr Magnesium Hydroxide (Milk Of Magnesia 30 Ml Oral.Susp) 30 ml PO DAILY PRN PRN Reason: Constipation Melatonin (Melatonin 3 Mg Tablet) 6 mg PO BEDTIME PRN PRN Reason: Insomnia Methylprednisolone Sodium Succinate (Methylprednisolone Sod Succ 40 Mg/Ml Vial) 40 mg IVPUSH BID EILEEN Ondansetron HCl (Ondansetron Hcl 4 Mg/2 Ml Vial) 4 mg IVPUSH Q8H PRN PRN Reason: Nausea and Vomiting Sodium Chloride (0.9 % Sodium Chloride Flush 3 Ml Syringe) 3 ml IVFLUSH QSHIFT COUNTS INCLUDE 234 BEDS AT THE [facility] <Kathie Goldstein PA-C - Last Filed: 04/10/24 16:07> Home medications: Home Medications ?Medication ?Instructions ?Recorded ?Confirmed ?Last Taken ?Type acetaminophen 500 mg tablet 1,500 mg PO BID PRN Pain 02/20/23 04/10/24 Unknown History etonogestrel 68 mg subdermal 68 mg subdermal DIRECTED 07/24/23 04/10/24 Unknown History implant (Nexplanon) fluticasone 250 mcg-salmeterol 50 1 inh inhalation BID 01/06/24 04/10/24 04/10/24 History mcg/dose blistr powdr for inhalation (Wixela Inhub) montelukast 10 mg tablet 10 mg PO BEDTIME Allergic Rhinitis 04/10/24 04/10/24 04/09/24 History <Kathie Goldstein PA-C - Last Filed: 04/10/24 16:07> Physical Exam Vital Signs and Narrative: Vital Signs: Last Vital Signs Temp 98.3 F 04/10/24 10:33 Pulse 140 H 04/10/24 10:33 Resp 20 04/10/24 10:33 BP 155/82 H 04/10/24 10:33 Pulse Ox 98 04/10/24 10:33 O2 Del Method Room Air 04/10/24 10:33 BMI result Body Mass Index 38.8 <Kathie Goldstein PA-C - Last Filed: 04/10/24 16:07> General: AOx3, no acute distress Resp: Expiratory wheezing bilaterally, crackles right mid/lower lobe CVS: S1, S2, tachycardia, normal rhythm GI: +BS, NT, no distention Skin: Warm, dry Extremities: No edema Psych: Appropriate affect <Kathie Goldstein PA-C - Last Filed: 04/10/24 16:07> Const: General: No confusion <Kathie Goldstein PA-C - Last Filed: 04/10/24 16:07> Orientation/consciousness: No confusion <Kathie Goldstein PA-C - Last Filed: 04/10/24 16:07> Neuro: General: No confusion <Kathie Goldstein PA-C - Last Filed: 04/10/24 16:07> Results Labs CBC and Chem 7: 04/11/24 07:41 04/11/24 07:41 <Kathie Goldstein PA-C - Last Filed: 04/10/24 16:07> Labs: Laboratory Results - last 24 hr 04/10/24 04/10/24 04/10/24 07:40 09:02 10:09 MCV 92.8 MCH 32.2 MCHC 34.7 RDW 12.5 Plt Count 364 MPV 9.4 Immature Gran % (Auto) 0.3 Neut % (Auto) 67.1 Lymph % (Auto) 17.8 L [place] % (Auto) 6.7 Eos % (Auto) 6.8 H Baso % (Auto) 1.3 Lymph # (Auto) 1.8 [place] # (Auto) 0.7 Eos # (Auto) 0.7 H Baso # (Auto) 0.1 Abs Immat Gran (auto) 0.03 Absolute Neuts (auto) 7.0 Absolute Nucleated RBC 0.000 Nucleated RBC % (auto) 0.0 Anion Gap 13 Estim Creat Clear Calc 118.0 Estimated GFR > 60 Random Glucose 128 H Lactic Acid 3.7 H* Calcium 9.1 Troponin I High Sens < 2.7 Influenza Type A (PCR) NEGATIVE Influenza Type B (PCR) NEGATIVE RSV RNA Qual (PCR) NEGATIVE SARS-CoV-2 RNA (RT-PCR) NEGATIVE <Kathie Goldstein PA-C - Last Filed: 04/10/24 16:07> Imaging Radiologist's Impressions: Impressions Chest X-Ray 04/10/24 07:52 IMPRESSION: Concerning acute airspace disease, right middle lobe. Electronically signed by: Dylan Israel MD 04/10/2024 09:29 AM [facility] <Kathie Goldstein PA-C - Last Filed: 04/10/24 16:07> Assessment and Plan (1) Sepsis: Status: Acute <Kathie Goldstein PA-C - Last Filed: 04/10/24 16:07> (2) Pneumonia: Status: Acute <Kathie Goldstein PA-C - Last Filed: 04/10/24 16:07> (3) Asthma with acute exacerbation: Status: Acute <Kathie Goldstein PA-C - Last Filed: 04/10/24 16:07> (4) Obesity (BMI 35.0-39.9 without comorbidity): Status: Chronic <Kathie Goldstein PA-C - Last Filed: 04/10/24 16:07> Patient is a 23-year-old female with a past medical history significant for moderate persistent asthma and allergic rhinitis, with multiple admissions for acute asthma exacerbations who presented to the ED today with cough, wheezing and shortness of breath starting in the middle of the night. sepsis secondary to pneumonia - tachycardia, tachypnea, and lactic acid elevated at 3.7, blood cultures x2 pending - CXR with patchy opacities right perihilar into right middle lobe - started on ceftraizone and azithromycin in ED, will continue - COVID/flu/RSV negative - EKG with sinus tachycardia - respiratory panel - monitor CBC and BMP Acute asthma exacerbation - testing as above, COVID/flu/RSV negative, EKG was sinus tachycardia, chest x-ray with pneumonia - respiratory panel ordered - levalbuterol/ipratropium Q4H while awake - mag low given 2g - given prednisone 40mg PO in ED, will transition to solumedrol 40mg IV BID - continue cetirizine 10 mg daily and montelukast 10 mg daily Full code VTE prophylaxis: Lovenox Patient with sepsis secondary to pneumonia complicated by acute asthma exacerbation, requiring admission for at least 2 midnights stay for IV antibiotics, IV steroids, breathing treatments and monitoring. <Kathie Goldstein PA-C - Last Filed: 04/10/24 16:07> Quality Stroke Does the patient have a stroke diagnosis?: No <Kathie Goldstein PA-C - Last Filed: 04/10/24 16:07> VTE Prior VTE?: No <Kathie Goldstein PA-C - Last Filed: 04/10/24 16:07> VTE Risk Level:: Medical - moderate - high <MARKUS Nguyen Last Filed: 04/10/24 16:07> VTE Device Contraindication: Treatment Not Indicated <Kathie Goldstein PA-C - Last Filed: 04/10/24 16:07> VTE Drug Contraindication: N/A - Med Ordered <MARKUS Nguyen Last Filed: 04/10/24 16:07>
[2024-04-10] MEDS: Enoxaparin Sodium 40 MG/0.4 ML SYRINGE SUBCUT (12:54)
[2024-04-10 13:23] LABS: Magnesium 1.5 mg/dL (1.6-2.6)
[2024-04-10 13:34] LABS: ~Lactic Acid-LAB USE ONLY 4.4 mmol/L (0.5-2.0)
[2024-04-10] MEDS: 0.9 % Sodium Chloride 1,000 ML 100 ML IVCONT (14:39)
[2024-04-10] MEDS: Magnesium Sulfate/H2O 2 GM/50 ML PIGGYBACK IV (14:40)
[2024-04-10] MEDS: Acetaminophen 325 MG TABLET 650 MG PO ×2 (14:52→21:09)
[2024-04-10 15:09] LABS: Reflex Lactate? 2 Y
[2024-04-10] MEDS: levalbuterol HCL 2.5 MG, Ipratropium Bromide 0.5 MG INHALE ×2 (15:12→19:35)
--- NOTE | 2024-04-10 15:21 | MHC.CM.PN ---
PT REPORTS SHE LIVES WITH HER PARENTS AND IS INDEPENDENT WITH CARE SHE HAS NO SERVICES AND A NEBULIZER FOR DME PT DECLINES A HCP PCP: CINHTIA HERCULES DCP: HOME NO SERVICES VIA SELF-TRANSPORT
--- NOTE | 2024-04-10 15:26 | PC.NURSE ---
Pt continues to be tachycardic, elevates higher with coughing, talking or movement.
--- NOTE | 2024-04-10 15:30 | ECG_ITS ---
Test Reason : tachycardia Blood Pressure : / mmHG Vent. Rate : 157 BPM Atrial Rate : 157 BPM P-R Int : 062 ms QRS Dur : 072 ms QT Int : 310 ms P-R-T Axes : 062 058 020 degrees QTc Int : 501 ms Sinus tachycardia with short AR ST & T wave abnormality, consider inferior ischemia Abnormal ECG When compared with ECG of 10-APR-2024 10:38, T wave inversion more evident in Inferior leads T wave inversion now evident in Anterior leads Referred By: Phani Hernandez Electronically Signed By:ELSA VANESSA MD
--- NOTE | 2024-04-10 16:32 | PC.NURSE ---
Late entry: Pt had episode of tachycardia to 160s and worsening chest pains. EKG taken and admitting provider notified. Provider came to bedside and assessed, no new orders at this time. HR maintains between 120-140.
[2024-04-10 17:29] LABS: ~Lactic Acid-LAB USE ONLY 4.3 mmol/L (0.5-2.0)
[2024-04-10 17:52] LABS: Cancel Lactic Acid Canceled
[2024-04-10] MEDS: Melatonin 3 MG TABLET 6 MG PO (21:09)
[2024-04-10] MEDS: Montelukast Sodium 10 MG TABLET PO (21:09)
[2024-04-10] MEDS: methylPREDNISolone Sod Succ 40 MG/ML VIAL IVPUSH (21:10)
[2024-04-10] MEDS: ondansetron HCL 4 MG/2 ML VIAL IVPUSH (21:12)
[2024-04-11] VITALS (9 sets, daily range): BP systolic 144–160; BP diastolic 82–96; PULSE 101–120; RESP 18–20; TEMP 36.3–36.6; O2SAT 91–98
[2024-04-11] MEDS: levalbuterol HCL 1.25 MG/3 ML VIAL.NEB INHALE (02:30)
[2024-04-11] MEDS: Acetaminophen 325 MG TABLET 650 MG PO ×3 (03:28→17:40)
[2024-04-11] MEDS: LORazepam 2 MG/ML VIAL 0.5 MG IVPUSH (03:29)
[2024-04-11 08:00] LABS: Basophils Percent Auto 0.2 % (0-2); Hematocrit 41.8 % (37.0-47.0); Hemoglobin 14.2 g/dl (12.0-16.0); Imm Gran Abs Auto 0.09 X10*3/uL (0.00-0.03); Imm Gran Pct Auto 0.6 % (0.0-0.4); Lymphocytes Absolute Auto 0.7 X10*3/uL (1.2-4.9); Lymphocytes Percent Auto 4.9 % (20-40); MANUAL DIFF FLAG SCAN; Mean Corpuscular Hemoglobin 31.8 pg (27.0-33.0); Mean Corpuscular Volume 93.7 fL (80.0-98.0); Mean Platelet Volume 9.6 fL (9.4-12.3); Monocytes Absolute Auto 0.4 X10*3/uL (0.1-1.2); Monocytes Percent Auto 2.8 % (2-11); Neutrophils Absolute Auto 13.5 x10*3/uL (2.0-8.3); Neutrophils Percent Auto 91.5 % (45-73); Platelet Count 370 X10*3/uL (160-400); Red Blood Count 4.46 X10*6/uL (4.20-5.50); SCAN SMEAR FLAG 1; White Blood Count 14.8 X10*3/uL (4.8-10.8)
[2024-04-11] MEDS: levalbuterol HCL 2.5 MG, Ipratropium Bromide 0.5 MG INHALE ×2 (08:06→12:07)
[2024-04-11] MEDS: Azithromycin 500 MG in 0.9 % Sodium Chloride 250 ML 125 MG IV (08:15)
[2024-04-11 08:16] LABS: Anion Gap 11 (12-20); Blood Urea Nitrogen 5 mg/dL (9-16); Calcium 9.3 mg/dL (8.4-10.2); Carbon Dioxide 19 mmol/L (22-29); Chloride 114 mmol/L (96-108); Estimated Glomerular Filt Rate > 60; Glucose Random 127 mg/dL (60-115); Magnesium 2.1 mg/dL (1.6-2.6); Potassium 4.4 mmol/L (3.3-5.1); Sodium 140 mmol/L (135-145)
[2024-04-11] MEDS: methylPREDNISolone Sod Succ 40 MG/ML VIAL IVPUSH ×2 (08:16→20:36)
[2024-04-11] MEDS: 0.9 % Sodium Chloride Flush 3 ML SYRINGE IVFLUSH ×2 (08:16→15:09)
[2024-04-11] MEDS: cefTRIAXone sodium 1 GM VIAL IVPUSH (08:16)
[2024-04-11 08:20] LABS: SLIDE REVIEW VERIFIED
[2024-04-11 09:21] LABS: Adenovirus PCR Not Detected (Not Detect.); Bordetella parapertussis PCR Not Detected (Not Detect.); Bordetella pertussis PCR Not Detected (Not Detect.); Chlamydia pneumoniae PCR Not Detected (Not Detect.); Coronavirus 229E PCR Not Detected (Not Detect.); Coronavirus HKU1 PCR Not Detected (Not Detect.); Coronavirus NL63 PCR Not Detected (Not Detect.); Coronavirus OC43 PCR Not Detected (Not Detect.); Human metapneumovirus PCR Not Detected (Not Detect.); Influenza A PCR Not Detected (Not Detect.); Influenza B PCR Not Detected (Not Detect.); Mycoplasma pneumoniae PCR Not Detected (Not Detect.); Parainfluenza 1 PCR Not Detected (Not Detect.); Parainfluenza 2 PCR Not Detected (Not Detect.); Parainfluenza 3 PCR Not Detected (Not Detect.); Parainfluenza 4 PCR Not Detected (Not Detect.); RSV PCR Not Detected (Not Detect.); Rhino/Enterovirus PCR Not Detected (Not Detect.)
[2024-04-11 10:18] LABS: SARS-CoV-2 PCR Not Detected (Not Detect.)
[2024-04-11] MEDS: methylPREDNISolone Sod Succ 40 MG/ML VIAL 60 MG IVPUSH (11:02)
[2024-04-11] MEDS: Magnesium Sulfate/H2O 2 GM/50 ML PIGGYBACK IV (11:03)
--- NOTE | 2024-04-11 12:10 | P.CONPL_ITS ---
History of Present Illness History of Present Illness Consult date: 04/11/24 Chief complaint: sepsis PNA, asthma exacerbation Narrative: This is an inpatient pulmonary consultation. The patient is a 23-year-old female with a past medical history significant for moderate persistent asthma and allergic rhinitis, with multiple admissions for acute asthma exacerbations who presented to the ED today with cough, wheezing and shortness of breath. She reports that her symptoms began in the middle of the night, nebulizer did not help. She reports that she was admitted to the ICU once before needing CPAP however never intubated. She has a dry cough, no fever, chills, nausea, vomiting, nasal congestion, runny nose or recent sick contacts. She reports she was diagnosed with asthma 2 years ago. She smokes marijuana daily, no cigarettes alcohol or IV drug use. She was admitted to the hospital cardiac. Now complaining of worsening pleuritic chest pain. Does have some wheezing but clinically the asthma symptoms have improved. I did review her EKGs demonstrating sinus tachycardia. Does not appear to be reentry process. The patient currently does not appear to be nervous or anxious. She does use control medications. I do not have the name although hormone involved but therefore she is high risk for thromboembolic disease. The patient denies any history of blood clots. Her denies any recent injuries or trauma to her laser surgeries. Review of Systems 2 Constitutional: Constitutional: Denies body ache(s), Denies chills, Denies fatigue, Denies fever(s) and Denies headache(s) Eyes: Eyes: Denies change in vision ENT: Denies headache(s), Denies nasal congestion, Denies nasal discharge and Denies sore throat Cardiovascular: Cardiovascular: Reports chest pain, Reports rapid heart rate, Denies leg edema, Reports palpitations and Reports dyspnea Respiratory: Respiratory: Denies chest congestion, Reports cough, Reports pain on inspiration, Reports pain with cough, Reports dyspnea and Reports wheezing Gastrointestinal: Gastrointestinal: Denies constipation, Denies diarrhea, Denies nausea and Denies vomiting Musculoskeletal: Musculoskeletal: Denies numbness and Denies tingling Integumentary/Breasts: Skin/Breast: Denies rash Neurologic: Denies confusion, Denies headache(s), Denies numbness and Denies tingling Psychiatric: Psychiatric: Denies confusion Endocrine: Endocrine: Denies fatigue and Reports palpitations Allergic/Immunologic: Allergic/Immunologic: Reports wheezing PMFSH Past Medical History Medical History Allergic rhinitis Asthma Social History Social History Household Members: Family Housing: House Do you presently have visiting nurse or other home services: No Alcohol intake: current Alcohol intake frequency: holidays/special occasions only Comment: refused bed alarm. pt rings appropriately Patient Tobacco Use Status: Never used Tobacco Smoked in Last 30 Days: No Second Hand Smoke Exposure: No Use of substances other than those prescribed or required for medical reasons: Yes Substance Use Type: Marijuana Substance Use Frequency: Daily Last Used Substance: Days (ago) Currently Displaying Signs/Symptoms of Drug Intoxication Withdrawal: No Any prior treatment program specific to substance use: No Have you been hit, kicked, punched, or otherwise hurt by someone within the past year? If so, by whom?: No Do you feel safe in your current relationship?: Yes Is there a partner from a previous relationship who is making you feel unsafe now?: No Are you made to feel afraid or neglected: No Advance Directives: No Advance Directives Information Provided: No Do you have a plan to hurt others: No Plan Recently lost weight without trying: No How much weight loss: Not applicable Eating poorly because of decreased appetite: No Nutrition screen score: 0 Nutrition Risks: No Nutritional Risk Patient : No : No Poor oral hygiene: No service: No Current occupational status: employed Meds Allergies Allergy/AdvReac Type Severity Reaction Status Date / Time No Known Allergies Allergy Verified 04/10/24 07:30 Active Medications: Current Medications Acetaminophen (Acetaminophen 325 Mg Tablet) 650 mg PO Q6H PRN PRN Reason: Pain, Mild (Pain Scale 1-3), fever or headache Last Admin: 04/11/24 11:03 Dose: 650 mg Calcium Carbonate (Calcium Carbonate 750 Mg Tab.Chew) 750 mg PO Q4H PRN PRN Reason: Heartburn Ceftriaxone Sodium (Ceftriaxone Sodium 1 Gm Vial) 1 gm IVPUSH DAILY [facility] Last Admin: 04/11/24 08:16 Dose: 1 gm Levalbuterol HCl 2.5 mg/ (Ipratropium [place] 0.5 mg) 0 mg INHALE RQ4H WHILE AWAKE [facility] Last Admin: 04/11/24 12:07 Dose: 1 dose Enoxaparin Sodium (Enoxaparin Sodium 40 Mg/0.4 Ml Syringe) 40 mg SUBCUT Q24H [facility] Last Admin: 04/10/24 12:54 Dose: 40 mg Azithromycin 500 mg/ Sodium (Chloride) 250 mls @ 125 mls/hr IV DAILY [facility] Last Infusion: 04/11/24 11:01 Dose: Infused Levalbuterol HCl (Levalbuterol Hcl 1.25 Mg/3 Ml Vial.Neb) 1.25 mg INHALE Q4H PRN PRN Reason: Wheezing Last Admin: 04/11/24 02:30 Dose: 1.25 mg Magnesium Hydroxide (Milk Of Magnesia 30 Ml Oral.Susp) 30 ml PO DAILY PRN PRN Reason: Constipation Melatonin (Melatonin 3 Mg Tablet) 6 mg PO BEDTIME PRN PRN Reason: Insomnia Last Admin: 04/10/24 21:09 Dose: 6 mg Methylprednisolone Sodium Succinate (Methylprednisolone Sod Succ 40 Mg/Ml Vial) 60 mg IVPUSH Q8H [facility] Last Admin: 04/11/24 11:02 Dose: 60 mg Montelukast Sodium (Montelukast Sodium 10 Mg Tablet) 10 mg PO BEDTIME [facility] Last Admin: 04/10/24 21:09 Dose: 10 mg Ondansetron HCl (Ondansetron Hcl 4 Mg/2 Ml Vial) 4 mg IVPUSH Q8H PRN PRN Reason: Nausea and Vomiting Last Admin: 04/10/24 21:12 Dose: 4 mg Sodium Chloride (0.9 % Sodium Chloride Flush 3 Ml Syringe) 3 ml IVFLUSH QSHIFT [facility] Last Admin: 04/11/24 08:16 Dose: 3 ml Home Medications ?Medication ?Instructions ?Recorded ?Confirmed ?Last Taken ?Type acetaminophen 500 mg tablet 1,500 mg PO BID PRN Pain 02/20/23 04/10/24 Unknown History etonogestrel 68 mg subdermal 68 mg subdermal DIRECTED 07/24/23 04/10/24 Unknown History implant (Nexplanon) fluticasone 250 mcg-salmeterol 50 1 inh inhalation BID 01/06/24 04/10/24 04/10/24 History mcg/dose blistr powdr for inhalation (Wixela Inhub) montelukast 10 mg tablet 10 mg PO BEDTIME Allergic Rhinitis 04/10/24 04/10/24 04/09/24 History Physical Exam 2 Vital Signs: Vital Signs: Last Vital Signs Temp 97.8 F 04/11/24 07:11 Pulse 120 H 04/11/24 12:08 Resp 18 04/11/24 12:08 BP 144/82 H 04/11/24 07:11 Pulse Ox 94 04/11/24 07:11 O2 Del Method Nasal Cannula 04/11/24 07:11 O2 Flow Rate 1 04/11/24 07:11 BMI result Body Mass Index 40.2 Const: General: No confusion Orientation/consciousness: No confusion L imitations: no limitations HEENT: Head: Yes normal to inspection and Yes atraumatic Neck: Neck: Yes normal visual inspection Resp: Effort & Inspection: normal respiratory effort and no respiratory distress Auscultation: wheezes expiratory wheezes and throughout Cardio: Rate: regular rate and tachycardic Heart sounds: S1 normal heart sound present and S2 normal heart sound present Skin: Rashes: no rashes Wounds: no wounds Neuro: General: No confusion Extrem: General: Yes normal to inspection, Yes no pedal edema and Yes no calf tenderness Results Laboratory Findings 04/11/24 07:41 04/11/24 07:41 Abnormal lab findings: Abnormal Labs 04/10/24 04/10/24 04/10/24 07:40 10:09 13:04 WBC Immature Gran % (Auto) Neut % (Auto) Lymph % (Auto) 17.8 L Eos % (Auto) 6.8 H Lymph # (Auto) Eos # (Auto) 0.7 H Abs Immat Gran (auto) Absolute Neuts (auto) Chloride 110 H Carbon Dioxide 20 L Anion Gap BUN Random Glucose 128 H Lactic Acid 3.7 H* Lactic Acid F/U @ 2Hr 4.4 H* Lactic Acid F/U @ 4Hr Magnesium 1.5 L 04/10/24 04/11/24 17:03 07:41 WBC 14.8 H Immature Gran % (Auto) 0.6 H Neut % (Auto) 91.5 H Lymph % (Auto) 4.9 L Eos % (Auto) Lymph # (Auto) 0.7 L Eos # (Auto) Abs Immat Gran (auto) 0.09 H Absolute Neuts (auto) 13.5 H Chloride 114 H Carbon Dioxide 19 L Anion Gap 11 L BUN 5 L Random Glucose 127 H Lactic Acid Lactic Acid F/U @ 2Hr Lactic Acid F/U @ 4Hr 4.3 H* Magnesium Assessment and Plan (1) Asthma with acute exacerbation: Qualifiers: Asthma severity: moderate Asthma persistence: persistent Qualified Code(s): J45.41 - Moderate persistent asthma with (acute) exacerbation Status: Acute (2) Tachycardia: Status: Acute sinus tach (3) Pleuritic chest pain: Status: Acute Plan CTA to R/O PE conitnue solumedrol conitnue Abx coverage respiratory therapy Magnesium Procedures Date of Service Date of Service: 04/11/24
[2024-04-11] MEDS: iohexoL 350 MG/ML 100 ML INFUS..BTL IV (12:53)
[2024-04-11] MEDS: Enoxaparin Sodium 40 MG/0.4 ML SYRINGE SUBCUT (13:00)
--- NOTE | 2024-04-11 14:53 | HO.PM.IMPN ---
Subjective Subjective Date of Service: 04/11/24 Interval History: Patient complaining chest tightness, shortness of breath soon after receiving Xopenex updraft treatment, tele monitor showed sinus tachycardia with heart rate in 140-150 range, oxygenation remained stable on room air, denies fever, no chills, no headache or dizziness, no anxiety. Review of Systems All other system reviewed and are negative. Physical Exam Vital Signs: Vital Signs: Last Vital Signs Temp 97.8 F 04/11/24 07:11 Pulse 120 H 04/11/24 12:08 Resp 18 04/11/24 12:08 BP 144/82 H 04/11/24 07:11 Pulse Ox 94 04/11/24 07:11 O2 Del Method Nasal Cannula 04/11/24 07:11 O2 Flow Rate 1 04/11/24 07:11 BMI result Body Mass Index 40.2 Const: Other: General mild acute respiratory distress. Neck supple no JVD. CVS regular rate rhythm, Respiratory lungs bilateral expiratory wheeze/diminished breath sounds Gastrointestinal abdomen soft, non tender, bowel sounds audible Extremities no edema. Neuro non focal Skin no rash Psych appropriate affect Objective Data Active Medications Acetaminophen (Acetaminophen 325 Mg Tablet) 650 mg PO Q6H PRN PRN Reason: Pain, Mild (Pain Scale 1-3), fever or headache Last Admin: 04/11/24 11:03 Dose: 650 mg Documented By: KAIT Calcium Carbonate (Calcium Carbonate 750 Mg Tab.Chew) 750 mg PO Q4H PRN PRN Reason: Heartburn Ceftriaxone Sodium (Ceftriaxone Sodium 1 Gm Vial) 1 gm IVPUSH DAILY [facility] Last Admin: 04/11/24 08:16 Dose: 1 gm Documented By: KAIT Levalbuterol HCl 1.25 mg/ (Ipratropium [place] 0.5 mg) 0 mg INHALE RQ4H WHILE AWAKE [facility] Enoxaparin Sodium (Enoxaparin Sodium 40 Mg/0.4 Ml Syringe) 40 mg SUBCUT Q24H [facility] Last Admin: 04/11/24 13:00 Dose: 40 mg Documented By: KAIT Azithromycin 500 mg/ Sodium (Chloride) 250 mls @ 125 mls/hr IV DAILY [facility] Last Infusion: 04/11/24 11:01 Dose: Infused Documented By: KAIT Levalbuterol HCl (Levalbuterol Hcl 1.25 Mg/3 Ml Vial.Neb) 1.25 mg INHALE Q4H PRN PRN Reason: Wheezing Last Admin: 04/11/24 02:30 Dose: 1.25 mg Documented By: IMANI Magnesium Hydroxide (Milk Of Magnesia 30 Ml Oral.Susp) 30 ml PO DAILY PRN PRN Reason: Constipation Melatonin (Melatonin 3 Mg Tablet) 6 mg PO BEDTIME PRN PRN Reason: Insomnia Last Admin: 04/10/24 21:09 Dose: 6 mg Documented By: BOB Methylprednisolone Sodium Succinate (Methylprednisolone Sod Succ 40 Mg/Ml Vial) 60 mg IVPUSH Q8H [facility] Last Admin: 04/11/24 11:02 Dose: 60 mg Documented By: KAIT Montelukast Sodium (Montelukast Sodium 10 Mg Tablet) 10 mg PO BEDTIME [facility] Last Admin: 04/10/24 21:09 Dose: 10 mg Documented By: BOB Ondansetron HCl (Ondansetron Hcl 4 Mg/2 Ml Vial) 4 mg IVPUSH Q8H PRN PRN Reason: Nausea and Vomiting Last Admin: 04/10/24 21:12 Dose: 4 mg Documented By: BOB Sodium Chloride (0.9 % Sodium Chloride Flush 3 Ml Syringe) [facility] Admin: 04/11/24 08:16 Dose: 3 ml Documented By: KAIT Labs 04/11/24 07:41 04/11/24 07:41 Labs: Laboratory Results - last 24 hr 04/10/24 04/10/24 04/11/24 14:59 17:03 07:41 MCV 93.7 MCH 31.8 MCHC 34.0 RDW 13.0 Plt Count 370 MPV 9.6 Immature Gran % (Auto) 0.6 H Neut % (Auto) 91.5 H Lymph % (Auto) 4.[address] [place] % (Auto) 2.8 Eos % (Auto) 0.0 Baso % (Auto) 0.2 Lymph # (Auto) 0.[address] [place] # (Auto) 0.4 Eos # (Auto) 0.0 Baso # (Auto) 0.0 Abs Immat Gran (auto) 0.09 H Absolute Neuts (auto) 13.5 H Absolute Nucleated RBC 0.000 Nucleated RBC % (auto) 0.0 Smear Tech's Comments VERIFIED Anion Gap 11 L Estim Creat Clear Calc 151.0 Estimated GFR > 60 Random Glucose 127 H Lactic Acid F/U @ 4Hr 4.3 H* Calcium 9.3 Magnesium 2.1 Respiratory Panel Dave See Note Adenovirus (Rapid PCR) Not Detected B.pert (TEM-PCR) Not Detected B.parapertussis DNA PCR Not Detected C. pneumoniae DNA (PCR) Not Detected Coronavirus OC43 (PCR) Not Detected Coronavirus HKU1 (PCR) Not Detected Coronavirus 229E (PCR) Not Detected Coronavirus NL63 (PCR) Not Detected Human Metapneumovir PCR Not Detected Influenza A (RT-PCR) Not Detected Influenza B (RT-PCR) Not Detected M. pneumoniae (PCR) Not Detected Parainfluenza 1 (PCR) Not Detected Parainfluenza 2 (PCR) Not Detected Parainfluenza 3 (PCR) Not Detected Parainfluenza 4 (PCR) Not Detected RSV (PCR) Not Detected Entero/Rhino (PCR) Not Detected SARS-CoV-2 RNA (RT-PCR) Not Detected Microbiology Microbiology Results: Microbiology 04/10/24 10:10 Blood Culture - Preliminary Blood - Venous No growth after 24 hours. 04/10/24 10:09 Blood Culture - Preliminary Blood - Venous No growth after 24 hours. Assessment and Plan (1) Pleuritic chest pain: Status: Acute (2) Obesity (BMI 35.0-39.9 without comorbidity): Status: Chronic (3) Pneumonia: Status: Acute (4) Sepsis: Status: Acute Plan 23-year-old female with a past medical history significant for moderate persistent asthma and allergic rhinitis, with multiple admissions for acute asthma exacerbations who presented to the ED today with cough, wheezing and shortness of breath starting in the middle of the night. sepsis secondary to pneumonia - tachycardia, tachypnea, and lactic acid elevated at 3.7, blood cultures x2 negative, elevated lactic acid likely due to updraft - CXR with patchy opacities right perihilar into right middle lobe - on iv ceftraizone and azithromycin d2/5 - COVID/flu/RSV negative - EKG with sinus tachycardia - respiratory panel negative - leukocytosis likely due to steroids follow clinical course continue current treatment Acute asthma exacerbation - persistent shortness of breath and sinus tachycardia CTA chest negative for PE - continue levalbuterol/ipratropium Q4H while awake - mag 2g - continue IV solumedrol dose increased to 60 mg q.8 hours - continue cetirizine 10 mg daily and montelukast 10 mg daily - due to recurrent tachycardia and persistent shortness of breath pulmonary consult obtained they agree with above treatment plan. Class 3 obesity recommend low-calorie diet Full code VTE prophylaxis: Early ambulation Patient with sepsis secondary to pneumonia complicated by acute asthma exacerbation, will require continued inpatient hospitalization for IV antibiotics, IV steroids, breathing treatments and monitoring. Quality Stroke Does the patient have a stroke diagnosis?: No VTE Prior VTE?: No VTE Risk Level:: Medical - moderate - high VTE Device Contraindication: Treatment Not Indicated VTE Drug Contraindication: N/A - Med Ordered
[2024-04-11] MEDS: ondansetron HCL 4 MG/2 ML VIAL IVPUSH (15:09)
[2024-04-11] MEDS: Butalb/Acetamin/Caff 50/325/40 TABLET 1 TAB PO (15:30)
[2024-04-11] MEDS: levalbuterol HCL 1.25 MG, Ipratropium Bromide 0.5 MG INHALE (19:15)
[2024-04-11] MEDS: Montelukast Sodium 10 MG TABLET PO (20:35)
[2024-04-11] MEDS: traMADoL HCL 50 MG TABLET 25 MG PO (20:35)
[2024-04-11] MEDS: Ketorolac Tromethamine 15 MG/ML VIAL IVPUSH (22:52)
[2024-04-12] VITALS (9 sets, daily range): BP systolic 124–152; BP diastolic 70–90; PULSE 86–112; RESP 16–20; TEMP 36.3–37; O2SAT 93–98
[2024-04-12] MEDS: 0.9 % Sodium Chloride Flush 3 ML SYRINGE IVFLUSH ×3 (00:59→16:05)
[2024-04-12] MEDS: methylPREDNISolone Sod Succ 40 MG/ML VIAL IVPUSH ×2 (05:26→11:06)
[2024-04-12] MEDS: levalbuterol HCL 1.25 MG, Ipratropium Bromide 0.5 MG INHALE ×3 (05:47→18:54)
[2024-04-12] MEDS: cefTRIAXone sodium 1 GM VIAL IVPUSH (08:43)
[2024-04-12] MEDS: Azithromycin 500 MG in 0.9 % Sodium Chloride 250 ML 125 MG IV (08:43)
[2024-04-12] MEDS: levalbuterol HCL 1.25 MG/3 ML VIAL.NEB INHALE (09:06)
[2024-04-12 09:10] LABS: Basophils Percent Auto 0.1 % (0-2); Hematocrit 41.9 % (37.0-47.0); Hemoglobin 14.5 g/dl (12.0-16.0); Imm Gran Abs Auto 0.11 X10*3/uL (0.00-0.03); Imm Gran Pct Auto 0.6 % (0.0-0.4); Lymphocytes Absolute Auto 0.6 X10*3/uL (1.2-4.9); Lymphocytes Percent Auto 3.5 % (20-40); MANUAL DIFF FLAG SCAN; Mean Corpuscular HGB Conc 34.6 g/dl (31.0-35.0); Mean Corpuscular Hemoglobin 31.9 pg (27.0-33.0); Mean Corpuscular Volume 92.3 fL (80.0-98.0); Mean Platelet Volume 9.4 fL (9.4-12.3); Monocytes Absolute Auto 0.7 X10*3/uL (0.1-1.2); Monocytes Percent Auto 3.9 % (2-11); Neutrophils Absolute Auto 16.3 x10*3/uL (2.0-8.3); Neutrophils Percent Auto 91.9 % (45-73); Platelet Count 400 X10*3/uL (160-400); Red Blood Count 4.54 X10*6/uL (4.20-5.50); Red Cell Distribution Width 13.2 % (11.0-16.0); SCAN SMEAR FLAG 1; White Blood Count 17.8 X10*3/uL (4.8-10.8)
--- NOTE | 2024-04-12 09:21 | P.PNPL_ITS ---
Subjective Subjective Date of Service: 04/12/24 Interval history: The patient was seen on exam. Feeling better. Still having some wheezing. Chest tightness is a little better. Her CT scan of the chest was reassuring. I did personally reviewed. No evidence of any pneumonitis or pneumonia. No evidence of any thromboembolic disease. Otherwise is normal. She is still having some wheezing on exam. We did talk about a potential triggers. The patient will follow-up with her regular support architect after discharge. Objective Data Labs 04/11/24 07:41 04/11/24 07:41 Labs: Laboratory Results - last 24 hr 04/10/24 14:59 Respiratory Panel Dave See Note Adenovirus (Rapid PCR) Not Detected B.pert (TEM-PCR) Not Detected B.parapertussis DNA PCR Not Detected C. pneumoniae DNA (PCR) Not Detected Coronavirus OC43 (PCR) Not Detected Coronavirus HKU1 (PCR) Not Detected Coronavirus 229E (PCR) Not Detected Coronavirus NL63 (PCR) Not Detected Human Metapneumovir PCR Not Detected Influenza A (RT-PCR) Not Detected Influenza B (RT-PCR) Not Detected M. pneumoniae (PCR) Not Detected Parainfluenza 1 (PCR) Not Detected Parainfluenza 2 (PCR) Not Detected Parainfluenza 3 (PCR) Not Detected Parainfluenza 4 (PCR) Not Detected RSV (PCR) Not Detected Entero/Rhino (PCR) Not Detected SARS-CoV-2 RNA (RT-PCR) Not Detected Microbiology Microbiology Results: Microbiology 04/10/24 10:10 Blood - Venous Blood Culture - Preliminary No growth after 24 hours. 04/10/24 10:09 Blood - Venous Blood Culture - Preliminary No growth after 24 hours. Review of Systems Constitutional: Denies body ache(s), Denies chills, Denies fatigue, Denies fever(s) and Denies headache(s) Eyes: Denies change in vision Denies headache(s), Denies nasal congestion, Denies nasal discharge and Denies sore throat Cardiovascular: Reports chest pain, Denies leg edema, Reports palpitations and Reports dyspnea Respiratory: Denies chest congestion, Reports cough, Reports pain on inspiration, Reports pain with cough, Reports dyspnea and Reports wheezing Gastrointestinal: Denies constipation, Denies diarrhea, Denies nausea and Denies vomiting Musculoskeletal: Denies numbness and Denies tingling Skin/Breast: Denies rash Denies confusion, Denies headache(s), Denies numbness and Denies tingling Psychiatric: Denies confusion Endocrine: Denies fatigue and Reports palpitations Allergic/Immunologic: Reports wheezing Physical Exam 2 Vital Signs: Vital Signs: Last Vital Signs Temp 97.8 F 04/12/24 07:26 Pulse 104 H 04/12/24 09:07 Resp 18 04/12/24 09:07 BP 130/80 04/12/24 07:32 Pulse Ox 96 04/12/24 07:26 O2 Del Method Room Air 04/12/24 07:26 O2 Flow Rate 1 04/11/24 07:11 BMI result Body Mass Index 40.2 Const: General: No confusion Orientation/consciousness: No confusion L imitations: no limitations HEENT: Head: Yes normal to inspection and Yes atraumatic Neck: Neck: Yes normal visual inspection Resp: Effort & Inspection: normal respiratory effort and no respiratory distress Auscultation: wheezes expiratory wheezes and throughout Cardio: Rate: regular rate and tachycardic Heart sounds: S1 normal heart sound present and S2 normal heart sound present Skin: Rashes: no rashes Wounds: no wounds Neuro: General: No confusion Extrem: General: Yes normal to inspection, Yes no pedal edema and Yes no calf tenderness Procedures Date of Service Date of Service: 04/12/24 Assessment and Plan Assessment and plan (1) Asthma with acute exacerbation: Status: Acute (2) Tachycardia: Status: Acute (3) Allergic rhinitis: Status: Acute Plan The patient has severe asthma with frequent exacerbations requiring hospitalizations. She does have evidence of eosinophilia. Patient will be a good candidate for biologic therapy. Recommendations: Prednisone taper Continue respiratory regimen with Advair, Zyrtec, Singulair Would be a great candidate for biologics such as IL 5 inhibitors or Dupixent. Her eosinophil count was 700 prior to her starting her steroids in the hospital. Upon discharge she should follow-up with Dr. Ferrara and they can discuss biologic therapy. Time Spent With Patient Time: Total time managing care of this patient today ____ minutes. Progress Note: Quality Stroke Does the patient have a stroke diagnosis?: No
[2024-04-12 09:24] LABS: Anion Gap 13 (12-20); Blood Urea Nitrogen 11 mg/dL (9-16); Calcium 8.8 mg/dL (8.4-10.2); Carbon Dioxide 21 mmol/L (22-29); Chloride 109 mmol/L (96-108); Creatinine Clr Calc Pharmacy 134.9; Estimated Glomerular Filt Rate > 60; Glucose Random 124 mg/dL (60-115); Potassium 4.1 mmol/L (3.3-5.1); Sodium 139 mmol/L (135-145)
--- NOTE | 2024-04-12 10:34 | HO.PM.IMPN ---
Subjective Subjective Date of Service: 04/12/24 Interval History: Complaining of chest tightness and shortness of breath, no fevers, no chills tolerating diet no nausea, no vomiting or abdominal pain complaining of itching base of right neck. Review of Systems All other system reviewed and are negative. Physical Exam Vital Signs: Vital Signs: Last Vital Signs Temp 97.8 F 04/12/24 07:26 Pulse 104 H 04/12/24 09:07 Resp 18 04/12/24 09:07 BP 130/80 04/12/24 07:32 Pulse Ox 96 04/12/24 07:26 O2 Del Method Room Air 04/12/24 07:26 O2 Flow Rate 1 04/11/24 07:11 BMI result Body Mass Index 40.2 Const: Other: General no acute respiratory distress. Neck supple no JVD. Hyperemic rash base of right neck consistent with dermatitis CVS regular rate rhythm, Respiratory lungs bilateral expiratory wheeze/diminished breath sounds Gastrointestinal abdomen soft, non tender, bowel sounds audible Extremities no edema. Neuro non focal Skin no rash Psych appropriate affect Objective Data Active Medications Acetaminophen (Acetaminophen 325 Mg Tablet) 650 mg PO Q6H PRN PRN Reason: Pain, Mild (Pain Scale 1-3), fever or headache Last Admin: 04/11/24 17:40 Dose: 650 mg Documented By: KAIT Calcium Carbonate (Calcium Carbonate 750 Mg Tab.Chew) 750 mg PO Q4H PRN PRN Reason: Heartburn Ceftriaxone Sodium (Ceftriaxone Sodium 1 Gm Vial) 1 gm IVPUSH DAILY [facility] Last Admin: 04/12/24 08:43 Dose: 1 gm Documented By: KAIT Levalbuterol HCl 1.25 mg/ (Ipratropium [place] 0.5 mg) 0 mg INHALE RQ4H WHILE AWAKE [facility] Last Admin: 04/12/24 05:47 Dose: 8.5 dose Documented By: AIDE Azithromycin 500 mg/ Sodium (Chloride) 250 mls @ 125 mls/hr IV DAILY [facility] Last Admin: 04/12/24 08:43 Dose: 125 mls/hr Documented By: KAIT Levalbuterol HCl (Levalbuterol Hcl 1.25 Mg/3 Ml Vial.Neb) 1.25 mg INHALE Q4H PRN PRN Reason: Wheezing Last Admin: 04/12/24 09:06 Dose: 1.25 mg Documented By: REINALDO Magnesium Hydroxide (Milk Of Magnesia 30 Ml Oral.Susp) 30 ml PO DAILY PRN PRN Reason: Constipation Melatonin (Melatonin 3 Mg Tablet) 6 mg PO BEDTIME PRN PRN Reason: Insomnia Last Admin: 04/10/24 21:09 Dose: 6 mg Documented By: BOB Methylprednisolone Sodium Succinate (Methylprednisolone Sod Succ 40 Mg/Ml Vial) 40 mg IVPUSH Q8H EILEEN Last Admin: 04/12/24 05:26 Dose: 40 mg Documented By: POPEYE Montelukast Sodium (Montelukast Sodium 10 Mg Tablet) 10 mg PO BEDTIME EILEEN Last Admin: 04/11/24 20:35 Dose: 10 mg Documented By: POPEYE Ondansetron HCl (Ondansetron Hcl 4 Mg/2 Ml Vial) 4 mg IVPUSH Q8H PRN PRN Reason: Nausea and Vomiting Last Admin: 04/11/24 15:09 Dose: 4 mg Documented By: KAIT Sodium Chloride (0.9 % Sodium Chloride Flush 3 Ml Syringe) 3 ml IVFLUSH QSHIFT [facility] Last Admin: 04/12/24 08:43 Dose: 3 ml Documented By: KAIT Triamcinolone Acetonide (Triamcinolone Acet 0.1 % Cream 15 Gm Tube) 1 appl TOPICAL BID [facility]; Protocol Labs 04/12/24 08:35 04/12/24 08:35 Labs: Laboratory Results - last 24 hr 04/12/24 08:35 MCV 92.3 MCH 31.9 MCHC 34.6 RDW 13.2 Plt Count 400 MPV 9.4 Immature Gran % (Auto) 0.6 H Neut % (Auto) 91.9 H Lymph % (Auto) 3.5 L [place] % (Auto) 3.9 Eos % (Auto) 0.0 Baso % (Auto) 0.1 Lymph # (Auto) 0.6 L [place] # (Auto) 0.7 Eos # (Auto) 0.0 Baso # (Auto) 0.0 Abs Immat Gran (auto) 0.11 H Absolute Neuts (auto) 16.3 H Absolute Nucleated RBC 0.000 Nucleated RBC % (auto) 0.0 Anion Gap 13 Estim Creat Clear Calc 134.9 Estimated GFR > 60 Random Glucose 124 H Calcium 8.8 Microbiology Microbiology Results: Microbiology 04/10/24 10:10 Blood Culture - Preliminary Blood - Venous No growth after 24 hours. 04/10/24 10:09 Blood Culture - Preliminary Blood - Venous No growth after 24 hours. Assessment and Plan (1) Obesity (BMI 35.0-39.9 without comorbidity): Status: Chronic (2) Pneumonia: Status: Acute (3) Sepsis: Status: Acute (4) Asthma with acute exacerbation: Status: Acute Plan 23-year-old female with a past medical history significant for moderate persistent asthma and allergic rhinitis, with multiple admissions for acute asthma exacerbations who presented to the ED today with cough, wheezing and shortness of breath starting in the middle of the night. sepsis secondary to pneumonia - persistent shortness of breath and chest tightness, tachycardia and tachypnea improved - CXR with patchy opacities right perihilar into right middle lobe - on iv ceftraizone and azithromycin d3/5 - COVID/flu/RSV negative - EKG with sinus tachycardia - respiratory panel negative - leukocytosis likely due to steroids follow clinical course continue current treatment Acute asthma exacerbation of chronic persistent asthma - persistent shortness of breath and sinus tachycardia but significantly improved since yesterday CTA chest negative for PE - continue levalbuterol/ipratropium Q4H while awake and as needed - continue IV solumedrol 40 mg q.8 hours will gradually wean - continue claritin 10 mg daily and montelukast 10 mg daily - seen by Dr. Merino he agree with above treatment plan rec. biologics such as IL 5 inhibitors or Dupixent, since eosinophil count was 700 prior to starting steroids in the hospital. Upon discharge follow-up with Dr. Ferrara and discuss biologic therapy. Dermatitis at base neck: Kenalog cream bid Acute lactic acidosis due to updraft no due to severe sepsis Class 3 obesity recommend low-calorie diet Full code VTE prophylaxis: Early ambulation Patient with sepsis secondary to pneumonia complicated by acute asthma exacerbation, will require continued inpatient hospitalization for IV antibiotics, IV steroids, breathing treatments and monitoring. Quality Stroke Does the patient have a stroke diagnosis?: No VTE Prior VTE?: No VTE Risk Level:: Medical - moderate - high VTE Device Contraindication: Treatment Not Indicated VTE Drug Contraindication: N/A - Med Ordered
--- NOTE | 2024-04-12 10:47 | MHC.CM.PN ---
EMR REVIEWED, PT W/ASTHMA/PNA, PER HOSPITALIST NO PLAN FOR DC AT THIS TIME, PLAN REMAINS HOME SELF CARE, CM WILL CONT TO FOLLOW DC NEEDS.
[2024-04-12 11:01] LABS: SLIDE REVIEW VERIFIED
[2024-04-12] MEDS: Loratadine 10 MG TABLET PO (11:06)
[2024-04-12] MEDS: Acetaminophen 325 MG TABLET 650 MG PO (12:21)
[2024-04-12] MEDS: ondansetron HCL 4 MG/2 ML VIAL IVPUSH (13:39)
[2024-04-12] MEDS: Butalb/Acetamin/Caff 50/325/40 TABLET 1 TAB PO (14:57)
[2024-04-12] MEDS: Montelukast Sodium 10 MG TABLET PO (20:01)
[2024-04-13 02:59] VITALS: PULSE 97; RESP 18; O2SAT 95
[2024-04-13] MEDS: levalbuterol HCL 1.25 MG/3 ML VIAL.NEB INHALE (02:59)
[2024-04-13 03:55] VITALS: BP 135/75; PULSE 90; RESP 20; TEMP 36.4; O2SAT 95
[2024-04-13] MEDS: methylPREDNISolone Sod Succ 40 MG/ML VIAL IVPUSH (04:58)
[2024-04-13] MEDS: levalbuterol HCL 1.25 MG, Ipratropium Bromide 0.5 MG INHALE (05:21)
[2024-04-13 05:23] VITALS: PULSE 90; RESP 20; O2SAT 96
[2024-04-13 06:30] LABS: MANUAL DIFF FLAG NO
[2024-04-13 06:47] LABS: Anion Gap 14 (12-20); Blood Urea Nitrogen 13 mg/dL (9-16); Calcium 9.4 mg/dL (8.4-10.2); Carbon Dioxide 20 mmol/L (22-29); Chloride 110 mmol/L (96-108); Creatinine Clr Calc Pharmacy 134.9; Estimated Glomerular Filt Rate > 60; Glucose Random 100 mg/dL (60-115); Potassium 3.6 mmol/L (3.3-5.1); Sodium 140 mmol/L (135-145)
[2024-04-13 06:57] LABS: Basophils Percent Auto 0.2 % (0-2); Eosinophils Percent Auto 0.1 % (0-4); Hematocrit 40.3 % (37.0-47.0); Hemoglobin 13.8 g/dl (12.0-16.0); Imm Gran Abs Auto 0.06 X10*3/uL (0.00-0.03); Imm Gran Pct Auto 0.5 % (0.0-0.4); Lymphocytes Absolute Auto 1.6 X10*3/uL (1.2-4.9); Mean Corpuscular HGB Conc 34.2 g/dl (31.0-35.0); Mean Corpuscular Hemoglobin 31.9 pg (27.0-33.0); Mean Corpuscular Volume 93.1 fL (80.0-98.0); Mean Platelet Volume 9.3 fL (9.4-12.3); Monocytes Absolute Auto 0.9 X10*3/uL (0.1-1.2); Monocytes Percent Auto 7.4 % (2-11); Neutrophils Absolute Auto 9.6 x10*3/uL (2.0-8.3); Neutrophils Percent Auto 78.8 % (45-73); Platelet Count 333 X10*3/uL (160-400); Red Blood Count 4.33 X10*6/uL (4.20-5.50); White Blood Count 12.2 X10*3/uL (4.8-10.8)
[2024-04-13 07:55] VITALS: BP 127/95; PULSE 77; RESP 16; TEMP 37; O2SAT 96
[2024-04-13] MEDS: Loratadine 10 MG TABLET PO (08:47)
[2024-04-13] MEDS: Triamcinolone Acet 0.1 % Cream 15 GM TUBE 1 APPL TOPICAL (08:47)
[2024-04-13] MEDS: 0.9 % Sodium Chloride Flush 3 ML SYRINGE IVFLUSH ×2 (08:47)
[2024-04-13] MEDS: cefTRIAXone sodium 1 GM VIAL IVPUSH (08:47)
[2024-04-13] MEDS: Azithromycin 500 MG in 0.9 % Sodium Chloride 250 ML 125 MG IV (08:47)
--- NOTE | 2024-04-13 10:25 | MHC.CM.PN ---
PT MEDICALLY CLEARED FOR DC HOME SELF CARE, PT WILL ARRANGE TRANSPORT
--- NOTE | 2024-04-13 11:12 | P.DS_ITS ---
DS: Providers Provider Date of Service: 04/13/24 Date of admission: 04/10/24 12:12 Date of discharge: 04/13/24 Primary care physician: Darby Ramirez MD Consults: 04/11/24 09:10 Consult to Pulmonology Routine Consulting Provider: [facility] [place] Pulmonology Services Reason for consultation: asthma Has provider been notified: No Attending physician on discharge: Kamari Beverly Discharging clinician: Selin Gresham DS: Diagnosis Discharge Diagnosis (1) Sepsis: Status: Acute (2) Pneumonia: Status: Acute (3) Obesity (BMI 35.0-39.9 without comorbidity): Status: Chronic (4) Asthma with acute exacerbation: Status: Acute DS: Summary Hospital Course Hospital Course: From H&P on the day of admission Patient is a 23-year-old female with a past medical history significant for moderate persistent asthma and allergic rhinitis, with multiple admissions for acute asthma exacerbations who presented to the ED today with cough, wheezing and shortness of breath. She reports that her symptoms began in the middle of the night, nebulizer did not help. She reports that she was admitted to the ICU once before needing CPAP however never intubated. She has a dry cough, no fever, chills, nausea, vomiting, nasal congestion, runny nose or recent sick contacts. She reports she was diagnosed with asthma 2 years ago. She smokes marijuana daily, no cigarettes alcohol or IV drug use. sepsis secondary to pneumonia tachycardia and tachypnea improved. breathing improved, able to ambulate without shortness of breath. CXR with patchy opacities right perihilar into right middle lobe, CTA negative for PE. Right pathogen panel pending. Treated with iv ceftraizone and azithromycin. White count trending down, likely due to steroid use Acute asthma exacerbation of chronic persistent asthma Shortness of breath improved. CTA chest negative for PE. systemic steroids weaned. will transition to po prednisone upon discharge. seen by pulmonology inpatient, recommend ouptatient consideration for biologics such as IL 5 inhibitors or Dupixent, since eosinophil count was 700 prior to starting steroids in the hospital. can discuss with primary convict guard as outpatient. Time Attestation Discharge Coordination Time (in mins): 36 Quality: Safe Use of Opioids Does Pt have an Active Cancer Diagnosis on the Problem List?: No Quality: Stroke Does the patient have a stroke diagnosis?: No Physical Exam Vital Signs: Vital Signs: Last Vital Signs Temp 98.6 F 04/13/24 07:55 Pulse 77 04/13/24 07:55 Resp 16 04/13/24 07:55 BP 127/95 H 04/13/24 07:55 Pulse Ox 96 04/13/24 07:55 O2 Del Method Room Air 04/13/24 07:55 O2 Flow Rate 1 04/11/24 07:11 BMI result Body Mass Index 40.2 Const: General: cooperative, comfortable, no acute distress, alert and awake Nutritional Appearance: overweight Orientation/consciousness: patient oriented x3 Resp: Effort & Inspection: normal respiratory effort, able to speak in complete sentences, no respiratory distress and no use of accessory muscles Cardio: Rate: regular rate GI: Inspection: No distended Palpation (GI): Soft to palpation and nontender Neuro: General: patient oriented x3, moves all extremities and CN's II-XI intact bilaterally Extrem: General: Yes no pedal edema DS: Data Data Completed and Pending Completed studies during hospitalization [Text1]: Procedures Assistance with Respiratory Ventilation, Less than 24 Consecutive Hours, Continuous Positive Airway Pressure (02/20/23) Labs on day of discharge: Laboratory Results - last 24 hr 04/13/24 06:09 WBC 12.2 H RBC 4.33 Hgb 13.8 Hct 40.3 MCV 93.1 MCH 31.9 MCHC 34.2 RDW 13.0 Plt Count 333 MPV 9.3 L Immature Gran % (Auto) 0.5 H Neut % (Auto) 78.8 H Lymph % (Auto) 13.0 L [place] % (Auto) 7.4 Eos % (Auto) 0.1 Baso % (Auto) 0.2 Lymph # (Auto) 1.6 [place] # (Auto) 0.9 Eos # (Auto) 0.0 Baso # (Auto) 0.0 Abs Immat Gran (auto) 0.06 H Absolute Neuts (auto) 9.6 H Absolute Nucleated RBC 0.000 Nucleated RBC % (auto) 0.0 Sodium 140 Potassium 3.6 Chloride 110 H Carbon Dioxide 20 L Anion Gap 14 BUN 13 Creatinine 0.75 Estim Creat Clear Calc 134.9 Estimated GFR > 60 Random Glucose 100 Calcium 9.4 D Preliminary micro results at discharge 04/10/24 10:10 Blood Culture - Preliminary Blood - Venous No growth after 48 hours. 04/10/24 10:09 Blood Culture - Preliminary Blood - Venous No growth after 48 hours. Discharge Plan Discharge Anticipated Discharge Date/Time: 04/13/24 11:17 Patient Disposition: Home, Self-Care Discharge Diagnosis: pneumonia asthma exacerbation Referrals: Elizabeth Molina MD [Physician] - 1 Week Darby Davis MD [Primary Care Provider] - 1 Week Discharge Medications: New levalbuterol HCl 1.25 mg/3 mL solution for nebulization 1.25 mg inhalation Q4-6H PRN (Reason: shortness of breath or wheezing) Qty: 72 0RF prednisone 20 mg tablet 40 mg PO DAILY 5 Days Qty: 10 0RF azithromycin 250 mg tablet 250 mg PO DAILY 2 Days Qty: 2 0RF cefuroxime axetil 500 mg tablet 500 mg PO Q12H 2 Days Qty: 4 0RF Continued albuterol sulfate 90 mcg/actuation HFA aerosol inhaler 2 puff inhalation Q4-6H PRN (Reason: for wheezing) Qty: 8.5 3RF acetaminophen 500 mg Tablet 1,500 mg PO BID PRN (Reason: Pain) Nexplanon 68 mg Implant 68 mg SUBDERMAL DIRECTED montelukast 10 mg tablet 10 mg PO BEDTIME cetirizine 10 mg tablet 10 mg PO DAILY PRN (Reason: allergy symptoms) Qty: 30 1RF (DME) peak flow meter Device See Rx Instructions .Route Qty: 1 0RF Rx Instructions: As directed fluticasone propion-salmeterol [Wixela Inhub] 250-50 mcg/dose blister with device 1 inh inhalation BID Discharge Orders: Discharge Order (Routine); Ordered 04/13/24 Ordered By: Selin Gresham Activity on Discharge: As tolerated Stand Alone Forms: Patient Portal Discharge page, Work/School Release Print Language: Swedish Care Plan Goals: See below Health Concerns: Sepsis/Pneumonia Acute asthma exacerbation Plan of Treatment: Complete course of antibiotic prescribed Complete course of steroids Continue all baseline medications Call to schedule follow-up appointment with your primary convict guard Call PCP or Returned to the ED with new or worsening symptoms Assessment: See discharge summary
== END 2024-04-13 12:02 | disposition home or self-care (01) | DRG 720 ==
LOC: HO.ED 10:57 → HO.EDOVER 12:25 → HO.IMC 19:32
PROVIDERS: Hospitalist; Physician Assistant; Admitting Provider Physician Assistant; Emergency Provider Emergency Medicine Emergency Medical Services; PCP Internal Medicine; Visit Provider Physician Assistant Medical
DX: A41.9 Sepsis, unspecified organism (principal); E87.21 Acute metabolic acidosis; J18.9 Pneumonia, unspecified organism; J45.41 Moderate persistent asthma with (acute) exacerbation; E66.813 Obesity, class 3; Z71.3 Dietary counseling and surveillance; Z20.822 Contact with and (suspected) exposure to COVID-19; Z68.41 Body mass index [BMI] 40.0-44.9, adult; Z79.51 Long term (current) use of inhaled steroids; Z79.899 Other long term (current) drug therapy
CPT/HCPCS: 0241U; 36415; 71046; 71275; 80048; 83605; 83735; 84484; 85025; 87040; 87633; 93005; 94640; 99285; J0456; J0696; J1650; J1885; J2060; J2270; J2405; J2919; J3475; Q9967

== ENCOUNTER → 2024-04-10 07:30 | Outpatient (BNV) | payer BC, SELFPAY | PROVIDERS: Admitting Provider Physician Assistant; Emergency Provider Emergency Medicine Emergency Medical Services; PCP Internal Medicine; Visit Provider Internal Medicine Cardiovascular Disease | DX: R07.9 Chest pain, unspecified (principal) | CPT/HCPCS: 93010 ==

== ENCOUNTER → 2024-04-10 07:52 | Outpatient (BNV) | payer BC, SELFPAY | PROVIDERS: Emergency Provider Emergency Medicine Emergency Medical Services; PCP Internal Medicine; Visit Provider Radiology Diagnostic Radiology | DX: J45.909 Unspecified asthma, uncomplicated (principal); R05.9 Cough, unspecified | CPT/HCPCS: 71046 ==

== ENCOUNTER 2024-04-10 12:12 | Outpatient (BNV) | payer BC, SELFPAY | END 2024-04-11 12:33 | PROVIDERS: Admitting Provider Physician Assistant; Emergency Provider Emergency Medicine Emergency Medical Services; PCP Internal Medicine; Visit Provider Radiology Diagnostic Radiology | DX: R06.02 Shortness of breath (principal); R00.0 Tachycardia, unspecified | CPT/HCPCS: 71275 ==

== ENCOUNTER → 2024-04-10 12:12 | Outpatient (BNV) | payer BC, SELFPAY | PROVIDERS: Admitting Provider Physician Assistant; Emergency Provider Emergency Medicine Emergency Medical Services; PCP Internal Medicine; Visit Provider Hospitalist | DX: J45.41 Moderate persistent asthma with (acute) exacerbation (principal); R00.0 Tachycardia, unspecified; J30.9 Allergic rhinitis, unspecified | CPT/HCPCS: 99223; 99233 ==

== ENCOUNTER → 2024-04-10 12:12 | Outpatient (BNV) | payer BC, SELFPAY | PROVIDERS: Admitting Provider Physician Assistant; Emergency Provider Emergency Medicine Emergency Medical Services; PCP Internal Medicine; Visit Provider Physician Assistant | DX: A41.9 Sepsis, unspecified organism (principal); J18.9 Pneumonia, unspecified organism; J45.41 Moderate persistent asthma with (acute) exacerbation | CPT/HCPCS: 99223; 99232; 99239 ==

== ENCOUNTER 2024-04-17 11:13 | Outpatient (AMB) | payer BC, SELFPAY ==
[2024-04-17 11:31] VITALS: BP 140/90; PULSE 86; O2SAT 96; BMI 40.0
--- NOTE | 2024-04-17 11:31 | MHC.OFFVIS ---
Vital Signs 04/17/24 11:31 Height 5 ft 3 in Weight 225 lb 15.581 oz BMI 40.0 BP 140/90 H Blood Pressure Location Lt brachial Position Sitting Pulse 86 Pulse Source Pulse Oximeter Pulse Oximetry (%) 96 Oxygen Delivery Method Room Air Intake Visit Reasons: f/u Intake Note: pt is here for follow up from for pneumonia, she is still not feeling well, breathing is not great, short of breath with any exeriton, when coughing she has a lot of mucous still and can taste it. 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 Allergies No Known Allergies Allergy (Verified 04/17/24 11:57) Medication List - Last Reconciled 04/17/24 by Elizabeth Molina MD acetaminophen 1,500 mg PO BID PRN albuterol sulfate 90 mcg/actuation 2 puffs inhalation Q4-6H PRN cefuroxime axetil 500 mg PO Q12H 2 days cetirizine 10 mg PO DAILY PRN etonogestrel (Nexplanon) 68 mg subdermal DIRECTED fluticasone propion-salmeterol 250-50 mcg/dose (Wixela Inhub) 1 inh inhalation BID levalbuterol HCl 1.25 mg (3 mL) inhalation Q4-6H PRN montelukast 10 mg PO BEDTIME peak flow meter As directed prednisone 40 mg (2 x 20 mg) PO DAILY 5 days Do you need a note to return to daycare/school/sports/work: No HPI HPI f/u: Details: THIS 23 YEARS OLD FEMALE IS A KNOWN CASE OF ALLERGIC RHINITIS AND BRONCHIAL ASTHMA. SHE IS BEING TREATED WITH MONTELUKAST 10 MG DAILY, CETIRIZINE P.R.N., ADVAIR 250-50 B.I.D. AND ALBUTEROL P.R.N.. HAS BEEN RELATIVELY STABLE AND SYMPTOMS WELL CONTROLLED IN THE LAST 8 MONTHS. BUT NOW JUST LAST WEEK SHE WAS ADMITTED WITH AN ACUTE EXACERBATION, PNEUMONIA IN THE RIGHT MIDDLE LOBE WAS SUSPECTED. HAS BEEN TREATED WITH COMBINATION OF IV STEROIDS AND ANTIBIOTICS. WITH IMPROVEMENT. DISCHARGED HOME OVER THE WEEKEND AND SHE IS STILL TAKING PREDNISONE 40 MG A DAY. CTA OF THE CHEST DID NOT SHOW ANY LACI PNEUMONIA BUT SOME BASILAR ATELECTASIS ON THE RIGHT SIDE. SHE CONTINUES TO HAVE COUGH AND CONGESTED FEELING. SHE IS AFRAID THAT WHEN SHE IS DONE WITH PREDNISONE SHE MAY START HAVING FLARE. UP OF THE SYMPTOMS AGAIN HER ASTHMA HAS BEEN CONSIDERED TO BE MORE ALLERGIC. SHE HAS A PET AT HOME WHICH IS A RABBIT. SHE HAS HAD INTERMITTENT ELEVATION OF EOSINOPHIL COUNT. [facility] Medical History (Updated 04/17/24 @ 12:06 by Elizabeth Molina MD) Eosinophilia Allergic rhinitis Asthma Social History Household Members: Family Housing: House Do you presently have visiting nurse or other home services: No Alcohol intake: current Alcohol intake frequency: holidays/special occasions only Comment: refused bed alarm. pt rings appropriately Patient Tobacco Use Status: Never used Tobacco Second Hand Smoke Exposure: No Substance Use Type: Marijuana service: No Current occupational status: employed Review of Systems Const All systems reviewed & are unremarkable except as noted in HPI and below Denies snoring Eyes Reports no additional complaints ENT Reports nasal congestion (Mild off and on) Card Reports no additional complaints and Denies dyspnea Resp Reports cough (Mild occasional), Denies dyspnea, Denies snoring and Denies wheezing GI Reports no additional complaints Reports no additional complaints Musc Reports no additional complaints Skin/Breast Reports system reviewed and no additional complaints, except as documented Neuro Reports no additional complaints Endo Reports no additional complaints Aller/Immun Reports no additional complaints and Denies wheezing Physical Exam Vital Signs: Last Vital Signs Pulse 86 04/17/24 11:31 BP 140/90 H 04/17/24 11:31 Pulse Ox 96 04/17/24 11:31 Oxygen Delivery Method Room Air 04/17/24 11:31 BMI result Body Mass Index 40.0 Const General: healthy appearing, comfortable, no acute distress, alert and awake Orientation/consciousness: patient oriented x3 HEENT Head: Yes normal to inspection General nose exam: No nasal polyps present, No nasal discharge present and Other nasal findings present (Mild nasal congestion in Both nostrils) Face and sinus: Yes sinuses nontender Mouth: oropharynx normal Throat: Yes posterior oropharynx normal Eyes General: appearance normal, both eyes and all related structures Neck Neck: Yes normal visual inspection, Yes no lymphadenopathy, Yes trachea midline and Yes no JVD Thyroid: Thyroid normal Chest Chest palpation & inspection: normal inspection of the chest, normal palpation of entire chest wall and no tenderness Resp Other: Percussion note resonant, has good breath sounds on both sides. Lungs are mostly clear , but she has very frequent cough during the examination. Cardio Palpation: normal PMI Rate: regular rate Rhythm: regular rhythm Heart sounds: no gallops and no murmurs Peripheral pulses: Peripheral pulses 2+ throughout GI Palpation (GI): Soft to palpation, nontender, No hepatosplenomegaly present and no masses Auscultation: normal bowel sounds Back/Spine/Pelvis Thoracic/Lumbar Spine: thoracic and lumbar spine normal to inspection Skin General skin exam: no rashes or lesions noted Neuro General: patient oriented x3 and no focal motor deficits Cranial nerves: Yes CN's II-XII intact bilaterally Extrem General: Yes normal to inspection, Yes no clubbing, cyanosis or edema and Yes no calf tenderness Psych Speech and movement: Normal speech and movement present Assessment & Plan Assessment & Plan (1) Allergic rhinitis: Comment: It is chronic, controlled with use of montelukast, cetirizine and Flonase spray., but still has frequent flare ups. Code(s): J30.9 - Allergic rhinitis, unspecified Category: Medical Qualifiers: Allergic rhinitis seasonality: unspecified Allergic rhinitis trigger: unspecified Qualified Code(s): J30.9 - Allergic rhinitis, unspecified Plan: Continue Flonase-52 spray each nostril daily Continue to use montelukast 10 mg daily. Use cetirizine 10 mg once a day p.r.n. Because of presence of eosinophilia, will consider starting her on biologic treatment. (2) Asthma with acute exacerbation: Comment: She has chronic allergic asthma, mostly controlled with use of fluticasone-salmeterol 250-50, and use of rescue inhaler p.r.n.. She is recovering from an acute exacerbation, there was a question of pneumonia right middle lobe, and is being treated with antibiotic therapy. Code(s): J45.901 - Unspecified asthma with (acute) exacerbation Category: Medical Qualifiers: Asthma persistence: persistent Asthma severity: moderate Qualified Code(s): J45.41 - Moderate persistent asthma with (acute) exacerbation Plan: She would need an extra course of prednisone, in a tapering manner. Continue. Montelukast 10 mg daily Continue fluticasone-salmeterol 1 inhalation b.i.d. Levalbuterol zone 1.25 mg in the nebulizer Q 4-6 hours p.r.n. (3) Eosinophilia: Comment: Before treatment with IV Solu-Medrol she had eosinophil count of 6.8%. This is indicated of allergic etiology of her allergic rhinitis and bronchial asthma. Code(s): D72.10 - Eosinophilia, unspecified Category: Medical Plan: Discussed with her about the biologic treatment She is very eager to start on that. I have ordered Dupixent 300 mg subQ q.2 weeks. Medications: New prednisone 2 tabs bid for 5 days , 2 tabs once a day for 5 days , then 1 tab a day for 5 days 5 mg PO BID 35 tabs 0RF ASTHMA fluticasone propionate 50 mcg/actuation (Flonase Allergy Relief) administer into each nostril 2 sprays intranasal DAILY 30 days 16 grams 5RF all. rhinitis dupilumab 300 mg (2 mL) subcut Q2W 2 weeks 2 mL 11RF Allergic Rhinitis / Eiosinophilia Coding Level of Care Code Est Pt Level 3 (35601) Diagnoses Allergic rhinitis J30.9 Allergic rhinitis seasonality: unspecified Allergic rhinitis trigger: unspecified Moderate persistent asthma with acute exacerbation J45.41 Asthma persistence: persistent Asthma severity: moderate Eosinophilia D72.10
== END 2024-04-17 11:53 | disposition home or self-care (01) ==
PROVIDERS: PCP Internal Medicine; Visit Provider Internal Medicine
DX: J30.9 Allergic rhinitis, unspecified (principal); J45.41 Moderate persistent asthma with (acute) exacerbation; D72.10 Eosinophilia, unspecified
CPT/HCPCS: 99213

== ENCOUNTER 2024-05-04 09:25 | Outpatient (AMB) | payer BC, SELFPAY ==
[2024-05-04 09:30] VITALS: BP 130/82; PULSE 92; O2SAT 98; BMI 39.9
--- NOTE | 2024-05-04 09:30 | A.OFFVIS_ITS ---
Vital Signs 05/04/24 09:30 Height 5 ft 3 in Weight 225 lb BMI 39.9 BP 130/82 Blood Pressure Location Lt brachial Position Sitting Pulse 92 Pulse Source Pulse Oximeter Pulse Oximetry (%) 98 Oxygen Delivery Method Room Air Intake Visit Reasons: Asthma Intake Note: pt is here for follow up and states she was getting better but yesterday started getting tight in chest, she thinks cold is a trigger. 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 Allergies No Known Allergies Allergy (Verified 05/04/24 09:52) Medication List - Last Reconciled 05/04/24 by Elizabeth Molina MD acetaminophen 1,500 mg PO BID PRN albuterol sulfate 90 mcg/actuation 2 puffs inhalation Q4-6H PRN cetirizine 10 mg PO DAILY PRN dupilumab 300 mg (2 mL) subcut Q2W 2 weeks etonogestrel (Nexplanon) 68 mg subdermal DIRECTED fluticasone propion-salmeterol 250-50 mcg/dose (Wixela Inhub) 1 inh inhalation BID fluticasone propionate 50 mcg/actuation (Flonase Allergy Relief) 2 sprays intranasal DAILY 30 days levalbuterol HCl 1.25 mg (3 mL) inhalation Q4-6H PRN montelukast 10 mg PO BEDTIME peak flow meter As directed Do you need a note to return to daycare/school/sports/work: No HPI HPI Asthma: Details: THIS 23 YEARS OLD FEMALE WITH DIAGNOSIS OF ALLERGIC RHINITIS AND BRONCHIAL ASTHMA, COMES TODAY FOR FOLLOW-UP AFTER 4 WEEKS. SHE HAS COMPLETED THE PREDNISONE TAPER, JUST 1 DAY AGO AND HER ASTHMA HAS BEEN UNDER CONTROLLED. 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 IN THE PAST SHE DOES HAVE HISTORY OF 1 OF HER TRIGGERS BEING COLD AIR. OVERALL SHE IS FEELING BETTER. [facility] Medical History (Updated 05/04/24 @ 10:00 by Elizabeth Molina MD) Allergic rhinitis Obesity (BMI 35.0-39.9 without comorbidity) Eosinophilia Asthma Social History Household Members: Family Housing: House Do you presently have visiting nurse or other home services: No Alcohol intake: current Alcohol intake frequency: holidays/special occasions only Comment: refused bed alarm. pt rings appropriately Patient Tobacco Use Status: Never used Tobacco Second Hand Smoke Exposure: No Substance Use Type: Marijuana service: No Current occupational status: employed Review of Systems Const All systems reviewed & are unremarkable except as noted in HPI and below Denies snoring Eyes Reports no additional complaints ENT Reports nasal congestion (Mild off and on) Card Reports no additional complaints and Denies dyspnea Resp Reports cough (Mild occasional), Denies dyspnea, Denies snoring and Denies wheezing GI Reports no additional complaints Reports no additional complaints Musc Reports no additional complaints Skin/Breast Reports system reviewed and no additional complaints, except as documented Neuro Reports no additional complaints Endo Reports no additional complaints Aller/Immun Reports no additional complaints and Denies wheezing Physical Exam Vital Signs: Last Vital Signs Pulse 92 05/04/24 09:30 BP 130/82 05/04/24 09:30 Pulse Ox 98 05/04/24 09:30 Oxygen Delivery Method Room Air 05/04/24 09:30 BMI result Body Mass Index 39.9 Const General: healthy appearing, comfortable, no acute distress, alert and awake Orientation/consciousness: patient oriented x3 HEENT Head: Yes normal to inspection General nose exam: No nasal polyps present, No nasal discharge present and Other nasal findings present (Mild nasal congestion in Both nostrils) Face and sinus: Yes sinuses nontender Mouth: oropharynx normal Throat: Yes posterior oropharynx normal Eyes General: appearance normal, both eyes and all related structures Neck Neck: Yes normal visual inspection, Yes no lymphadenopathy, Yes trachea midline and Yes no JVD Thyroid: Thyroid normal Chest Chest palpation & inspection: normal inspection of the chest, normal palpation of entire chest wall and no tenderness Resp Other: Percussion note resonant, has good breath sounds on both sides. Lungs are mostly clear , but she has very frequent cough during the examination. Cardio Palpation: normal PMI Rate: regular rate Rhythm: regular rhythm Heart sounds: no gallops and no murmurs Peripheral pulses: Peripheral pulses 2+ throughout GI Palpation (GI): Soft to palpation, nontender, No hepatosplenomegaly present and no masses Auscultation: normal bowel sounds Back/Spine/Pelvis Thoracic/Lumbar Spine: thoracic and lumbar spine normal to inspection Skin General skin exam: no rashes or lesions noted Neuro General: patient oriented x3 and no focal motor deficits Cranial nerves: Yes CN's II-XII intact bilaterally Extrem General: Yes normal to inspection, Yes no clubbing, cyanosis or edema and Yes no calf tenderness Psych Speech and movement: Normal speech and movement present Assessment & Plan Assessment & Plan (1) Asthma: Comment: BRONCHIAL ASTHMA is well controlled at this time . Her use of albuterol, is less than once or twice a week She still feels very sensitive to cold air blasts when she has to work outdoors. Code(s): J45.909 - Unspecified asthma, uncomplicated Category: Medical Plan: Continue the current meds including Wixela 250-50 1 inhalation b.i.d. Montelukast 10 mg daily Levalbuterol 2 puffs Q 4-6 hours p.r.n. (2) Eosinophilia: Comment: Before treatment with IV Solu-Medrol she had eosinophil count of 6.8%. This is indicated of allergic etiology of her allergic rhinitis and bronchial asthma. Now that she has completed the course of prednisone. I would get another CBC. Before her next visit. Code(s): D72.10 - Eosinophilia, unspecified Category: Medical Plan: CBC with diff in the next few weeks. Also check IgE level (3) Allergic rhinitis: Comment: It is chronic, controlled with use of montelukast, cetirizine and Flonase spray., but still has frequent flare ups. Code(s): J30.9 - Allergic rhinitis, unspecified Category: Medical Qualifiers: Allergic rhinitis seasonality: unspecified Allergic rhinitis trigger: unspecified Qualified Code(s): J30.9 - Allergic rhinitis, unspecified Plan: She has longstanding history of allergic rhinitis along with allergic bronchial asthma. At present is relatively well controlled. Plan Continue to take montelukast 10 mg daily And use Flonase -50 2 sprays in each nostril daily. Orders: Orders Complete Blood Count Auto Diff Today J30.9 - Allergic rhinitis, unspecified, J45.909 - Unspecified asthma, uncomplicated Immunoglobulin E Today D72.10 - Eosinophilia, unspecified, J30.9 - Allergic rhinitis, unspecified, J45.909 - Unspecified asthma, uncomplicated Coding Level of Care Code Est Pt Level 3 (36959) Diagnoses Asthma J45.909 Eosinophilia D72.10 Allergic rhinitis J30.9 Allergic rhinitis seasonality: unspecified Allergic rhinitis trigger: unspecified
--- OUTSIDE RECORDS SUMMARY | 2024-05-04 09:31 | XMS_ITS | Data Portability ---
Author Organization [facility], [address] Address [address] [place] [address] Care Team Providers Care Last Model Department Supervisor Name Role Phone [facility] Care Provider Assessment No assessment recorded. Plan of Treatment Reminders Order Date Submit Date Provider Last Modified By Organization Details Last Modified Time Details Appointments None recorded. Lab None recorded. Referral None recorded. Procedures None recorded. Surgeries None recorded. Imaging None recorded. Medication Orders albuterol sulfate 2.5 mg/3 mL (0.083 %) solution for nebulizati on 2022 023 [id number], [address] [place], [address], 3 09:11:31 ipratropiu m bromide 0.02 % solution for inhalation 2022 023 [id number], [address] [facility], [place], [address], 3 09:12:18 albuterol sulfate HFA 90 mcg/actuat ion aerosol inhaler 2022 023 [facility] #[id number], [address] [facility], [place], [address], 3 09:09:48 prednisone 20 mg tablet 2022 023 [id number], [address] [facility], [place], [address], 3 09:09:49 benzonatat e 200 mg capsule 2022 023 [id number], [address] [place], [address], 3 09:09:49 Allergy Relief (fluticaso ne) 50 mcg/actuat ion nasal spray,susp ension 2022 023 [id number], [address] [place], [address], 3 09:09:48 Patient TargetsNo targets recorded. Patient Instructions Encounter Date Encounter Id Patient Instructions Last Modified By Organization Details Last Modified Time 08/17/2022 [id number] peak flow* [email or web address] Not available 07/23 09:21:09 Patient instructed on worsening signs and symptoms that would require further evaluation by ED or PCP such as fever of 101.0 or greater, congestion accompanied with coughing, vomiting, diarrhea, abdominal pain, decreased oral intake, lethargy, or other new symptom(s) experienced not discussed during this visit. Use humidifier and ensure good hydration. If you experience new concerning symptoms, shortness of breath, respiratory distress, or chest pain go to the ER. Use the medications prescribed. May use Decongestants if tolerated and no history of elevated blood pressure or Diabetes. Use saline nasal saline and Flonase daily for1 week. You may use tylenol for pain/fever. Do not take prednisone with Ibuprofen. Get some extra rest. When should you call for help? Call anytime you think you may need emergency care. For example, call if: You have severe trouble breathing. Call your doctor now or seek immediate medical care if: You have new or worse trouble breathing. You cough up dark brown or bloody mucus (sputum). You have a new or higher fever. You have a new rash. Watch closely for changes in your health, and be sure to contact your doctor if: You cough more deeply or more often, especially if you notice more mucus or a change in the color of your mucus. You are not getting better as expected. [email or web address] Not available 08/17/2022 09:08:15 Reason for Referral None Reported. Results Created Date Observation Date Name Description Value Unit Range Abnormal Flag Note LastModifiedBy Organization Detail LastModifiedTime Result Notes None recorded. Problems Name Problem SNOMED Code Status Onset Date Resolution Date Notes Provider Name and Address Organization Details Recorded Time Asthma 535506596 Active 023 Rosalinda Tian khoi [place] - [facility] 08/17/2022 08:55:27 Problem Notes None recorded. Procedures Surgical History Date Name Laterality Status Provider Name and Address Organization Details Recorded Time Nebulizer Treatment completed Rosalinda Tian [facility] - [facility] 08/17/2022 09:29:44 Imaging Results None recorded. Procedure Notes None recorded. Medical Equipment None Reported. Allergies No known drug allergies Medications Name Sig Start Date Stop Date Status Note LastModified by Organization Details LastModified Time albuterol sulfate 2.5 mg/3 mL (0.083 %) solution for nebulizatio n Inhale 2.5 mg every day by nebulizat ion route as directed for 1 day. 2022 active Not Available Not Available Not Avai lable benzonatate 200 mg capsule TAKE 1 CAPSULE BY MOUTH THREE TIMES A DAY NEEDED FOR 7 DAYS active Not Available Not Available No t Available prednisone 20 mg tablet TAKE 2 TABLETS BY MOUTH EVERY DAY IN THE MORNING FOR 5 DAYS active Not Available Not Available No t Available montelukast 10 mg tablet TAKE 1 TABLET BY MOUTH EVERY DAY AT BEDTIME FOR 180 DAYS 08/17 completed Not Available Not Available Not Available albuterol sulfate HFA 90 mcg/actuati on aerosol inhaler Inhale 2 puffs every 4-6 hours by inhalatio n route as needed for 10 days. active Not Available Not Available No t Available ondansetron 4 mg disintegrat ing tablet DISSOLVE 1 TABLET UNDER THE TONGUE EVERY 8 HORUS FOR 3 DAYS 08/17 completed Not Available Not Available Not Available fluticasone propionate 50 mcg/actuati on nasal spray,suspe nsion SPRAY 1 SPRAY BY INTRANASA L ROUTE EVERY DAY DIRECTED FOR 30 DAYS active Not Available Not Available No t Available ipratropium bromide 0.02 % solution for inhalation Inhale 0.5 mg every day by inhalatio n route as directed for 1 day. 2022 active Not Available Not Available Not Avai lable levalbutero l HFA 45 mcg/actuati on aerosol inhaler INHALE 2 PUFFS EVERY 4 TO 6 HOURS NEEDED FOR SHORTNESS OF BREATH OR WHEEZING 08/17 completed Not Available Not Available Not Available Symbicort 80 mcg-4.5 mcg/actuati on HFA aerosol inhaler INHALE 2 PUFFS INTO THE LUNGS 2 TIMES DAILY FOR 90 DAYS active Not Available Not Available No t Available Vitals Date Recorded Heart rate Oxygen saturation Oxygen saturation in Arterial blood by Pulse oximetry Body height Body mass index (BMI) Body weight Body temperature Systolic blood pressure Diastolic blood pressure Provider Name and Address Organization Details Last Updated DateTime 3 122 /min 98 % 98 % 160.02 cm 36.8 kg/m2 01465.2 1 g 98 [degF] 141 mm[Hg] 87 mm[Hg] Rosalinda Tian [facility] 3 08:54:09 Social History Question Answer Notes LastModified by [employer] Details LastModified Time Tobacco Smoking Status Never Smoker Rosalinda westfall PA [facility] 08/17/2022 08:55:53 What Is Your Level Of Alcohol Consumption? Occasional Information not available 08/17/2022 How Many Times Per Week Do You Consume Alcohol? Less Than 1 Time Per Week Information not available 08/17/2022 Which Illicit Or Recreational Drugs Have You Used? Marijuana Information not available 08/17/2022 Do You Use Any Illicit Or Recreational Drugs? Yes Information not available 08/17/2022 Have You Recently Traveled Abroad? No Information not available 08/17/2022 Do You Or Have You Ever Used Any Other Forms Of Tobacco Or Nicotine? No Information not available 08/17/2022 Sex: Unknown Functional Status None recorded. Mental Status None recorded. Family History Relationship Description Onset Age of this Age Resolved Age Notes LastModified by Organization Details LastModified Time Father No current problems or disability [email or web address] Not available 08/17 08:55:30 Mother No current problems or disability [email or web address] Not available 08/17 08:55:31 Medical History No medical history recorded. Gynecological HistoryNo gynecological history recorded. Obstetrics History GPAL:G 0 P 0 0 0 0 Past Encounters Encounter ID Performer Location Encounter Start Date Encounter Closed Date Diagnosis/Indication Diagnosis SNOMED-CT Code Diagnosis ICD10 Code [id number] [address] [place] [address] 04/27/2016 17:20:59 04/27/2016 19:39:32 [id number] [address] [place] [address] 03/16/2022 08:17:41 03/16/2022 10:59:10 [id number] Cortez Overton NP [address] [place] [address] 08/17/2022 08:46:31 08/17/2022 09:35:38 Acute bronchitis 19079686 J20.9 Health Concerns Section Related Observation LastModified by Organization Detai ls LastModified Time None Recorded Concern Status LastModified by Organization Details LastModified Time None Recorded Advance Directives Directive None Recorded Payers Encounter Date Sequence Insurance Name Policy Number Policy Gomez Covered Member ID Gomez Member ID Guarantor Name 04/27/2016 1 [place] [id number] Lance [facility] [id number] [facility] 03/16/2022 1 [place] [id number] Lance Hilbig [id number] [facility] 08/17/2022 1 [place] [id number] [facility] [id number] [facility] Notes Date Note Type Note Provider Name and Address Organization Details Recorded Time 08/17/2022 text/html 22 year old cam mendoza present with wheezing and SOB x 1 day. stating her Albuterol is not working. She admit having asthma exacerbation from time to time. Also admit smoking marijuana daily. Cortez Overton NP [address] [place], [address], [place] - [facility] 08/17/2022 10:53:27 OBGyn Episode No OBEpisode recorded.
== END 2024-05-04 09:46 | disposition home or self-care (01) ==
PROVIDERS: PCP Internal Medicine; Visit Provider Internal Medicine
DX: J45.909 Unspecified asthma, uncomplicated (principal); D72.10 Eosinophilia, unspecified; J30.9 Allergic rhinitis, unspecified
CPT/HCPCS: 99213

== ENCOUNTER → 2024-05-04 09:25 | Outpatient (BNVA) | payer BC, SELFPAY | PROVIDERS: PCP Internal Medicine; Visit Provider Internal Medicine ==

== ENCOUNTER 2024-06-08 10:30 | Outpatient (AMB) | payer BC, SELFPAY ==
[2024-06-08 10:44] VITALS: BP 130/80; PULSE 94; O2SAT 98; BMI 40.0
--- NOTE | 2024-06-08 10:44 | MHC.OFFVIS ---
Vital Signs 06/08/24 10:44 Height 5 ft 3 in Weight 225 lb 15.581 oz BMI 40.0 BP 130/80 Blood Pressure Location Lt brachial Position Sitting Pulse 94 Pulse Source Pulse Oximeter Pulse Oximetry (%) 98 Oxygen Delivery Method Room Air Intake Visit Reasons: Asthma Intake Note: pt is here for follow up and is feeling good today, she is starting Dupixent today. Laundry Manager Required: No Allergies No Known Allergies Allergy (Verified 06/08/24 11:01) Do you need a note to return to daycare/school/sports/work: No HPI HPI Asthma: Details: URIAH IS 24 YEARS OLD FEMALE WITH ALLERGIC/EOSINOPHILIC RHINITIS AND BRONCHIAL ASTHMA. SHE IS KEEPING HER CATS AWAY FROM HER IN THE HOUSE. SHE IS ALSO AVOIDING EXPOSURE TO COLD AIR. AND WITH THE USE OF MONTELUKAST, CETIRIZINE, INHALED STEROIDS AND LEVALBUTEROL P.R.N., HER ASTHMA HAS BEEN UNDER RELATIVELY GOOD CONTROL. SHE MEASURES HER PEAK FLOW EVERY FEW WEEKS AND IT HAS BEEN AROUND 400. RECENTLY SHE WAS OFF ORAL PREDNISONE AND HER CBC WITH DIFF DID CONFIRM EOSINOPHILIA, AND SHE IS GOING TO BE STARTED ON BIOLOGIC TREATMENT. [facility] Medical History Allergic rhinitis Obesity (BMI 35.0-39.9 without comorbidity) Eosinophilia Asthma Social History Household Members: Family Housing: House Do you presently have visiting nurse or other home services: No Alcohol intake: current Alcohol intake frequency: holidays/special occasions only Comment: refused bed alarm. pt rings appropriately Patient Tobacco Use Status: Never used Tobacco Second Hand Smoke Exposure: No Substance Use Type: Marijuana service: No Current occupational status: employed Review of Systems Const All systems reviewed & are unremarkable except as noted in HPI and below Denies snoring Eyes Reports no additional complaints ENT Reports nasal congestion (Mild off and on) Card Reports no additional complaints and Denies dyspnea Resp Reports cough (Mild occasional), Denies dyspnea, Denies snoring and Denies wheezing GI Reports no additional complaints Reports no additional complaints Musc Reports no additional complaints Skin/Breast Reports system reviewed and no additional complaints, except as documented Neuro Reports no additional complaints Endo Reports no additional complaints Aller/Immun Reports no additional complaints and Denies wheezing Physical Exam Vital Signs: Last Vital Signs Pulse 94 01/16/25 10:44 BP 130/80 06/08/24 10:44 Pulse Ox 98 06/08/24 10:44 Oxygen Delivery Method Room Air 06/08/24 10:44 BMI result Body Mass Index 40.0 Const General: healthy appearing, comfortable, no acute distress, alert and awake Orientation/consciousness: patient oriented x3 HEENT Head: Yes normal to inspection General nose exam: No nasal polyps present, No nasal discharge present and Other nasal findings present (Mild nasal congestion in Both nostrils) Face and sinus: Yes sinuses nontender Mouth: oropharynx normal Throat: Yes posterior oropharynx normal Eyes General: appearance normal, both eyes and all related structures Neck Neck: Yes normal visual inspection, Yes no lymphadenopathy, Yes trachea midline and Yes no JVD Thyroid: Thyroid normal Chest Chest palpation & inspection: normal inspection of the chest, normal palpation of entire chest wall and no tenderness Resp Other: Percussion note resonant, has good breath sounds on both sides. Lungs are mostly clear , today there was no cough with deep breathing efforts. Cardio Palpation: normal PMI Rate: regular rate Rhythm: regular rhythm Heart sounds: no gallops and no murmurs Peripheral pulses: Peripheral pulses 2+ throughout GI Palpation (GI): Soft to palpation, nontender, No hepatosplenomegaly present and no masses Auscultation: normal bowel sounds Back/Spine/Pelvis Thoracic/Lumbar Spine: thoracic and lumbar spine normal to inspection Skin General skin exam: no rashes or lesions noted Neuro General: patient oriented x3 and no focal motor deficits Cranial nerves: Yes CN's II-XII intact bilaterally Extrem General: Yes normal to inspection, Yes no clubbing, cyanosis or edema and Yes no calf tenderness Psych Speech and movement: Normal speech and movement present Assessment & Plan Assessment & Plan (1) Allergic rhinitis: Comment: It is chronic, controlled with use of montelukast, cetirizine and Flonase spray., but still has frequent flare ups. Code(s): J30.9 - Allergic rhinitis, unspecified Category: Medical Qualifiers: Allergic rhinitis seasonality: unspecified Allergic rhinitis trigger: unspecified Qualified Code(s): J30.9 - Allergic rhinitis, unspecified Plan: Continue the present treatment and also started on Dupilomab 300 mg subQ q.2 weeks. (2) Asthma: Comment: BRONCHIAL ASTHMA is well controlled at this time . Her use of albuterol, is less than once or twice a week She has had no bouts of acute bronchospasm as long as she stays away from cold air and also cats at home. Code(s): J45.909 - Unspecified asthma, uncomplicated Category: Medical Plan: Continue Wixela 250-50 1 inhalation b.i.d., but may start weaning off slowly Levalbuterol 1.25 mg 2 puffs Q 4-6 hours p.r.n. Continue montelukast 10 mg daily Check peak flows Q 1 week (3) Eosinophilia: Comment: Before treatment with IV Solu-Medrol she had eosinophil count of 6.8%. This is indicative of allergic etiology of her allergic rhinitis and bronchial asthma. Code(s): D72.10 - Eosinophilia, unspecified Category: Medical Plan: Patient is started on Dupixent 300 mg subQ q.2 weeks. Continue montelukast 10 mg daily May use cetirizine 10 mg once a day p.r.n. runny acute flare ups. Coding Level of Care Code Est Pt Level 3 (52800) Diagnoses Allergic rhinitis J30.9 Allergic rhinitis seasonality: unspecified Allergic rhinitis trigger: unspecified Asthma J45.909 Eosinophilia D72.10
--- OUTSIDE RECORDS SUMMARY | 2024-06-08 12:34 | XMS_ITS | Data Portability ---
Author Organization [facility], [address] Address [address] [place] [address] Care Team Providers Care Trade Facilitator Name Role Phone [facility] Care Provider Assessment No assessment recorded. Plan of Treatment Reminders Order Date Submit Date Provider Last Modified By Organization Details Last Modified Time Details Appointments None recorded. Lab None recorded. Referral None recorded. Procedures None recorded. Surgeries None recorded. Imaging None recorded. Medication Orders albuterol sulfate 2.5 mg/3 mL (0.083 %) solution for nebulizati on 2022 023 [facility] #[id number], [address] [place], [address], 3 09:11:31 ipratropiu m bromide 0.02 % solution for inhalation 2022 023 [facility] #[id number], [address], [place], [address], 3 09:12:18 albuterol sulfate HFA 90 mcg/actuat ion aerosol inhaler 2022 023 [facility] #2339, [address], [place], [address], 3 09:09:48 prednisone 20 mg tablet 2022 023 [facility] #2339, [address], [place], [address], 3 09:09:49 benzonatat e 200 mg capsule 2022 023 [facility] #2339, [address] [place], [address], 3 09:09:49 Allergy Relief (fluticaso ne) 50 mcg/actuat ion nasal spray,susp ension 2022 023 [facility] #2339, [address] [place], [address], 3 09:09:48 Patient TargetsNo targets recorded. Patient Instructions Encounter Date Encounter Id Patient Instructions Last Modified By Organization Details Last Modified Time 08/17/2022 [id number] peak flow* emonfette Not available 07/23 09:21:09 [...] and Address Organization Details Recorded Time Asthma [id number] Active 023 Rosalinda Tian khoi PA - [...] t Available Vitals Date Recorded Heart rate Provider Name an d Address Organization Details Last Updated DateTime 08/17/2022 122 /min Rosalinda Tian PA - [facility] 08/17/2022 08:53:59 Date Recorded Oxygen saturation Oxygen saturation in Arterial blood by Pulse oximetry Provider Name and Address Organization Details Last Updated DateTime 08/17/2022 98 % 98 % Rosalinda Tian PA - [facility] 08/17/2022 08:53:30 Date Recorded Body height Provider Name an d Address Organization Details Last Updated DateTime 08/17/2022 160.02 cm Rosalinda Tian PA - [facility] 08/17/2022 08:56:02 Date Recorded Body mass index (BMI) Body weight Provider Name and Address Organization Details Last Updated DateTime 08/17/2022 36.8 kg/m2 74881.21 g Rosalinda Tian PA - [facility] 08/17/2022 08:56:39 Date Recorded Body temperature Provider Name a nd Address Organization Details Last Updated DateTime 08/17/2022 98 [degF] Rosalinda Tian PA - [facility] 08/17/2022 08:56:46 Date Recorded Pain severity - 0-10 verbal numeric rating [Score] - Reported Provider Name and Address Organization Details Last Updated DateTime 08/17/2022 0 Rosalinda Tian PA - [facility] 08/17/2022 08:56:49 Date Recorded Systolic blood pressure Diastolic blood pressure Provider Name and Address Organization Details Last Updated DateTime 08/17/2022 141 mm[Hg] 87 mm[Hg] Rosalinda Tian PA - [facility] 08/17/2022 08:54:09 Social History Question Answer Notes LastModified by Organizat ion Details LastModified Time Tobacco Smoking Status Never Smoker Rosalinda westfall PA - [facility] 08/17/2022 08:55:53 What Is Your Level [...] Diagnosis/Indication Diagnosis SNOMED-CT Code Diagnosis ICD10 Code Diagnosis Note [id number] [address] [address] [place] [address] 04/27/2016 17:20:59 04/27/2016 19:39:32 [id number] [address] [facility] [address] [place] [address] 03/16/2022 08:17:41 03/16/2022 10:59:10 [id number] Cortez Overton NP [address] [place] [address] 08/17/2022 08:46:31 08/17/2022 09:35:38 Acute bronchitis [id number] J20.9 Health Concerns Section Related Observation LastModified by Organization Detai ls LastModified Time None Recorded Concern Status LastModified by Organization Details LastModified Time None Recorded Advance Directives Directive None Recorded Payers Encounter Date Sequence Insurance Name Policy Number Policy Gomez Covered Member ID Gomez Member ID Guarantor Name 04/27/2016 1 [place] [id number] [place] [id number] Marine Jeff 03/16/2022 1 [place] [id number] Lance Cleveland [id number] Marine Cleveland 08/17/2022 1 [place] [id number] Lance Cleveland [id number] [facility] Notes Date Note Type Note Provider Name and Address Organization Details Recorded Time 08/17/2022 text/html 22 year old cam le present with wheezing and SOB x 1 day. stating her Albuterol is not working. She admit having asthma exacerbation from time to time. Also admit smoking marijuana daily. Crotez Overton NP [address] [place], [address], PA - [facility] 08/17/2022 10:53:27 OBGyn Episode No OBEpisode recorded.
== END 2024-06-08 11:02 | disposition home or self-care (01) ==
PROVIDERS: PCP Internal Medicine; Visit Provider Internal Medicine
DX: J30.9 Allergic rhinitis, unspecified (principal); J45.909 Unspecified asthma, uncomplicated; D72.10 Eosinophilia, unspecified
CPT/HCPCS: 99213

== ENCOUNTER → 2024-06-08 10:30 | Outpatient (BNVA) | payer BC, SELFPAY | PROVIDERS: PCP Internal Medicine; Visit Provider Internal Medicine ==

== ENCOUNTER 2024-06-26 09:37 | Emergency (ER) | payer BC, SELFPAY ==
--- NOTE | ~2024-06-26 | XR_ITS ---
EXAMINATION: XR CHEST CLINICAL INFORMATION: coughing COMPARISON: April 10, 2024. TECHNIQUE: 2 views of the chest were obtained. FINDINGS: No gross consolidation, pleural effusion or pneumothorax. No hyperinflation. Cardiomediastinal silhouette is normal. Mild multilevel thoracic spondylosis. Superior concave deformity right clavicle. XR/XR chest 2V IMPRESSION: No acute airspace disease. Probable old traumatic deformity right clavicle. Electronically signed by: Dylan Israel MD 06/26/2024 11:08 AM MARC
[2024-06-26 10:03] VITALS: BP 147/69; PULSE 139; RESP 26; TEMP 37.2; O2SAT 94; BMI 39.0
[2024-06-26 10:20] VITALS: PULSE 115; RESP 26; O2SAT 96
[2024-06-26] MEDS: Albuterol Sulfate 2.5 MG, Albuterol/Iprat 2.5/0.5MG 3 ML 3 ML INHALE (10:20)
--- NOTE | 2024-06-26 10:29 | ED_ITS ---
HPI - General Adult General Chief complaint: Dyspnea Stated complaint: Asthma Time Seen by Provider: 06/26/24 10:13 Source: patient Mode of arrival: ambulatory Limitations: no limitations History of Present Illness ED Provider: Ravi Metzger HPI narrative: 23-year-old female history of asthma presents to ED for coughing, diarrhea, wheezing anxiety, and fevers for the past 2 days. Patient denies any recent long travel or recent surgery Related Data Home Medications ?Medication ?Instructions ?Recorded ?Confirmed acetaminophen 500 mg tablet 1,500 mg PO BID PRN Pain 02/20/23 05/04/24 etonogestrel 68 mg subdermal 68 mg subdermal DIRECTED 07/24/23 05/04/24 implant (Nexplanon) fluticasone 250 mcg-salmeterol 50 1 inh inhalation BID 01/06/24 05/04/24 mcg/dose blistr powdr for inhalation (Wixela Inhub) montelukast 10 mg tablet 10 mg PO BEDTIME Allergic Rhinitis 04/10/24 05/04/24 Previous Rx's ?Medication ?Instructions ?Recorded peak flow meter #1 ea 11/02/22 albuterol sulfate 90 mcg/actuation 2 puff inhalation Q4-6H PRN for 09/23/23 aerosol inhaler wheezing #8.5 ea cetirizine 10 mg tablet 10 mg PO DAILY PRN allergy 11/19/23 symptoms #30 tabs levalbuterol HCl 1.25 mg/3 mL 1.25 mg (3 mL) inhalation Q4-6H 04/13/24 solution for nebulization PRN shortness of breath or wheezing #72 mL fluticasone propionate 50 2 spray intranasal DAILY all. 04/17/24 mcg/actuation nasal rhinitis 30 days #16 grams spray,suspension (Flonase Allergy Relief) dupilumab 300 mg/2 mL subcutaneous 300 mg (2 mL) subcut Q2W Allergic 05/26/24 pen injector Rhinitis / Eiosinophilia 2 weeks #2 mL oseltamivir 75 mg capsule (Tamiflu) 75 mg PO BID 5 days #10 caps 06/26/24 prednisone 20 mg tablet 40 mg (2 x 20 mg) PO DAILY 5 days 06/26/24 #10 tabs Allergies Allergy/AdvReac Type Severity Reaction Status Date / Time No Known Allergies Allergy Verified 06/26/24 10:05 Review of Systems 2 Review of Systems: Coughing vomiting fever diarrhea chills Yes all other systems are reviewed and are negative [facility] Past Medical History Medical History Allergic rhinitis Obesity (BMI 35.0-39.9 without comorbidity) Eosinophilia Asthma Social History Social History Household Members: Family Housing: House Do you presently have visiting nurse or other home services: No Alcohol intake: current Alcohol intake frequency: holidays/special occasions only Comment: refused bed alarm. pt rings appropriately Patient Tobacco Use Status: Never used Tobacco Second Hand Smoke Exposure: No Substance Use Type: Marijuana service: No Current occupational status: employed Physical Exam ED Vital Signs: Vital Signs - 24 hr 06/26/24 10:03 06/26/24 10:20 06/26/24 12:00 Temperature 99.0 F 98.3 F Pulse Rate 139 H 115 H 119 H Respiratory Rate 26 H 26 H 16 Blood Pressure 147/69 H 131/68 Pulse Oximetry 94 95 Oxygen Delivery Method Room Air Room Air 06/26/24 13:31 Temperature 98.9 F Pulse Rate 114 H Respiratory Rate 18 Blood Pressure 127/76 Pulse Oximetry 97 Oxygen Delivery Method Room Air BMI result Body Mass Index 39.0 Const General: cooperative, healthy appearing, comfortable, no acute distress, well developed, alert, awake and Physically active Orientation/consciousness: patient oriented x3 HENMT Head: Yes normal to inspection, Yes No palpable skull fracture present, Yes normocephalic and Yes atraumatic Ears: hearing grossly normal bilaterally, external ears normal, TM's normal bilaterally, TM normal on the right, TM normal on the left, EAC's normal, mastoids normal and no periauricular adenopathy Throat: Yes posterior oropharynx normal, Yes tonsils normal and Yes uvula midline Eyes General: appearance normal, both eyes and all related structures Neck Neck: Yes normal visual inspection, Yes full ROM, Yes no lymphadenopathy, Yes no meningeal signs, Yes trachea midline, Yes supple, No anterior neck swelling and No tender Chest Chest palpation & inspection: normal inspection of the chest and normal palpation of entire chest wall Resp Effort & Inspection: normal respiratory effort and able to speak in complete sentences Auscultation: wheezes expiratory wheezes Cardio Jugular venous distension: no JVD Heart sounds: S1 normal heart sound present and S2 normal heart sound present GI Inspection: Yes normal to inspection Palpation (GI): Soft to palpation, not firm, nontender, no guarding and not rigid General: Yes no CVA tenderness Back/Spine/Pelvis Back: no CVA tenderness and No back tenderness Skin General skin exam: no rashes or lesions noted, elasticity normal and turgor normal Neuro General: patient oriented x3, gait normal, tone normal, moves all extremities, Normal light touch and pain sensation, no meningeal signs, no focal motor deficits, CN's II-XI intact bilaterally and normal sensation to monofilament Extrem General: Yes normal to inspection, Yes full ROM and Yes capillary refill normal Psych Appearance: grossly normal, well kempt and not disheveled Medications Administered Discontinued Medications Generic Name Dose Route Start Last Admin Trade Name Freq PRN Reason Stop Dose Admin Acetaminophen 975 mg 06/26/24 12:02 06/26/24 12:07 Acetaminophen 325 Mg Tablet PO 06/26/24 12:03 975 mg ONCE ONE Administration Albuterol Sulfate 2.5 mg/ 0 mg 06/26/24 10:14 06/26/24 10:20 Albuterol/Ipratropium 3 ml INHALE 06/26/24 10:15 1 dose ONCE ONE Administration Magnesium Sulfate 2 gm in 50 mls @ 25 mls/hr 06/26/24 10:13 06/26/24 12:41 Magnesium Sulfate/H2o IV 06/26/24 12:12 Infused ONCE ONE Infusion Sodium Chloride 1,000 mls @ 999 mls/hr 06/26/24 10:37 06/26/24 12:12 Ns IV 06/26/24 11:37 Infused .Q1H1M STA Infusion Sodium Chloride 1,000 mls @ 999 mls/hr 06/26/24 10:38 06/26/24 13:28 Ns IV 06/26/24 11:38 Infused .Q1H1M STA Infusion Methylprednisolone Sodium Succinate 125 mg 06/26/24 10:13 06/26/24 10:43 Methylprednisolone Sod Succ 125 Mg/2 Ml Vial IVPUSH 06/26/24 10:14 125 mg ONCE ONE Administration Ondansetron HCl 4 mg 06/26/24 10:37 06/26/24 10:50 Ondansetron Hcl 4 Mg/2 Ml Vial IVPUSH 06/26/24 10:38 4 mg ONCE ONE Administration Medical Decision Making Medical Decision Making [facility] Narrative: 23 year female presents to ED for URI symptoms. Positive for expiratory wheezing. Labs Solu-Medrol man EKG chest x-ray ordered. 1:21pm: Patient's O2 saturation on walking is 97% on room air. Patient's positive influenza. X-ray negative for pneumonia. Patient will be discharged with Tamiflu and prednisone. Lungs no longer have wheezing. Not suspecting respiratory failure, hypoxia, PE, DC, CHF, myocarditis, pericarditis, cardiac tamponade, or any other life-threatening etiology. Differential Diagnosis Differential Diagnoses: The differential diagnosis associated with the presentation includes (Pneumonia, DC, CHF, COVID, influenza, RS) Admission/Observation Consideration of admission/observation: Escalation of care including admission/observation considered Lab Data [facility] Lab Attestation statement: I reviewed the patient's lab results. 06/26/24 10:27 06/26/24 10:27 Labs: Lab Results 06/26/24 06/26/24 Range/Units 10:20 10:27 WBC 10.2 (4.8-10.8) X10*3/uL RBC 4.47 (4.20-5.50) X10*6/uL Hgb 14.3 (12.0-16.0) g/dl Hct 41.0 (37.0-47.0) % MCV 91.7 (80.0-98.0) fL MCH 32.0 (27.0-33.0) pg MCHC 34.9 (31.0-35.0) g/dl RDW 12.3 (11.0-16.0) % Plt Count 300 (160-400) X10*3/uL MPV 9.8 (9.4-12.3) fL Immature Gran % (Auto) 0.5 H (0.0-0.4) % Neut % (Auto) 88.7 H (45-73) % Lymph % (Auto) 2.4 L (20-40) % Caroline % (Auto) 7.9 (2-11) % Eos % (Auto) 0.1 (0-4) % Baso % (Auto) 0.4 (0-2) % Lymph # (Auto) 0.2 L (1.2-4.9) X10*3/uL Caroline # (Auto) 0.8 (0.1-1.2) X10*3/uL Eos # (Auto) 0.0 (0.0-0.4) X10*3/uL Baso # (Auto) 0.0 (0.0-0.2) X10*3/uL Abs Immat Gran (auto) 0.05 H (0.00-0.03) X10*3/uL Absolute Neuts (auto) 9.0 H (2.0-8.3) x10*3/uL Absolute Nucleated RBC 0.000 (0.0-0.012) X10*3/uL Nucleated RBC % (auto) 0.0 (0.0-0.2) /100WBC PT 12.3 (10.9-12.4) SEC INR 1.1 (0.9-1.1) APTT 33.1 (26.0-36.8) SEC Sodium 138 (135-145) mmol/L Potassium 3.7 (3.3-5.1) mmol/L Chloride 109 H (96-108) mmol/L Carbon Dioxide 20 L (22-29) mmol/L Anion Gap 13 (12-20) BUN 11 (9-16) mg/dL Creatinine 0.71 (0.5-1.4) mg/dL Estim Creat Clear Calc 138.8 Estimated GFR > 60 Random Glucose 114 (60-115) mg/dL Calcium 9.2 (8.4-10.2) mg/dL Magnesium 1.6 (1.6-2.6) mg/dL Total Bilirubin 0.5 (0.0-1.0) mg/dL AST 25 (5-31) U/L ALT 17 (0-31) U/L Alkaline Phosphatase 69 (39-117) U/L Troponin I High Sens < 2.7 (<3.5-17.0) ng/L B-Natriuretic Peptide 95 (<100) pg/mL Total Protein 7.7 (6.5-8.0) g/dL Albumin 4.5 (3.5-5.0) g/dL Beta HCG, Quant < 2 mIU/mL Influenza Type A (PCR) POSITIVE A (Negative) Influenza Type B (PCR) NEGATIVE (Negative) RSV RNA Qual (PCR) NEGATIVE (Negative) SARS-CoV-2 RNA (RT-PCR) NEGATIVE (Negative) S. pyogenes GrpA NIGHAT Negative (Negative) Independent Interpretation I performed an independent interpretation of an: EKG (Negative STEMi) and Plain X-Ray Radiology Impression Discussion of test interpretation with radiology: I have reviewed the radiologist's reading. Independent Historian Clinical information obtained from an independent historian. History obtained from or confirmed by: Other (Patient) Prescription Management I considered prescription management with: Other (Tamiflu ) Discharge Plan Discharge Clinical Impression: Influenza A Patient Disposition: Home, Self-Care Instructions: Asthma (ED), Influenza (ED) Additional Instructions: You tested positive for the flu. Recommend resting and plenty of oral hydration with fluids. Return to the ED immediately for any chest pain, shortness of breath, coughing up blood, weakness, dizziness, or any other concerning symptoms. Continue using albuterol inhaler as needed Prescriptions: New oseltamivir [Tamiflu] 75 mg capsule 75 mg PO BID 5 Days Qty: 10 0RF prednisone 20 mg tablet 40 mg PO DAILY 5 Days Qty: 10 0RF No Action albuterol sulfate 90 mcg/actuation HFA aerosol inhaler 2 puff inhalation Q4-6H PRN (Reason: for wheezing) Qty: 8.5 3RF dupilumab 300 mg/2 mL pen injector 300 mg subcut Q2W 14 Days Qty: 2 11RF Rx Instructions: Loading dose of 600mg on day 1 followed by 300mg every 2 weeks acetaminophen 500 mg Tablet 1,500 mg PO BID PRN (Reason: Pain) Nexplanon 68 mg Implant 68 mg SUBDERMAL DIRECTED montelukast 10 mg tablet 10 mg PO BEDTIME levalbuterol HCl 1.25 mg/3 mL solution for nebulization 1.25 mg inhalation Q4-6H PRN (Reason: shortness of breath or wheezing) Qty: 72 0RF cetirizine 10 mg tablet 10 mg PO DAILY PRN (Reason: allergy symptoms) Qty: 30 1RF (DME) peak flow meter Device See Rx Instructions .Route Qty: 1 0RF Rx Instructions: As directed fluticasone propion-salmeterol [Wixela Inhub] 250-50 mcg/dose blister with device 1 inh inhalation BID fluticasone propionate [Flonase Allergy Relief] 50 mcg/actuation spray,suspension 2 spray intranasal DAILY 30 Days Qty: 16 5RF Rx Instructions: administer into each nostril Stand Alone Forms: Work/School Release Interventions: ED Discharge Assessment Last Done: 06/26/24 13:31 Discharge Date/Time: 06/26/24 13:32 Print Language: Andorran
[2024-06-26 10:32] LABS: MANUAL DIFF FLAG NO
[2024-06-26 10:35] LABS: Basophils Percent Auto 0.4 % (0-2); Eosinophils Percent Auto 0.1 % (0-4); Hemoglobin 14.3 g/dl (12.0-16.0); Imm Gran Abs Auto 0.05 X10*3/uL (0.00-0.03); Imm Gran Pct Auto 0.5 % (0.0-0.4); Lymphocytes Absolute Auto 0.2 X10*3/uL (1.2-4.9); Lymphocytes Percent Auto 2.4 % (20-40); Mean Corpuscular HGB Conc 34.9 g/dl (31.0-35.0); Mean Corpuscular Volume 91.7 fL (80.0-98.0); Mean Platelet Volume 9.8 fL (9.4-12.3); Monocytes Absolute Auto 0.8 X10*3/uL (0.1-1.2); Monocytes Percent Auto 7.9 % (2-11); Neutrophils Percent Auto 88.7 % (45-73); Platelet Count 300 X10*3/uL (160-400); Red Blood Count 4.47 X10*6/uL (4.20-5.50); Red Cell Distribution Width 12.3 % (11.0-16.0); White Blood Count 10.2 X10*3/uL (4.8-10.8)
--- NOTE | 2024-06-26 10:40 | ECG_ITS ---
Test Reason : tachy Blood Pressure : */* mmHG Vent. Rate : 121 BPM Atrial Rate : 121 BPM P-R Int : 128 ms QRS Dur : 82 ms QT Int : 292 ms P-R-T Axes : 60 70 24 degrees QTcB Int : 414 ms Sinus tachycardia Otherwise normal ECG When compared with ECG of 10-Apr-2024 15:33, MN interval has increased T wave inversion no longer evident in Anterior leads Referred By: Ravi Metzger Electronically Signed By: Martín Omalley
[2024-06-26 10:41] LABS: IDNOW Serial# 58CA691E; Strep A Nucleic Acid Negative (Negative)
[2024-06-26] MEDS: methylPREDNISolone Sod Succ 125 MG/2 ML VIAL IVPUSH (10:43)
[2024-06-26] MEDS: 0.9 % Sodium Chloride 1,000 ML 999 ML IV ×2 (10:45→10:49)
[2024-06-26 10:47] LABS: INTERNATIONAL NORM RATIO 1.1 (0.9-1.1); Prothrombin Time 12.3 SEC (10.9-12.4)
[2024-06-26 10:50] LABS: Partial Thromboplastin Time 33.1 SEC (26.0-36.8)
[2024-06-26] MEDS: ondansetron HCL 4 MG/2 ML VIAL IVPUSH (10:50)
--- OUTSIDE RECORDS SUMMARY | 2024-06-26 10:56 | XMS_ITS | Encounter Summary ---
Author Organization [facility] Address [address] [place] [address] Care Team Providers Care Dehydrator Tender Name Role Phone Darby Davis MD Primary Care Prov ider Elizabeth Molina Unavailable Unavailable Leelee Ayala MD Unavailable Unavailable Encounter Details Date Type Department Care Team Description 02/11/2023 Productivity Engineer Report Medical Records [address] [place] [address] Elizabeth Molina Social History Tobacco Use Types Packs/Day Years Used Date Smoking Tobacco: Never Smokeless Tobacco: Never Alcohol Use Standard Drinks/Week Comments Yes 0 (1 standard drink = 0.6 oz pure alcohol) Once every six months since gastritis Sex Assigned at Date Recorded Not on file Job Start Date Occupation Industry Not on file Not on file Not on file documented as of this encounter Plan of Treatment Not on file documented as of this encounter Visit Diagnoses Not on filedocumented in this encounter Care Teams Dehydrator Tender Relationship Specialty Start Date End Date Darby Davis MD [address] [place] [address] PCP - General Internal Medicine 03/17/22 Elizabeth Molina [address] [place] [address] Specialist Pulmonology 08/12/22 Leelee Ayala MD [address] [id number] Specialist Allergy & Immunology 09/30/23 documented as of this encounter
--- OUTSIDE RECORDS SUMMARY | 2024-06-26 10:56 | XMS_ITS | Encounter Summary ---
Author Organization [facility] Address [address] [place] [address] Care Team Providers Care Publicity Person Name Role Phone Darby Davis MD Primary Care Prov ider Elizabeth Molina Unavailable Unavailable Leelee Ayala MD Unavailable Unavailable Encounter Details Date Type Department Care Team Description 07/25/2023 Hospital Medical Records [address] [place] [address] Anthony Colunga Social History Tobacco Use Types Packs/Day Years [...] on filedocumented in this encounter Care Teams Publicity Person Relationship Specialty Start Date End Date Darby Davis MD [address] [place] [address] PCP - General Internal Medicine 03/17/22 Elizabeth Molina [address] [place] [address] Specialist Pulmonology 08/12/22 Leelee Ayala MD [address] [place] [address] Specialist Allergy & Immunology 09/30/23 documented as of this encounter
--- OUTSIDE RECORDS SUMMARY | 2024-06-26 10:56 | XMS_ITS | Encounter Summary ---
Author Organization [facility] Address [address] [place] [address] Care Team Providers Care Configuration Management Administrator Name Role Phone Darby Davis MD Primary Care Prov ider Elizabeth Molina Unavailable Unavailable Leelee Ayala MD Unavailable Unavailable Encounter Details Date Type Department Care Team Description 03/18/2023 [place] Machine Operator Report Medical Records [address] [place] [address] Elizabeth Molina Social History Tobacco Use Types Packs/Day Years Used Date Smoking Tobacco: Never Smokeless Tobacco: Never Alcohol Use Standard Drinks/Week Comments Yes 0 (1 standard drink = 0.6 oz pure alcohol) Once every six months since gastritis Sex Assigned at Date Recorded Not on file Job Start Date Occupation Industry Not on file Not on file Not on file COVID-19 Exposure Response Date Recorded In the last 10 days, have jhon teague been in contact with someone who was confirmed or suspected to have Coronavirus/COVID-19? No / Unsure 03/03/2023 10:12 AM EDT documented as of this encounter Plan of Treatment Not on file documented as of this encounter Visit Diagnoses Not on filedocumented in this encounter Care Teams Configuration Management Administrator Relationship Specialty Start Date End Date Darby Davis MD [address] [place] [address] PCP - General Internal Medicine 03/17/22 Elizabeth Molina [address] [place] [address] Specialist Pulmonology 08/12/22 Leelee Ayala MD [address] [place] [address] Specialist Allergy & Immunology 09/30/23 documented as of this encounter
--- OUTSIDE RECORDS SUMMARY | 2024-06-26 10:56 | XMS_ITS | Encounter Summary ---
Author Organization [facility] Address [address] [place] [address] Care Team Providers Care Director Prospect Name Role Phone Vivienne Kim MD Primary Care Provider Unavailab Silvia Maldonado DO Primary Care Pro vider Unavailable Sidney Kessler MD Primary Care Provider Darby Allen MD Primary Care Prov ider Elizabeth Molina Unavailable Unavailable Leelee Ayala MD Unavailable Unavailable Encounter Details Date Type Department Care Team Description 01/06/2017 Release of Information Medical Records [address] [place] [id number] Abstract, Provider Social History Tobacco Use Types Packs/Day Years Used Date Smoking Tobacco: Passive Smo ke Exposure - Never Smoker Sex Assigned at Date Recorded Not on file Job Start Date Occupation Industry Not on file Not on file Not on file documented as of this encounter Plan of Treatment Not on file documented as of this encounter Visit Diagnoses Not on filedocumented in this encounter Care Teams Director Prospect Relationship Specialty Start Date End Date Vivienne Kim MD PCP - General Pediatrics 11/13/16 04/11/20 Silvia Estrada DO PCP - General Internal Medicine 04/12/20 01/20/21 Sidney Kessler MD PCP - General Internal Medicine 01/21/21 03/16/22 Darby Davis MD [address] [place] [id number] PCP - General Internal Medicine 03/17/22 Elizabeth Molina [address] [place] [address] Specialist Pulmonology 08/12/22 Leelee Ayala MD [address] [place] [address] Specialist Allergy & Immunology 09/30/23 documented as of this encounter
--- OUTSIDE RECORDS SUMMARY | 2024-06-26 10:56 | XMS_ITS | Encounter Summary ---
Author Organization [facility] Address [address] [facility] [place] [address] Care Team Providers Care Vp Compliance Name Role Phone Darby Davis MD Primary Care Prov ider Elizabeth Molina Unavailable Unavailable Leelee Ayala MD Unavailable Unavailable Encounter Details Date Type Department Care Team Description 08/10/2023 Portrait Studio Photographer Report Medical Records [address] [place] [address] Richa Bender NP Social History Tobacco Use Types Packs/Day Years [...] on filedocumented in this encounter Care Teams Vp Compliance Relationship Specialty Start Date End Date Darby Davis MD [address] [phone] PCP - General Internal Medicine 03/17/22 Elizabeth Molina [address] [place] [address] Specialist Pulmonology 08/12/22 Leelee Ayala MD [address] [phone] Specialist Allergy & Immunology 09/30/23 documented as of this encounter
--- OUTSIDE RECORDS SUMMARY | 2024-06-26 10:56 | XMS_ITS | Encounter Summary ---
Author Organization [facility] Address [address] [place] [address] Care Team Providers Care Mental Health Unit Lead Psychologist Name Role Phone Darby Davis MD Primary Care Prov ider Elizabeth Molina Unavailable Unavailable Leelee Ayala MD Unavailable Unavailable Encounter Details Date Type Department Care Team Description 01/20/2023 Hospital Medical Records [address] [place] [address] Anthony Colunga Social History Tobacco Use Types [...] on filedocumented in this encounter Care Teams Mental Health Unit Lead Psychologist Relationship Specialty Start Date End Date Darby Davis MD [address] [place] [address] PCP - General Internal Medicine 03/17/22 Elizabeth Molina [address] [place] [address] Specialist Pulmonology 08/12/22 Leelee Ayala MD [address] [place] [address] Specialist Allergy & Immunology 09/30/23 documented as of this encounter
--- OUTSIDE RECORDS SUMMARY | 2024-06-26 10:56 | XMS_ITS | Clinical Summary ---
Author Organization [facility] Address [address] [place] [address] Care Team Providers Care Architecture Faculty Member Name Role Phone Darby Jacome MD Primary Care Prov ider Allergies No known active allergies Medications Medication Sig Dispensed Refills Start Date End Date Status levalbuterol (XOPENEX) 1.25 mg/3 mL nebulizer solution Take 1 Ampule by nebulization every 3 hours as needed for Wheezing. 08/05/2023 Active budesonide-formoter oL (SYMBICORT) 80-4.5 mcg/actuation inhaler Inhale 2 Puffs into the lungs 2 times daily. 08/05/2023 Active doxycycline (MONODOX) 100 mg capsule 02/26/2023 Active albuterol HFA (PROAIR HFA ; PROVENTIL HFA ; VENTOLIN HFA) 90 mcg/actuation inhaler Inhale 2 Puffs into the lungs every 4 hours as needed for Cough or Wheezing. 04/09/2022 Active predniSONE (DELTASONE) 10 mg tablet 02/26/2023 Active montelukast (SINGULAIR) 10 mg tablet Take 1 Tablet by mouth at bedtime for 180 days. 04/09/2022 Active Active Problems Problem Noted Date Diagnosed Date Allergic rhinitis 04/21/2022 Asthma in adult, unspecified asthma severity, un complicated 04/21/2022 Overview (03/05/2024): In process of w/u with [facility] as of 03/2022 Alcoholic gastritis without bleeding 02/20/2021 Marijuana smoker 02/20/2021 Encounters Date Type Department Care Team Description 06/01/[address] [facility] [address] [place] [phone] Jolanta Ram MA from Last 3 Months Immunizations Name Administration Dates Next Due DTaP (Infanrix) 6wks to less than 7yo ,10/11/2002,2001,10/20,2001 PDqP-QIS-HVT (Pentacel) 2mo to less than 5yo 10/11/2002,2001,2001,08/12 HPV, Quadrivalent 06/14/2014,02/08/2014,12/12/19 14 Hepatitis B Pediatric (Enger ix B; Recombivax HB) to less than 20 yo 2001,2001,2001 IPV Inactivated polio (Ipol) 6wks and older 10/04/2006,10/11/2002,2001,08/12 MMR, measles mumps and rubel la Live (Priorix; M-M-R II) 12mo and older 07/20/2002 MMRV, measles mumps rubella and varicella live (Proquad) 4yo to less than 7yo 10/04/2006 Meningococcal MCV4P 01/06/2018,11/02/2012 Pneumococcal Conjugate Vacci ne, 7 Valent 03/15/2002,2001,2001 Tdap Tetanus diptheria acell ular pertussis (Boostrix; Adacel) 7yo and older 11/02/2012 Varicella live (Varivax) 12m o and older 07/20/2002 Surgical History Surgery Date Site/Laterality Comments OTHER SURGICAL HISTORY PROCEDURE: DENIES PREVIOUS SURGERY Medical History Medical History Date Comments Fracture of right clavicle 12/31/2016 DX:Fr acture of right clavicle; COMMENT: 01/21/2012 doing cartwheels on trampoline BMI (body mass index), pedia tric, 95-99% for age 812/31/2016 DX:BMI (body mass index), pe diatric, 95-99% for age; COMMENT: 12/31/14 individualized goals: decrease junk foods. Increase fruits, vegetables. Increase activity H/O strabismus 12/31/2016 DX:H/O strabismu s; COMMENT: R eye. Wears glasses Asthma in adult, unspecified asthma severity, uncomplicated 04/21/2022 DX:Asthma in adult, unspecif ied asthma severity, uncomplicated; COMMENT: In process of w/u with [facility] as of 03/2022 Allergic rhinitis 04/21/2022 DX:Allergic rh initis Family History Medical History Relation Name Comments No Known Problems Brother 1 twin broth er No Known Problems Brother 2 No Known Problems Father No Known Problems Maternal Grandfather Diabetes Maternal Grandmother HTN Nicotine Dependence Mother No Known Problems Paternal Grandfather No Known Problems Paternal Grandmother Heart attack Uncle Maternal early age Relation Name Status Comments Brother 1 Alive Brother 2 Alive Father Alive Maternal Grandfather Maternal Grandmother Mother Alive Paternal Grandfather Alive Paternal Grandmother Uncle Maternal Alive Social History Tobacco Use Types Packs/Day Years Used Date Smoking Tobacco: Never Smokeless Tobacco: Never Alcohol Use Standard Drinks/Week Comments Yes 0 (1 standard drink = 0.6 oz pur e alcohol) Sex and Gender Information Value Date Recorded Sex Assigned at Not on file Gender Identity Not on file Sexual Orientation Not on file Obstetrics History Last Filed Vital Signs Vital Sign Reading Time Taken Comments Blood Pressure 127/80 08/05/2023 9:58 AM EDT Pulse 103 08/05/2023 9:58 AM EDT Temperature - - Respiratory Rate - - Oxygen Saturation - - Inhaled Oxygen Concentration - - Weight 96.8 kg (213 lb 6.4 oz) 08/05/2023 9:58 A M EDT Height 160 cm (5' 3 ) 08/05/2023 9:58 AM EDT Body Mass Index 37.8 08/05/2023 9:58 AM EDT Plan of Treatment Health Maintenance Due Date Last Done Comments Pneumococcal Vaccine: Pediatrics (0 to 5 Years) and At-Risk Patients (6 to 64 Years) (1 of 1 - PPSV23 or PCV20) 2007 03/15/2002, 2001, 2001 Gonorrhea/Chlamydia Screening 01/10/2020 01/09/2019 Depression Screening 04/25/2022 HIV Screening 04/25/2022 Hepatitis C Screening 04/25/2022 Social Influencers of Health Screening 04/25/2022 Cervical Cancer Screening: Pap Smear 2022 02/08/2014 DTaP,Tdap,and Td Vaccines (7 - Td or Tdap) 11/02/2022 11/02/2012, 10/04/2006, 10/11/2002, Additional history exists COVID-19 Vaccine ( season) 2024 05/10/2021, 10/25/2020, 09/19/2020 Influenza Vaccine (#1) 2024 Cholesterol Screening (Lipid Panel) 02/20/2026 02/20/2021 Hepatitis B Vaccines Completed 2001, 2001, 2001 HIB Vaccines Completed 10/11/2002, 080 09/2001, 2001, Additional history exists IPV Vaccines Completed 10/04/2006, 09/22, 10/11/2002, Additional history exists MMR Vaccines Completed 10/04/2006, 07/20/2002 Varicella Vaccines Completed 10/04/2006, 07/20/2002 HPV Vaccines Completed 06/14/2014, 01/22, 12/11/2013 Meningococcal ACWY Vaccine Completed 01/06/2018, Hepatitis A Vaccines Aged Out No long er eligible based on patient's age to complete this topic RSV Immunization Patients Under 20 months Aged Out No longer eligible based on patient's age to complete this topic Procedures Procedure Name Priority Date/Time Associated Diagnosis Comments LIPID PANEL Routine 02/20/2021 GONORRHEA/CHLAMYDIA SCRREENING Routine 01/09/2019 HPV Routine 02/08/2014 from Last 3 Months or Most Recently Relevant to Health Maintenance Results * Lipid panel (02/20/2021) LDL/HDL Ratio 3 0 - 4 Triglycerides 123 0 - 150 mg/dL Cholesterol 162 0 - 200 mg/dL HDL 59 40 mg/dL LDL Cholesterol 79 0 - 100 mg/dL Blood Venous blood specimen / Unknown Historical Provider LAB BLOOD ORDERAB LES * Gonorrhea/Chlamydia Screening (01/09/2019) Gonorrhea/Chla mydia Screening abstracted Historical Provider MD CHARMAINE Reece * Cervical Cancer Screening: HPV (02/08/2014) [facility] Cervical Cancer Screening: HPV no interpretation , abstracted Historical Provider MD CHARMAINE Reece from Last 3 Months or Most Recently Relevant to Health Maintenance Care Teams Architecture Faculty Member Relationship Specialty Start Date End Date Darby Jacome MD PCP - General Internal Medicine 03/17/22
--- OUTSIDE RECORDS SUMMARY | 2024-06-26 10:56 | XMS_ITS | Encounter Summary ---
Author Organization [facility] Address [address] [place] [address] Care Team Providers Care Pm Head Cook Name Role Phone Darby Davis MD Primary Care Prov ider Elizabeth Molina Unavailable Unavailable Leelee Ayala MD Unavailable Unavailable Encounter Details Date Type Department Care Team Description 03/08/2023 Orders Only Medical Records [address] [place] [address] [facility] Social History Tobacco Use Types Packs/Day Years [...] In the last 10 days, have jhon u been in contact with someone who was confirmed or suspected to have Coronavirus/COVID-19? No / Unsure 03/03/2023 10:12 AM EDT documented as of this encounter Plan of Treatment Not on file documented as of this encounter Procedures Procedure Name Priority Date/Time Associated Diagnosis Comments OUTSIDE EKG Routine 02/20/2023 documented in this encounter Results * OUTSIDE EKG (02/20/2023) [facility] CARDIOLOGY documented in this encounter Visit Diagnoses Not on filedocumented in this encounter Care Teams Pm Head Cook Relationship Specialty Start Date End Date Darby Davis MD [address] [place] [address] PCP - General Internal Medicine 03/17/22 Elizabeth Molina [address] [place], [place] [phone] Specialist Pulmonology 08/12/22 Leelee Ayala MD [address] [place] [address] Specialist Allergy & Immunology 09/30/23 documented as of this encounter
--- OUTSIDE RECORDS SUMMARY | 2024-06-26 10:56 | XMS_ITS | Data Portability ---
Author Organization [facility] [id number] Address [address] [place] [address] Care Team Providers Care Silk Winding Machine Operator Name Role Phone [facility] Care Provider Assessment No assessment recorded. Plan of Treatment Reminders Order Date Submit Date Provider Last Modified By Organization Details Last Modified Time Details Appointments None recorded. Lab None recorded. Referral None recorded. Procedures None recorded. Surgeries None recorded. Imaging None recorded. Medication Orders albuterol sulfate 2.5 mg/3 mL (0.083 %) solution for nebulizati on 2022 023 [id number], [address] [place], [address], 3 09:11:31 ipratropiu m bromide 0.02 % solution for inhalation 2022 023 [id number], [address] [facility], [place], [address], 3 09:12:18 albuterol sulfate HFA 90 mcg/actuat ion aerosol inhaler 2022 023 [facility], [address] [facility], [place], [address], 3 09:09:48 prednisone 20 mg tablet 2022 023 [facility], [address] [facility], [place], [address], 3 09:09:49 benzonatat e 200 mg capsule 2022 023 [facility], [address] [place], [address], 3 09:09:49 Allergy Relief (fluticaso ne) 50 mcg/actuat ion nasal spray,susp ension 2022 023 [facility], [address] [place], [address], 3 09:09:48 Patient TargetsNo targets recorded. Patient Instructions Encounter Date Encounter Id Patient Instructions Last Modified By Organization Details Last Modified Time 08/17/2022 [id number] peak flow* emonfette Not available 07/23 09:21:09 [...] and Address Organization Details Recorded Time Asthma [id number] Active 023 Rosalinda Tian khoi PA - [...] mass index (BMI) Body weight Body temperature Pain severity - 0-10 verbal numeric rating [Score] - Reported Systolic blood pressure Diastolic blood pressure Provider Name and Address Organization Details Last Updated DateTime 122 /min 98 % 98 % 160.02 cm 36.8 kg/m2 17543.2 1 g 98 [degF] 0 141 mm[Hg] 87 mm[Hg] Rosalinda Tian [employer] 08:54:09 Social History Question Answer Notes LastModified by Volta ion Details LastModified Time Tobacco Smoking Status Never Smoker Rosalinda [employer]fall [employer] [facility] 08/17/2022 08:55:53 What Is Your Level Of [...] SNOMED-CT Code Diagnosis ICD10 Code Diagnosis Note [id number] [address] [place] [address] 04/27/2016 17:20:59 04/27/2016 19:39:32 [id number] [address] [facility] MANUEL Duarte [address] 03/16/2022 08:17:41 03/16/2022 10:59:10 [id number] Cortez Overton NP [address] [place] [address] 08/17/2022 08:46:31 08/17/2022 09:35:38 Acute bronchitis [id number] J20.9 Health Concerns Section Related Observation LastModified by Organization Detai ls LastModified Time None Recorded Concern Status LastModified by Organization Details LastModified Time None Recorded Advance Directives Directive None Recorded Payers Encounter Date Sequence Insurance Name Policy Number Policy Gomez Covered Member ID Gomez Member ID Guarantor Name 04/27/2016 1 [place] [id number] [facility] [id number] [facility] 03/16/2022 1 [place] [id number] [facility] [id number] [facility] 08/17/2022 1 [place] [id number] [facility] [id number] [facility] Notes Date Note Type Note Provider Name and Address Organization Details Recorded Time 08/17/2022 text/html 22 year old cam le present with wheezing and SOB x 1 day. stating her Albuterol is not working. She admit having asthma exacerbation from time to time. Also admit smoking marijuana daily. Cortez Overton NP [address] [place], [address], [place] - [facility] 08/17/2022 10:53:27 OBGyn Episode No OBEpisode recorded.
--- OUTSIDE RECORDS SUMMARY | 2024-06-26 10:56 | XMS_ITS | Encounter Summary ---
Author Organization [facility] Address [address] [facility] [place] [address] Care Team Providers Care Passport Application Examiner Name Role Phone Darby Davis MD Primary Care Prov ider Elizabeth Molina Unavailable Unavailable Leelee Ayala MD Unavailable Unavailable Encounter Details Date Type Department Care Team Description 09/27/2023 Promotions Executive Report Medical Records [address] [place] [address] Leelee Ayala MD Social History Tobacco Use Types Packs/Day Years [...] on filedocumented in this encounter Care Teams Passport Application Examiner Relationship Specialty Start Date End Date Darby Davis MD [address] [place] [address] PCP - General Internal Medicine 03/17/22 Elizabeth Molina [address] [place] [address] Specialist Pulmonology 08/12/22 Leelee Ayala MD [address] [phone] Specialist Allergy & Immunology 09/30/23 documented as of this encounter
--- OUTSIDE RECORDS SUMMARY | 2024-06-26 10:56 | XMS_ITS | Encounter Summary ---
Author Organization [facility] Address [address] [place] [address] Care Team Providers Care Grain Elevator Worker Name Role Phone Darby Davis MD Primary Care Prov ider Elizabeth Molina Unavailable Unavailable Leelee Ayala MD Unavailable Unavailable Encounter Details Date Type Department Care Team Description 08/09/2023 Orders Only Medical Records [address] [place] [address] [facility] Social History Tobacco Use Types Packs/Day Years [...] Date/Time Associated Diagnosis Comments OUTSIDE EKG Routine 07/24/2023 OUTSIDE PLAIN FILM Routine 07/24/2023 documented in this encounter Results * OUTSIDE PLAIN FILM (07/24/2023) [facility] RADIOLOGY * OUTSIDE EKG (07/24/2023) [facility] CARDIOLOGY documented in this encounter Visit Diagnoses Not on filedocumented in this encounter Care Teams Grain Elevator Worker Relationship Specialty Start Date End Date Darby Davis MD [address] [place] [address] PCP - General Internal Medicine 03/17/22 Elizabeth Molina [address] [place], [place] [phone] Specialist Pulmonology 08/12/22 Leelee Ayala MD [address] [place] [address] Specialist Allergy & Immunology 09/30/23 documented as of this encounter
--- OUTSIDE RECORDS SUMMARY | 2024-06-26 10:56 | XMS_ITS | Encounter Summary ---
Author Organization [facility] Address [address] [facility] [place] [address] Care Team Providers Care Family Helper Name Role Phone Darby Davis MD Primary Care Prov ider Elizabeth Molina Unavailable Unavailable Leelee Ayala MD Unavailable Unavailable Encounter Details Date Type Department Care Team Description 02/26/2023 Hospital Medical Records [address] [place] [address] Ana Thorne Social History Tobacco Use Types Packs/Day Years [...] on filedocumented in this encounter Care Teams Family Helper Relationship Specialty Start Date End Date Darby Davis MD [address] [place] [address] PCP - General Internal Medicine 03/17/22 Elizabeth Molina [address] [place] [address] Specialist Pulmonology 08/12/22 Leelee Ayala MD [address] [place] [address] Specialist Allergy & Immunology 09/30/23 documented as of this encounter
--- OUTSIDE RECORDS SUMMARY | 2024-06-26 10:56 | XMS_ITS | Encounter Summary ---
Author Organization [facility] Address [address] [facility] [place] [address] Care Team Providers Care Local Flatbed Driver Name Role Phone Darby Davis MD Primary Care Prov ider Elizabeth Molina Unavailable Unavailable Leelee Ayala MD Unavailable Unavailable Encounter Details Date Type Department Care Team Description 12/23/2022 Manager Access Report Medical Records [address] [place] [address] Elizabeth Molina Social History Tobacco Use Types [...] on filedocumented in this encounter Care Teams Local Flatbed Driver Relationship Specialty Start Date End Date Darby Davis MD [address] [place] [address] PCP - General Internal Medicine 03/17/22 Elizabeth Molina [address] [place] [address] Specialist Pulmonology 08/12/22 Leelee Ayala MD [address] [phone] Specialist Allergy & Immunology 09/30/23 documented as of this encounter
--- OUTSIDE RECORDS SUMMARY | 2024-06-26 10:56 | XMS_ITS | Encounter Summary ---
Author Organization [facility] Address [address] [place] [address] Care Team Providers Care Can Intake Worker Name Role Phone Darby Davis MD Primary Care Prov ider Elizabeth Molina Unavailable Unavailable Leelee Ayala MD Unavailable Unavailable Encounter Details Date Type Department Care Team Description 03/20/2022 Hospital Medical Records [address] [place] [address] Gildardo Rosas MD Social History Tobacco Use Types Packs/Day [...] on filedocumented in this encounter Care Teams Can Intake Worker Relationship Specialty Start Date End Date Darby Davis MD [address] [place] [address] PCP - General Internal Medicine 03/17/22 Elizabeth Molina [address] [place] [address] Specialist Pulmonology 08/12/22 Leelee Ayala MD [address] [phone] Specialist Allergy & Immunology 09/30/23 documented as of this encounter
--- OUTSIDE RECORDS SUMMARY | 2024-06-26 10:56 | XMS_ITS | Encounter Summary ---
Author Organization [facility] Address [address] [place] [address] Care Team Providers Care Global Climate Change Analyst Name Role Phone Darby Jacome MD Primary Care Prov ider Encounter Details Date Type Department Care Team (Late st Contact Info) Description 06/01/2024 Telephone Adult Medicine [address] [phone] Jolanta Ram [place] Social History Tobacco Use Types Packs/Day Years Used Date Smoking Tobacco: Never Smokeless Tobacco: Never Alcohol Use Standard Drinks/Week Comments Yes 0 (1 standard drink = 0.6 oz pur e alcohol) Sex and Gender Information Value Date Recorded Sex Assigned at Not on file Gender Identity Not on file Sexual Orientation Not on file documented as of this encounter Plan of Treatment Not on file documented as of this encounter Visit Diagnoses Not on filedocumented in this encounter Care Teams Global Climate Change Analyst Relationship Specialty Start Date End Date Darby Jacome MD PCP - General Internal Medicine 03/17/22 documented as of this encounter
[2024-06-26 10:59] LABS: Alanine Aminotransferase 17 U/L (0-31); Albumin Level 4.5 g/dL (3.5-5.0); Alkaline Phosphatase 69 U/L (39-117); Anion Gap 13 (12-20); Aspartate Amino Transferase 25 U/L (5-31); Bilirubin Total 0.5 mg/dL (0.0-1.0); Blood Urea Nitrogen 11 mg/dL (9-16); Calcium 9.2 mg/dL (8.4-10.2); Carbon Dioxide 20 mmol/L (22-29); Chloride 109 mmol/L (96-108); Creatinine Clr Calc Pharmacy 138.8; Estimated Glomerular Filt Rate > 60; Glucose Random 114 mg/dL (60-115); Magnesium 1.6 mg/dL (1.6-2.6); Potassium 3.7 mmol/L (3.3-5.1); Sodium 138 mmol/L (135-145); Total Protein 7.7 g/dL (6.5-8.0)
[2024-06-26 11:02] LABS: B Type Natriuretic Peptide 95 pg/mL (<100); Troponin-I High Sensitivity < 2.7 ng/L (<3.5-17.0)
[2024-06-26 11:05] LABS: HCG Quantitative < 2 mIU/mL
[2024-06-26] MEDS: Magnesium Sulfate/H2O 2 GM/50 ML PIGGYBACK IV (11:08)
[2024-06-26 11:16] LABS: Influenza A PCR POSITIVE (Negative); Influenza B PCR NEGATIVE (Negative); Resp Syncy Virus RNA Qual PCR NEGATIVE (Negative); SARS COV2 PCR INHOUSE NEGATIVE (Negative)
[2024-06-26 12:00] VITALS: BP 131/68; PULSE 119; RESP 16; TEMP 36.8; O2SAT 95
[2024-06-26] MEDS: Acetaminophen 325 MG TABLET 975 MG PO (12:07)
[2024-06-26 13:31] VITALS: BP 127/76; PULSE 114; RESP 18; TEMP 37.2; O2SAT 97
== END 2024-06-26 13:32 | disposition home or self-care (01) ==
PROVIDERS: Physician Assistant; Emergency Provider Emergency Medicine; PCP Internal Medicine
DX: J10.1 Influenza due to other identified influenza virus with other respiratory manifestations (principal); R05.9 Cough, unspecified; R50.9 Fever, unspecified; F41.9 Anxiety disorder, unspecified; R00.0 Tachycardia, unspecified; R11.0 Nausea; R10.2 Pelvic and perineal pain; R06.02 Shortness of breath; Z03.818 Encounter for observation for suspected exposure to other biological agents ruled out; Z79.899 Other long term (current) drug therapy
CPT/HCPCS: 0241U; 36415; 71046; 80053; 83735; 83880; 84484; 84702; 85025; 85610; 85730; 87651; 93005; 94640; 96361; 96374; 96375; 99284; J2405; J2919; J3475

== ENCOUNTER → 2024-06-26 10:20 | Outpatient (BNV) | payer BC, SELFPAY | PROVIDERS: Emergency Provider Emergency Medicine; PCP Internal Medicine; Visit Provider Radiology Diagnostic Radiology | DX: R05.9 Cough, unspecified (principal) | CPT/HCPCS: 71046 ==

== ENCOUNTER → 2024-06-26 10:40 | Outpatient (BNV) | payer BC, SELFPAY | PROVIDERS: Emergency Provider Emergency Medicine; PCP Internal Medicine; Visit Provider Internal Medicine Cardiovascular Disease | DX: R00.0 Tachycardia, unspecified (principal) | CPT/HCPCS: 93010 ==

== ENCOUNTER 2024-09-19 09:18 | Outpatient (AMB) | payer BC, SELFPAY ==
[2024-09-19 09:34] VITALS: BP 110/82; PULSE 80; O2SAT 97; BMI 38.3
--- NOTE | 2024-09-19 09:34 | MHC.OFFVIS ---
Vital Signs 09/19/24 09:34 Height 5 ft 3 in Weight 216 lb 0.848 oz BMI 38.3 BP 110/82 Blood Pressure Location Lt brachial Position Sitting Pulse 80 Pulse Source Pulse Oximeter Pulse Oximetry (%) 97 Oxygen Delivery Method Room Air Intake Visit Reasons: asthma Intake Note: pt is here for follow up and is doing well on dupixent and only has seasonal allergies affecting her with a wet cough, does she need to refill symbicort? Registered Nurse Post Partum Required: No Allergies No Known Allergies Allergy (Verified 09/19/24 09:44) Medication List - Last Reconciled 09/19/24 by Elizabeth Molina MD acetaminophen 1,500 mg PO BID PRN albuterol sulfate 90 mcg/actuation 2 puffs inhalation Q4-6H PRN cetirizine 10 mg PO DAILY PRN dupilumab 300 mg (2 mL) subcut Q2W 2 weeks etonogestrel (Nexplanon) 68 mg subdermal DIRECTED fluticasone propion-salmeterol 250-50 mcg/dose (Wixela Inhub) 1 inh inhalation BID fluticasone propionate 50 mcg/actuation (Flonase Allergy Relief) 2 sprays intranasal DAILY 30 days levalbuterol HCl 1.25 mg (3 mL) inhalation Q4-6H PRN montelukast 10 mg PO QPM peak flow meter As directed Do you need a note to return to daycare/school/sports/work: No HPI HPI asthma: Details: This 24 years old female patient, is here for follow-up after 4 months. She is being treated for bronchial asthma and allergic rhinitis with biologic treatment and has responded very well. She has had no acute attacks of bronchial asthma in the last 4 months. But every now and then there is some wheezing. She likes to keep fluticasone-salmeterol on hand and also has levalbuterol inhaler on hand. Nasal congestion still flares up every now and then and she uses Flonase more regularly, in addition to montelukast. She has had no untoward reactions from the biologic treatment . [facility] Medical History Allergic rhinitis Obesity (BMI 35.0-39.9 without comorbidity) Eosinophilia Asthma Social History Household Members: Family Housing: House Do you presently have visiting nurse or other home services: No Alcohol intake: current Alcohol intake frequency: holidays/special occasions only Comment: refused bed alarm. pt rings appropriately Patient Tobacco Use Status: Never used Tobacco Second Hand Smoke Exposure: No Substance Use Type: Marijuana service: No Current occupational status: employed Review of Systems Const All systems reviewed & are unremarkable except as noted in HPI and below Denies snoring Eyes Reports no additional complaints ENT Reports nasal congestion (Mild off and on) Card Reports no additional complaints and Denies dyspnea Resp Reports cough (Mild occasional), Denies dyspnea, Denies snoring and Denies wheezing GI Reports no additional complaints Reports no additional complaints Musc Reports no additional complaints Skin/Breast Reports system reviewed and no additional complaints, except as documented Neuro Reports no additional complaints Endo Reports no additional complaints Aller/Immun Reports no additional complaints and Denies wheezing Physical Exam Vital Signs: Last Vital Signs Pulse 80 09/19/24 09:34 BP 110/82 09/19/24 09:34 Pulse Ox 97 09/19/24 09:34 Oxygen Delivery Method Room Air 09/19/24 09:34 BMI result Body Mass Index 38.3 Const General: healthy appearing, comfortable, no acute distress, alert and awake Orientation/consciousness: patient oriented x3 HEENT Head: Yes normal to inspection General nose exam: No nasal polyps present, No nasal discharge present and Other nasal findings present (Mild nasal congestion in Both nostrils) Face and sinus: Yes sinuses nontender Mouth: oropharynx normal Throat: Yes posterior oropharynx normal Eyes General: appearance normal, both eyes and all related structures Neck Neck: Yes normal visual inspection, Yes no lymphadenopathy, Yes trachea midline and Yes no JVD Thyroid: Thyroid normal Chest Chest palpation & inspection: normal inspection of the chest, normal palpation of entire chest wall and no tenderness Resp Other: Percussion note resonant, has good breath sounds on both sides. Lungs are mostly clear , today there was no cough with deep breathing efforts. Cardio Palpation: normal PMI Rate: regular rate Rhythm: regular rhythm Heart sounds: no gallops and no murmurs Peripheral pulses: Peripheral pulses 2+ throughout GI Palpation (GI): Soft to palpation, nontender, No hepatosplenomegaly present and no masses Auscultation: normal bowel sounds Back/Spine/Pelvis Thoracic/Lumbar Spine: thoracic and lumbar spine normal to inspection Skin General skin exam: no rashes or lesions noted Neuro General: patient oriented x3 and no focal motor deficits Cranial nerves: Yes CN's II-XII intact bilaterally Extrem General: Yes normal to inspection, Yes no clubbing, cyanosis or edema and Yes no calf tenderness Psych Speech and movement: Normal speech and movement present Assessment & Plan Assessment & Plan (1) Asthma: Comment: BRONCHIAL ASTHMA is well controlled at this time . Her use of Levalbuterol, is less than once or twice a week She has had no bouts of acute bronchospasm as long as she stays away from cold air and also cats at home. Code(s): J45.909 - Unspecified asthma, uncomplicated Category: Medical Plan: Continue do pillow mab 300 mg subQ q.2 weeks. Fluticasone atyv-Aeea-Ylizod 250-51 inhalation b.i.d. only if there is a flare up of asthma. Levalbuterol HFA 1 or 2 puffs Q 4-6 hours p.r.n.. (2) Allergic rhinitis: Comment: It is chronic, controlled with use of montelukast, cetirizine and Flonase spray., but still has mild nasal congestion off and on. Symptoms have been much less since she is on dupilumab injection . Code(s): J30.9 - Allergic rhinitis, unspecified Category: Medical Qualifiers: Allergic rhinitis seasonality: unspecified Allergic rhinitis trigger: unspecified Qualified Code(s): J30.9 - Allergic rhinitis, unspecified Plan: Continue using Flonase 2 sprays each nostril daily. Montelukast 10 mg daily Zyrtec 10 mg once a day only p.r.n.. Medications: Changed From fluticasone propion-salmeterol 250-50 mcg/dose (Wixela Inhub) 1 inh inhalation BID asthma To fluticasone propion-salmeterol 250-50 mcg/dose (Wixela Inhub) 1 inh inhalation BID 60 ea 3RF asthma 30 days Coding Level of Care Code Est Pt Level 3 (26326) Diagnoses Asthma J45.909 Allergic rhinitis J30.9 Allergic rhinitis seasonality: unspecified Allergic rhinitis trigger: unspecified
--- OUTSIDE RECORDS SUMMARY | 2024-09-19 10:10 | XMS_ITS | Encounter Summary ---
Author Organization [facility] Address [address] [place] [address] Care Team Providers Care Agricultural Research Technologist Name Role Phone Darby Davis MD Primary Care Prov ider Elizabeth Molina Unavailable Unavailable Leelee Ayala MD Unavailable Unavailable Encounter Details Date Type Department Care Team Description 03/31/2022 Sales Support Manager Report Medical Records [address] [place] [address] Elizabeth Molina Social History Tobacco Use Types [...] on filedocumented in this encounter Care Teams Agricultural Research Technologist Relationship Specialty Start Date End Date Darby Davis MD [address] [place] [address] PCP - General Internal Medicine 03/17/22 Elizabeth Molina [address] [place] [address] Specialist Pulmonology 08/12/22 Leelee Ayala MD [address] [phone] Specialist Allergy & Immunology 09/30/23 documented as of this encounter
--- OUTSIDE RECORDS SUMMARY | 2024-09-19 10:11 | XMS_ITS | Encounter Summary ---
Author Organization [facility] Address [address] [place] [address] Care Team Providers Care Exercise Manager Name Role Phone Darby Davis MD Primary Care Prov ider Elizabeth Molina Unavailable Unavailable Leelee Ayala MD Unavailable Unavailable Encounter Details Date Type Department Care Team Description 05/06/2022 Hogshead Inspector Report Medical Records [address] [place] [address] Elizabeth Molina Social History Tobacco Use Types [...] was confirmed or suspected to have Coronavirus/COVID-19? Yes 04/09/2022 1:11 PM EST documented as of this encounter Plan of Treatment Not on file documented as of this encounter Visit Diagnoses Not on filedocumented in this encounter Care Teams Exercise Manager Relationship Specialty Start Date End Date Darby Davis MD [address] [place] [address] PCP - General Internal Medicine 03/17/22 Elizabeth Molina [address] [place] [address] Specialist Pulmonology 08/12/22 Leelee Ayala MD [address] [place] [address] Specialist Allergy & Immunology 09/30/23 documented as of this encounter
--- OUTSIDE RECORDS SUMMARY | 2024-09-19 10:11 | XMS_ITS | Data Portability ---
Author Organization [facility], [address] Address [address] [place] [address] Care Team Providers Care Finance Professor Name Role Phone [facility] Care Provider Assessment No assessment recorded. Plan of Treatment Reminders Order Date Submit Date Provider Last Modified By Organization Details Last Modified Time Details Appointments None recorded. Lab None recorded. Referral None recorded. Procedures None recorded. Surgeries None recorded. Imaging None recorded. Medication Orders albuterol sulfate 2.5 mg/3 mL (0.083 %) solution for nebulizati on 2022 023 [id number], [address] [place], [address], 3 09:11:31 ipratropiu m bromide 0.02 % solution for inhalation 2022 023 [id number], [address] [facility], [place], [address], 3 09:12:18 albuterol sulfate HFA 90 mcg/actuat ion aerosol inhaler 2022 023 [facility], [address] [facility], [place], [address], 3 09:09:48 prednisone 20 mg tablet 2022 023 [id number], [address] [facility], [place], [address], 3 09:09:49 benzonatat e 200 mg capsule 2022 023 [facility], [address] [place], [address], 3 09:09:49 Allergy Relief (fluticaso ne) 50 mcg/actuat ion nasal spray,susp ension 2022 023 [id number], [address] [place], [address], 3 09:09:48 Patient TargetsNo targets recorded. Patient Instructions Encounter Date Encounter Id Patient Instructions Last Modified By Organization Details Last Modified Time 08/17/2022 [id number] peak flow* emonfette Not available 07/23 09:21:09 [...] and Address Organization Details Recorded Time Asthma [id number] Active 023 Rosalinda Tian khoi PA - [...] % 98 % 160.02 cm 36.8 kg/m2 84978.2 1 g 98 [degF] 0 141 mm[Hg] 87 mm[Hg] Rosalinda Tian Powered by Peak 08:54:09 Social History Question Answer Notes LastModified by PacerPro ion Details LastModified Time Tobacco Smoking Status Never Smoker Rosalinda westfall [employer] 08/17/2022 08:55:53 What Is Your Level Of [...] SNOMED-CT Code Diagnosis ICD10 Code Diagnosis Note [id number] [address] [facility] [place] [id number] 04/27/2016 17:20:59 04/27/2016 19:39:32 [id number] [address] [facility] [place] [id number] 03/16/2022 08:17:41 03/16/2022 10:59:10 [id number] Cortze Overton NP [address] [facility] [place] [id number] 08/17/2022 08:46:31 08/17/2022 09:35:38 Acute bronchitis 08367799 J20.9 Health Concerns Section Related Observation LastModified by Organization Detai ls LastModified Time None Recorded Concern Status LastModified by Organization Details LastModified Time None Recorded Advance Directives Directive None Recorded Payers Encounter Date Sequence Insurance Name Policy Number Policy Gomez Covered Member ID Gomez Member ID Guarantor Name 04/27/2016 1 [place] [id number] [facility] [id number] [facility] 03/16/2022 1 [place] [id number] [facility] [id number] [facility] 08/17/2022 1 [place] [id number] [facility] [id number] Notes Date Note Type Note Provider Name and Address Organization Details Recorded Time 08/17/2022 text/html 22 year old fema le present with wheezing and SOB x 1 day. stating her Albuterol is not working. She admit having asthma exacerbation from time to time. Also admit smoking marijuana daily. Cortez Overton NP [address] [place], [address], [place] - [facility] 08/17/2022 10:53:27 OBGyn Episode No OBEpisode recorded.
--- OUTSIDE RECORDS SUMMARY | 2024-09-19 10:11 | XMS_ITS | Encounter Summary ---
Author Organization [facility] Address [address] [place] [address] Care Team Providers Care Cost Manager Name Role Phone Darby Davis MD Primary Care Prov ider Elizabeth Molina Unavailable Unavailable Leelee Ayala MD Unavailable Unavailable Encounter Details Date Type Department Care Team Description 03/08/2023 Orders Only Medical Records [address] [place] [address] [facility] Social History Tobacco Use Types Packs/Day Years [...] this encounter Results * OUTSIDE EKG (02/20/2023) [facility] CARDIOLOGY documented in this encounter Visit Diagnoses Not on filedocumented in this encounter Care Teams Cost Manager Relationship Specialty Start Date End Date Darby Davis MD [address] [place] [address] PCP - General Internal Medicine 03/17/22 Elizabeth Molina [address] [place], [place] [phone] Specialist Pulmonology 08/12/22 Leelee Ayala MD [address] [place] [address] Specialist Allergy & Immunology 09/30/23 documented as of this encounter
--- OUTSIDE RECORDS SUMMARY | 2024-09-19 10:11 | XMS_ITS | Clinical Summary ---
Author Organization [facility] Address [address] [place] [address] Care Team Providers Care Tube Test Technician Name Role Phone Darby Jacome MD Primary Care [facility] ider Allergies No known active allergies Medications levalbuterol (XOPENEX) 1.25 mg/3 mL nebulizer solution Take 1 Ampule by nebulization every 3 hours as needed for Wheezing. 4 Active budesonide-form oteroL (SYMBICORT) 80-4.5 mcg/actuation inhaler Inhale 2 Puffs into the lungs 2 times daily. 4 Active doxycycline (MONODOX) 100 mg capsule 3 Active albuterol HFA (PROAIR HFA ; PROVENTIL HFA ; VENTOLIN HFA) 90 mcg/actuation inhaler Inhale 2 Puffs into the lungs every 4 hours as needed for Cough or Wheezing. 2 Active predniSONE (DELTASONE) 10 mg tablet 3 Active montelukast (SINGULAIR) 10 mg tablet Take 1 Tablet by mouth at bedtime for 180 days. 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 Marijuana smoker 02/20/2021 Immunizations Name Administration Dates Next Due DTaP (Infanrix) 6wks to less than 7yo ,10/11/2002,2001,10/20,2001 [id number] (Pentacel) 2mo to less than 5yo 10/11/2002,2001,2001,08/12 [...] uncomplicated; COMMENT: In process of w/u with [facility] as of 03/2022 Allergic rhinitis 04/21/2022 [...] drink = 0.6 oz pur e alcohol) Comments Unknown Sex and Gender Information Value Date Recorded Sex Assigned at Not on file Legal Sex Female 7:40 PM EST Gender Identity Not on file Sexual Orientation [...] to 64 Years) (1 of 1 - PPSV23) 2007 03/15/2002, 2001, 2001 Meningococcal B Vaccine (1 of 2 - Standard) 2017 Gonorrhea/Chlamydia Screening 01/10/2020 01/09/2019 Depression Screening 04/25/2022 HIV Screening 04/25/2022 Hepatitis C Screening 04/25/2022 Social Influencers of Health Screening 04/25/2022 Cervical Cancer Screening: Pap Smear 2022 02/08/2014 DTaP,Tdap,and Td Vaccines (7 - Td or Tdap) 11/02/2022 11/02/2012, 10/04/2006, 10/11/2002, Additional history exists COVID-19 Vaccine ( season) 2024 05/10/2021, 10/25/2020, 09/19/2020 Influenza Vaccine (Season Ended) 2025 Cholesterol Screening (Lipid Panel) 02/20/2026 02/20/2021 Hepatitis B Vaccines Completed 2001, 2001, 2001 HIB Vaccines Completed 10/11/2002, 09/2001, 2001, Additional history exists IPV Vaccines [...] Procedure Name Priority Date/Time Associated Diagnosis Comments XR CHEST 1 VIEW (STATISTICS) Routine 06/26/2024 11:13 AM EST LIPID PANEL Routine 02/20/2021 GONORRHEA/CHLAMYDIA SCRREENING Routine 01/09/2019 HPV Routine 02/08/2014 from Last 3 Months or Most Recently Relevant to Health Maintenance Results * XR Chest 1 View (Statistics) (06/26/2024 11:13 AM EST) Anatomical Region Laterality Modality Body Radiographic Maria Del Rosario ging us Historical Provider IMDeion XR PROCEDURES Final R esult * Lipid panel (02/20/2021) LDL/HDL Ratio 3 0 - 4 Triglycerides 123 0 - 150 mg/dL Cholesterol 162 0 - 200 mg/dL HDL 59 >=40 mg/dL LDL Cholesterol 79 0 - 100 mg/dL Blood Venous blood specimen / Unknown Historical Provider LAB BLOOD ORDERABLES Anisha l Result * Gonorrhea/Chlamydia Screening (01/09/2019) Pathologist [facility] Gonorrhea/Chla mydia Screening abstracted [facility] Provider HEALTH MAINTENANCE Final Result * Cervical Cancer Screening: HPV (02/08/2014) Pathologist [facility] Cervical Cancer Screening: HPV no interpretation , abstracted Historical Provider HEALTH MAINTENANCE Final Result from Last 3 Months or Most Recently Relevant to Health Maintenance Care Teams Tube Test Technician Relationship Specialty Start Date End Date Darby Jacome MD PCP - General Internal Medicine 03/17/22
--- OUTSIDE RECORDS SUMMARY | 2024-09-19 10:11 | XMS_ITS | Encounter Summary ---
Author Organization [facility] Address [address] [place] [address] Care Team Providers Care Metal Dealer Name Role Phone Darby Davis MD Primary Care Prov ider Elizabeth Molina Unavailable Unavailable Leelee Ayala MD Unavailable Unavailable Encounter Details Date Type Department Care Team Description 08/17/2023 Lead Based Paint Technician Report Medical Records [address] [place] [address] Elizabeth Molina Social History Tobacco Use Types [...] on filedocumented in this encounter Care Teams Metal Dealer Relationship Specialty Start Date End Date Darby Davis MD [address] [place] [address] PCP - General Internal Medicine 03/17/22 Elizabeth Molina [address] [place] [address] Specialist Pulmonology 08/12/22 Leelee Ayala MD [address] [phone] Specialist Allergy & Immunology 09/30/23 documented as of this encounter
--- OUTSIDE RECORDS SUMMARY | 2024-09-19 10:11 | XMS_ITS | Encounter Summary ---
Author Organization [facility] Address [address] [facility] [place] [address] Care Team Providers Care Clinical Trial Head Name Role Phone Darby Davis MD Primary Care Prov ider Elizabeth Molina Unavailable Unavailable Leelee Ayala MD Unavailable Unavailable Encounter Details Date Type Department Care Team Description 09/27/2023 Electronic Gluer Report Medical Records [address] [place] [address] Leelee Ayala MD Social History Tobacco Use [...] on filedocumented in this encounter Care Teams Clinical Trial Head Relationship Specialty Start Date End Date Darby Davis MD [address] [place] [address] PCP - General Internal Medicine 03/17/22 Elizabeth Molnia [address] [place] [address] Specialist Pulmonology 08/12/22 Leelee Ayala MD [address] [phone] Specialist Allergy & Immunology 09/30/23 documented as of this encounter
--- OUTSIDE RECORDS SUMMARY | 2024-09-19 10:11 | XMS_ITS | Encounter Summary ---
Author Organization [facility] Address [address] [place] [address] Care Team Providers Care Human Resources Partner Name Role Phone Darby Davis MD Primary Care Prov ider Elizabeth Molina Unavailable Unavailable Leelee Ayala MD Unavailable Unavailable Encounter Details Date Type Department Care Team Description 03/20/2022 Hospital Medical Records [address] [place] [address] Gildardo Rosas MD Social History Tobacco Use [...] on filedocumented in this encounter Care Teams Human Resources Partner Relationship Specialty Start Date End Date Darby Davis MD [address] [place] [address] PCP - General Internal Medicine 03/17/22 Elizabeth Molina [address] [place] [address] Specialist Pulmonology 08/12/22 Leelee Ayala MD [address] [phone] Specialist Allergy & Immunology 09/30/23 documented as of this encounter
--- OUTSIDE RECORDS SUMMARY | 2024-09-19 10:11 | XMS_ITS | Encounter Summary ---
Author Organization [facility] Address [address] [place] [address] Care Team Providers Care Acid Remover Name Role Phone Darby Davis MD Primary Care Prov ider Elizabeth Molina Unavailable Unavailable Leelee Ayala MD Unavailable Unavailable Encounter Details Date Type Department Care Team Description 02/26/2023 Hospital Medical Records [address] [place] [address] Ana Thorne Social History Tobacco Use Types [...] on filedocumented in this encounter Care Teams Acid Remover Relationship Specialty Start Date End Date Darby Daivs MD [address] [place] [address] PCP - General Internal Medicine 03/17/22 Elizabeth Molina [address] [place] [address] Specialist Pulmonology 08/12/22 Leelee Ayala MD [address] [place] [address] Specialist Allergy & Immunology 09/30/23 documented as of this encounter
--- OUTSIDE RECORDS SUMMARY | 2024-09-19 10:11 | XMS_ITS | Encounter Summary ---
Author Organization [facility] Address [address] [place] [address] Care Team Providers Care Valve Grinder Name Role Phone Darby Davis MD Primary Care Prov ider Elizabeth Molina Unavailable Unavailable Leelee Ayala MD Unavailable Unavailable Encounter Details Date Type Department Care Team Description 07/25/2023 Hospital Medical Records [address] [place] [address] Anthony Colunga Social History Tobacco Use Types [...] on filedocumented in this encounter Care Teams Valve Grinder Relationship Specialty Start Date End Date Darby Davis MD [address] [place] [address] PCP - General Internal Medicine 03/17/22 Elizabeth Molina [address] [place] [address] Specialist Pulmonology 08/12/22 Leelee Ayala MD [address] [place] [address] Specialist Allergy & Immunology 09/30/23 documented as of this encounter
--- OUTSIDE RECORDS SUMMARY | 2024-09-19 10:11 | XMS_ITS | Encounter Summary ---
Author Organization [facility] Address [address] [facility] [place] [address] Care Team Providers Care Sort Line Worker Name Role Phone Darby Davis MD Primary Care Prov ider Elizabeth Molina Unavailable Unavailable Leelee Ayala MD Unavailable Unavailable Encounter Details Date Type Department Care Team Description 12/23/2022 Lead Burner Helper Report Medical Records [address] [place] [address] Elizabeth Molina Social History Tobacco Use Types [...] on filedocumented in this encounter Care Teams Sort Line Worker Relationship Specialty Start Date End Date Darby Davis MD [address] [place] [address] PCP - General Internal Medicine 03/17/22 Elizabeth Molina [address] [place] [address] Specialist Pulmonology 08/12/22 Leelee Ayala MD [address] [phone] Specialist Allergy & Immunology 09/30/23 documented as of this encounter
--- OUTSIDE RECORDS SUMMARY | 2024-09-19 10:11 | XMS_ITS | Encounter Summary ---
Author Organization [facility] Address [address] [place] [address] Care Team Providers Care Electronic Assembler Group Leader Name Role Phone Darby Davis MD Primary Care Prov ider Elizabeth Molina Unavailable Unavailable Leelee Ayala MD Unavailable Unavailable Encounter Details Date Type Department Care Team Description 08/09/2023 Orders Only Medical Records [address] [place] [address] [facility] Social History Tobacco Use Types Packs/Day [...] encounter Results * OUTSIDE PLAIN FILM (07/24/2023) [facility] RADIOLOGY * OUTSIDE EKG (07/24/2023) [facility] CARDIOLOGY documented in this encounter Visit Diagnoses Not on filedocumented in this encounter Care Teams Electronic Assembler Group Leader Relationship Specialty Start Date End Date Darby Davis MD [address] [place] [address] PCP - General Internal Medicine 03/17/22 Elizabeth Molina [address] [place], [place] [phone] Specialist Pulmonology 08/12/22 Leelee Ayala MD [address] [place] [address] Specialist Allergy & Immunology 09/30/23 documented as of this encounter
--- OUTSIDE RECORDS SUMMARY | 2024-09-19 10:11 | XMS_ITS | Encounter Summary ---
Author Organization [facility] Address [address] [place] [address] Care Team Providers Care Director Clinical Data Name Role Phone Darby Davis MD Primary Care Prov ider Elizabeth Molina Unavailable Unavailable Leelee Ayala MD Unavailable Unavailable Encounter Details Date Type Department Care Team Description 09/28/2023 Contact Lens Molder Report Medical Records [address] [place] [address] Elizabeth Molina Social History Tobacco Use Types [...] filedocumented in this encounter Care Teams Director Clinical Data Relationship Specialty Start Date End Date Darby Davis MD [address] [place] [address] PCP - General Internal Medicine 03/17/22 Elizabeth Molina [address] [place] [address] Specialist Pulmonology 08/12/22 Leelee Ayala MD [address] [place] [phone] Specialist Allergy & Immunology 09/30/23 documented as of this encounter
--- OUTSIDE RECORDS SUMMARY | 2024-09-19 10:11 | XMS_ITS | Clinical Summary ---
Author Organization [facility] Address [address] [place] [address] Care Team Providers Care Relay Assembler Name Role Phone Darby Davis MD Primary Care Prov ider Elizabeth Molina Unavailable Unavailable Leelee Ayala MD Unavailable Unavailable Allergies No known active allergies Medications Medication Sig Dispensed Refills Start Date End Date Status ALBUTEROL SULFATE 108 (90 Base) MCG/ACT Aero Soln Inhale 2 Puffs into the lungs every 4 hours as needed for Cough or Wheezing. 18 g 3 04/09/2022 Active montelukast (Singulair) 10 MG tablet Take 1 Tablet by mouth at bedtime for 180 days. 90 Tablet 1 04/09/2022 Active Doxycycline Monohydrate (MONODOX) 100 MG capsule 0 02/26/2023 Active predniSONE (DELTASONE) 10 MG tablet 0 02/26/2023 Active levalbuterol (Xopenex) 1.25 MG/3ML nebulizer solution Take 1 Ampule by nebulization every 3 hours as needed for Wheezing. 72 mL 0 08/05/2023 Active budesonide-formoter ol (Symbicort) 80-4.5 MCG/ACT inhaler Inhale 2 Puffs into the lungs 2 times daily. 8 g 0 08/05/2023 Active Active Problems Problem Noted Date Asthma in adult, unspecified asthma allison rity, uncomplicated 04/21/2022 Overview: In process of w/u with [facility] as of 03/2022 Allergic rhinitis 04/21/2022 Alcoholic gastritis without bleeding Marijuana smoker 02/20/2021 H/O strabismus 12/31/2016 Overview: R eye. Wears glasses Last Assessment & Plan: R eye. Wears glasses Resolved Problems Problem Noted Date Resolved Date History of Fracture of right clavicle 12/31/2016 01/06/2018 Overview: 01/21/2012 doing cartwheels on trampoline Immunizations Name Administration Dates Next Due COVID-19 (Moderna) PT Reported 05/10/2021,2020,09/19/2020 DTaP 10/04/2006, 3,2001,10/20,2001 [id number] 10/11/2002,2001,2001 HIB 10/11/2002, 2,2001,08/12 HPV (Gardasil) 06/14/2014,02/08/2014,12/11/2013 Hepatitis B-3 Dose (<19yrs) 2001, 2,2001 MMR (Gossmvj-Hxznj-Stfruvq) 07/20/2002 MMRV (Onnoijd-Ksyly-Gamtdor-Varicella) 7 Meningococcal (Menactra) 01/06/2018,11/02/2012 Pneumococcal(Pedi) Conjugate PCV-7 03/15/2002,,2001 Polio (IPV) 10/04/2006, 3,2001,08/12 Tdap 11/02/2012 Varicella 07/20/2002 Family History Medical History Relation Name Comments No Known Problems Brother 1 twin broth er No Known Problems Brother 2 No Known Problems Father No Known Problems Maternal Grandfather Diabetes Maternal Grandmother HTN Cigarette Smoking Mother No Known Problems Paternal Grandfather No Known Problems Paternal Grandmother OK Uncle Maternal early age Relation Name Status Comments Brother 1 Alive Brother 2 Alive Father Alive Maternal Grandfather Maternal Grandmother Mother Alive Paternal Grandfather Alive Paternal Grandmother Uncle Maternal Alive Social History Tobacco Use Types Packs/Day Years Used Date Smoking Tobacco: Never Smokeless Tobacco: Never Tobacco Cessation:Counseling Given: Not Answered Alcohol Use Standard Drinks/Week Comments Yes 0 (1 standard drink = 0.6 oz pure alcohol) Once every six months since gastritis Sex Assigned at Date Recorded Not on file Job Start Date Occupation Industry Not on file Not on file Not on file Last Filed Vital Signs Vital Sign Reading Time Taken Comments Blood Pressure 127/80 08/05/2023 9:58 AM EDT Pulse 103 08/05/2023 9:58 AM EDT Temperature 36.7 ??C (98 ??F) 08/05/2023 9:58 AM EDT Respiratory Rate 14 08/05/2023 9:58 AM EDT Oxygen Saturation 99% 08/05/2023 9:58 AM EDT Inhaled Oxygen Concentration - - Weight 96.8 kg (213 lb 6.4 oz) 08/05/2023 9:58 A M EDT Height 160 cm (5' 3 ) 08/05/2023 9:58 AM EDT Body Mass Index 37.8 08/05/2023 9:58 AM EDT Plan of Treatment Health Maintenance Due Date Last Done Comments BASELINE HEALTH EXAM 18-39 2020 01/09/2019, PNEUMOCOCCAL VACCINE FOR HIG H RISK PATIENTS (#1) 2020 GONORRHEA & CHLAMYDIA SCREENING 02/20/2022 02/20/2021 (Refused), 01/09/2019, 01/06/2018 CERVICAL CANCER SCREENING 2022 DTAP/TDAP/TD (7 - Td or Tdap) 11/02/2022, 10/04/2006, 10/11/2002, Additional history exists Covid-19 Vaccine (2022-2 4 season) 2024 05/10/2021, 10/25/2020, 09/19/2020 BMI CHECK/ADVISE 05/24/2024 08/05/2023, 03/2023, 08/12/2022, Additional history exists INFLUENZA (Season Ended) 2025 02/20/2021 (Refu sed) CHOLESTEROL SCREENING 02/20/2026 02/20/2021, 017 HUMAN PAPILLOMAVIRUS (HPV) Completed 06/14, 02/08/2014, 12/11/2013 Care Teams Relay Assembler Relationship Specialty Start Date End Date Darby Davis MD [address] [place] [phone] PCP - General Internal Medicine 03/17/22 Elizabeth Molina [address] [place] [phone] Specialist Pulmonology 08/12/22 Leelee Ayala MD [address] [place] [phone] Specialist Allergy & Immunology 09/30/23
--- OUTSIDE RECORDS SUMMARY | 2024-09-19 10:11 | XMS_ITS | Encounter Summary ---
Author Organization [facility] Address [address] [place] [address] Care Team Providers Care Credit Control Clerk Name Role Phone Vivienne Kim MD Primary Care Provider Unavailab Silvia Maldonado DO Primary Care Pro vider Unavailable Sidney Kessler MD Primary Care Provider Darby Allen MD Primary Care Prov ider Elizabeth Molina Unavailable Unavailable Leelee Ayala MD Unavailable Unavailable Encounter Details Date Type Department Care Team Description 01/06/2017 Release of Information Medical Records [address] [place] [id number] Abstract, Provider Social History Tobacco Use Types [...] on filedocumented in this encounter Care Teams Credit Control Clerk Relationship Specialty Start Date End Date Vivienne Kim MD PCP - General Pediatrics 11/13/16 04/11/20 Silvia Estrada DO PCP - General Internal Medicine 04/12/20 01/20/21 Sidney Kessler MD PCP - General Internal Medicine 01/21/21 03/16/22 Darby Davis MD [address] [place] [phone] PCP - General Internal Medicine 03/17/22 Elizabeth Molina [address] [place] [address] Specialist Pulmonology 08/12/22 Leelee Ayala MD [address] [place] [address] Specialist Allergy & Immunology 09/30/23 documented as of this encounter
== END 2024-09-19 09:45 | disposition home or self-care (01) ==
LOC: HO.HPS 09:19
PROVIDERS: PCP Internal Medicine; Visit Provider Internal Medicine
DX: J45.909 Unspecified asthma, uncomplicated (principal); J30.9 Allergic rhinitis, unspecified
CPT/HCPCS: 99213

== ENCOUNTER → 2024-09-19 09:18 | Outpatient (BNVA) | payer BC, SELFPAY | PROVIDERS: PCP Internal Medicine; Visit Provider Internal Medicine ==

== ENCOUNTER 2024-10-21 07:09 | Emergency (ER) | payer BC, SELFPAY ==
--- NOTE | ~2024-10-21 | CT_ITS ---
CLINICAL HISTORY: epigastric abd pain, N v CT abdomen and pelvis with contrast Comparison: None Findings: The lung bases are clear. The liver demonstrates a probable small peripheral cyst. The gallbladder, spleen, adrenal glands and pancreas are normal. Kidneys, ureters and bladder are normal. Uterus and adnexa are within normal limits. No bowel obstruction. Normal appendix. No free air, free fluid or abscess. No acute osseous finding. Impression: No definite acute process. This document has been electronically signed by: Rich Aparicio MD on 10/21/2024 10:27:55
[2024-10-21 07:16] VITALS: BP 150/96; PULSE 100; RESP 18; TEMP 37.3; O2SAT 96; BMI 37.1
[2024-10-21 07:32] LABS: MANUAL DIFF FLAG NO
[2024-10-21 07:33] LABS: Basophils Absolute Auto 0.1 X10*3/uL (0.0-0.2); Basophils Percent Auto 0.4 % (0-2); Eosinophils Absolute Auto 0.1 X10*3/uL (0.0-0.4); Eosinophils Percent Auto 0.4 % (0-4); Hematocrit 43.1 % (37.0-47.0); Hemoglobin 15.2 g/dl (12.0-16.0); Imm Gran Abs Auto 0.08 X10*3/uL (0.00-0.03); Imm Gran Pct Auto 0.6 % (0.0-0.4); Lymphocytes Percent Auto 7.6 % (20-40); Mean Corpuscular HGB Conc 35.3 g/dl (31.0-35.0); Mean Corpuscular Hemoglobin 31.7 pg (27.0-33.0); Mean Corpuscular Volume 89.8 fL (80.0-98.0); Mean Platelet Volume 9.3 fL (9.4-12.3); Monocytes Absolute Auto 0.4 X10*3/uL (0.1-1.2); Monocytes Percent Auto 3.1 % (2-11); Neutrophils Absolute Auto 11.9 x10*3/uL (2.0-8.3); Neutrophils Percent Auto 87.9 % (45-73); Platelet Count 330 X10*3/uL (160-400); Red Cell Distribution Width 12.6 % (11.0-16.0); White Blood Count 13.5 X10*3/uL (4.8-10.8)
[2024-10-21 07:51] LABS: Alanine Aminotransferase 10 U/L (0-31); Albumin Level 4.8 g/dL (3.5-5.0); Alkaline Phosphatase 75 U/L (39-117); Anion Gap 16 (12-20); Aspartate Amino Transferase 22 U/L (5-31); Bilirubin Direct 0.3 mg/dL (0.0-0.5); Bilirubin Total 0.9 mg/dL (0.0-1.0); Blood Urea Nitrogen 13 mg/dL (9-16); Calcium 9.6 mg/dL (8.4-10.2); Carbon Dioxide 19 mmol/L (22-29); Chloride 110 mmol/L (96-108); Estimated Glomerular Filt Rate > 60; Glucose Random 101 mg/dL (60-115); Lipase 20 U/L (8-78); Potassium 3.6 mmol/L (3.3-5.1); Sodium 141 mmol/L (135-145); Total Protein 7.7 g/dL (6.5-8.0)
[2024-10-21 08:00] VITALS: BP 119/65; PULSE 91; RESP 16; TEMP 36.8; O2SAT 98
[2024-10-21 08:19] LABS: Influenza A PCR NEGATIVE (Negative); Influenza B PCR NEGATIVE (Negative); Resp Syncy Virus RNA Qual PCR NEGATIVE (Negative); SARS COV2 PCR INHOUSE NEGATIVE (Negative)
--- NOTE | 2024-10-21 08:28 | ED_ITS ---
HPI - Abdominal Pain General Chief Complaint: Abdominal Pain Stated Complaint: vomiting abd pain Time Seen by Provider: 10/21/24 08:03 Source: patient Mode of arrival: ambulatory Limitations: no limitations History of Present Illness ED Provider: LINDA MCGEE PA-C HPI narrative: 24 year old female with pmhx significant for asthma presents to the ED today for evaluation of nausea and vomiting which began around 1600 yesterday. Reports epigastric abdominal pain which began after multiple episodes of vomiting. Pain is currently 6/10, improving since onset. She states she has not been able to tolerate any p.o. intake at home. Denies history of similar. She is currently on her menstrual period which began yesterday. Denies chance of . Patient states she works at [employer]. No known sick contacts at work or elsewhere. Denies history of abdominal surgeries. Denies any EtOH consumption. Does endorse daily marijuana use. Denies fever, chills, chest pain, shortness of breath, diarrhea, constipation, flank pain, urinary symptoms. Related Data Home Medications ?Medication ?Instructions ?Recorded ?Confirmed acetaminophen 500 mg tablet 1,500 mg PO BID PRN Pain 02/20/23 09/19/24 etonogestrel 68 mg subdermal 68 mg subdermal DIRECTED 07/24/23 09/19/24 implant (Nexplanon) Previous Rx's ?Medication ?Instructions ?Recorded peak flow meter #1 ea 11/02/22 albuterol sulfate 90 mcg/actuation 2 puff inhalation Q4-6H PRN for 09/23/23 aerosol inhaler wheezing #8.5 ea cetirizine 10 mg tablet 10 mg PO DAILY PRN allergy 11/19/23 symptoms #30 tabs levalbuterol HCl 1.25 mg/3 mL 1.25 mg (3 mL) inhalation Q4-6H 04/13/24 solution for nebulization PRN shortness of breath or wheezing #72 mL fluticasone propionate 50 2 spray intranasal DAILY all. 04/17/24 mcg/actuation nasal rhinitis 30 days #16 grams spray,suspension (Flonase Allergy Relief) dupilumab 300 mg/2 mL subcutaneous 300 mg (2 mL) subcut Q2W Allergic 05/26/24 pen injector Rhinitis / Eiosinophilia 2 weeks #2 mL montelukast 10 mg tablet 10 mg PO QPM for allergic rhinitis 07/11/24 #90 tabs fluticasone 250 mcg-salmeterol 50 1 inh inhalation BID asthma 30 09/19/24 mcg/dose blistr powdr for days #60 ea inhalation (Christinxela Inhub) ondansetron 4 mg disintegrating 4 mg PO DAILY PRN nausea and 10/21/24 tablet vomiting 5 days #10 tabs Allergies Allergy/AdvReac Type Severity Reaction Status Date / Time No Known Allergies Allergy Verified 10/21/24 07:18 Review of Systems Review of Systems Constitutional: No fever, chills, fatigue, night sweats, weight changes ENT/Mouth: No ear pain, hearing loss, nasal congestion, sinus pain, rhinorrhea, sore throat Eyes: No eye pain, swelling, redness, vision changes, discharge Cardio: No chest pain, palpitations, MACIAS, orthopnea, peripheral edema Pulm: No SOB, cough, sputum, wheezing, dyspnea, hemoptysis GI: No hematemesis, diarrhea, constipation, hematochezia, melena, +N/V, +abdominal pain : No irregular bleeding, dysuria, frequency, urgency, hesitancy, hematuria, flank pain, urinary flow changes, urinary incontinence or retention MSK: No back pain, neck pain, joint pain, myalgias Skin: No lesions, rashes Neuro: No weakness, numbness, paresthesias, LOC, dizziness, headache Psych: No anxiety/panic, depression, SI/HI, AH/VH All other systems reviewed and are negative. Yes all other systems are reviewed and are negative [facility] Past Medical History Attestation statement: The following information was validated with the patient. Source: old records reviewed and nursing notes reviewed Medical History Allergic rhinitis Obesity (BMI 35.0-39.9 without comorbidity) Eosinophilia Asthma Social History Social History Household Members: Family Housing: House Do you presently have visiting nurse or other home services: No Alcohol intake: current Alcohol intake frequency: holidays/special occasions only Comment: refused bed alarm. pt rings appropriately Patient Tobacco Use Status: Never used Tobacco Second Hand Smoke Exposure: No Substance Use Type: Marijuana Advance Directives: No Advance Directives Information Provided: Yes service: No Current occupational status: employed Physical Exam ED Vital Signs: Vital Signs - 24 hr 10/21/24 07:16 10/21/24 08:00 10/21/24 10:00 Temperature 99.1 F 98.3 F 98.3 F Pulse Rate 100 91 82 Respiratory Rate 18 16 16 Blood Pressure 150/96 H 119/65 123/70 Pulse Oximetry 96 98 97 Oxygen Delivery Method Room Air Room Air Room Air BMI result Body Mass Index 37.1 Hypertensive General: Well appearing, in no acute distress. Skin: Warm, dry, intact. No rashes or lesions. Head: Normocephalic, atraumatic. EENT: Hearing is intact b/l. Conjunctiva clear. Sclera is anicteric. PERRLA. EOM intact. Moist mucous membranes.? Neck: Supple without LAD Cardiac: Chest wall symmetric. RRR Lungs: Normal respiratory effort without accessory muscle use. CTA bilaterally Abdomen: soft, nondistended, mildly tender to palpation of the epigastric region without rebound or guarding. Active bowel sounds x4. Ext: Upper and lower extremities atraumatic, without tenderness, deformity, swelling or erythema Neuro: AOx3. Normal speech. Ambulating with steady gait Course Course Course Narrative: CBC showing leukocytosis to 13.5 with left shift - possibly reactive from vomiting. No anemia. H&H stable. Chemistry without acute electrolyte abnormality requiring intervention. No ALEXANDR. Liver function WNL. Urine notable for large urine blood and RBCs secondary to patient's current menstrual period. Negative for infection. Urine negative. > Toradol, Zofran, IV fluids ordered > CT abdomen/pelvis pending 1058 -- re-evaluation, patient reports symptomatic improvement with fluids, medications. No further episodes of vomiting in the ED. CT abdomen/pelvis without evidence of bowel obstruction. Normal appendix. No evidence of colitis. > I have suspicion for a viral gastroenteritis. Discussed workup results with patient. Will treat symptomatically, Zofran sent to pharmacy. Will p.o. trial. Anticipate discharge home. Medical Decision Making Medical Decision Making [facility] Narrative: 24 year old female with pmhx significant for asthma presents to the ED today for evaluation of nausea and vomiting which began around 1600 yesterday. hypertensive, afebrile. She is nontoxic appearing in no acute distress. On exam, her abdomen is soft, nondistended, tender to palpation of epigastric region without rebound or guarding. Differential diagnosis includes cyclical vomiting syndrome, gastroenteritis, gastritis, PUD, viral syndrome, anemia, electrolyte abnormality, dehydration. Abdominal exam without peritoneal signs. No evidence of acute abdomen at this time. Well appearing. Moderate suspicion for acute hepatobiliary disease (including acute cholecystitis). Less likely to represent acute pancreatitis, perforated ulcer/ GI bleed, acute infectious processes (pneumonia, hepatitis, pyelonephritis), atypical appendicitis, vascular catastrophe, bowel obstruction or viscus perforation. Presentation not consistent with other acute, emergent causes of abdominal pain at this time. Plan: labs, UA, pain control, CT, serial reassessment Differential Diagnosis Differential Diagnoses: The differential diagnosis associated with the presentation includes as above. Admission/Observation Not indicated Lab Data MDM Lab Attestation statement: I reviewed the patient's lab results. as above. 10/21/24 07:27 10/21/24 07:27 Labs: Lab Results 10/21/24 10/21/24 Range/Units 07:27 08:40 WBC 13.5 H (4.8-10.8) X10*3/uL RBC 4.80 (4.20-5.50) X10*6/uL Hgb 15.2 (12.0-16.0) g/dl Hct 43.1 (37.0-47.0) % MCV 89.8 (80.0-98.0) fL MCH 31.7 (27.0-33.0) pg MCHC 35.3 H (31.0-35.0) g/dl RDW 12.6 (11.0-16.0) % Plt Count 330 (160-400) X10*3/uL MPV 9.3 L (9.4-12.3) fL Immature Gran % (Auto) 0.6 H (0.0-0.4) % Neut % (Auto) 87.9 H (45-73) % Lymph % (Auto) 7.6 L (20-40) % [place] % (Auto) 3.1 (2-11) % Eos % (Auto) 0.4 (0-4) % Baso % (Auto) 0.4 (0-2) % Lymph # (Auto) 1.0 L (1.2-4.9) X10*3/uL [place] # (Auto) 0.4 (0.1-1.2) X10*3/uL Eos # (Auto) 0.1 (0.0-0.4) X10*3/uL Baso # (Auto) 0.1 (0.0-0.2) X10*3/uL Abs Immat Gran (auto) 0.08 H (0.00-0.03) X10*3/uL Absolute Neuts (auto) 11.9 H (2.0-8.3) x10*3/uL Absolute Nucleated RBC 0.000 (0.0-0.012) X10*3/uL Nucleated RBC % (auto) 0.0 (0.0-0.2) /100WBC Sodium 141 (135-145) mmol/L Potassium 3.6 (3.3-5.1) mmol/L Chloride 110 H (96-108) mmol/L Carbon Dioxide 19 L (22-29) mmol/L Anion Gap 16 (12-20) BUN 13 (9-16) mg/dL Creatinine 0.70 (0.5-1.4) mg/dL Estim Creat Clear Calc 137.0 Estimated GFR > 60 Random Glucose 101 (60-115) mg/dL Calcium 9.6 (8.4-10.2) mg/dL Total Bilirubin 0.9 (0.0-1.0) mg/dL Direct Bilirubin 0.3 (0.0-0.5) mg/dL AST 22 (5-31) U/L ALT 10 (0-31) U/L Alkaline Phosphatase 75 (39-117) U/L Total Protein 7.7 (6.5-8.0) g/dL Albumin 4.8 (3.5-5.0) g/dL Lipase 20 (8-78) U/L Beta HCG, Quant < 2 mIU/mL Urine Color Dark Yellow Urine Appearance Clear Urine pH 5.5 (5.0-9.0) Ur Specific [place] >= 1.030 H (1.005-1.025) Urine Protein 30 (1+) H (Neg-Trace) mg/dL Urine Glucose (UA) Negative (Negative) mg/dL Urine Ketones >=160 (Negative) mg/dL Urine Blood Large (3+) H (Negative) Urine Nitrite Negative (Negative) Ur Leukocyte Esterase Negative (Negative) Urine RBC 11-20 H (0-2) /HPF Urine WBC 0-5 (0-5) /HPF Ur Squamous Epith Cells 6-10 (0-2) /HPF Urine Bacteria None Seen (None Seen) Hyaline Casts 0-2 (0-2) /LPF Urine Test NEGATIVE (NEGATIVE) Influenza Type A (PCR) NEGATIVE (Negative) Influenza Type B (PCR) NEGATIVE (Negative) RSV RNA Qual (PCR) NEGATIVE (Negative) SARS-CoV-2 RNA (RT-PCR) NEGATIVE (Negative) Independent Interpretation I performed an independent interpretation of an: CT Scan Interpretation: CT a/p without evidence of bowel obstruction, no bowel wall thickening Radiology Impression Discussion of test interpretation with radiology: I have reviewed the radiologist's reading. Radiologist Impression: Date of Service: 10/21/24 Procedure(s): CT abdomen pelvis w IV con Accession Number(s): [id number] cc: Physician,Unknown ; Linda Mcgee~ Report Number: [id number]: Total DLP = 664.00 mGy-cm CLINICAL HISTORY: epigastric abd pain, N v CT abdomen and pelvis with contrast Comparison: None Findings: The lung bases are clear. The liver demonstrates a probable small peripheral cyst. The gallbladder, spleen, adrenal glands and pancreas are normal. Kidneys, ureters and bladder are normal. Uterus and adnexa are within normal limits. No bowel obstruction. Normal appendix. No free air, free fluid or abscess. No acute osseous finding. Impression: No definite acute process. This document has been electronically signed by: Rich Aparicio MD on 10/21/2024 10:27:55 External Record Review External record reviewed: Inpatient record Prescription Management I considered prescription management with: Other (zofran) Social Determinants Patient?s care significantly limited by Social Determinants of Health including: Other Social Determinant of Health Medications Administered Discontinued Medications Generic Name Dose Route Start Last Admin Trade Name Freq PRN Reason Stop Dose Admin Sodium Chloride 1,000 mls @ 999 mls/hr 10/21/24 08:45 10/21/24 08:42 Ns IV 10/21/24 09:45 999 mls/hr .Q1H1M EILEEN Administration Iohexol 100 ml 10/21/24 10:09 10/21/24 10:09 Iohexol 350 Mg/Ml 100 Ml Infus..Btl IV 10/21/24 10:10 85 ml ONCE ONE Administration Ketorolac Tromethamine 30 mg 10/21/24 08:48 10/21/24 08:57 Ketorolac Tromethamine 30 Mg/Ml Vial IVPUSH 10/21/24 08:49 30 mg ONCE ONE Administration Ondansetron HCl 4 mg 10/21/24 08:34 10/21/24 08:44 Ondansetron Hcl 4 Mg/2 Ml Vial IVPUSH 10/21/24 08:35 4 mg ONCE ONE Administration Critical Care Time Critical Care Time Critical Care Time: No Discharge Plan Discharge Clinical Impression: Gastroenteritis Patient Disposition: Home, Self-Care Instructions: Gastroenteritis (ED) Additional Instructions: Your lab workup today was reassuring.? Your urine test was negative for infection and .? The CT scan of your abdomen does not demonstrate acute pathology/ infection. Your symptoms are most consistent with a viral stomach bug, also known as gastroenteritis.? The treatment for this is supportive care. Symptoms usually resolve on their own in 48-72 hours.? The recommendation is rest and lots of oral hydration.? For the next 24 hours, stick to a DILLON diet (bananas rice, applesauce, tea, and toast) Zofran is an anti-nausea medication. This has been sent to your pharmacy for you to take as needed for nausea.? You can also try over the counter Pepto Bismol or Imodium as needed for upset stomach and diarrhea.? Follow up with your primary care provider this week. If you develop new or worsening symptoms call 911 or come back to the ER for further evaluation. Prescriptions: New ondansetron 4 mg tablet,disintegrating 4 mg PO DAILY PRN (Reason: nausea and vomiting) 5 Days Qty: 10 0RF No Action albuterol sulfate 90 mcg/actuation HFA aerosol inhaler 2 puff inhalation Q4-6H PRN (Reason: for wheezing) Qty: 8.5 3RF dupilumab 300 mg/2 mL pen injector 300 mg subcut Q2W 14 Days Qty: 2 11RF Rx Instructions: Loading dose of 600mg on day 1 followed by 300mg every 2 weeks montelukast 10 mg tablet 10 mg PO QPM Qty: 90 1RF acetaminophen 500 mg Tablet 1,500 mg PO BID PRN (Reason: Pain) Nexplanon 68 mg Implant 68 mg SUBDERMAL DIRECTED levalbuterol HCl 1.25 mg/3 mL solution for nebulization 1.25 mg inhalation Q4-6H PRN (Reason: shortness of breath or wheezing) Qty: 72 0RF cetirizine 10 mg tablet 10 mg PO DAILY PRN (Reason: allergy symptoms) Qty: 30 1RF (DME) peak flow meter Device See Rx Instructions .Route Qty: 1 0RF Rx Instructions: As directed fluticasone propion-salmeterol [Wixela Inhub] 250-50 mcg/dose blister with device 1 inh inhalation BID 30 Days Qty: 60 3RF fluticasone propionate [Flonase Allergy Relief] 50 mcg/actuation spray,suspension 2 spray intranasal DAILY 30 Days Qty: 16 5RF Rx Instructions: administer into each nostril Referrals: Physician,Unknown J [Primary Care Provider] - Stand Alone Forms: Work/School Release Print Language: Swedish
[2024-10-21] MEDS: 0.9 % Sodium Chloride 1,000 ML 999 ML IV (08:42)
[2024-10-21] MEDS: ondansetron HCL 4 MG/2 ML VIAL IVPUSH (08:44)
[2024-10-21 08:50] LABS: Appearance Urine Clear; Color Urine Dark Yellow; Glucose Urine UA Negative (Negative); Leukocyte Esterase Urine Negative (Negative); Nitrite Urine Negative (Negative); PH 5.5 (5.0-9.0); Specific Gravity - Urine >= 1.030 (1.005-1.025); UMIC TRIGGER UACC YES; Urine Blood Large (3+) (Negative); Urine Ketones >=160 mg/dL (Negative); Urine Protein 30 (1+) mg/dL (Neg-Trace)
[2024-10-21 08:52] LABS: Bacteria Urine None Seen (None Seen); Hyaline Casts Urine 0-2 /LPF (0-2); WBC Urine 0-5 /HPF (0-5)
[2024-10-21 08:57] LABS: UPreg QC Valid YES; Urine Pregnancy NEGATIVE (NEGATIVE)
[2024-10-21] MEDS: Ketorolac Tromethamine 30 MG/ML VIAL IVPUSH (08:57)
[2024-10-21 09:51] LABS: HCG Quantitative < 2 mIU/mL
[2024-10-21 10:00] VITALS: BP 123/70; PULSE 82; RESP 16; TEMP 36.8; O2SAT 97
[2024-10-21] MEDS: iohexoL 350 MG/ML 100 ML INFUS..BTL IV (10:09)
[2024-10-21 11:10] VITALS: BP 123/70; PULSE 82; RESP 16; TEMP 36.8; O2SAT 97
== END 2024-10-21 11:14 | disposition home or self-care (01) ==
PROVIDERS: Physician Assistant Medical; Emergency Provider Emergency Medicine
DX: K52.9 Noninfective gastroenteritis and colitis, unspecified (principal); R11.2 Nausea with vomiting, unspecified; R10.13 Epigastric pain; J45.909 Unspecified asthma, uncomplicated; F12.90 Cannabis use, unspecified, uncomplicated; Z03.818 Encounter for observation for suspected exposure to other biological agents ruled out
CPT/HCPCS: 0241U; 36415; 74177; 80048; 80076; 81001; 81025; 83690; 84702; 85025; 96361; 96374; 96375; 99284; J1885; J2405; Q9967

== ENCOUNTER → 2024-10-21 08:36 | Outpatient (BNV) | payer BC, SELFPAY | PROVIDERS: Emergency Provider Emergency Medicine; Visit Provider Radiology Vascular & Interventional Radiology | DX: R10.13 Epigastric pain (principal); R11.2 Nausea with vomiting, unspecified | CPT/HCPCS: 74177 ==

== ENCOUNTER 2024-11-27 08:19 | Emergency (ER) | payer BC, SELFPAY ==
[2024-11-27 08:23] VITALS: BP 127/77; PULSE 81; RESP 18; TEMP 36.3; O2SAT 98; BMI 36.5
[2024-11-27 08:54] LABS: MANUAL DIFF FLAG NO
--- NOTE | 2024-11-27 08:56 | PC.NURSE ---
patient a&ox3, iv inserted, labs drawn, pt medicated per order, pt admits to smoking marijuana on occasion which she did consume some yesterday. Pt states that she woke at 2 am vomiting. call painter within reach, plan of care ongoing.
[2024-11-27 08:57] LABS: Hematocrit 43.5 % (37.0-47.0); Hemoglobin 14.8 g/dl (12.0-16.0); Imm Gran Abs Auto 0.05 X10*3/uL (0.00-0.03); Imm Gran Pct Auto 0.4 % (0.0-0.4); Lymphocytes Absolute Auto 0.8 X10*3/uL (1.2-4.9); Mean Corpuscular HGB Conc 34.0 g/dl (31.0-35.0); Mean Corpuscular Hemoglobin 31.4 pg (27.0-33.0); Mean Corpuscular Volume 92.4 fL (80.0-98.0); NRBC Abs Auto 0.000 X10*3/uL (0.0-0.012); NRBC Pct Auto 0.0 /100WBC (0.0-0.2); Platelet Count 333 X10*3/uL (160-400); Red Blood Count 4.71 X10*6/uL (4.20-5.50); White Blood Count 11.2 X10*3/uL (4.8-10.8)
--- NOTE | 2024-11-27 09:00 | ED_ITS ---
HPI - General Adult General Chief complaint: Abdominal Pain Stated complaint: Vomiting, abd pain Time Seen by Provider: 11/27/24 08:51 Source: patient Mode of arrival: ambulatory Limitations: no limitations History of Present Illness HPI narrative: This is a 24 years old the patient presented to the emergency department complaining of nausea and vomiting diarrhea since yesterday. Denies any fever or chills. She has no prior abdominal surgery she has no comorbidity. She is also complaining of abdominal cramps diffuse Onset (ago): day(s) (1) Location: abdomen Radiation: non-radiation Severity: moderate Quality: burning Pain Consistency: intermittent Exacerbating factors: none Treatments prior to arrival: none Related Data Home Medications ?Medication ?Instructions ?Recorded ?Confirmed acetaminophen 500 mg tablet 1,500 mg PO BID PRN Pain 0 02/20/23 09/19/24 etonogestrel 68 mg subdermal 68 mg subdermal DIRECT ED 07/24/23 09/19/24 implant (Nexplanon) Previous Rx's ?Medication ?Instructions ?Recorded peak flow meter #1 ea 11/02/22 albuterol sulfate 90 mcg/actuation 2 puff inhalation Q 4-6H PRN for 09/23/23 aerosol inhaler wheezing #8.5 ea cetirizine 10 mg tablet 10 mg PO DAILY PRN allergy 0 11/19/23 symptoms #30 tabs levalbuterol HCl 1.25 mg/3 mL 1.25 mg (3 mL) inhalatio n Q4-6H 04/13/24 solution for nebulization PRN shortness of breath or wheezing #72 mL dupilumab 300 mg/2 mL subcutaneous 300 mg (2 mL) subcu t Q2W Allergic 05/26/24 pen injector Rhinitis / Eiosinophilia 2 w eeks #2 mL montelukast 10 mg tablet 10 mg PO QPM for allergic rh initis 07/11/24 #90 tabs fluticasone 250 mcg-salmeterol 50 1 inh inhalation BID asthma 30 09/19/24 mcg/dose blistr powdr for days #60 ea inhalation (Wixela Inhub) ondansetron 4 mg disintegrating 4 mg PO DAILY PRN naus ea and 10/21/24 tablet vomiting 5 days #10 tabs fluticasone propionate 50 2 spray intranasal DAILY all . 11/16/24 mcg/actuation nasal rhinitis 30 days #16 grams spray,suspension (Flonase Allergy Relief) Allergies Allergy/AdvReac Type Severity Reaction Status Date / Time No Known Allergies Allergy Verified 11/27/24 08:25 Review of Systems 2 Constitutional: Constitutional: Reports no additional constitutional complaints ENT: Reports system reviewed and no additional complaints, except as documented Gastrointestinal: Gastrointestinal: Reports abdominal pain Genitourinary: Genitourinary: Reports as per [facility] Past Medical History Attestation statement: The following information was validated with the patient. Medical History Allergic rhinitis Obesity (BMI 35.0-39.9 without comorbidity) Eosinophilia Asthma Social History Social History Household Members: Family Housing: House Do you presently have visiting nurse or other home services: No Alcohol intake: current Alcohol intake frequency: holidays/special occasions only Comment: refused bed alarm. pt rings appropriately Patient Tobacco Use Status: Never used Tobacco Smoked in Last 30 Days: No Second Hand Smoke Exposure: No Use of substances other than those prescribed or required for medical reasons: Yes Substance Use Type: Marijuana Substance Use Frequency: Occasionally Advance Directives: No Advance Directives Information Provided: Yes Do you have a plan to hurt others: No Plan Patient : No service: No Current occupational status: employed Physical Exam ED Vital Signs: Vital Signs - 24 hr 11/27/24 08:23 Temperature 97.4 F Pulse Rate 81 Respiratory Rate 18 Blood Pressure 127/77 Pulse Oximetry 98 Oxygen Delivery Method Room Air BMI result Body Mass Index 36.5 No acute distress comfortable in the stretcher Const General: cooperative Nutritional Appearance: well nourished Orientation/consciousness: patient oriented x3 HENMT Head: Yes normal to inspection General nose exam: Normal external nose present Face and sinus: Yes normal facial exam Mouth: Normal oral and palatal mucosa present Neck Neck: Yes normal visual inspection Chest Chest palpation & inspection: normal inspection of the chest Resp Effort & Inspection: normal respiratory effort Auscultation: clear to auscultation bilaterally Cardio Rate: regular rate Rhythm: regular rhythm GI Inspection: Yes normal to inspection Palpation (GI): Soft to palpation, not firm and nontender Auscultation: normal bowel sounds Skin General skin exam: no rashes or lesions noted and elasticity normal Neuro General: patient oriented x3 Extrem General: Yes normal to inspection and Yes full ROM Right upper extremity: normal to inspection Course Reevaluation(s) Reevaluation #1: On re-examination the patient is feeling much better asymptomatic at this time tolerating p.o. well anticipate discharge Time: 11:16 Medications Administered Discontinued Medications Generic Name Dose Route Start Last Admin Trade Name Ed PRN Reason Stop Dose Admin Sodium Chloride 1,000 mls @ 999 mls/hr 11/27/24 09:00 11/27/24 10:09 Ns IVCONT 11/27/24 10:00 Infused .Q1H1M EILEEN Infusion Morphine Sulfate 4 mg 11/27/24 08:59 11/27/24 09:07 Morphine Sulfate 4 Mg/Ml Cartridge IVPUSH 11/27/24 09:00 4 mg ONCE ONE Administration Protocol Ondansetron HCl 4 mg 11/27/24 08:51 11/27/24 08:55 Ondansetron Hcl 4 Mg/2 Ml Vial IVPUSH 11/27/24 08:52 4 mg ONCE ONE Administration Medical Decision Making Medical Decision Making [facility] Narrative: Patient is here complaining of nausea vomiting and diarrhea abdominal cramps we will obtain labs administer IV fluids 11:16 improved the clinical picture more consistent with viral syndrome at this point he is feeling better labs are okay we will DC Differential Diagnosis Differential Diagnoses: The differential diagnosis associated with the presentation includes Gastroenteritis/colitis/diverticulitis Admission/Observation Consideration of admission/observation: Escalation of care including admission/observation considered Lab Data [facility] Lab Attestation statement: I reviewed the patient's lab results. 11/27/24 08:49 11/27/24 08:49 Labs: Lab Results 11/27/24 Range/Units 08:49 WBC 11.2 H (4.8-10.8) X10*3/uL RBC 4.71 (4.20-5.50) X10*6/uL Hgb 14.8 (12.0-16.0) g/dl Hct 43.5 (37.0-47.0) % MCV 92.4 (80.0-98.0) fL MCH 31.4 (27.0-33.0) pg MCHC 34.0 (31.0-35.0) g/dl RDW 12.6 (11.0-16.0) % Plt Count 333 (160-400) X10*3/uL MPV 9.7 (9.4-12.3) fL Immature Gran % (Auto) 0.4 (0.0-0.4) % Neut % (Auto) 88.2 H (45-73) % Lymph % (Auto) 7.2 L (20-40) % Jay % (Auto) 3.1 (2-11) % Eos % (Auto) 0.4 (0-4) % Baso % (Auto) 0.7 (0-2) % Lymph # (Auto) 0.8 L (1.2-4.9) X10*3/uL Jay # (Auto) 0.4 (0.1-1.2) X10*3/uL Eos # (Auto) 0.0 (0.0-0.4) X10*3/uL Baso # (Auto) 0.1 (0.0-0.2) X10*3/uL Abs Immat Gran (auto) 0.05 H (0.00-0.03) X10*3/uL Absolute Neuts (auto) 9.9 H (2.0-8.3) x10*3/uL Absolute Nucleated RBC 0.000 (0.0-0.012) X10*3/uL Nucleated RBC % (auto) 0.0 (0.0-0.2) /100WBC Sodium 141 (135-145) mmol/L Potassium 4.1 (3.3-5.1) mmol/L Chloride 110 H (96-108) mmol/L Carbon Dioxide 24 (22-29) mmol/L Anion Gap 11 L (12-20) BUN 14 (9-16) mg/dL Creatinine 0.66 (0.5-1.4) mg/dL Estim Creat Clear Calc 144.1 Estimated GFR > 60 Random Glucose 138 H (60-115) mg/dL Calcium 9.3 (8.4-10.2) mg/dL Total Bilirubin 1.1 H (0.0-1.0) mg/dL AST 23 (5-31) U/L ALT 14 (0-31) U/L Alkaline Phosphatase 74 (39-117) U/L Total Protein 7.5 (6.5-8.0) g/dL Albumin 4.8 (3.5-5.0) g/dL Beta HCG, Quant < 2 mIU/mL Discharge Plan Discharge Clinical Impression: Vomiting Qualifiers: Vomiting type: unspecified Nausea presence: with nausea Qualified Code(s): R 11.2 - Nausea with vomiting, unspecified Patient Disposition: Home, Self-Care Instructions: Acute Nausea and Vomiting (DC) Additional Instructions: Follow-up with your primary care physician stay on liquid diet for 24 hour return if worse Prescriptions: No Action albuterol sulfate 90 mcg/actuation HFA aerosol inhaler 2 puff inhalation Q4-6H PRN (Reason: for wheezing) Qty: 8.5 3RF dupilumab 300 mg/2 mL pen injector 300 mg subcut Q2W 14 Days Qty: 2 11RF Rx Instructions: Loading dose of 600mg on day 1 followed by 300mg every 2 weeks montelukast 10 mg tablet 10 mg PO QPM Qty: 90 1RF fluticasone propionate [Flonase Allergy Relief] 50 mcg/actuation spray,suspension 2 spray intranasal DAILY 30 Days Qty: 16 5RF Rx Instructions: administer into each nostril acetaminophen 500 mg Tablet 1,500 mg PO BID PRN (Reason: Pain) Nexplanon 68 mg Implant 68 mg SUBDERMAL DIRECTED levalbuterol HCl 1.25 mg/3 mL solution for nebulization 1.25 mg inhalation Q4-6H PRN (Reason: shortness of breath or wheezing) Qty: 72 0RF cetirizine 10 mg tablet 10 mg PO DAILY PRN (Reason: allergy symptoms) Qty: 30 1RF ondansetron 4 mg tablet,disintegrating 4 mg PO DAILY PRN (Reason: nausea and vomiting) 5 Days Qty: 10 0RF (DME) peak flow meter Device See Rx Instructions .Route Qty: 1 0RF Rx Instructions: As directed fluticasone propion-salmeterol [Wixela Inhub] 250-50 mcg/dose blister with device 1 inh inhalation BID 30 Days Qty: 60 3RF Referrals: Physician,Unknown J [Primary Care Provider, Medical] - 11/28/24 Stand Alone Forms: Work/School Release Print Language: Nigerien
--- OUTSIDE RECORDS SUMMARY | 2024-11-27 09:08 | XMS_ITS | Clinical Summary ---
Author Organization [facility] Address [address] [place] [address] Care Team Providers Care Assistant Editor Name Role Phone Darby Jacome MD Primary Care [facility] ider Allergies No known active allergies [...] Overview (03/05/2024): In process of w/u with [facility] as of 03/2022 Alcoholic gastritis without bleeding 02/20/2021 Marijuana smoker 02/20/2021 Immunizations Name Administration Dates Next Due DTaP (Infanrix) 6wks to less than 7yo ,10/11/2002,2001,10/20,2001 [id number] (Pentacel) 2mo to less than 5yo 10/11/2002,2001,2001,08/12 [...] uncomplicated; COMMENT: In process of w/u with [facility] as of 03/2022 Allergic rhinitis 04/21/2022 [...] 2024 05/10/2021, 10/25/2020, 09/19/2020 Influenza Vaccine (#1) 2025 Cholesterol Screening (Lipid Panel) 02/20/2026 02/20/2021 Hepatitis B Vaccines Completed 2001, 2001, 2001 HIB Vaccines Completed 10/11/2002, 0809/2001, 2001, Additional history exists IPV Vaccines Completed [...] mg/dL Blood Venous blood specimen / Unknown us Historical Provider LAB BLOOD ORDERABLES Anisha l Result * Gonorrhea/Chlamydia Screening (01/09/2019) Gonorrhea/Chla mydia Screening abstracted us Historical Provider HEALTH MAINTENANCE Final Result * Cervical Cancer Screening: HPV (02/08/2014) Cervical Cancer Screening: HPV no interpretation , abstracted us Historical Provider HEALTH MAINTENANCE Final Result from Last 3 Months or Most Recently Relevant to Health Maintenance Care Teams Assistant Editor Relationship Specialty Start Date End Date Darby Jacome MD PCP - General Internal Medicine 03/17/22
--- OUTSIDE RECORDS SUMMARY | 2024-11-27 09:08 | XMS_ITS | Data Portability ---
Author Organization [facility] [address] Address [address] [place] [address] Care Team Providers Care Group Practice Pediatrician Name Role Phone [facility] Care Provider Assessment No assessment recorded. Plan of Treatment Reminders Order Date Submit Date Provider Last Modified By Organization Details Last Modified Time Details Appointments None recorded. Lab None recorded. Referral None recorded. Procedures None recorded. Surgeries None recorded. Imaging None recorded. Medication Orders albuterol sulfate 2.5 mg/3 mL (0.083 %) solution for nebulizati on 2022 023 [id number], [address] [place], [address], 3 09:11:31 ipratropiu m bromide 0.02 % solution for inhalation 2022 023 [id number], [address] [place], [address], 3 09:12:18 albuterol sulfate HFA 90 mcg/actuat ion aerosol inhaler 2022 023 [facility] #[id number], [address] [place], [address], 3 09:09:48 prednisone 20 mg tablet 2022 023 [id number], [address], [place], [address], 09:09:49 benzonatat e 200 mg capsule 2022 023 [facility], [address] [place], [address], 09:09:49 Allergy Relief (fluticaso ne) 50 mcg/actuat ion nasal spray,susp ension 2022 023 [id number] [address] [place], [address], 09:09:48 Patient TargetsNo targets recorded. Patient Instructions Encounter Date Encounter Id Patient Instructions Last Modified By Organization Details Last Modified Time 08/17/2022 [id number] peak flow* [email or web address] Not available 07/23 09:21:09 [...] and Address Organization Details Recorded Time Asthma 988783859 Active 023 Rosalinda Tian khoi PA - [...] index (BMI) Body weight Body temperature Systolic And Diastolic Provider Name and Address Organization Details Last Updated DateTime 3 122 /min 98 % 98 % 160.02 cm 36.8 kg/m2 94631.2 1 g 98 [degF] 141/87 mm[Hg] Rosalinda Tian [employer] 3 08:54:09 Social History Question Answer Notes LastModified by [employer] Details LastModified Time Tobacco Smoking Status Never Smoker Rosalinda westfall [facility] 08/17/2022 08:55:53 Which Illicit Or Recreational Drugs Have You Used? Marijuana Information not available 08/17/2022 Have You Recently Traveled Abroad? No Information not available 08/17/2022 Sex: Unknown Functional Status Question Answer Note LastModified by [employer] Details LastModified Time How many times per week do you consume alcohol? Less than 1 time per week Information not available 08/17/2022 Do you use any illicit or recreational drugs? Yes Information not available 08/17/2022 Do you or have you ever used any other forms of tobacco or nicotine? No Information not available 08/17/2022 What is your level of alcohol consumption? Occasional Information not available 08/17/2022 Mental Status None recorded. Family History Relationship [...] SNOMED-CT Code Diagnosis ICD10 Code Diagnosis Note [id number] [facility] [address] [place] [address] 04/27/2016 17:20:59 04/27/2016 19:39:32 [id number] [facility] [address] [place] [address] 03/16/2022 08:17:41 03/16/2022 10:59:10 [id number] [place] [address] [place] [address] 08/17/2022 08:46:31 08/17/2022 09:35:38 Acute bronchitis 14976591 J20.9 Health Concerns Section Related Observation LastModified by Organization Detai ls LastModified Time None Recorded Concern Status LastModified by Organization Details LastModified Time None Recorded Advance Directives Directive None Recorded Payers Insurance Date Sequence Insurance Name Policy Number Policy Gomez Covered Member ID Gomez Member ID Guarantor Name 08/17/2022 1 [employer]-MAN[employer]EL (PPO) [id number] Lance Cameronrhea [id number] [place] Notes Date Note Type Note Provider Name and Address Organization Details Recorded Time 08/17/2022 text/html 22 year old fema le present with wheezing and SOB x 1 day. stating her Albuterol is not working. She admit having asthma exacerbation from time to time. Also admit smoking marijuana daily. Cortez Overton NP [address] [place], [address], [place] - [facility] 08/17/2022 10:53:27 OBGyn Episode No OBEpisode recorded.
[2024-11-27 09:14] LABS: Alanine Aminotransferase 14 U/L (0-31); Albumin Level 4.8 g/dL (3.5-5.0); Alkaline Phosphatase 74 U/L (39-117); Anion Gap 11 (12-20); Aspartate Amino Transferase 23 U/L (5-31); Blood Urea Nitrogen 14 mg/dL (9-16); Calcium 9.3 mg/dL (8.4-10.2); Carbon Dioxide 24 mmol/L (22-29); Chloride 110 mmol/L (96-108); Creatinine Clr Calc Pharmacy 144.1; Estimated Glomerular Filt Rate > 60; Potassium 4.1 mmol/L (3.3-5.1); Sodium 141 mmol/L (135-145); Total Protein 7.5 g/dL (6.5-8.0)
--- NOTE | 2024-11-27 10:56 | PC.NURSE ---
pts pain has reduced to 6/10, ambulating to bathroom for urine
[2024-11-27 11:24] VITALS: BP 110/73; PULSE 78; RESP 18; TEMP 36.7; O2SAT 98
== END 2024-11-27 11:25 | disposition home or self-care (01) ==
PROVIDERS: Emergency Provider Emergency Medicine
DX: R11.2 Nausea with vomiting, unspecified (principal); R25.2 Cramp and spasm; R10.2 Pelvic and perineal pain; Z79.899 Other long term (current) drug therapy
CPT/HCPCS: 36415; 80053; 84702; 85025; 96361; 96374; 96375; 99284; J2270; J2405

== ENCOUNTER → 2024-12-28 06:17 | Outpatient (BNV) | payer BC, SELFPAY | PROVIDERS: Visit Provider Radiology Diagnostic Radiology | DX: R05.9 Cough, unspecified (principal) | CPT/HCPCS: 71045 ==

== ENCOUNTER 2024-12-28 06:29 | Inpatient (IN) | payer BC, SELFPAY ==
[2024-12-28] VITALS (11 sets, daily range): BP systolic 132–159; BP diastolic 33–82; PULSE 91–160; RESP 14–26; TEMP 35.9–37.2; O2SAT 93–98; BMI 36.0; BMI 37.4
--- NOTE | 2024-12-28 | ECG_ITS ---
Test Reason : TACHYCARDIA Blood Pressure : */* mmHG Vent. Rate : 138 BPM Atrial Rate : 138 BPM P-R Int : 130 ms QRS Dur : 66 ms QT Int : 292 ms P-R-T Axes : 50 53 4 degrees QTcB Int : 442 ms Sinus tachycardia Otherwise normal ECG When compared with ECG of 26-Jun-2024 11:03, No significant change was found Referred By: Selin Gresham Electronically Signed By: BOB NOBLES
--- NOTE | ~2024-12-28 | XR_ITS ---
EXAMINATION: XR CHEST 1 VIEW HISTORY: COUGH COMPARISON: Comparison is made with the prior examination dated 06/26/2024. FINDINGS: A single AP portable view of the chest performed at 7:17 AM is submitted. The lungs are expanded and clear. There is no pleural effusion, pneumothorax, or pulmonary vascular congestion. The heart is normal in size. The bones are intact. XR/XR chest 1V IMPRESSION: No acute cardiopulmonary abnormality. Electronically signed by: Watson Malagon MD 12/28/2024 08:05 AM EDT
--- OUTSIDE RECORDS SUMMARY | 2024-12-28 06:42 | XMS_ITS ---
Author Name [facility] Organization Unknown Care Team Organization Name Specialty Phone Email Start Date End Da te [facility] Rhonda Orozco Primary Care 11/26/20222023 [facility] Darby Davis Primary Care 09/28/2022 01/10/2024 [facility] Sandy Hewitt Primary Care 03/31/2022 01/10/20 24
--- OUTSIDE RECORDS SUMMARY | 2024-12-28 06:42 | XMS_ITS | Clinical Summary ---
Author Organization [facility] Address [address] [place] [address] Care Team Providers Care Inventory Control/Shipping Receiving Name Role Phone Darby Jacome MD Primary Care 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/2021 Marijuana smoker 02/20/2021 Immunizations Name Administration Dates Next Due DTaP (Infanrix) 6wks to less than 7yo ,10/11/2002,2001,10/20,2001 BLpU-OIX-MSO (Pentacel) 2mo to less than 5yo 10/11/2002,2001,2001,08/12 [...] uncomplicated; COMMENT: In process of w/u with [facility] as of 03/2022 Allergic rhinitis 04/21/2022 [...] 5 Years) and At-Risk Patients (6 to 49 Years) (1 of 1 - PPSV23) 2007 03/15/2002, 2001, 2001 Meningococcal B Vaccine (1 of 2 - Standard) 2017 Gonorrhea/Chlamydia Screening 01/10/2020 01/09/2019 HIV Screening 04/25/2022 Hepatitis C Screening 04/25/2022 Social Influencers of Health Screening 04/25/2022 Cervical Cancer Screening: Pap Smear 2022 02/08/2014 DTaP,Tdap,and Td Vaccines (7 - Td or Tdap) 11/02/2022 11/02/2012, 10/04/2006, 10/11/2002, Additional history exists COVID-19 Vaccine ( season) 2024 05/10/2021, 10/25/2020, 09/19/2020 Depression Screening 05/24/2024 Influenza Vaccine (#1) 2025 Cholesterol Screening (Lipid [...] Recently Relevant to Health Maintenance Care Teams Inventory Control/Shipping Receiving Relationship Specialty Start Date End Date Darby Jacome MD PCP - General Internal Medicine 03/17/22
[2024-12-28] MEDS: Albuterol Sulfate 5 MG, Albuterol/Iprat 2.5/0.5MG 3 ML 3 ML INHALE (06:49)
--- NOTE | 2024-12-28 07:35 | PC.NURSE ---
patient a&ox3, vss, pts lungs exp wheezing with rhonchi, dry cough, RT at bedside for neb treatment, cxr performed, nasal swab obtained, call painter within reach, plan of care ongoing
[2024-12-28 08:07] LABS: Resp Syncy Virus RNA Qual PCR NEGATIVE (Negative); SARS COV2 PCR INHOUSE NEGATIVE (Negative)
--- NOTE | 2024-12-28 08:07 | ED_ITS ---
HPI - Asthma General Chief Complaint: Asthma Stated Complaint: Asthma Time Seen by Provider: 12/28/24 08:05 Source: patient Mode of arrival: ambulatory Limitations: no limitations History of Present Illness ED Provider: Maria E Elizabeth PA-C HPI Narrative: Patient is a 24 year old assigned female at with a history of asthma presenting to the emergency department today with an asthma exacerbation. Patient states that she has been having a cold over the last 4 days and increased wheezing / coughing. Patient states that she used her inhaler and duonebs but it is not getting better. Patient denies any dizziness, lightheadedness, abdominal pain, nausea, vomiting, fever, chills, blurry vision, double vision, loss of vision, chest pain, back pain, night sweats, pain with urination, increased urinary frequency, increased urinary urgency, blood in her urine or stool, syncope or a near syncopal episode, recent trauma or falls, bowel incontinence, bladder incontinence, or any other complaints at this time. Related Data Home Medications ?Medication ?Instructions ?Recorded ?Confirmed acetaminophen 500 mg tablet 1,500 mg PO BID PRN Pain 0 02/20/23 12/28/24 etonogestrel 68 mg subdermal 68 mg subdermal DIRECT ED 07/24/23 12/28/24 implant (Nexplanon) dupilumab 300 mg/2 mL subcutaneous 300 mg subcut Q2W A llergic 12/28/24 12/28/24 pen injector (Dupixent) Rhinitis / Eiosinophilia montelukast 10 mg tablet 10 mg PO BEDTIME for allergi c 12/28/24 12/28/24 rhinitis Previous Rx's ?Medication ?Instructions ?Recorded peak flow meter #1 ea 11/02/22 albuterol sulfate 90 mcg/actuation 2 puff inhalation Q 4-6H PRN for 09/23/23 aerosol inhaler wheezing #8.5 ea cetirizine 10 mg tablet 10 mg PO DAILY PRN allergy 0 11/19/23 symptoms #30 tabs levalbuterol HCl 1.25 mg/3 mL 1.25 mg (3 mL) inhalatio n Q4-6H 04/13/24 solution for nebulization PRN shortness of breath or wheezing #72 mL fluticasone propionate 50 2 spray intranasal DAILY all . 11/16/24 mcg/actuation nasal rhinitis 30 days #16 grams spray,suspension (Flonase Allergy Relief) fluticasone 250 mcg-salmeterol 50 1 ea inhalation BID for asthma 12/18/24 mcg/dose blistr powdr for #180 ea inhalation (Wixela Inhub) Allergies Allergy/AdvReac Type Severity Reaction Status Date / Time No Known Allergies Allergy Verified 12/28/24 06:32 Review of Systems 2 Constitutional: Constitutional: Reports no additional constitutional complaints, Denies chills, Denies fever(s) and Denies night sweats Eyes: Eyes: Reports no additional eye complaints, Denies blurry vision, Denies change in vision, Denies diplopia, Denies eye discharge, Denies loss of vision and Denies eye pain ENT: Denies dizziness Cardiovascular: Cardiovascular: Reports no additional cardiovascular complaints, Denies chest pain, Denies lightheadedness, Denies Loss of Consciousness and Reports dyspnea Respiratory: Respiratory: Reports no additional respiratory complaints, Reports cough, Reports dyspnea and Reports wheezing Gastrointestinal: Gastrointestinal: Reports no additional gastrointestinal complaints, Denies abdominal pain, Denies melena, Denies hematochezia, Denies change in bowel habits and Denies change in stool character Genitourinary: Genitourinary: Denies hematuria, Denies urinary frequency, Denies dysuria, Denies urinary incontinence, Denies urinary hesitancy and Denies urinary urgency Musculoskeletal: Musculoskeletal: Reports no additional musculoskeletal complaints, Denies numbness and Denies tingling Neurologic: Denies dizziness, Denies loss of vision, Denies numbness and Denies tingling Psychiatric: Psychiatric: Reports no additional psychiatric complaints Endocrine: Endocrine: Reports no additional endocrine complaints Hematologic/Lymphatic: Hematologic/Lymphatic: Reports no additional hematologic/lymphatic complaints Allergic/Immunologic: Allergic/Immunologic: Reports no additional allergic/immunologic complaints and Reports wheezing PMFSH Past Medical History Attestation statement: The following information was validated with the patient. Source: old records reviewed and nursing notes reviewed Medical History Allergic rhinitis Obesity (BMI 35.0-39.9 without comorbidity) Eosinophilia Asthma Social History Social History Household Members: Family Housing: House Do you presently have visiting nurse or other home services: No Alcohol intake: current Alcohol intake frequency: holidays/special occasions only Comment: refused bed alarm. pt rings appropriately Patient Tobacco Use Status: Never used Tobacco Second Hand Smoke Exposure: No Substance Use Type: Marijuana Advance Directives: No Advance Directives Information Provided: Yes service: No Current occupational status: employed Physical Exam 2 Vital Signs: Vital Signs: Last Vital Signs Temp 98.9 F 12/28/24 10:18 Pulse 112 H 12/28/24 10:18 Resp 14 12/28/24 10:18 BP 159/82 H 12/28/24 10:18 Pulse Ox 96 12/28/24 10:18 O2 Del Method Room Air 12/28/24 10:18 BMI result Body Mass Index 36.0 Const: General: cooperative, no acute distress, alert and awake Nutritional Appearance: well nourished Orientation/consciousness: patient oriented x3 HEENT: Head: Yes normal to inspection and Yes atraumatic Ears: hearing grossly normal bilaterally and external ears normal General nose exam: Normal external nose present, no nasal discharge noted and no epistaxis Face and sinus: Yes normal facial exam, No abrasion and No laceration Mouth: Normal oral and palatal mucosa present, no drooling and no muffled voice Eyes: General: appearance normal, both eyes and all related structures P eriorbital: periorbital findings normal Eyelids: Yes eyelids normal C onjunctivae: conjunctivae normal Pupils: Equal, round and reactive pupils present EOM: EOMs intact bilaterally Neck: Neck: Yes normal visual inspection, Yes full ROM and Yes no lymphadenopathy Resp: Effort & Inspection: able to speak in complete sentences, Actively coughing and labored Auscultation: wheezes scattered wheezes Cardio: Rate: tachycardic Rhythm: regular rhythm Neuro: General: patient oriented x3, moves all extremities and CN's II-XI intact bilaterally Cranial nerves: Yes Equal, round and reactive pupils present Cognition (Neuro): normal cognition Extrem: General: Yes normal to inspection, Yes full ROM and Yes capillary refill normal Psych: Appearance: grossly normal Mental Status: mental status grossly normal Affect: normal affect Attitude: cooperative Thought process: N ormal thought process present Thought content: Normal thought content present Insight: Good insight present (Psych) Medications Administered Discontinued Medications Generic Name Dose Route Start Last Admin Trade Name Freq PRN Reason Stop Dose Admin Albuterol Sulfate 5 mg/ 0 mg 12/28/24 06:47 08/07/25 06:49 Albuterol/Ipratropium 3 ml INHALE 12/28/24 06:48 1 each ONCE ONE Administration Levalbuterol HCl 1.25 mg/ 0 mg 12/28/24 09:25 12/28/24 09:29 Ipratropium [place] 0.5 mg INHALE 12/28/24 09:26 1 dose ONCE ONE Administration Magnesium Sulfate/Dextrose 1 gm in 100 mls @ 100 mls/hr 12/28/24 08:22 12/28/24 09:34 Magnesium Sulfate/D5w IV 12/28/24 09:21 Infused ONCE ONE Infusion Lorazepam 0.5 mg 12/28/24 09:10 12/28/24 09:18 Lorazepam 0.5 Mg Tablet PO 12/28/24 09:11 0.5 mg ONCE ONE Administration Methylprednisolone Sodium Succinate 60 mg 12/28/24 08:07 12/28/24 08:20 Methylprednisolone Sod Succ 125 Mg/2 Ml Vial IM 12/28/24 08:08 60 mg ONCE ONE Administration Medical Decision Making Medical Decision Making MDM Narrative: Patient is a 24 year old assigned female at with a history of asthma presenting to the emergency department today with an asthma exacerbation. Patient's physical exam was as noted in the physical exam portion of this note. Patient's blood work was unremarkable. Patient's chest x-ray showed no acute process. I explained my physical exam findings as well as all test results to the patient. I answered all questions asked by the patient. Patient was given IV magnesium, solu-medrol, and numerous breathing treatments but continued to have wheezing / shortness of breath. I spoke with the hospitalist team who agreed to admission for additional treatment. Patient verbalized agreement and understanding with this treatment plan and admission. Differential Diagnosis Differential Diagnoses: The differential diagnosis associated with the presentation includes Wheezing Asthma exacerbation SOB Difficulty breathing Admission/Observation Consideration of admission/observation: Escalation of care including admission/observation considered Patient admitted as noted in the MDM Rationale portion of this note. Consult Healthcare Provider Management of the patient was discussed with: Hospitalist (agreed to admission as noted in the MDM Rationale portion of this note. ) Lab Data [facility] Lab Attestation statement: I reviewed the patient's lab results. My interpretation of these results are in the MDM Rationale portion of this note. 12/28/24 11:46 12/28/24 11:46 Labs: Lab Results 12/28/24 Range/Units 07:20 Influenza Type A (PCR) NEGATIVE (Negative) Influenza Type B (PCR) NEGATIVE (Negative) RSV RNA Qual (PCR) NEGATIVE (Negative) SARS-CoV-2 RNA (RT-PCR) NEGATIVE (Negative) Independent Interpretation I performed an independent interpretation of an: Plain X-Ray Interpretation: My interpretation is in agreement with the radiologist's impression of this imaging study. L EXAMINATION: XR CHEST 1 VIEW HISTORY: COUGH COMPARISON: Comparison is made with the prior examination dated 06/26/2024. FINDINGS: A single AP portable view of the chest performed at 7:17 AM is submitted. The lungs are expanded and clear. There is no pleural effusion, pneumothorax, or pulmonary vascular congestion. The heart is normal in size. The bones are intact. XR/XR chest 1V IMPRESSION: No acute cardiopulmonary abnormality. Electronically signed by: Watson Malagon MD 12/28/2024 08:05 AM EDT Dictated By: Watson Malagon MD Signed By: Electronically signed by Watson Malagon MD 12/28/24 0805 Radiology Impression Discussion of test interpretation with radiology: I have reviewed the radiologist's reading. Critical Care Time Critical Care Time Critical Care Time: Yes Total Critical Care Time: 43 Attestation: I spent 43 minutes of Critical Care Time with this patient. This does not include time spent on separately reported billable procedures. Discharge Plan Discharge Clinical Impression: Asthma Patient Disposition: Admitted As Inpatient
--- NOTE | 2024-12-28 08:40 | PC.NURSE ---
iv inserted, pt medicated per orders
--- NOTE | 2024-12-28 08:40 | PC.NURSE ---
data warehousing manager applied, pt sinus tach on monitor
[2024-12-28] MEDS: levalbuterol HCL 1.25 MG, Ipratropium Bromide 0.5 MG INHALE (09:29)
--- NOTE | 2024-12-28 11:52 | P.HPHOSP_ITS ---
History of Present Illness Date of Service: 12/28/24 Attending physician on admission: José Miguel Davison Chief Complaint: sob This is a 24-year-old female with history of allergic asthma on Dupixent who presents to the emergency department with shortness of breath. Patient reports 3 day history of dry cough, nasal congestion and shortness of breath. She has been using her baseline inhalers and albuterol nebulizer with no significant improvement in her symptoms. She denies any recent sick contacts. She reports that her asthma has been well controlled since she started taking Dupixent. She has no history of intubations. In the emergency department she was noted to be wheezing and was treated with IV steroids, breathing treatments and IV magnesium. Chest x-ray negative for any acute abnormality. Patient had no hypoxia but given persistent shortness of breath and significant wheezing she will be admitted to the hospital for further management of acute asthma exacerbation. Review of Systems 2 Review of Systems: Yes all other systems are reviewed and are negative Constitutional: Constitutional: Denies fever(s) Cardiovascular: Cardiovascular: Reports dyspnea Respiratory: Respiratory: Reports cough and Reports dyspnea [facility] Medical History Allergic rhinitis Obesity (BMI 35.0-39.9 without comorbidity) Eosinophilia Asthma Social History Household Members: Family Housing: House Do you presently have visiting nurse or other home services: No Alcohol intake: current Alcohol intake frequency: holidays/special occasions only Comment: refused bed alarm. pt rings appropriately Patient Tobacco Use Status: Never used Tobacco Second Hand Smoke Exposure: No Substance Use Type: Marijuana Advance Directives: No Advance Directives Information Provided: Yes service: No Current occupational status: employed Meds Allergies Allergy/AdvReac Type Severity Reaction Status Date / Time No Known Allergies Allergy Verified 12/28/24 06:32 Active Medications: Current Medications Acetaminophen (Acetaminophen 325 Mg Tablet) 650 mg PO Q6H PRN PRN Reason: Pain, Mild 1-3,fever,headache Calcium Carbonate (Calcium Carbonate 750 Mg Tab.Chew) 750 mg PO Q4H PRN PRN Reason: Heartburn Levalbuterol HCl (Levalbuterol Hcl 1.25 Mg/3 Ml Vial.Neb) 1.25 mg INHALE Q4H PRN PRN Reason: Shortness of Breath/Wheezing Magnesium Hydroxide (Milk Of Magnesia 30 Ml Oral.Susp) 30 ml PO DAILY PRN PRN Reason: Constipation Melatonin (Melatonin 3 Mg Tablet) 6 mg PO BEDTIME PRN PRN Reason: Insomnia Methylprednisolone Sodium Succinate (Methylprednisolone Sod Succ 40 Mg/Ml Vial) 40 mg IVPUSH Q12H EILEEN Sodium Chloride (0.9 % Sodium Chloride Flush 3 Ml Syringe) 3 ml IVFLUSH QSHIFT EILEEN Home Medications ?Medication ?Instructions ?Recorded ?Confirmed ?Last Taken ?Type acetaminophen 500 mg tablet 1,500 mg PO BID PRN Pain 0 02/20/23 12/28/24 Unknown History etonogestrel 68 mg subdermal 68 mg subdermal DIRECT ED 07/24/23 12/28/24 Unknown History implant (Nexplanon) dupilumab 300 mg/2 mL subcutaneous 300 mg subcut Q2W A llergic 12/28/24 12/28/24 12/17/24 History pen injector ([email or web address]) Rhinitis / Eiosinophilia montelukast 10 mg tablet 10 mg PO BEDTIME for allergi c 12/28/24 12/28/24 12/27/24 History rhinitis Physical Exam 2 Vital Signs and Narrative: Vital Signs: Last Vital Signs Temp 98.9 F 12/28/24 10:18 Pulse 112 H 12/28/24 10:18 Resp 14 12/28/24 10:18 BP 159/82 H 12/28/24 10:18 Pulse Ox 96 12/28/24 10:18 O2 Del Method Room Air 12/28/24 10:18 BMI result Body Mass Index 36.0 Const: General: cooperative, comfortable, no acute distress, alert and awake Nutritional Appearance: obese Orientation/consciousness: patient oriented x3 Resp: Other: Diffuse expiratory wheeze Effort & Inspection: normal respiratory effort, able to speak in complete sentences, no respiratory distress and no use of accessory muscles Cardio: Rate: regular rate GI: Inspection: No distended Neuro: General: patient oriented x3 Results Labs 12/28/24 11:46 12/28/24 11:46 Labs: Laboratory Results - last 24 hr 12/28/24 07:20 Influenza Type A (PCR) NEGATIVE Influenza Type B (PCR) NEGATIVE RSV RNA Qual (PCR) NEGATIVE SARS-CoV-2 RNA (RT-PCR) NEGATIVE Imaging Radiologist's Impressions: Impressions Chest X-Ray 12/28/24 06:17 IMPRESSION: No acute cardiopulmonary abnormality. Electronically signed by: Watson Malagon MD 12/28/2024 08:05 AM EDT RP Assessment and Plan (1) Asthma: Status: Acute Plan This is a 24-year-old female with a history of chronic allergic asthma, allergic rhinitis who presents to the emergency department with shortness a breath admitted for further management of acute asthma exacerbation Acute exacerbation of chronic allergic asthma Likely due to underlying upper respiratory infection/seasonal allergies Will treat with Systemic steroids and breathing treatments Check respiratory pathogen panel Continue baseline Wixela, Zyrtec, montelukast Morbid obesity, class 2 Weight loss encouraged DVT prophylaxis-low risk-mechanical devices, early ambulation Quality Stroke Does the patient have a stroke diagnosis?: No VTE Prior VTE?: No VTE Risk Level:: Medical - moderate - high VTE Device Contraindication: N/A - Device Ordered VTE Drug Contraindication: Treatment Not Indicated
[2024-12-28 11:54] LABS: Hematocrit 43.2 % (37.0-47.0); Hemoglobin 14.8 g/dl (12.0-16.0); Imm Gran Abs Auto 0.03 X10*3/uL (0.00-0.03); Imm Gran Pct Auto 0.3 % (0.0-0.4); Lymphocytes Absolute Auto 0.3 X10*3/uL (1.2-4.9); MANUAL DIFF FLAG SCAN; Mean Corpuscular HGB Conc 34.3 g/dl (31.0-35.0); Mean Corpuscular Hemoglobin 32.1 pg (27.0-33.0); Mean Corpuscular Volume 93.7 fL (80.0-98.0); NRBC Abs Auto 0.000 X10*3/uL (0.0-0.012); NRBC Pct Auto 0.0 /100WBC (0.0-0.2); Platelet Count 309 X10*3/uL (160-400); Red Blood Count 4.61 X10*6/uL (4.20-5.50); SCAN SMEAR FLAG 1; White Blood Count 10.1 X10*3/uL (4.8-10.8)
[2024-12-28 11:55] LABS: Venous Blood Gas Refer to POC result
[2024-12-28 11:56] LABS: VBG HCO3 23 mmol/L (22-26); VBG O2 % Saturation 70.0 %
--- NOTE | 2024-12-28 12:07 | PC.NURSE ---
pt a&ox3, room moved for hospital convenience from ED 13 to ED 11, branch account manager reapplied sinus tach on monitor, pt continues to have wheezing and rhonchi, RT provided additional updraft. Pt aware she is being admitted to the hospital, labs drawn and nasal swab to be performed by tech. jaquan painter within reach, plan of care ongoing
--- NOTE | 2024-12-28 12:12 | PHA.MEDREC ---
Addendum entered by Yulisa Jaeger RPh 12/28/24 13:23: Reviewed by [facility] Original Note: Pharmacy Consult ? Medication Reconciliation Pharmacy has completed the medication reconciliation. Spoke with pt and she confirmed her medications. Pt confirmed Dupixent every 2 weeks and confirmed she last got it 12/18 and has an apt to get it 01/04.
[2024-12-28 12:17] LABS: Alanine Aminotransferase 27 U/L (0-31); Albumin Level 4.7 g/dL (3.5-5.0); Alkaline Phosphatase 83 U/L (39-117); Anion Gap 13 (12-20); Aspartate Amino Transferase 25 U/L (5-31); Blood Urea Nitrogen 8 mg/dL (9-16); Calcium 9.1 mg/dL (8.4-10.2); Carbon Dioxide 23 mmol/L (22-29); Chloride 110 mmol/L (96-108); Creatinine Clr Calc Pharmacy 120.9; Estimated Glomerular Filt Rate > 60; Magnesium 1.9 mg/dL (1.6-2.6); Potassium 3.9 mmol/L (3.3-5.1); Sodium 142 mmol/L (135-145); Total Protein 7.4 g/dL (6.5-8.0)
[2024-12-28 14:07] LABS: Chlamydia pneumoniae PCR Not Detected (Not Detect.); Coronavirus 229E PCR Not Detected (Not Detect.); Coronavirus HKU1 PCR Not Detected (Not Detect.); Coronavirus NL63 PCR Not Detected (Not Detect.); Coronavirus OC43 PCR Not Detected (Not Detect.); RSV PCR Not Detected (Not Detect.); Rhino/Enterovirus PCR Detected (Not Detect.)
[2024-12-28 14:09] LABS: Influenza A H1 PCR Not Detected (Not Detect.); Influenza A H1-2009 PCR Not Detected (Not Detect.); Influenza A H3 PCR Not Detected (Not Detect.); SARS-CoV-2 PCR Not Detected (Not Detect.)
[2024-12-28] MEDS: 0.9 % Sodium Chloride Flush 3 ML SYRINGE IVFLUSH ×2 (15:05→19:51)
[2024-12-28] MEDS: guaiFEN/Codeine SF 200/20/10ML 10 ML LIQUID PO (19:51)
[2024-12-29] VITALS (13 sets, daily range): BP systolic 121–163; BP diastolic 62–82; PULSE 61–140; RESP 16–20; TEMP 36.3–37.1; O2SAT 94–97
--- NOTE | 2024-12-29 03:57 | PC.NURSE ---
Addendum entered by Nicolasa Robles RN 12/29/24 05:20: Around 3 am, pt seen weepy and c/o chest tightness and persistent coughing, RT came to give neb,, prn Lorazepam given, later notede pt was sustaining in the 120s- 140s, ST in the tele, Dr. Zee was made aware. Original Note: Pt seen at start of the shift, alert and oriented, pt is having persistent congested non productive cough, with mild exp rhonchi, DR Zee was updated, Tessalon cap and Guiafenissin + Codeine given, pt wa able to rest and sleep, pt verbalized relief.
[2024-12-29] MEDS: guaiFEN/Codeine SF 200/20/10ML 10 ML LIQUID PO ×3 (04:47→15:47)
[2024-12-29] MEDS: 0.9 % Sodium Chloride Flush 3 ML SYRINGE IVFLUSH ×3 (07:43→20:04)
[2024-12-29] MEDS: Metoprolol Tartrate 12.5 MG HALFTAB PO (09:44)
--- NOTE | 2024-12-29 09:48 | MHC.CM.PN ---
PT REPORTS SHE LIVES WITH HER PARENTS AND IS INDEPENDENT WITH CARE SHE HAS A NEBULIZER FOR DME AND NO SERVICES DECLINES A HCP NO PCP-BROCHURE PROVIDED OBSERVATION NOTICE DELIVERED DCP: HOME VIA SELF TRANSPORT
--- NOTE | 2024-12-29 10:44 | PC.NURSE ---
Pt. anxious, crying stating she's not feeling good, her face flushed, cold cloth given, MD notified and at bedside. Vitals taken hr 105 down from 140s earlier, metoprolol PO given at that time. Pt. resting now quietly..
--- NOTE | 2024-12-29 11:58 | HO.PM.IMPN ---
Subjective Subjective Date of Service: 12/29/24 Interval History: Still somewhat short of breath at rest. No acute issues overnight Review of Systems Denies chest pain but admits to rapid heart rate Admits shortness of breath with movement Denies nausea vomiting diarrhea Denies fever chills Physical Exam Vital Signs: Vital Signs: Last Vital Signs Temp 98.3 F 12/29/24 10:41 Pulse 88 12/29/24 11:47 Resp 18 12/29/24 11:47 BP 163/82 H 12/29/24 10:41 Pulse Ox 95 12/29/24 10:41 O2 Del Method Room Air 12/29/24 10:41 BMI result Body Mass Index 37.4 Const: Other: Awake alert no acute distress Resp: Other: Diminished at bases with expiratory wheezes noted Cardio: Other: No S4; positive S1-S2; no S3 murmurs rubs or gallops GI: Other: Soft nontender nondistended normoactive bowel sounds Extrem: Other: No edema Objective Data Active Medications Acetaminophen (Acetaminophen 325 Mg Tablet) 650 mg PO Q6H PRN PRN Reason: Pain, Mild 1-3,fever,headache Last Admin: 12/29/24 06:04 Dose: 650 mg Documented By: CASTVITA Benzonatate (Benzonatate 100 Mg Capsule) 200 mg PO TID PRN PRN Reason: Cough Last Admin: 12/29/24 07:40 Dose: 200 mg Documented By: CATHY Calcium Carbonate (Calcium Carbonate 750 Mg Tab.Chew) 750 mg PO Q4H PRN PRN Reason: Heartburn Fluticasone Propionate (Fluticasone Propionate Nasal 16 Gm [place]) 2 spray NOSTRIL-B DAILY [facility] Last Admin: 12/29/24 09:46 Dose: Not Given Documented By: CATHY Non-Admin Reason: med not available, pharmacy aware Fluticasone/Vilanterol (Fluticasone/Vilanterol 100/25 Blst.W.Dev) 1 puff INHALE RDAILY [facility] Last Admin: 12/29/24 08:03 Dose: Not Given Documented By: JOHNATHAN Non-Admin Reason: med not available, pharmacy called. Guaifenesin/Codeine Phosphate (Guaifen/Codeine Sf 200/20/10ml 10 Ml Liquid) 10 ml PO Q4H PRN PRN Reason: Cough Last Admin: 12/29/24 10:36 Dose: 10 ml Documented By: CATHY Levalbuterol HCl (Levalbuterol Hcl 1.25 Mg/3 Ml Vial.Neb) 1.25 mg INHALE Q4H PRN PRN Reason: Shortness of Breath/Wheezing Levalbuterol HCl (Levalbuterol Hcl 1.25 Mg/3 Ml Vial.Neb) 1.25 mg INHALE Q6H [facility] Last Admin: 12/29/24 11:47 Dose: 1.25 mg Documented By: JOHNATHAN Loratadine (Loratadine 10 Mg Tablet) 10 mg PO DAILY PRN PRN Reason: allergy symptoms Last Admin: 12/29/24 07:40 Dose: 10 mg Documented By: CATHY Lorazepam (Lorazepam 0.5 Mg Tablet) 0.5 mg PO Q8H PRN PRN Reason: Anxiety Last Admin: 12/29/24 04:11 Dose: 0.5 mg Documented By: WILL Magnesium Hydroxide (Milk Of Magnesia 30 Ml Oral.Susp) 30 ml PO DAILY PRN PRN Reason: Constipation Melatonin (Melatonin 3 Mg Tablet) 6 mg PO BEDTIME PRN PRN Reason: Insomnia Methylprednisolone Sodium Succinate (Methylprednisolone Sod Succ 40 Mg/Ml Vial) 40 mg IVPUSH Q12H [facility] Last Admin: 12/29/24 10:36 Dose: 40 mg Documented By: CATHY Montelukast Sodium (Montelukast Sodium 10 Mg Tablet) 10 mg PO BEDTIME [facility] Last Admin: 12/28/24 19:51 Dose: 10 mg Documented By: WILL Ondansetron HCl (Ondansetron Hcl 4 Mg/2 Ml Vial) 4 mg IVPUSH Q8H PRN PRN Reason: Nausea and Vomiting Last Admin: 12/29/24 06:04 Dose: 4 mg Documented By: WILL Sodium Chloride (0.9 % Sodium Chloride Flush 3 Ml Syringe) 3 ml IVFLUSH QSHIFT [facility] Last Admin: 12/29/24 07:43 Dose: 3 ml Documented By: CATHY Labs 12/28/24 11:46 12/28/24 11:46 Labs: Laboratory Results - last 24 hr 12/28/24 12/28/24 11:46 12:16 Immature Gran % (Auto) 0.3 Neut % (Auto) 95.6 H Lymph % (Auto) 2.8 L [place] % (Auto) 0.9 L Eos % (Auto) 0.0 Baso % (Auto) 0.4 Lymph # (Auto) 0.3 L [place] # (Auto) 0.1 Eos # (Auto) 0.0 Baso # (Auto) 0.0 Abs Immat Gran (auto) 0.03 Absolute Neuts (auto) 9.6 H Absolute Nucleated RBC 0.000 Nucleated RBC % (auto) 0.0 Smear Tech's Comments VERIFIED Anion Gap 13 Estim Creat Clear Calc 120.9 Estimated GFR > 60 Random Glucose 160 H Calcium 9.1 Magnesium 1.9 Total Bilirubin 0.4 AST 25 ALT 27 Alkaline Phosphatase 83 Total Protein 7.4 Albumin 4.7 Beta HCG, Quant < 2 Respiratory Panel Dave See Note Adenovirus (Rapid PCR) Not Detected B.pert (TEM-PCR) Not Detected B.parapertussis DNA PCR Not Detected C. pneumoniae DNA (PCR) Not Detected Coronavirus OC43 (PCR) Not Detected Coronavirus HKU1 (PCR) Not Detected Coronavirus 229E (PCR) Not Detected Coronavirus NL63 (PCR) Not Detected Human Metapneumovir PCR Not Detected Influenza A (RT-PCR) Not Detected Influenza A (H1) PCR Not Detected Influ A (H1/09) PCR Not Detected Influenza A (H3) PCR Not Detected Influenza B (RT-PCR) Not Detected M. pneumoniae (PCR) Not Detected Parainfluenza 1 (PCR) Not Detected Parainfluenza 2 (PCR) Not Detected Parainfluenza 3 (PCR) Not Detected Parainfluenza 4 (PCR) Not Detected RSV (PCR) Not Detected Entero/Rhino (PCR) Detected A SARS-CoV-2 RNA (RT-PCR) Not Detected Assessment and Plan (1) Asthma with acute exacerbation: Status: Acute Plan This is a 24-year-old female with a history of chronic allergic asthma, allergic rhinitis who presents to the emergency department with shortness a breath admitted for further management of acute asthma exacerbation 1.Acute exacerbation of chronic allergic asthma -DuoNebs q.4 hours PRN -pulse dose steroids -respiratory pathogen panel.. Positive for rhino virus -continue baseline Wixela, Zyrtec, montelukast Morbid obesity, class 2 Weight loss encouraged DVT prophylaxis-low risk-mechanical devices, early ambulation Quality Stroke Does the patient have a stroke diagnosis?: No VTE Prior VTE?: No VTE Risk Level:: Medical - moderate - high VTE Device Contraindication: N/A - Device Ordered VTE Drug Contraindication: Treatment Not Indicated
[2024-12-30] VITALS (10 sets, daily range): BP systolic 120–142; BP diastolic 63–80; PULSE 72–119; RESP 14–20; TEMP 36.1–36.8; O2SAT 92–96
[2024-12-30] MEDS: guaiFEN/Codeine SF 200/20/10ML 10 ML LIQUID PO ×3 (03:54→15:19)
--- NOTE | 2024-12-30 05:37 | PC.NURSE ---
Around 4am, pt c/o chest tightness and dyspnea, O2 sats 97% RA, tachypneic, weeping, dry heaving, coughing, mild exp rhonchi noted, advised pt, prn Tessalon and Robitussin given, prn Ativan po given, later given prn Zofran IV, paged RT for a neb and came, pt seen settled on bed after but with a MAHER, prn Tylenol po given.
[2024-12-30] MEDS: Fluticasone/Vilanterol 100/25 BLST.W.DEV 1 PUFF INHALE (07:29)
[2024-12-30] MEDS: 0.9 % Sodium Chloride Flush 3 ML SYRINGE IVFLUSH ×3 (10:02→20:21)
[2024-12-30] MEDS: Magnesium Hydrox/Alum Hydrox 30 ML ORAL.SUSP PO (11:46)
--- NOTE | 2024-12-30 13:14 | P.PNIM_ITS ---
Subjective Subjective Date of Service: 12/30/24 Interval History: Still wheezy with cough but improved aeration. No acute issues overnight Review of Systems Denies chest pain but admits to rapid heart rate Admits shortness of breath with movement Denies nausea vomiting diarrhea Denies fever chills Physical Exam 2 Vital Signs: Vital Signs: Last Vital Signs Temp 98.2 F 12/30/24 07:41 Pulse 119 H 12/30/24 11:06 Resp 20 12/30/24 11:06 BP 142/70 H 12/30/24 07:41 Pulse Ox 95 12/30/24 07:41 O2 Del Method Room Air 12/30/24 07:41 BMI result Body Mass Index 37.4 Const: Other: Awake alert no acute distress Resp: Other: Diminished at bases with expiratory wheezes noted Cardio: Other: No S4; positive S1-S2; no S3 murmurs rubs or gallops GI: Other: Soft nontender nondistended normoactive bowel sounds Extrem: Other: No edema Objective Data Active Medications Acetaminophen (Acetaminophen 325 Mg Tablet) 650 mg PO Q6H PRN PRN Reason: Pain, Mild 1-3,fever,headache Last Admin: 12/30/24 05:18 Dose: 650 mg Documented By: WILL Al Hydroxide/Mg Hydroxide (Magnesium Hydrox/Alum Hydrox 30 Ml Oral.Susp) 30 ml PO Q4H PRN PRN Reason: Heartburn Last Admin: 12/30/24 11:46 Dose: 30 ml Documented By: CARMENCITA Benzonatate (Benzonatate 100 Mg Capsule) 200 mg PO TID PRN PRN Reason: Cough Last Admin: 12/30/24 11:52 Dose: 200 mg Documented By: CARMENCITA Calcium Carbonate (Calcium Carbonate 750 Mg Tab.Chew) 750 mg PO Q4H PRN PRN Reason: Heartburn Last Admin: 12/29/24 16:55 Dose: 750 mg Documented By: CARMENCITA Ceftriaxone Sodium (Ceftriaxone Sodium 1 Gm Vial) 1 gm IVPUSH Q24H [facility] Last Admin: 12/30/24 10:02 Dose: 1 gm Documented By: CARMENCITA Fluticasone Propionate (Fluticasone Propionate Nasal 16 Gm [place]) 2 spray NOSTRIL-B DAILY [facility] Last Admin: 12/30/24 08:17 Dose: 2 spray Documented By: CARMENCITA Fluticasone/Vilanterol (Fluticasone/Vilanterol 100/25 Blst.W.Dev) 1 puff INHALE RDAILY [facility] Last Admin: 12/30/24 07:29 Dose: 1 puff Documented By: EM Guaifenesin/Codeine Phosphate (Guaifen/Codeine Sf 200/20/10ml 10 Ml Liquid) 10 ml PO Q4H PRN PRN Reason: Cough Last Admin: 12/30/24 08:17 Dose: 10 ml Documented By: CARMENCITA Azithromycin 500 mg/ Sodium (Chloride) 250 mls @ 125 mls/hr IV Q24H [facility] Last Infusion: 12/30/24 12:17 Dose: Infused Documented By: CARMENCITA Levalbuterol HCl (Levalbuterol Hcl 1.25 Mg/3 Ml Vial.Neb) 1.25 mg INHALE Q4H PRN PRN Reason: Shortness of Breath/Wheezing Last Admin: 12/30/24 04:19 Dose: 1.25 mg Documented By: TRICIA Levalbuterol HCl (Levalbuterol Hcl 1.25 Mg/3 Ml Vial.Neb) 1.25 mg INHALE RQ6H [facility] Last Admin: 12/30/24 11:06 Dose: 1.25 mg Documented By: EM Loratadine (Loratadine 10 Mg Tablet) 10 mg PO DAILY PRN PRN Reason: allergy symptoms Last Admin: 12/30/24 08:17 Dose: 10 mg Documented By: CARMENCITA Lorazepam (Lorazepam 0.5 Mg Tablet) 0.5 mg PO Q8H PRN PRN Reason: Anxiety Last Admin: 12/30/24 03:54 Dose: 0.5 mg Documented By: CASTILM Magnesium Hydroxide (Milk Of Magnesia 30 Ml Oral.Susp) 30 ml PO DAILY PRN PRN Reason: Constipation Melatonin (Melatonin 3 Mg Tablet) 6 mg PO BEDTIME PRN PRN Reason: Insomnia Methylprednisolone Sodium Succinate (Methylprednisolone Sod Succ 40 Mg/Ml Vial) 40 mg IVPUSH Q12H [facility] Last Admin: 12/30/24 12:17 Dose: 40 mg Documented By: CARMENCITA Montelukast Sodium (Montelukast Sodium 10 Mg Tablet) 10 mg PO BEDTIME [facility] Last Admin: 12/29/24 20:04 Dose: 10 mg Documented By: WILL Ondansetron HCl (Ondansetron Hcl 4 Mg/2 Ml Vial) 4 mg IVPUSH Q8H PRN PRN Reason: Nausea and Vomiting Last Admin: 12/30/24 04:00 Dose: 4 mg Documented By: WILL Sodium Chloride (0.9 % Sodium Chloride Flush 3 Ml Syringe) 3 ml IVFLUSH QSHIFT [facility] Last Admin: 12/30/24 10:02 Dose: 3 ml Documented By: YEIMIHO Labs 12/28/24 11:46 12/28/24 11:46 Assessment and Plan (1) Asthma with acute exacerbation: Status: Acute Plan This is a 24-year-old female with a history of chronic allergic asthma, allergic rhinitis who presents to the emergency department with shortness a breath admitted for further management of acute asthma exacerbation 1.Acute exacerbation of chronic allergic asthma -DuoNebs q.4 hours PRN -pulse dose steroids -respiratory pathogen panel.. Positive for rhino virus -continue baseline Wixela, Zyrtec, montelukast -add ceftriaxone/azithromycin given lack of improvement productive cough Morbid obesity, class 2 Weight loss encouraged DVT prophylaxis-low risk-mechanical devices, early ambulation Quality Stroke Does the patient have a stroke diagnosis?: No VTE Prior VTE?: No VTE Risk Level:: Medical - moderate - high VTE Device Contraindication: N/A - Device Ordered VTE Drug Contraindication: Treatment Not Indicated
--- NOTE | 2024-12-30 16:22 | PC.NURSE ---
Pt coughing intermittently throughout the day- medicated with robitussin with codeine x2 and tessalon once with good effect. Pt c/o lower back discomfort after coughing, warm pack applied with good effect. Dr Davison aware. Pt on tele- SR/ST HR ranges between high 90's to 110's at rest but up to 140's with coughing. Denies chest pain. C/o stomach burning at 1145- Dr Davison notified, maalox ordered and given with good effect. Pt independent in room
[2024-12-31] VITALS (7 sets, daily range): BP systolic 129–143; BP diastolic 73–83; PULSE 88–133; RESP 16–30; TEMP 36.2–37; O2SAT 93–97
--- NOTE | 2024-12-31 | ECG_ITS ---
Test Reason : tachycardia Blood Pressure : */* mmHG Vent. Rate : 109 BPM Atrial Rate : 109 BPM P-R Int : 118 ms QRS Dur : 78 ms QT Int : 318 ms P-R-T Axes : 62 58 12 degrees QTcB Int : 428 ms Sinus tachycardia Otherwise normal ECG When compared with ECG of 28-Dec-2024 14:22, No significant change was found Referred By: Margie Zee Electronically Signed By: BOB NOBLES
[2024-12-31] MEDS: guaiFEN/Codeine SF 200/20/10ML 10 ML LIQUID PO (06:32)
--- NOTE | 2024-12-31 07:16 | PC.NURSE ---
Around 0620 after scheduled neb, pt suddenly went to ST on the 160s then 130s-140s sustaining, pt seen with persistent coughing, Chest tightness, SOB and increasing anxiety, Vitals BP 143/81, RR 33 O2 sats 97% RA, prn Tessalon and Guiafenissin+ Codeine po, also given prn Lorazepam, Dr. Zee was notified, EKG done, tracing sent to Dr. Zee, HR eventually decreased t o 120s to 1teens. pt was supported and advised, report given to incoming RN.
[2024-12-31] MEDS: Fluticasone/Vilanterol 100/25 BLST.W.DEV 1 PUFF INHALE (07:38)
[2024-12-31] MEDS: 0.9 % Sodium Chloride Flush 3 ML SYRINGE IVFLUSH (09:28)
--- NOTE | 2024-12-31 11:13 | PM.DS ---
DS: Providers Provider Date of Service: 12/31/24 Date of admission: 12/30/24 13:07 Date of discharge: 12/31/24 Primary care physician: Unknown Physician DS: Diagnosis Discharge Diagnosis (1) Asthma with acute exacerbation: Status: Acute DS: Summary Hospital Course Hospital Course: 24-year-old female with history of allergic asthma on Dupixent who presents to the emergency department with shortness of breath. Patient reports 3 day history of dry cough, nasal congestion and shortness of breath. She has been using her baseline inhalers and albuterol nebulizer with no significant improvement in her symptoms. She denies any recent sick contacts. She reports that her asthma has been well controlled since she started taking Dupixent. She has no history of intubations. In the emergency department she was noted to be wheezing and was treated with IV steroids, breathing treatments and IV magnesium. Chest x-ray negative for any acute abnormality. Patient had no hypoxia but given persistent shortness of breath and significant wheezing she will be admitted to the hospital for further management of acute asthma exacerbation. [facility] Patient admitted to general medical floor. She was maintained on IV pulse dose steroids. Over the course of 24 hours her improvement was minimal and she had productive cough. Ceftriaxone and azithromycin were added. On the day of discharge she is markedly improved and is medically acceptable to be discharged to complete a course of oral Ceftin and azithromycin along with a prednisone taper. She has an appointment with Dr. Molina her counselor supervisor later this week and we will keep it Time Attestation Discharge Coordination Time (in mins): 35 Quality: Safe Use of Opioids Does Pt have an Active Cancer Diagnosis on the Problem List?: No Quality: Stroke Does the patient have a stroke diagnosis?: No Physical Exam Vital Signs: Vital Signs: Last Vital Signs Temp 98.6 F 12/31/24 07:29 Pulse 103 H 12/31/24 07:39 Resp 20 12/31/24 07:39 BP 140/83 H 12/31/24 07:29 Pulse Ox 93 12/31/24 07:29 O2 Del Method Room Air 12/31/24 07:29 BMI result Body Mass Index 37.4 Const: Other: Awake alert no acute distress Resp: Other: Diminished at bases with expiratory wheezes noted Cardio: Other: No S4; positive S1-S2; no S3 murmurs rubs or gallops GI: Other: Soft nontender nondistended normoactive bowel sounds Extrem: Other: No edema DS: Data Data Completed and Pending Completed studies during hospitalization [Text1]: Procedures Assistance with Respiratory Ventilation, Less than 24 Consecutive Hours, Continuous Positive Airway Pressure (02/20/23) Discharge Plan Discharge Anticipated Discharge Date/Time: 12/31/24 11:01 Patient Disposition: Home, Self-Care Discharge Diagnosis: Asthma exacerbation Referrals: Physician,Unknown J [Primary Care Provider, Medical] - 1 Week Discharge Medications: New codeine-guaifenesin 10-100 mg/5 mL Liquid 10 ml PO Q4H PRN (Reason: Cough) Qty: 200 0RF cefuroxime axetil 500 mg tablet 500 mg PO BID 7 Days Qty: 14 0RF prednisone 10 mg tablet See Rx Instructions .Route .COMPLEX Qty: 45 0RF Rx Instructions: 10 mg orally; 5 tabs p.o. daily x3 days; 4 tabs p.o. daily x3 days; 3 tabs daily x3 days; 2 tabs daily x3 days; 1 tab daily x3 days azithromycin 500 mg tablet 500 mg PO DAILY 3 Days Qty: 3 0RF Continued albuterol sulfate 90 mcg/actuation HFA aerosol inhaler 2 puff inhalation Q4-6H PRN (Reason: for wheezing) Qty: 8.5 3RF fluticasone propionate [Flonase Allergy Relief] 50 mcg/actuation spray,suspension 2 spray intranasal DAILY 30 Days Qty: 16 5RF Rx Instructions: administer into each nostril fluticasone propion-salmeterol [Wixela Inhub] 250-50 mcg/dose blister with device 1 ea inhalation BID Qty: 180 1RF acetaminophen 500 mg Tablet 1,500 mg PO BID PRN (Reason: Pain) Nexplanon 68 mg Implant 68 mg SUBDERMAL DIRECTED Rx Instructions: good for 3 years levalbuterol HCl 1.25 mg/3 mL solution for nebulization 1.25 mg inhalation Q4-6H PRN (Reason: shortness of breath or wheezing) Qty: 72 0RF cetirizine 10 mg tablet 10 mg PO DAILY PRN (Reason: allergy symptoms) Qty: 30 1RF Dupixent Pen 300 mg/2 mL pen injector 300 mg subcut Q2W Rx Instructions: Loading dose of 600mg on day 1 followed by 300mg every 2 weeks montelukast 10 mg tablet 10 mg PO BEDTIME (DME) peak flow meter Device See Rx Instructions .Route Qty: 1 0RF Rx Instructions: As directed Discharge Orders: Discharge Order (Routine); Ordered 12/31/24 Ordered By: José Miguel Davison Diet: Advance to usual diet Activity on Discharge: As tolerated Stand Alone Forms: Patient Portal Discharge page Print Language: Portuguese Care Plan Goals: Ceftin 500 mg twice daily x1 week along with azithromycin 500 mg daily for 3 days and to your regimen. Complete these medicines as ordered Health Concerns: Your also receiving a prednisone taper complete this as ordered. Resume all your inhalers as taken before the hospital Plan of Treatment: Follow up with pulmonology as scheduled Assessment: See discharge summary
--- NOTE | 2024-12-31 12:21 | MHC.CM.PN ---
pt dcd home self care
== END 2024-12-31 13:19 | disposition home or self-care (01) | DRG 141 ==
LOC: HO.ED 11:38 → HO.EDOVER 11:46 → HO.S3 16:55
PROVIDERS: Physician Assistant Medical; Admitting Provider Physician Assistant Medical; Emergency Provider Emergency Medicine; Visit Provider Hospitalist
DX: J45.901 Unspecified asthma with (acute) exacerbation (principal); E66.812 Obesity, class 2; Z71.3 Dietary counseling and surveillance; Z68.37 Body mass index [BMI] 37.0-37.9, adult; Z79.51 Long term (current) use of inhaled steroids; Z79.620 Long term (current) use of immunosuppressive biologic; Z79.899 Other long term (current) drug therapy
CPT/HCPCS: 36415; 71045; 80053; 82803; 83735; 84702; 85025; 87633; 87637; 93005; 94640; 99285; J0456; J0696; J2405; J2919; J3475

== ENCOUNTER 2024-12-28 11:45 | Outpatient (BNV) | payer BC, SELFPAY | END 2024-12-28 14:22 | PROVIDERS: Admitting Provider Physician Assistant Medical; Emergency Provider Emergency Medicine; Visit Provider Internal Medicine | DX: R00.0 Tachycardia, unspecified (principal) | CPT/HCPCS: 93010 ==

== ENCOUNTER → 2024-12-28 11:45 | Outpatient (BNV) | payer BC, SELFPAY | PROVIDERS: Admitting Provider Physician Assistant Medical; Emergency Provider Emergency Medicine; Visit Provider Physician Assistant Medical | DX: J45.41 Moderate persistent asthma with (acute) exacerbation (principal) | CPT/HCPCS: 99223; 99232 ==

== ENCOUNTER 2024-12-30 13:07 | Outpatient (BNV) | payer BC, SELFPAY | END 2024-12-31 06:49 | PROVIDERS: Admitting Provider Physician Assistant Medical; Emergency Provider Emergency Medicine; Visit Provider Internal Medicine | DX: R00.0 Tachycardia, unspecified (principal) | CPT/HCPCS: 93010 ==

== ENCOUNTER 2025-01-02 09:13 | Emergency (ER) | payer BC, SELFPAY ==
--- NOTE | ~2025-01-02 | US_ITS ---
EXAMINATION: US PELVIS HISTORY: left ovarian cyst by CT r/o torsion COMPARISON: Correlation is made with an unenhanced CT of the pelvis performed earlier in the day. TECHNIQUE: Transabdominal and endovaginal real-time 2D ashley-scale ultrasound was performed. FINDINGS: Uterus: The uterus is normal in size, measuring 7.2 x 2.9 x 4.1 cm. Myometrium has a normal echotexture. No fibroids are identified. Endometrium: The endometrial stripe measures 2 mm in thickness. Right ovary: The right ovary measures 2.4 x 1.3 x 2.3 cm. The right ovary is normal in size and echotexture. Normal color and spectral Doppler waveforms are noted in the right ovarian artery and vein. Left ovary: The left ovary measures 4.2 x 2.5 x 3.7 cm. There is a complex cyst measuring 3.8 x 2.0 x 3.2 cm which demonstrates wall thickening and septations. Normal color and spectral Doppler waveforms are noted in the left ovarian artery and vein. Pelvic fluid: none. US/US pelvic complete IMPRESSION: 3.8 x 2.0 x 3.2 cm complex left ovarian cystic lesion for which follow-up is recommended in 6 weeks, at a different time in the patient's menstrual cycle, to document resolution. No evidence of ovarian torsion. Electronically signed by: Watson Malagon MD 01/02/2025 01:48 PM EDT
--- NOTE | ~2025-01-02 | CT_ITS ---
EXAMINATION: CT ABDOMEN PELVIS WITHOUT IV CONTRAST HISTORY: ? kidney stone COMPARISON: Comparison is made with the prior examination dated 10/21/2024. TECHNIQUE: CT scan of the abdomen and pelvis was performed without contrast using standard departmental protocol. Coronal and sagittal reformatted images were generated and reviewed. Oral contrast material was not administered per department protocol. This CT exam was performed with one or more of the following dose reduction techniques: automated exposure control, adjustment of the mA and/or kV according to patient size, use of iterative reconstruction technique. DLP: 598 mGy-cm FINDINGS: LOWER CHEST: The visualized lung bases are clear. There is no pleural effusion. CARDIOVASCULATURE: The heart is normal in size. There is no pericardial effusion. LIVER: The liver is normal in size and contour. The liver has an unremarkable unenhanced appearance. GALLBLADDER / BILE DUCTS: The gallbladder is unremarkable. There is no intra or extrahepatic biliary ductal dilatation. SPLEEN: The spleen is top normal in size and has an otherwise unremarkable unenhanced appearance. PANCREAS: The pancreas has an unremarkable unenhanced appearance. ADRENAL GLANDS: Unremarkable. KIDNEYS/RETROPERITONEUM: No renal or ureteral calculi are identified. There is no hydronephrosis or hydroureter. LYMPH NODES: No retroperitoneal lymphadenopathy is identified in the abdomen or pelvis. VASCULATURE: The abdominal aorta is normal in caliber. MESENTERY/PERITONEUM: No free fluid. No masses. There is no free intraperitoneal gas. STOMACH: The stomach is collapsed, limiting evaluation. SMALL BOWEL: The small bowel is normal in caliber. COLON: There is a moderate amount of stool throughout the colon. APPENDIX: The appendix is not seen, however no inflammatory changes are seen adjacent to the cecum. URINARY BLADDER/PELVIC ORGANS: The urinary bladder is distended. The uterus and right ovary have an unremarkable unenhanced appearance. The left ovary is enlarged measuring 3.9 cm in diameter which may represent the presence of a cyst. BONES / SOFT TISSUES: No suspicious bony or soft tissue abnormalities. CT/CT abdomen pelvis wo IV con IMPRESSION: 1. No evidence of nephrolithiasis or ureteral obstruction. 2. Moderate amount of stool throughout the colon. 3. Enlargement of the left ovary measuring 3.9 cm which may reflect the presence of a cyst. This could be confirmed with ultrasound. Electronically signed by: Watson Malagon MD 01/02/2025 12:05 PM EDT RP
--- NOTE | 2025-01-02 09:15 | ED.GENADULT ---
HPI - General Adult General Chief complaint: Abdominal Pain Stated complaint: UTI? Sent from urgent care Time Seen by Provider: 01/02/25 09:56 Source: patient Limitations: no limitations History of Present Illness HPI narrative: Patient presented to the emergency department with a chief complaint of abdominal pain blood in the urine she was sent here by the urgent care. Symptoms as started yesterday denies any fever chills vomiting. Onset (ago): day(s) (1) Location: abdomen Radiation: non-radiation Quality: burning Pain Consistency: constant Relieving factors: none Exacerbating factors: none Related Data Home Medications ?Medication ?Instructions ?Recorded ?Confirmed acetaminophen 500 mg tablet 1,500 mg PO BID PRN Pain 02/20/23 12/28/24 etonogestrel 68 mg subdermal 68 mg subdermal DIRECTED 07/24/23 12/28/24 implant (Nexplanon) dupilumab 300 mg/2 mL subcutaneous 300 mg subcut Q2W Allergic 12/28/24 12/28/24 pen injector (Dupixent) Rhinitis / Eiosinophilia montelukast 10 mg tablet 10 mg PO BEDTIME for allergic 12/28/24 12/28/24 rhinitis Previous Rx's ?Medication ?Instructions ?Recorded peak flow meter #1 ea 11/02/22 albuterol sulfate 90 mcg/actuation 2 puff inhalation Q4-6H PRN for 09/23/23 aerosol inhaler wheezing #8.5 ea cetirizine 10 mg tablet 10 mg PO DAILY PRN allergy 11/19/23 symptoms #30 tabs levalbuterol HCl 1.25 mg/3 mL 1.25 mg (3 mL) inhalation Q4-6H 04/13/24 solution for nebulization PRN shortness of breath or wheezing #72 mL fluticasone propionate 50 2 spray intranasal DAILY all. 11/16/24 mcg/actuation nasal rhinitis 30 days #16 grams spray,suspension (Flonase Allergy Relief) fluticasone 250 mcg-salmeterol 50 1 ea inhalation BID for asthma 12/18/24 mcg/dose blistr powdr for #180 ea inhalation (Wixela Inhub) azithromycin 500 mg tablet 500 mg PO DAILY 3 days #3 tabs 12/31/24 cefuroxime axetil 500 mg tablet 500 mg PO BID 7 days #14 tabs 08/10/25 codeine 10 mg-guaifenesin 100 mg/5 10 ml PO Q4H PRN Cough #200 mL 12/31/24 mL oral liquid prednisone 10 mg tablet See Rx Instructions .Route 12/31/24 .COMPLEX #45 tabs Allergies Allergy/AdvReac Type Severity Reaction Status Date / Time No Known Allergies Allergy Verified 01/02/25 09:17 Review of Systems Constitutional: Constitutional: Reports no additional constitutional complaints Cardiovascular: Cardiovascular: Reports no additional cardiovascular complaints PMFSH Past Medical History Attestation statement: The following information was validated with the patient. Medical History Allergic rhinitis Obesity (BMI 35.0-39.9 without comorbidity) Eosinophilia Asthma Social History Social History Household Members: Family Housing: House Do you presently have visiting nurse or other home services: No Alcohol intake: current Alcohol intake frequency: holidays/special occasions only Comment: refused bed alarm. pt rings appropriately Patient Tobacco Use Status: Never used Tobacco Second Hand Smoke Exposure: No Substance Use Type: Marijuana Advance Directives: No Advance Directives Information Provided: No Do you have a plan to hurt others: No Plan service: No Current occupational status: employed Physical Exam ED Exam Exam: She looks well she is not toxic-appearing Vital Signs: Vital Signs - 24 hr 01/02/25 09:16 01/02/25 09:42 01/02/25 10:46 Temperature 97.3 F 98.4 F 98.1 F Pulse Rate 85 79 83 Respiratory Rate 18 16 12 Blood Pressure 165/84 H 142/92 H 145/82 H Pulse Oximetry 98 96 96 Oxygen Delivery Method Room Air Room Air Room Air 01/02/25 12:49 01/02/25 14:42 Temperature 98.3 F 98.5 F Pulse Rate 85 84 Respiratory Rate 16 16 Blood Pressure 129/76 137/90 H Pulse Oximetry 97 95 Oxygen Delivery Method Room Air Room Air BMI result Body Mass Index 37.6 Const General: cooperative Nutritional Appearance: well nourished Orientation/consciousness: patient oriented x3 Limitations: no limitations HENMT Head: Yes normal to inspection Ears: hearing grossly normal bilaterally General nose exam: Normal external nose present Face and sinus: Yes normal facial exam Mouth: Normal oral and palatal mucosa present Throat: Yes posterior oropharynx normal Neck Neck: Yes normal visual inspection Chest Chest palpation & inspection: normal inspection of the chest Cardio Jugular venous distension: no JVD Rate: regular rate Rhythm: regular rhythm GI Inspection: Yes normal to inspection Palpation (GI): Soft to palpation, not firm and nontender Skin General skin exam: no rashes or lesions noted and elasticity normal Lesions: no lesions Rashes: no rashes Neuro General: patient oriented x3 Course Course Course Narrative: Rapid medical examination performed in triage by Maria E Elizabeth PA-C. Patient is a 24 year old assigned female at presenting to the emergency department with painful urination and blood in her urine. Patient states this morning she started having all of these symptoms. Detailed physical exam and review of systems are deferred to the dobby loom fixer. Labs ordered. Patient placed back in the waiting room pending room availability and results. Patient was recently admitted for an asthma exacerbation and discharged home on antibiotics. Medications Administered Discontinued Medications Generic Name Dose Route Start Last Admin Trade Name Freq PRN Reason Stop Dose Admin Ibuprofen 800 mg 01/02/25 12:56 01/02/25 13:43 Ibuprofen 800 Mg Tablet PO 01/02/25 12:57 800 mg ONCE ONE Administration Medical Decision Making Medical Decision Making [facility] Narrative: Patient is here complaining of hematuria abdominal pain and we will obtain labs UA 15:06 workup is now completed ultrasound shows a left ovarian cyst but no torsion, she does have Mary Ellen, we will give a single dose of Diflucan 150. Urine shows no bacteria,, negative nitrates and only 6-10 WBC White count is elevated but most likely secondary to the prednisone she was discharged on December 31 for asthma exacerbation on prednisone Differential Diagnosis Differential Diagnoses: The differential diagnosis associated with the presentation includes Kidney stone/UTI Admission/Observation Consideration of admission/observation: Escalation of care including admission/observation considered Lab Data [facility] Lab Attestation statement: I reviewed the patient's lab results. 01/02/25 09:35 01/02/25 10:44 Labs: Lab Results 01/02/25 01/02/25 Range/Units 09:35 10:44 WBC 16.6 H (4.8-10.8) X10*3/uL RBC 4.72 (4.20-5.50) X10*6/uL Hgb 15.3 (12.0-16.0) g/dl Hct 43.7 (37.0-47.0) % MCV 92.6 (80.0-98.0) fL MCH 32.4 (27.0-33.0) pg MCHC 35.0 (31.0-35.0) g/dl RDW 13.0 (11.0-16.0) % Plt Count 400 D (160-400) X10*3/uL MPV 9.5 (9.4-12.3) fL Immature Gran % (Auto) 3.6 H (0.0-0.4) % Neut % (Auto) 76.6 H (45-73) % Lymph % (Auto) 14.1 L (20-40) % Ceiba % (Auto) 4.8 (2-11) % Eos % (Auto) 0.5 (0-4) % Baso % (Auto) 0.4 (0-2) % Lymph # (Auto) 2.3 (1.2-4.9) X10*3/uL Ceiba # (Auto) 0.8 (0.1-1.2) X10*3/uL Eos # (Auto) 0.1 (0.0-0.4) X10*3/uL Baso # (Auto) 0.1 (0.0-0.2) X10*3/uL Abs Immat Gran (auto) 0.59 H (0.00-0.03) X10*3/uL Absolute Neuts (auto) 12.7 H (2.0-8.3) x10*3/uL Absolute Nucleated RBC 0.000 (0.0-0.012) X10*3/uL Nucleated RBC % (auto) 0.0 (0.0-0.2) /100WBC Sodium 142 (135-145) mmol/L Potassium 3.7 (3.3-5.1) mmol/L Chloride 107 (96-108) mmol/L Carbon Dioxide 26 (22-29) mmol/L Anion Gap 13 (12-20) BUN 18 H (9-16) mg/dL Creatinine 0.91 (0.5-1.4) mg/dL Estim Creat Clear Calc 106.2 Estimated GFR > 60 Random Glucose 112 (60-115) mg/dL Calcium 8.9 (8.4-10.2) mg/dL Magnesium 2.1 (1.6-2.6) mg/dL Total Bilirubin 0.6 (0.0-1.0) mg/dL AST 23 (5-31) U/L ALT 35 H (0-31) U/L Alkaline Phosphatase 73 (39-117) U/L Total Protein 7.1 (6.5-8.0) g/dL Albumin 4.5 (3.5-5.0) g/dL Beta HCG, Quant < 2 mIU/mL Urine Color Yellow Urine Appearance Clear Urine pH 6.5 (5.0-9.0) Ur Specific [place] 1.010 (1.005-1.025) Urine Protein Negative (Neg-Trace) mg/dL Urine Glucose (UA) Negative (Negative) mg/dL Urine Ketones Negative (Negative) mg/dL Urine Blood Small (1+) H (Negative) Urine Nitrite Negative (Negative) Ur Leukocyte Esterase Large (3+) H (Negative) Urine RBC 0-2 (0-2) /HPF Urine WBC 6-10 H (0-5) /HPF Ur Squamous Epith Cells 0-2 (0-2) /HPF Urine Bacteria None Seen (None Seen) Hyaline Casts 0-2 (0-2) /LPF Chlam trachomat DNA PCR NOT DETECTED (Not Detect.) N.gonorrhoeae DNA (PCR) NOT DETECTED (Not Detect.) T. vaginalis (PCR) NOT DETECTED (Not Detect) Bact vaginosis (PCR) NEGATIVE (Negative) C. krusei/glabrata (PCR) NOT DETECTED (Not Detect) Mary Ellen group (PCR) DETECTED A (Not Detect) Independent Interpretation I performed an independent interpretation of an: Ultrasound and CT Scan Interpretation: Left ovarian cyst Radiology Impression Radiologist Impression: Pelvic fluid: none. US/US pelvic complete IMPRESSION: 3.8 x 2.0 x 3.2 cm complex left ovarian cystic lesion for which follow-up is recommended in 6 weeks, at a different time in the patient's menstrual cycle, to document resolution. No evidence of ovarian torsion. Electronically signed by: Watson Malagon MD 01/02/2025 01:48 PM EDT Dictated By: Watson Malagon MD Signed By: <Electronically signed by Watson Malagon MD in OV> 01/02/25 1348 External Record Review External record reviewed: Inpatient record Prescription Management I considered prescription management with: Other Antifungals Chronic Conditions Asthma Discharge Plan Discharge Clinical Impression: Mary Ellen infection Ovarian cyst Qualifiers: Laterality: left Qualified Code(s): N83.202 - Unspecified ovarian cyst, left side Patient Disposition: Home, Self-Care Instructions: Ovarian Cyst (ED), Yeast Infection (ED) Additional Instructions: Follow-up with OBGYN you have a cyst in the left ovary we will need nonemergent follow-up perhaps 4-6 weeks you could call your OBGYN or we could give him the name of Dr. Chacon As far as the yeast infection we gave you under 150 mg of Diflucan this will treat the yeast infection Prescriptions: No Action albuterol sulfate 90 mcg/actuation HFA aerosol inhaler 2 puff inhalation Q4-6H PRN (Reason: for wheezing) Qty: 8.5 3RF fluticasone propionate [Flonase Allergy Relief] 50 mcg/actuation spray,suspension 2 spray intranasal DAILY 30 Days Qty: 16 5RF Rx Instructions: administer into each nostril fluticasone propion-salmeterol [Wixela Inhub] 250-50 mcg/dose blister with device 1 ea inhalation BID Qty: 180 1RF acetaminophen 500 mg Tablet 1,500 mg PO BID PRN (Reason: Pain) Nexplanon 68 mg Implant 68 mg SUBDERMAL DIRECTED Rx Instructions: good for 3 years levalbuterol HCl 1.25 mg/3 mL solution for nebulization 1.25 mg inhalation Q4-6H PRN (Reason: shortness of breath or wheezing) Qty: 72 0RF cetirizine 10 mg tablet 10 mg PO DAILY PRN (Reason: allergy symptoms) Qty: 30 1RF Dupixent Pen 300 mg/2 mL pen injector 300 mg subcut Q2W Rx Instructions: Loading dose of 600mg on day 1 followed by 300mg every 2 weeks montelukast 10 mg tablet 10 mg PO BEDTIME codeine-guaifenesin 10-100 mg/5 mL Liquid 10 ml PO Q4H PRN (Reason: Cough) Qty: 200 0RF cefuroxime axetil 500 mg tablet 500 mg PO BID 7 Days Qty: 14 0RF prednisone 10 mg tablet See Rx Instructions .Route .COMPLEX Qty: 45 0RF Rx Instructions: 10 mg orally; 5 tabs p.o. daily x3 days; 4 tabs p.o. daily x3 days; 3 tabs daily x3 days; 2 tabs daily x3 days; 1 tab daily x3 days azithromycin 500 mg tablet 500 mg PO DAILY 3 Days Qty: 3 0RF (DME) peak flow meter Device See Rx Instructions .Route Qty: 1 0RF Rx Instructions: As directed Referrals: Jigar Chacon MD [Physician, [employer]] - 01/19/25 Print Language: Georgian
[2025-01-02 09:16] VITALS: BP 165/84; PULSE 85; RESP 18; TEMP 36.3; O2SAT 98; BMI 37.6
[2025-01-02 09:42] VITALS: BP 142/92; PULSE 79; RESP 16; TEMP 36.9; O2SAT 96
[2025-01-02 09:42] LABS: MANUAL DIFF FLAG NO
[2025-01-02 09:43] LABS: Appearance Urine Clear; Glucose Urine UA Negative (Negative); PH 6.5 (5.0-9.0); Specific Gravity - Urine 1.010 (1.005-1.025); UMIC TRIGGER UACC YES
[2025-01-02 09:49] LABS: Hematocrit 43.7 % (37.0-47.0); Hemoglobin 15.3 g/dl (12.0-16.0); Imm Gran Abs Auto 0.59 X10*3/uL (0.00-0.03); Imm Gran Pct Auto 3.6 % (0.0-0.4); Lymphocytes Absolute Auto 2.3 X10*3/uL (1.2-4.9); Mean Corpuscular HGB Conc 35.0 g/dl (31.0-35.0); Mean Corpuscular Hemoglobin 32.4 pg (27.0-33.0); Mean Corpuscular Volume 92.6 fL (80.0-98.0); NRBC Abs Auto 0.000 X10*3/uL (0.0-0.012); NRBC Pct Auto 0.0 /100WBC (0.0-0.2); Platelet Count 400 X10*3/uL (160-400); Red Blood Count 4.72 X10*6/uL (4.20-5.50); White Blood Count 16.6 X10*3/uL (4.8-10.8)
[2025-01-02 09:51] LABS: UACC Culture Trigger YES
[2025-01-02 10:44] LABS: Bacterial Vaginosis PCR NEGATIVE (Negative); Candida Group PCR DETECTED (Not Detect); Candida glab krusei PCR NOT DETECTED (Not Detect); Trichomonas vaginalis PCR NOT DETECTED (Not Detect)
[2025-01-02 10:46] VITALS: BP 145/82; PULSE 83; RESP 12; TEMP 36.7; O2SAT 96
[2025-01-02 11:14] LABS: Alanine Aminotransferase 35 U/L (0-31); Albumin Level 4.5 g/dL (3.5-5.0); Alkaline Phosphatase 73 U/L (39-117); Anion Gap 13 (12-20); Aspartate Amino Transferase 23 U/L (5-31); Blood Urea Nitrogen 18 mg/dL (9-16); Calcium 8.9 mg/dL (8.4-10.2); Carbon Dioxide 26 mmol/L (22-29); Chloride 107 mmol/L (96-108); Creatinine Clr Calc Pharmacy 106.2; Estimated Glomerular Filt Rate > 60; Magnesium 2.1 mg/dL (1.6-2.6); Potassium 3.7 mmol/L (3.3-5.1); Sodium 142 mmol/L (135-145); Total Protein 7.1 g/dL (6.5-8.0)
[2025-01-02 11:16] LABS: CT PCR NOT DETECTED (Not Detect.); NG PCR NOT DETECTED (Not Detect.)
[2025-01-02 12:49] VITALS: BP 129/76; PULSE 85; RESP 16; TEMP 36.8; O2SAT 97
[2025-01-02 14:42] VITALS: BP 137/90; PULSE 84; RESP 16; TEMP 36.9; O2SAT 95
[2025-01-02 15:05] VITALS: BP 137/90; PULSE 84; RESP 16; TEMP 36.9; O2SAT 95
== END 2025-01-02 15:25 | disposition home or self-care (01) ==
PROVIDERS: Physician Assistant Medical; Emergency Provider Emergency Medicine
DX: B37.31 Acute candidiasis of vulva and vagina (principal); N83.202 Unspecified ovarian cyst, left side
CPT/HCPCS: 36415; 74176; 76856; 80053; 81001; 81515; 83735; 84702; 85025; 87086; 87491; 87591; 99284

== ENCOUNTER → 2025-01-02 11:12 | Outpatient (BNV) | payer BC, SELFPAY | PROVIDERS: Emergency Provider Emergency Medicine; Visit Provider Radiology Diagnostic Radiology | DX: R31.0 Gross hematuria (principal); R10.9 Unspecified abdominal pain | CPT/HCPCS: 74176 ==

== ENCOUNTER 2025-01-03 08:55 | Outpatient (AMB) | payer BC, SELFPAY ==
--- NOTE | 2025-01-03 09:02 | MHC.OFFVIS ---
Vital Signs 01/03/25 09:03 Height 5 ft 3 in Weight 211 lb 10.3 oz BMI 37.5 BP 130/90 H Blood Pressure Location Lt brachial Position Sitting Pulse 86 Pulse Source Pulse Oximeter Pulse Oximetry (%) 98 Oxygen Delivery Method Room Air Intake Visit Reasons: asthma Intake Note: pt is [place] [facility] [place], had rhinovirus, and asthma was affected, and today she is still wheezing, and hot chest. Transfer Car Operator Drier Required: No Allergies No Known Allergies Allergy (Verified 01/03/25 09:06) HPI HPI asthma: Details: Recent History 24-year-old female with history of allergic asthma on Dupixent who presents to the emergency department with shortness of breath. Patient reports 3 day history of dry cough, nasal congestion and shortness of breath. She has been using her baseline inhalers and albuterol nebulizer with no significant improvement in her symptoms. She denies any recent sick contacts. She reports that her asthma has been well controlled since she started taking Dupixent. She has no history of intubations. In the emergency department she was noted to be wheezing and was treated with IV steroids, breathing treatments and IV magnesium. Chest x-ray negative for any acute abnormality. Patient had no hypoxia but given persistent shortness of breath and significant wheezing she will be admitted to the hospital for further management of acute asthma exacerbation. [facility] Patient admitted to general medical floor. She was maintained on IV pulse dose steroids. Over the course of 24 hours her improvement was minimal and she had productive cough. Ceftriaxone and azithromycin were added. On the day of discharge she is markedly improved and is medically acceptable to be discharged to complete a course of oral Ceftin and azithromycin along with a prednisone taper. She has an appointment with Dr. Molina her manager knowledge later this week and we will keep it. She is here today for post hospitalization follow-up. She claims to be back to her baseline. Has only mild cough with a localized wheeze in the left upper chest. She is still on prednisone taper which will be completed in the next 5 days. Once again she states that use of Dupixent has helped her a lot . [facility] Medical History Allergic rhinitis Obesity (BMI 35.0-39.9 without comorbidity) Eosinophilia Asthma Social History Household Members: Family Housing: House Do you presently have visiting nurse or other home services: No Alcohol intake: current Alcohol intake frequency: holidays/special occasions only Comment: refused bed alarm. pt rings appropriately Patient Tobacco Use Status: Never used Tobacco Second Hand Smoke Exposure: No Substance Use Type: Marijuana service: No Current occupational status: employed Physical Exam Vital Signs: Last Vital Signs Pulse 86 01/03/25 09:03 BP 130/90 H 01/03/25 09:03 Pulse Ox 98 01/03/25 09:03 Oxygen Delivery Method Room Air 01/03/25 09:03 BMI result Body Mass Index 37.5 Const General: healthy appearing, comfortable, no acute distress, alert and awake Orientation/consciousness: patient oriented x3 HEENT Head: Yes normal to inspection General nose exam: No nasal polyps present, No nasal discharge present and Other nasal findings present (Mild nasal congestion in Both nostrils) Face and sinus: Yes sinuses nontender Mouth: oropharynx normal Throat: Yes posterior oropharynx normal Eyes General: appearance normal, both eyes and all related structures Neck Neck: Yes normal visual inspection, Yes no lymphadenopathy, Yes trachea midline and Yes no JVD Thyroid: Thyroid normal Chest Chest palpation & inspection: normal inspection of the chest, normal palpation of entire chest wall and no tenderness Resp Other: Percussion note resonant, has good breath sounds on both sides. Lungs are mostly clear , a few wheezes over the left pectoral area, clear after minimal cough., may represent some endobronchial mucus. Cardio Palpation: normal PMI Rate: regular rate Rhythm: regular rhythm Heart sounds: no gallops and no murmurs Peripheral pulses: Peripheral pulses 2+ throughout GI Palpation (GI): Soft to palpation, nontender, No hepatosplenomegaly present and no masses Auscultation: normal bowel sounds Back/Spine/Pelvis Thoracic/Lumbar Spine: thoracic and lumbar spine normal to inspection Skin General skin exam: no rashes or lesions noted Neuro General: patient oriented x3 and no focal motor deficits Cranial nerves: Yes CN's II-XII intact bilaterally Extrem General: Yes normal to inspection, Yes no clubbing, cyanosis or edema and Yes no calf tenderness Psych Speech and movement: Normal speech and movement present Results Reviewed Results Reviewed: Recent hospitalization and hospital course reviewed She had acute exacerbation cause by rhino virus infection , there was no evidence and pneumonia. Assessment & Plan Assessment & Plan (1) Asthma: Comment: BRONCHIAL ASTHMA is well controlled at this time . Her use of Levalbuterol, is less than once or twice a week She has been treated for an acute exacerbation caused by rhino virus infection, and is now at her baseline, Code(s): J45.909 - Unspecified asthma, uncomplicated Category: Medical Plan: Continue the regular treatment regimen: WIXELA 250-51 INHALATION B.I.D. LEVALBUTEROL 1.25 MG SOLUTION IN THE NEBULIZER Q 4-6 HOURS P.R.N. MONTELUKAST 10 MG DAILY DUPIXENT 300 MG SUBQ Q.2 WEEKS (2) Asthma with acute exacerbation: Comment: HAD ACUTE EXACERBATION DUE TO RHINOVIRUS INFECTION. HAS BEEN TREATED IN THE HOSPITAL WITH IV SOLU-MEDROL FOR 1 DAY FOLLOWED BY PREDNISONE TAPER, COURSE OF AND ANTIBIOTICS AND ADVISED TO CONTINUE HER REGULAR REGIMEN. Code(s): J45.901 - Unspecified asthma with (acute) exacerbation Category: Medical Qualifiers: Asthma persistence: persistent Asthma severity: moderate Qualified Code(s): J45.41 - Moderate persistent asthma with (acute) exacerbation Plan: She is doing fairly well at this time and is advised to complete the prednisone taper and then continue the regular regimen as before. (3) Allergic rhinitis: Comment: It is chronic, controlled with use of montelukast, cetirizine and Flonase spray., but still has mild nasal congestion off and on. Symptoms have been much less since she is on dupilumab injection . Code(s): J30.9 - Allergic rhinitis, unspecified Category: Medical Qualifiers: Allergic rhinitis seasonality: unspecified Allergic rhinitis trigger: unspecified Qualified Code(s): J30.9 - Allergic rhinitis, unspecified Plan: Continue same treatment ( montelukast, Flonase) (4) Eosinophilia: Comment: Before treatment with IV Solu-Medrol she had eosinophil count of 6.8%. This is indicative of allergic etiology of her allergic rhinitis and bronchial asthma. Now she is on biologic treatment with Dupixent and doing much better. Her current eosinophil count was 0.2 Code(s): D72.10 - Eosinophilia, unspecified Category: Medical Plan: Continue treatment with Dupixent. Coding Level of Care Code Est Pt Level 3 (02424) Diagnoses Asthma J45.909 Moderate persistent asthma with acute exacerbation J45.41 Asthma persistence: persistent Asthma severity: moderate Allergic rhinitis J30.9 Allergic rhinitis seasonality: unspecified Allergic rhinitis trigger: unspecified Eosinophilia D72.10
[2025-01-03 09:03] VITALS: BP 130/90; PULSE 86; O2SAT 98; BMI 37.5
--- OUTSIDE RECORDS SUMMARY | 2025-01-03 09:17 | XMS_ITS | Clinical Summary ---
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
== END 2025-01-03 09:17 | disposition home or self-care (01) ==
LOC: HO.HPS 08:56
PROVIDERS: Visit Provider Internal Medicine
DX: J45.909 Unspecified asthma, uncomplicated (principal); J45.41 Moderate persistent asthma with (acute) exacerbation; J30.9 Allergic rhinitis, unspecified; D72.10 Eosinophilia, unspecified
CPT/HCPCS: 99213

== ENCOUNTER 2025-04-16 05:25 | Emergency (ER) | payer BC, SELFPAY ==
--- NOTE | ~2025-04-16 | CT_ITS ---
EXAMINATION: CT ABDOMEN AND PELVIS WITH CONTRAST CLINICAL INFORMATION: Diffuse abdominal pain COMPARISON: CT abdomen 01/02/2025 TECHNIQUE: Multidetector volumetric images were obtained from the superior aspect of the liver through the pubic symphysis following administration 85 mL of Omnipaque 350 intravenous contrast. Sagittal and coronal reformatted images were obtained on the technologist's workstation. Oral contrast: No This CT examination was performed using dose optimization techniques as appropriate, variously including the following: *Automated exposure control *Adjustment of mA and/or kV according to patient size (this includes techniques or standardized protocols for targeted exams where dose is matched to indication/reason for exam; i.e. extremities or head) *Use of iterative reconstruction technique FINDINGS: LUNG BASES: Lung bases are clear. No pericardial or pleural effusion.. LIVER, GALLBLADDER, AND BILIARY TREE: Small subscapular hypodense lesion in the right lobe, unchanged from previous, has a nonaggressive appearance, statistically likely to be a cyst. No intrahepatic or extrahepatic biliary duct dilatation.. The gallbladder is unremarkable with no evidence of radiopaque gallstones, gallbladder wall thickening, or obvious pericholecystic inflammatory changes. PANCREAS: Unremarkable. No inflammatory changes SPLEEN: Unremarkable. ADRENAL GLANDS: Unremarkable. KIDNEYS AND URETERS: Symmetric renal enhancement. No renal or ureteral calculi. No suspicious renal lesions. No hydronephrosis. BLADDER: Partially distended with fluid. GASTROINTESTINAL TRACT: Stomach is partially distended limiting evaluation. Small bowel is normal caliber. Small volume stool in the large colon. Majority of the large colon is nondistended. There is apparent wall/mucosal prominence of the splenic flexure, transverse colon, and portions of the descending colon. This could be related to lack of distention. Colitis cannot be excluded. No pericolonic inflammatory changes identified. The appendix appears within normal limits. No inflammatory changes seen. Mesentery/peritoneum: No free fluid. No fluid collections. No pneumoperitoneum. No mesenteric inflammatory changes identified. ABDOMINAL WALL: Small fat-containing umbilical hernia. LYMPH NODES: No pathologically enlarged lymph nodes are seen. VASCULAR: Aorta is of normal caliber. Portal vein is enhancing. PELVIC VISCERA: Within normal limits for CT. Uterus is anteverted. OSSEOUS STRUCTURES: No suspicious bony findings. CT/CT abdomen pelvis w IV con IMPRESSION: * Apparent wall prominence/mucosal prominence of the splenic flexure, transverse colon, portions of the descending colon. This could be related to nondistention of the colon. Colitis cannot be excluded.. * Small hypodense liver lesion, too small to contrast, stable from previous. This is more commonly seen as a nonaggressive process such as a cyst. *Clinically correlate and follow-up.. Additional/follow-up imaging as clinically indicated. Fleischner guidelines were followed. Electronically signed by: Mahamed Gtz MD 04/16/2025 10:05 AM MARC
[2025-04-16 05:32] VITALS: BP 133/82; PULSE 111; RESP 22; TEMP 36.5; O2SAT 99; BMI 37.9
[2025-04-16 06:04] LABS: Hematocrit 42.3 % (37.0-47.0); Hemoglobin 14.6 g/dl (12.0-16.0); Imm Gran Abs Auto 0.11 X10*3/uL (0.00-0.03); Imm Gran Pct Auto 0.5 % (0.0-0.4); Lymphocytes Absolute Auto 0.6 X10*3/uL (1.2-4.9); MANUAL DIFF FLAG SCAN; Mean Corpuscular HGB Conc 34.5 g/dl (31.0-35.0); Mean Corpuscular Hemoglobin 31.8 pg (27.0-33.0); Mean Corpuscular Volume 92.2 fL (80.0-98.0); NRBC Abs Auto 0.000 X10*3/uL (0.0-0.012); NRBC Pct Auto 0.0 /100WBC (0.0-0.2); Platelet Count 309 X10*3/uL (160-400); Red Blood Count 4.59 X10*6/uL (4.20-5.50); SCAN SMEAR FLAG 1; White Blood Count 22.7 X10*3/uL (4.8-10.8)
[2025-04-16] MEDS: diazePAM 10 MG/2 ML CARTRIDGE 2.5 MG IVPUSH ×2 (06:14→07:11)
--- OUTSIDE RECORDS SUMMARY | 2025-04-16 06:14 | XMS_ITS | Encounter Summary ---
Author Organization [facility] Address [address] [place] [address] Care Team Providers Care Party Plan Sales Agent Name Role Phone Darby Davis MD Primary Care Prov ider Elizabeth Molina Unavailable Unavailable Leelee Ayala MD Unavailable Unavailable Encounter Details Date Type Department Care Team Description 07/25/2023 Hospital Medical Records [address] [place] [address] Anthony Colunga Social History Tobacco Use Types [...] on filedocumented in this encounter Care Teams Party Plan Sales Agent Relationship Specialty Start Date End Date Darby Davis MD [address] [place] [address] PCP - General Internal Medicine 03/17/22 Elizabeth Molina [address] [place] [address] Specialist Pulmonology 08/12/22 Leelee Ayala MD [address] [place] [address] Specialist Allergy & Immunology 09/30/23 documented as of this encounter
--- OUTSIDE RECORDS SUMMARY | 2025-04-16 06:14 | XMS_ITS | Clinical Summary ---
Author Organization [facility] Address [address] [place] [address] Care Team Providers Care Information Director Name Role Phone Darby Davis MD Primary [...] 04/21/2022 Overview: In process of w/u with [facility] [place] [facility] as of 03/2022 [...] (Moderna) PT Reported 05/10/2021,2020,09/19/2020 DTaP 10/04/2006, 3,2001,10/20,2001 PCrJ-XTE-GYV 10/11/2002,2001,2001 HIB 10/11/2002, 2,2001,08/12 HPV (Gardasil) 06/14/2014,02/08/2014,12/11/2013 Hepatitis B-3 Dose (<19yrs) 2001, 2,2001 MMR (Smkqvcb-Xpxxf-Dwydfns) 07/20/2002 MMRV (Rbrrhgc-Mchan-Wtfcesw-Varicella) 7 Meningococcal (Menactra) 01/06/2018,11/02/2012 Pneumococcal(Pedi) Conjugate PCV-7 03/15/2002,,2001 Polio (IPV) 10/04/2006, 3,2001,08/12 Tdap 11/02/2012 Varicella 07/20/2002 Family History Medical History Relation Name Comments No Known Problems Brother 1 twin broth er No Known Problems Brother 2 No Known Problems Father No Known Problems Maternal Grandfather Diabetes Maternal Grandmother HTN Cigarette Smoking Mother No Known Problems Paternal Grandfather No Known Problems Paternal Grandmother [place] Uncle Maternal early age Relation Name Status [...] 103 08/05/2023 9:58 AM EDT Temperature 36.7 C (98 F) 08/05/2023 9:58 AM EDT Respiratory Rate 14 [...] Tdap) 11/02/2022, 10/04/2006, 10/11/2002, Additional history exists BMI CHECK/ADVISE 05/24/2024 08/05/2023, 03/2023, 08/12/2022, Additional history exists Covid-19 Vaccine (2022-06 4 season) 2025 05/10/2021, 10/25/2020, 09/19/2020 INFLUENZA (#1) 2025 02/20/2021 (Refused) CHOLESTEROL SCREENING 02/20/2026 02/20/2021, 017 HUMAN PAPILLOMAVIRUS (HPV) Completed 06/14, 02/08/2014, 12/11/2013 Care Teams Information Director Relationship Specialty Start Date End Date Darby Davis MD [address] [place] [id number] PCP - General Internal Medicine 03/17/22 Elizabeth Molina [address] [place] [address] Specialist Pulmonology 08/12/22 Leelee Ayala MD [address] [place] [phone] Specialist Allergy & Immunology 09/30/23
--- OUTSIDE RECORDS SUMMARY | 2025-04-16 06:14 | XMS_ITS | Encounter Summary ---
Author Organization [facility] Address [address] [place] [address] Care Team Providers Care Trust Manager Assistant Name Role Phone Darby Davis MD Primary Care Prov ider Elizabeth Molina Unavailable Unavailable Leelee Ayala MD Unavailable Unavailable Encounter Details Date Type Department Care Team Description 05/06/2022 Law Office Manager Report Medical Records [address] [place] [address] Elizabeth Molina Social History Tobacco Use Types [...] on filedocumented in this encounter Care Teams Trust Manager Assistant Relationship Specialty Start Date End Date Darby Davis MD [address] [place] [address] PCP - General Internal Medicine 03/17/22 Elizabeth Molina [address] [place] [address] Specialist Pulmonology 08/12/22 Leelee Ayala MD [address] [place] [address] Specialist Allergy & Immunology 09/30/23 documented as of this encounter
--- OUTSIDE RECORDS SUMMARY | 2025-04-16 06:14 | XMS_ITS | Encounter Summary ---
Author Organization [facility] Address [address] [place] [address] Care Team Providers Care Solar Process Engineer Name Role Phone Darby Davis MD Primary Care Prov ider Elizabeth Molina Unavailable Unavailable Leelee Ayala MD Unavailable Unavailable Encounter Details Date Type Department Care Team Description 04/12/2023 First Assistant Report Medical Records [address] [place] [address] Elizabeth Molina Social History Tobacco Use Types [...] on filedocumented in this encounter Care Teams Solar Process Engineer Relationship Specialty Start Date End Date Darby Davis MD [address] [place] [phone] PCP - General Internal Medicine 03/17/22 Elizabeth Molina [address] [place] [address] Specialist Pulmonology 08/12/22 Leelee Ayala MD [address] [place] [phone] Specialist Allergy & Immunology 09/30/23 documented as of this encounter
--- OUTSIDE RECORDS SUMMARY | 2025-04-16 06:14 | XMS_ITS | Clinical Summary ---
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 Marijuana smoker 02/20/2021 Immunizations Immunization Administration Dates Next Due DTaP (Infanrix) 6wks to less than 7yo ,10/11/2002,2001,10/20,2001 JDeE-JLF-WYG (Pentacel) 2mo to less than 5yo 10/11/2002,2001,2001,08/12 [...] uncomplicated; COMMENT: In process of w/u with [facility] as of [...] to 49 Years) (1 of 1 - PPSV23, PCV20, or PCV21) 2007 03/15/2002, 2001, 2001 Meningococcal B Vaccine (1 of 2 - Standard) 2017 Gonorrhea/Chlamydia Screening 01/10/2020 01/09/2019 HIV Screening 04/25/2022 Hepatitis C Screening 04/25/2022 Social Influencers of Health Screening 04/25/2022 Cervical Cancer Screening: Pap Smear 2022 02/08/2014 DTaP,Tdap,and Td Vaccines (7 - Td or Tdap) 11/02/2022 11/02/2012, 10/04/2006, 10/11/2002, Additional history exists Depression Screening 05/24/2024 COVID-19 Vaccine ( season) 2025 05/10/2021, 10/25/2020, 09/19/2020 Influenza Vaccine (#1) 2025 Cholesterol Screening (Lipid Panel) 02/20/2026 02/20/2021 RSV Immunization Adult Patients (1 - 1-dose 75+ series) 2076 Hepatitis B Vaccines Completed 2001, 2001, 2001 [...] (01/09/2019) Gonorrhea/Chla mydia Screening abstracted Historical Provider HEALTH MAINTENANCE Final Result * Cervical Cancer Screening: HPV (02/08/2014) Cervical Cancer Screening: HPV no interpretation , abstracted Historical Provider HEALTH MAINTENANCE Final Result from Last 3 Months or Most Recently Relevant to Health Maintenance Care Teams Director Online Marketing Relationship Specialty Start Date End Date Darby Jacome MD PCP - General Internal Medicine 03/17/22
--- OUTSIDE RECORDS SUMMARY | 2025-04-16 06:14 | XMS_ITS | Encounter Summary ---
Author Organization [facility] Address [address] [place] [address] Care Team Providers Care Middleware Solutions Architect Name Role Phone Darby Davis MD Primary Care Prov ider Elizabeth Molina Unavailable Unavailable Leelee Ayala MD Unavailable Unavailable Encounter Details Date Type Department Care Team Description 09/28/2023 Auto Slip Cover Installer Report Medical Records [address] [place] [address] Elizabeth Molina Social History Tobacco Use Types [...] on filedocumented in this encounter Care Teams Middleware Solutions Architect Relationship Specialty Start Date End Date Darby Davis MD [address] [place] [address] PCP - General Internal Medicine 03/17/22 Elizabeth Molina [address] [place] [address] Specialist Pulmonology 08/12/22 Leelee Ayala MD [address] [place] [phone] Specialist Allergy & Immunology 09/30/23 documented as of this encounter
--- OUTSIDE RECORDS SUMMARY | 2025-04-16 06:14 | XMS_ITS | Data Portability ---
Author Organization [facility] [address] Address [address] [place] [address] Care Team Providers Care Missile Pad Mechanic Name Role Phone [facility] Care Provider Assessment No assessment recorded. Plan of Treatment Reminders Order Date Submit Date Provider Last Modified By Organization Details Last Modified Time Details Appointments None recorded. Lab None recorded. Referral None recorded. Procedures None recorded. Surgeries None recorded. Imaging None recorded. Medication Orders albuterol sulfate 2.5 mg/3 mL (0.083 %) solution for nebulizati on 2022 023 [facility][id number], [address] [place], [address], 3 09:11:31 ipratropiu m bromide 0.02 % solution for inhalation 2022 023 [facility]2339, [address] [place], [address], 3 09:12:18 albuterol sulfate HFA 90 mcg/actuat ion aerosol inhaler 2022 023 [facility]armacy #[id number], [address] [place], [address], 3 09:09:48 prednisone 20 mg tablet 2022 023 [facility]armacy #2339, [address] [facility], [place], [address], 09:09:49 benzonatat e 200 mg capsule 2022 023 [facility]acy #2339, [address] [place], [address], 09:09:49 Allergy Relief (fluticaso ne) 50 mcg/actuat ion nasal spray,susp ension [address] [id number] [address] [place], [address], 09:09:48 Patient TargetsNo targets recorded. Patient Instructions Encounter Date Encounter Id Patient Instructions Last Modified By Organization Details Last Modified Time 08/17/2022 [id number] peak flow* emonfette Not available 07/23 09:21:09 [...] and Address Organization Details Recorded Time Asthma [id number] Active 023 Rosalinda Tian khoi PA - [...] Vitals Date Recorded Heart rate Oxygen saturation Body height Body mass index (BMI) Body weight Body temperature Pain severity - 0-10 verbal numeric rating [Score] - Reported Systolic And Diastolic Provider Name and Address Organization Details Last Updated DateTime 3 122 /min 98 % 160.02 cm 36.8 kg/m2 94492.2 1 g 98 [degF] 0 141/87 mm[Hg] Rosalinda Tian [employer] 3 08:54:09 Social History Question Answer Notes LastModified by [employer] Details LastModified Time Tobacco Smoking Status Never Smoker [facility]alinda [facility] 08/17/2022 08:55:53 Which Illicit Or Recreational Drugs Have You Used? Marijuana Information not available 08/17/2022 Have You Recently Traveled Abroad? No Information not available 08/17/2022 Sex: Unknown Functional Status Question Answer Note LastModified by [employer] Details LastModified Time How many times per [...] Diagnosis SNOMED-CT Code Diagnosis ICD10 Code Diagnosis IMO Codes Diagnosis Note [id number] [facility] [address] [place] [address] 04/27/2016 17:20:59 04/27/2016 19:39:32 [id number] [facility] [address] [place] [address] 03/16/2022 08:17:41 03/16/2022 10:59:10 [id number] Cortez Overton NP [address] [address] [place] [address] 08/17/2022 08:46:31 08/17/2022 09:35:38 Acute bronchitis 27309925 J20.9 Health Concerns Section Related Observation LastModified by Organization Detai ls LastModified Time None Recorded Concern Status LastModified by Organization Details LastModified Time None Recorded Advance Directives Directive None Recorded Payers Insurance Date Sequence Insurance Name Policy Number Policy Gomez Covered Member ID Gomez Member ID Guarantor Name 08/17/2022 1 [facility] (PP[facility]) [id number] Lance Cleveland [id number] Marine Barnesrhea Notes Date Note Type Note Provider Name and Address Organization Details Recorded Time 08/17/2022 text/html 22 year old female present with wheezing and SOB x 1 day. stating her Albuterol is not working. She admit having asthma exacerbation from time to time. Also admit smoking marijuana daily. Cortez Overton NP [address] [place], [address], [place] - [facility] 08/17/2022 10:53:27 OBGyn Episode No OBEpisode recorded.
--- OUTSIDE RECORDS SUMMARY | 2025-04-16 06:14 | XMS_ITS | Encounter Summary ---
Author Organization [facility] Address [address] [place] [address] Care Team Providers Care Office Manager Receptionist Name Role Phone Darby Davis MD Primary Care Prov ider Elizabeth Molina Unavailable Unavailable Leelee Ayala MD Unavailable Unavailable Encounter Details Date Type Department Care Team Description 03/08/2023 Orders Only Medical Records [address] [place] [address] [facility] Social History Tobacco [...] this encounter Results * OUTSIDE EKG (02/20/2023) [facility] CARDIOLOGY documented in this encounter Visit Diagnoses Not on filedocumented in this encounter Care Teams Office Manager Receptionist Relationship Specialty Start Date End Date Darby Davis MD [address] [place] [address] PCP - General Internal Medicine 03/17/22 Elizabeth Molina [address] [place], [place] [phone] Specialist Pulmonology 08/12/22 Leelee Ayala MD [address] [place] [address] Specialist Allergy & Immunology 09/30/23 documented as of this encounter
--- OUTSIDE RECORDS SUMMARY | 2025-04-16 06:14 | XMS_ITS | Encounter Summary ---
Author Organization [facility] Address [address] [place] [address] Care Team Providers Care Certified Coder Name Role Phone Darby Davis MD Primary Care Prov ider Elizabeth Molina Unavailable Unavailable Leelee Ayala MD Unavailable Unavailable Encounter Details Date Type Department Care Team Description 12/23/2022 Traffic Ii Manager Report Medical Records [address] [place] [address] Elizabeth Molina Social History Tobacco Use Types [...] on filedocumented in this encounter Care Teams Certified Coder Relationship Specialty Start Date End Date Darby Davis MD [address] [place] [address] PCP - General Internal Medicine 03/17/22 Elizabeth Molina [address] [place] [address] Specialist Pulmonology 08/12/22 Leelee Ayala MD [address] [place] [phone] Specialist Allergy & Immunology 09/30/23 documented as of this encounter
--- OUTSIDE RECORDS SUMMARY | 2025-04-16 06:14 | XMS_ITS | Encounter Summary ---
Author Organization [facility] Address [address] [place] [address] Care Team Providers Care Flour Tester Name Role Phone Darby Davis MD Primary Care Prov ider Elizabeth Molina Unavailable Unavailable Leelee Ayala MD Unavailable Unavailable Encounter Details Date Type Department Care Team Description 08/09/2023 Orders Only Medical Records [address] [place] [address] [facility] Social History Tobacco Use Types [...] encounter Results * OUTSIDE PLAIN FILM (07/24/2023) [facility] [place] RADIOLOGY * OUTSIDE EKG (07/24/2023) [facility] CARDIOLOGY documented in this encounter Visit Diagnoses Not on filedocumented in this encounter Care Teams Flour Tester Relationship Specialty Start Date End Date Darby Davis MD [address] [place] [address] PCP - General Internal Medicine 03/17/22 Elizabeth Molina [address] [place], [place] [phone] Specialist Pulmonology 08/12/22 Leelee Ayala MD [address] [place] [address] Specialist Allergy & Immunology 09/30/23 documented as of this encounter
--- NOTE | 2025-04-16 06:30 | ED_ITS ---
HPI - Nausea/Vomiting/Diarrhea General Chief complaint: Abdominal Pain Stated complaint: Nausea Vomiting Diarrhea Time Seen by Provider: 04/16/25 06:02 Source: patient Limitations: no limitations History of Present Illness HPI Narrative: This is 24 years old the patient presented with a chief complaint of nausea and vomiting since last night. She also reports abdominal pain MD elicited complaint: nausea and vomiting Onset (ago): day(s) (1) Description of vomiting: watery Associated nausea: Yes Associated abdominal pain: Yes Radiation: diffuse Quality: cramping Exacerbating factors: none Relieving factors: none Related Data Home Medications ?Medication ?Instructions ?Recorded ?Confirmed acetaminophen 500 mg tablet 1,500 mg PO BID PRN Pain 0 02/20/23 12/28/24 etonogestrel 68 mg subdermal 68 mg subdermal DIRECT ED 07/24/23 12/28/24 implant (Nexplanon) cetirizine 10 mg tablet 10 mg PO DAILY allergy sympt oms 01/03/25 Previous Rx's ?Medication ?Instructions ?Recorded peak flow meter #1 ea 11/02/22 albuterol sulfate 90 mcg/actuation 2 puff inhalation Q 4-6H PRN for 09/23/23 aerosol inhaler wheezing #8.5 ea fluticasone 250 mcg-salmeterol 50 1 ea inhalation BID for asthma 12/18/24 mcg/dose blistr powdr for #180 ea inhalation (Wixela Inhub) azithromycin 500 mg tablet 500 mg PO DAILY 3 days #3 t abs 12/31/24 codeine 10 mg-guaifenesin 100 mg/5 10 ml PO Q4H PRN Co ugh #200 mL 12/31/24 mL oral liquid prednisone 10 mg tablet See Rx Instructions .Route 0 12/31/24 .COMPLEX #45 tabs montelukast 10 mg tablet 10 mg PO BEDTIME for allergi c 01/15/25 rhinitis 90 days #90 tabs fluticasone propionate 50 2 spray intranasal DAILY for 03/28/25 mcg/actuation nasal allergies #48 mL spray,suspension dupilumab 300 mg/2 mL subcutaneous 300 mg (2 mL) subcu t Q2W Allergic 04/12/25 pen injector (Dupixent) Rhinitis / Eiosinophilia #4 mL levalbuterol HCl 1.25 mg/3 mL 1.25 mg (3 mL) inhalatio n Q4-6H 04/16/25 solution for nebulization PRN shortness of breath or wheezing #72 mL Allergies Allergy/AdvReac Type Severity Reaction Status Date / Time No Known Allergies Allergy Verified 04/16/25 05:38 Review of Systems 2 Constitutional: Constitutional: Reports no additional constitutional complaints ENT: Reports system reviewed and no additional complaints, except as documented Cardiovascular: Cardiovascular: Reports no additional cardiovascular complaints Gastrointestinal: Gastrointestinal: Reports abdominal pain, Reports nausea and Reports vomiting PMFSH Past Medical History Attestation statement: The following information was validated with the patient. Source: unable to obtain Medical History Asthma Allergic rhinitis Obesity (BMI 35.0-39.9 without comorbidity) Eosinophilia Asthma Social History Social History Household Members: Family Housing: House Do you presently have visiting nurse or other home services: No Alcohol intake: current Alcohol intake frequency: holidays/special occasions only Comment: refused bed alarm. pt rings appropriately Patient Tobacco Use Status: Never used Tobacco Second Hand Smoke Exposure: No Substance Use Type: Marijuana service: No Current occupational status: employed Physical Exam 2 Exam: Exam: No acute distress Vital Signs: Vital Signs: Last Vital Signs Temp 97.9 F 04/16/25 12:24 Pulse 94 04/16/25 12:24 Resp 14 04/16/25 12:24 BP 128/74 04/16/25 12:24 Pulse Ox 97 04/16/25 12:24 O2 Del Method Room Air 04/16/25 12:24 BMI result Body Mass Index 37.9 Const: General: cooperative, comfortable and no acute distress Nutritional Appearance: average body habitus Orientation/consciousness: patient oriented x3 Limitations: no limitations HEENT: Head: Yes normal to inspection Ears: hearing grossly normal bilaterally General nose exam: Normal external nose present Face and sinus: Yes normal facial exam Mouth: Normal oral and palatal mucosa present Throat: Yes posterior oropharynx normal Neck: Neck: Yes normal visual inspection Chest: Chest palpation & inspection: normal inspection of the chest Resp: Effort & Inspection: normal respiratory effort Auscultation: clear to auscultation bilaterally Cardio: Jugular venous distension: no JVD Rate: regular rate Rhythm: r egular rhythm GI: Inspection: Yes normal to inspection Palpation (GI): Soft to palpation and nontender Skin: General skin exam: no rashes or lesions noted and elasticity normal L esions: no lesions Rashes: no rashes Hair: normal Neuro: General: patient oriented x3 Cranial nerves: Yes CN's II-XII intact bilaterally Course Reevaluation(s) Reevaluation #1: On re-examination she is doing much better she is tolerating p.o. well anticipate discharge white count downtrending bicarb up trending Time: 12:15 Medications Administered Discontinued Medications Generic Name Dose Route Start Last Admin Trade Name Freq PRN Reason Stop Dose Admin Diazepam 2.5 mg 04/16/25 06:05 04/16/25 06:14 Diazepam 10 Mg/2 Ml Cartridge IVPUSH 04/16/25 06:06 2.5 mg STAT STA Administration Diazepam 2.5 mg 04/16/25 07:06 04/16/25 07:11 Diazepam 10 Mg/2 Ml Cartridge IVPUSH 04/16/25 07:07 2.5 mg STAT STA Administration Diphenhydramine HCl 25 mg 04/16/25 06:04 04/16/25 06:15 Diphenhydramine Hcl 50 Mg/Ml Vial IVPUSH 04/16/25 06:05 25 mg ONCE ONE Administration Droperidol 1.25 mg 04/16/25 10:44 04/16/25 10:51 Droperidol 5 Mg/2 Ml Vial IVPUSH 04/16/25 10:45 1.25 mg ONCE ONE Administration Sodium Chloride 1,000 mls @ 999 mls/hr 04/16/25 06:15 04/16/25 09:16 Ns IVCONT 04/16/25 07:15 Infused .Q1H1M EILEEN Infusion Iohexol 100 ml 04/16/25 09:32 04/16/25 09:33 Iohexol 350 Mg/Ml 100 Ml Infus..Btl IV 04/16/25 09:33 85 ml ONCE ONE Administration Metoclopramide HCl 10 mg 04/16/25 06:04 04/16/25 06:17 Metoclopramide Hcl 10 Mg/2 Ml Vial IVPUSH 04/16/25 06:05 10 mg ONCE ONE Administration Morphine Sulfate 4 mg 04/16/25 07:06 04/16/25 07:10 Morphine Sulfate 4 Mg/Ml Cartridge IVPUSH 04/16/25 07:07 4 mg ONCE ONE Administration Protocol Medical Decision Making Medical Decision Making [facility] Narrative: Patient is here with nausea vomiting we will insert IV administer IV fluid check labs A 12:50 she is doing much better she is tolerating p.o. well white count is better lower no longer tachycardic, bicarb better, at this point I think she can be safely discharged home she is comfortable with the plan of care Differential Diagnosis Differential Diagnoses: The differential diagnosis associated with the presentation includes Gastroenteritis/cannabinoid hyperemesis syndrome Admission/Observation Consideration of admission/observation: Escalation of care including admission/observation considered Lab Data [facility] Lab Attestation statement: I reviewed the patient's lab results. 04/16/25 11:14 04/16/25 11:14 Labs: Lab Results 04/16/25 04/16/25 04/16/25 Range/Units 05:56 07:27 07:56 WBC 22.7 H (4.8-10.8) X10*3/uL RBC 4.59 (4.20-5.50) X10*6/uL Hgb 14.6 (12.0-16.0) g/dl Hct 42.3 (37.0-47.0) % MCV 92.2 (80.0-98.0) fL MCH 31.8 (27.0-33.0) pg MCHC 34.5 (31.0-35.0) g/dl RDW 12.0 (11.0-16.0) % Plt Count 309 (160-400) X10*3/uL MPV 9.7 (9.4-12.3) fL Immature Gran % (Auto) 0.5 H (0.0-0.4) % Neut % (Auto) 91.3 H (45-73) % Lymph % (Auto) 2.6 L (20-40) % [place] % (Auto) 5.1 (2-11) % Eos % (Auto) 0.1 (0-4) % Baso % (Auto) 0.4 (0-2) % Lymph # (Auto) 0.6 L (1.2-4.9) X10*3/uL [place] # (Auto) 1.2 (0.1-1.2) X10*3/uL Eos # (Auto) 0.0 (0.0-0.4) X10*3/uL Baso # (Auto) 0.1 (0.0-0.2) X10*3/uL Abs Immat Gran (auto) 0.11 H (0.00-0.03) X10*3/uL Absolute Neuts (auto) 20.7 H (2.0-8.3) x10*3/uL Absolute Nucleated RBC 0.000 (0.0-0.012) X10*3/uL Nucleated RBC % (auto) 0.0 (0.0-0.2) /100WBC Smear Tech's Comments VERIFIED Sodium 139 (135-145) mmol/L Potassium 3.9 (3.3-5.1) mmol/L Chloride 112 H (96-108) mmol/L Carbon Dioxide 18 L (22-29) mmol/L Anion Gap 13 (12-20) BUN 12 (9-16) mg/dL Creatinine 0.67 (0.5-1.4) mg/dL Estim Creat Clear Calc 144.8 Estimated GFR > 60 Random Glucose 107 (60-115) mg/dL Calcium 8.6 (8.4-10.2) mg/dL Magnesium 1.7 (1.6-2.6) mg/dL Total Bilirubin 1.3 H (0.0-1.0) mg/dL Direct Bilirubin 0.4 (0.0-0.5) mg/dL AST 24 (5-31) U/L ALT 11 (0-31) U/L Alkaline Phosphatase 72 (39-117) U/L Total Protein 6.8 (6.5-8.0) g/dL Albumin 4.4 (3.5-5.0) g/dL Lipase 8 (8-78) U/L Urine Color Yellow Urine Appearance Clear Urine pH 8.5 (5.0-9.0) Ur Specific [place] 1.025 (1.005-1.025) Urine Protein Trace (Neg-Trace) mg/dL Urine Glucose (UA) Negative (Negative) mg/dL Urine Ketones >=160 (Negative) mg/dL Urine Blood Negative (Negative) Urine Nitrite Negative (Negative) Ur Leukocyte Esterase Negative (Negative) Urine Test NEGATIVE (NEGATIVE) Urine Opiates Screen POSITIVE H (Not Detect) Ur Buprenorphine Scrn Not Detected (Not Detect) ng/mL Ur Oxycodone Screen Not Detected (Not Detect) ng/mL Urine Methadone Screen Not Detected (Not Detect) ng/mL Urine Fentanyl Screen Not Detected (Not Detect) Ur Barbiturates Screen Not Detected (Not Detect) Ur Phencyclidine Scrn Not Detected (Not Detect) Ur Amphetamines Screen Not Detected (Not Detect) U Benzodiazepines Scrn Not Detected (Not Detect) Urine Cocaine Screen Not Detected (Not Detect) U Marijuana (THC) Screen POSITIVE H (Not Detect) 04/16/25 Range/Units 11:14 WBC 17.6 H (4.8-10.8) X10*3/uL RBC 4.24 (4.20-5.50) X10*6/uL Hgb 13.5 (12.0-16.0) g/dl Hct 40.4 (37.0-47.0) % MCV 95.3 (80.0-98.0) fL MCH 31.8 (27.0-33.0) pg MCHC 33.4 (31.0-35.0) g/dl RDW 11.9 (11.0-16.0) % Plt Count 284 (160-400) X10*3/uL MPV 9.7 (9.4-12.3) fL Immature Gran % (Auto) 0.5 H (0.0-0.4) % Neut % (Auto) 91.3 H (45-73) % Lymph % (Auto) 3.5 L (20-40) % [place] % (Auto) 4.5 (2-11) % Eos % (Auto) 0.0 (0-4) % Baso % (Auto) 0.2 (0-2) % Lymph # (Auto) 0.6 L (1.2-4.9) X10*3/uL [place] # (Auto) 0.8 (0.1-1.2) X10*3/uL Eos # (Auto) 0.0 (0.0-0.4) X10*3/uL Baso # (Auto) 0.0 (0.0-0.2) X10*3/uL Abs Immat Gran (auto) 0.08 H (0.00-0.03) X10*3/uL Absolute Neuts (auto) 16.1 H (2.0-8.3) x10*3/uL Absolute Nucleated RBC 0.000 (0.0-0.012) X10*3/uL Nucleated RBC % (auto) 0.0 (0.0-0.2) /100WBC Smear Tech's Comments Sodium 139 (135-145) mmol/L Potassium 4.0 (3.3-5.1) mmol/L Chloride 109 H (96-108) mmol/L Carbon Dioxide 21 L (22-29) mmol/L Anion Gap 13 (12-20) BUN 11 (9-16) mg/dL Creatinine 0.66 (0.5-1.4) mg/dL Estim Creat Clear Calc 147.1 Estimated GFR > 60 Random Glucose 101 (60-115) mg/dL Calcium 8.6 (8.4-10.2) mg/dL Magnesium (1.6-2.6) mg/dL Total Bilirubin (0.0-1.0) mg/dL Direct Bilirubin (0.0-0.5) mg/dL AST (5-31) U/L ALT (0-31) U/L Alkaline Phosphatase (39-117) U/L Total Protein (6.5-8.0) g/dL Albumin (3.5-5.0) g/dL Lipase (8-78) U/L Urine Color Urine Appearance Urine pH (5.0-9.0) Ur Specific [place] (1.005-1.025) Urine Protein (Neg-Trace) mg/dL Urine Glucose (UA) (Negative) mg/dL Urine Ketones (Negative) mg/dL Urine Blood (Negative) Urine Nitrite (Negative) Ur Leukocyte Esterase (Negative) Urine Test (NEGATIVE) Urine Opiates Screen (Not Detect) Ur Buprenorphine Scrn (Not Detect) ng/mL Ur Oxycodone Screen (Not Detect) ng/mL Urine Methadone Screen (Not Detect) ng/mL Urine Fentanyl Screen (Not Detect) Ur Barbiturates Screen (Not Detect) Ur Phencyclidine Scrn (Not Detect) Ur Amphetamines Screen (Not Detect) U Benzodiazepines Scrn (Not Detect) Urine Cocaine Screen (Not Detect) U Marijuana (THC) Screen (Not Detect) Independent Interpretation I performed an independent interpretation of an: CT Scan Radiology Impression Discussion of test interpretation with radiology: I have reviewed the radiologist's reading. Critical Care Time Critical Care Time Critical Care Time: Yes Total Critical Care Time: 60 Attestation: multiple dose of IV medicine including diazepam/morphine/droperidol multiple reexamination Discharge Plan Discharge Clinical Impression: Metabolic acidosis, Cannabinoid hyperemesis syndrome Vomiting Qualifiers: Vomiting type: unspecified Nausea presence: with nausea Qualified Code(s): R 11.2 - Nausea with vomiting, unspecified Patient Disposition: Home, Self-Care Instructions: Acute Nausea and Vomiting (DC) Additional Instructions: Follow-up with your primary care physician, stay on liquid diet today no solid food for 24 hour return if worse Prescriptions: No Action albuterol sulfate 90 mcg/actuation HFA aerosol inhaler 2 puff inhalation Q4-6H PRN (Reason: for wheezing) Qty: 8.5 3RF fluticasone propion-salmeterol [Wixela Inhub] 250-50 mcg/dose blister with device 1 ea inhalation BID Qty: 180 1RF montelukast 10 mg tablet 10 mg PO BEDTIME 90 Days Qty: 90 0RF fluticasone propionate 50 mcg/actuation spray,suspension 2 spray intranasal DAILY Qty: 48 1RF Dupixent Pen 300 mg/2 mL pen injector 300 mg subcut Q2W Qty: 4 11RF levalbuterol HCl 1.25 mg/3 mL solution for nebulization 1.25 mg inhalation Q4-6H PRN (Reason: shortness of breath or wheezing) Qty: 72 0RF acetaminophen 500 mg Tablet 1,500 mg PO BID PRN (Reason: Pain) Nexplanon 68 mg Implant 68 mg SUBDERMAL DIRECTED Rx Instructions: good for 3 years codeine-guaifenesin 10-100 mg/5 mL Liquid 10 ml PO Q4H PRN (Reason: Cough) Qty: 200 0RF prednisone 10 mg tablet See Rx Instructions .Route .COMPLEX Qty: 45 0RF Rx Instructions: 10 mg orally; 5 tabs p.o. daily x3 days; 4 tabs p.o. daily x3 days; 3 tabs daily x3 days; 2 tabs daily x3 days; 1 tab daily x3 days azithromycin 500 mg tablet 500 mg PO DAILY 3 Days Qty: 3 0RF (DME) peak flow meter Device See Rx Instructions .Route Qty: 1 0RF Rx Instructions: As directed cetirizine 10 mg tablet 10 mg PO DAILY Stand Alone Forms: Work/School Release Interventions: ED Discharge Assessment Last Done: 04/16/25 12:24 Discharge Date/Time: 04/16/25 12:26 Print Language: Yakut
[2025-04-16 07:56] LABS: Alanine Aminotransferase 11 U/L (0-31); Albumin Level 4.4 g/dL (3.5-5.0); Alkaline Phosphatase 72 U/L (39-117); Anion Gap 13 (12-20); Aspartate Amino Transferase 24 U/L (5-31); Blood Urea Nitrogen 12 mg/dL (9-16); Calcium 8.6 mg/dL (8.4-10.2); Carbon Dioxide 18 mmol/L (22-29); Chloride 112 mmol/L (96-108); Creatinine Clr Calc Pharmacy 144.8; Estimated Glomerular Filt Rate > 60; Lipase 8 U/L (8-78); Magnesium 1.7 mg/dL (1.6-2.6); Potassium 3.9 mmol/L (3.3-5.1); Sodium 139 mmol/L (135-145); Total Protein 6.8 g/dL (6.5-8.0)
[2025-04-16 07:58] VITALS: BP 117/55; PULSE 89; RESP 18; TEMP 36.7; O2SAT 99
[2025-04-16 08:04] LABS: Appearance Urine Clear; Glucose Urine UA Negative (Negative); PH 8.5 (5.0-9.0); Specific Gravity - Urine 1.025 (1.005-1.025)
[2025-04-16 08:13] LABS: Cannabinoid Screen Urine POSITIVE (Not Detect)
[2025-04-16 09:00] LABS: UPreg QC Valid YES
[2025-04-16] MEDS: iohexoL 350 MG/ML 100 ML INFUS..BTL IV (09:33)
[2025-04-16 11:30] LABS: Hematocrit 40.4 % (37.0-47.0); Hemoglobin 13.5 g/dl (12.0-16.0); Imm Gran Abs Auto 0.08 X10*3/uL (0.00-0.03); Imm Gran Pct Auto 0.5 % (0.0-0.4); Lymphocytes Absolute Auto 0.6 X10*3/uL (1.2-4.9); MANUAL DIFF FLAG SCAN; Mean Corpuscular HGB Conc 33.4 g/dl (31.0-35.0); Mean Corpuscular Hemoglobin 31.8 pg (27.0-33.0); Mean Corpuscular Volume 95.3 fL (80.0-98.0); NRBC Abs Auto 0.000 X10*3/uL (0.0-0.012); NRBC Pct Auto 0.0 /100WBC (0.0-0.2); Platelet Count 284 X10*3/uL (160-400); Red Blood Count 4.24 X10*6/uL (4.20-5.50); SCAN SMEAR FLAG 1; White Blood Count 17.6 X10*3/uL (4.8-10.8)
[2025-04-16 11:46] LABS: Anion Gap 13 (12-20); Blood Urea Nitrogen 11 mg/dL (9-16); Calcium 8.6 mg/dL (8.4-10.2); Carbon Dioxide 21 mmol/L (22-29); Chloride 109 mmol/L (96-108); Creatinine Clr Calc Pharmacy 147.1; Estimated Glomerular Filt Rate > 60; Potassium 4.0 mmol/L (3.3-5.1); Sodium 139 mmol/L (135-145)
[2025-04-16 12:14] VITALS: BP 128/74; PULSE 94; RESP 14; TEMP 36.6; O2SAT 97
[2025-04-16 12:24] VITALS: BP 128/74; PULSE 94; RESP 14; TEMP 36.6; O2SAT 97
== END 2025-04-16 12:26 | disposition home or self-care (01) ==
PROVIDERS: Emergency Provider Emergency Medicine
DX: E87.20 Acidosis, unspecified (principal); R11.16 Cannabis hyperemesis syndrome; R11.2 Nausea with vomiting, unspecified; R10.9 Unspecified abdominal pain; R19.7 Diarrhea, unspecified
CPT/HCPCS: 36415; 74177; 80048; 80053; 80307; 81003; 81025; 82248; 83690; 83735; 85025; 96361; 96374; 96375; 96376; 99283; 99285; J1200; J1790; J2270; J2765; J3360; Q9967

== ENCOUNTER → 2025-04-16 07:53 | Outpatient (BNV) | payer BC, SELFPAY | PROVIDERS: Emergency Provider Emergency Medicine; Visit Provider Radiology Diagnostic Ultrasound | DX: K76.9 Liver disease, unspecified (principal) | CPT/HCPCS: 74177 ==

== ENCOUNTER 2025-04-22 04:51 | Emergency (ER) | payer BC, SELFPAY ==
--- NOTE | ~2025-04-22 | CT_ITS ---
CLINICAL HISTORY: epigastric pain w rebound tenderness CT abdomen and pelvis with contrast Comparison: CT/REG/SR - CT ABDOMEN PELVIS WITH IV CONTRAST - 04/16/25 09:29 EST Findings: Lungs are clear without consolidation or effusion. Subcentimeter right hepatic lobe cyst is unremarkable. Gallbladder, spleen, pancreas, bilateral adrenal glands, and bilateral kidneys are unremarkable. No nephrolithiasis. No abdominal or pelvic free fluid. No retroperitoneal lymphadenopathy. Aorta is nonaneurysmal. IVC is patent. No bowel obstruction, pneumoperitoneum, or pneumatosis. Appendix is normal. Uterus and bladder are unremarkable. No acute osseous abnormality. IMPRESSION: No acute intra-abdominal or pelvic findings. This document has been electronically signed by: Arnaldo Patrick MD on 04/22/2025 12:50:07
[2025-04-22 04:57] VITALS: BP 153/65; PULSE 90; RESP 22; TEMP 36.5; O2SAT 100; BMI 37.2
[2025-04-22 05:16] LABS: Hematocrit 40.6 % (37.0-47.0); Hemoglobin 14.0 g/dl (12.0-16.0); Imm Gran Abs Auto 0.06 X10*3/uL (0.00-0.03); Imm Gran Pct Auto 0.4 % (0.0-0.4); Lymphocytes Absolute Auto 1.3 X10*3/uL (1.2-4.9); MANUAL DIFF FLAG NO; Mean Corpuscular HGB Conc 34.5 g/dl (31.0-35.0); Mean Corpuscular Hemoglobin 31.7 pg (27.0-33.0); Mean Corpuscular Volume 91.9 fL (80.0-98.0); NRBC Abs Auto 0.000 X10*3/uL (0.0-0.012); NRBC Pct Auto 0.0 /100WBC (0.0-0.2); Platelet Count 316 X10*3/uL (160-400); Red Blood Count 4.42 X10*6/uL (4.20-5.50); White Blood Count 14.0 X10*3/uL (4.8-10.8)
[2025-04-22 05:29] LABS: Alanine Aminotransferase 20 U/L (0-31); Albumin Level 4.6 g/dL (3.5-5.0); Alkaline Phosphatase 77 U/L (39-117); Anion Gap 13 (12-20); Aspartate Amino Transferase 30 U/L (5-31); Blood Urea Nitrogen 8 mg/dL (9-16); Calcium 9.1 mg/dL (8.4-10.2); Carbon Dioxide 22 mmol/L (22-29); Chloride 112 mmol/L (96-108); Creatinine Clr Calc Pharmacy 147.7; Estimated Glomerular Filt Rate > 60; Lipase 13 U/L (8-78); Magnesium 1.7 mg/dL (1.6-2.6); Potassium 3.6 mmol/L (3.3-5.1); Sodium 143 mmol/L (135-145); Total Protein 7.1 g/dL (6.5-8.0)
--- OUTSIDE RECORDS SUMMARY | 2025-04-22 05:47 | XMS_ITS | Clinical Summary ---
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
--- OUTSIDE RECORDS SUMMARY | 2025-04-22 05:47 | XMS_ITS | Data Portability ---
Author Organization [facility], [address] Address [address] [place] [address] Care Team Providers Care Software Support Technician Name Role Phone [facility] Care Provider Assessment No assessment recorded. Plan of Treatment Reminders Order Date Submit Date Provider Last Modified By Organization Details Last Modified Time Details Appointments None recorded. Lab None recorded. Referral None recorded. Procedures None recorded. Surgeries None recorded. Imaging None recorded. Medication Orders albuterol sulfate 2.5 mg/3 mL (0.083 %) solution for nebulizati on 2022 023 [id number], [address] [place], [address], 3 09:11:31 ipratropiu m bromide 0.02 % solution for inhalation 2022 023 [id number], [address] [place], [address], 3 09:12:18 albuterol sulfate HFA 90 mcg/actuat ion aerosol inhaler 2022 023 [facility] #[id number], [address] [place], [address], 3 09:09:48 prednisone 20 mg tablet 2022 023 [id number], [address] [facility], [place], [address], 09:09:49 benzonatat e 200 mg capsule 2022 023 [facility] #[id number], [address] [place], [address], 09:09:49 Allergy Relief (fluticaso ne) 50 mcg/actuat ion nasal spray,susp ension 2022 023 [id number] [address] [place], [address], 09:09:48 Patient TargetsNo targets recorded. Patient Instructions Encounter Date Encounter Id Patient Instructions Last Modified By Organization Details Last Modified Time 08/17/2022 [id number] peak flow* [email or web address] Not available 07/23 09:21:09 [...] and Address Organization Details Recorded Time Asthma [id number] Active 023 Rosalinda Tian khoi PA - [...] /min 98 % 160.02 cm 36.8 kg/m2 03558.2 1 g 98 [degF] 0 141/87 mm[Hg] Rosalinda Tian [employer] 3 08:54:09 Social History Question Answer Notes LastModified by [employer] Details LastModified Time Tobacco Smoking Status Never Smoker Rosalinda [facility]fall [employer] 08/17/2022 08:55:53 Which Illicit Or Recreational Drugs Have You Used? Marijuana Information not available 08/17/2022 Have You Recently Traveled Abroad? No Information not available 08/17/2022 Sex: Unknown Functional Status Question Answer Note LastModified by [employer] Details LastModified Time How many times per [...] ICD10 Code Diagnosis IMO Codes Diagnosis Note [id number] [facility] [facility] [address] [place] [address] 04/27/2016 17:20:59 04/27/2016 19:39:32 [id number] [facility] [facility] [facility] [address] [place] [address] 03/16/2022 08:17:41 03/16/2022 10:59:10 [id number] Cortez Overton NP [address] [place] [address] 08/17/2022 08:46:31 08/17/2022 09:35:38 Acute bronchitis [id number] J20.9 Health Concerns Section Related Observation LastModified by Organization Detai ls LastModified Time None Recorded Concern Status LastModified by Organization Details LastModified Time None Recorded Advance Directives Directive None Recorded Payers Insurance Date Sequence Insurance Name Policy Number Policy Gomez Covered Member ID Gomez Member ID Guarantor Name 08/17/2022 1 [facility] ([facility] [id number] Lance Cleveland [id number] Marine Barnesrhea Notes Date Note Type Note Provider Name and Address Organization Details Recorded Time 08/17/2022 text/html 22 year old female present with wheezing and SOB x 1 day. stating her Albuterol is not working. She admit having asthma exacerbation from time to time. Also admit smoking marijuana daily. Cortez Overton NP [address] [place], [address], [place] - [facility] 08/17/2022 10:53:27 OBGyn Episode No OBEpisode recorded.
[2025-04-22 05:58] LABS: Appearance Urine Clear; Glucose Urine UA Negative (Negative); PH 8.5 (5.0-9.0); Specific Gravity - Urine 1.020 (1.005-1.025)
[2025-04-22 06:01] LABS: UPreg QC Valid YES
[2025-04-22 08:13] VITALS: BP 122/68; PULSE 103; RESP 16; O2SAT 97
--- NOTE | 2025-04-22 09:02 | ED_ITS ---
HPI - General Adult General Chief complaint: Abdominal Pain Stated complaint: abd pain Time Seen by Provider: 04/22/25 07:14 Source: patient Mode of arrival: ambulatory Limitations: no limitations History of Present Illness ED Provider: ASHLEY Ellington HPI narrative: Chief Complaint: ?Really bad abdominal pain.? History of Present Illness: 24-year-old female presents to the ED from [facility] for evaluation of severe mid-abdominal pain that began early this morning. Pain is severe enough that the patient ?can hardly sit up straight.? Associated nausea and one episode of vomiting approximately one hour prior to evaluation. Denies prior similar pain. Reports no current fever or chills; notes a cold one week ago. Denies headache, vision changes, chest pain, or shortness of breath. Last oral intake reportedly ?last night.? No current medications mentioned. Related Data Home Medications ?Medication ?Instructions ?Recorded ?Confirmed acetaminophen 500 mg tablet 1,500 mg PO BID PRN Pain 0 02/20/23 12/28/24 etonogestrel 68 mg subdermal 68 mg subdermal DIRECT ED 07/24/23 12/28/24 implant (Nexplanon) cetirizine 10 mg tablet 10 mg PO DAILY allergy sympt oms 01/03/25 Previous Rx's ?Medication ?Instructions ?Recorded peak flow meter #1 ea 11/02/22 albuterol sulfate 90 mcg/actuation 2 puff inhalation Q 4-6H PRN for 09/23/23 aerosol inhaler wheezing #8.5 ea fluticasone 250 mcg-salmeterol 50 1 ea inhalation BID for asthma 12/18/24 mcg/dose blistr powdr for #180 ea inhalation (Wixela Inhub) azithromycin 500 mg tablet 500 mg PO DAILY 3 days #3 t abs 12/31/24 codeine 10 mg-guaifenesin 100 mg/5 10 ml PO Q4H PRN Co ugh #200 mL 12/31/24 mL oral liquid prednisone 10 mg tablet See Rx Instructions .Route 0 12/31/24 .COMPLEX #45 tabs montelukast 10 mg tablet 10 mg PO BEDTIME for allergi c 01/15/25 rhinitis 90 days #90 tabs fluticasone propionate 50 2 spray intranasal DAILY for 03/28/25 mcg/actuation nasal allergies #48 mL spray,suspension dupilumab 300 mg/2 mL subcutaneous 300 mg (2 mL) subcu t Q2W Allergic 04/12/25 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 injector ([employer]) Rhinitis / Eiosinophilia #4 mL levalbuterol HCl 1.25 mg/3 mL 1.25 mg (3 mL) inhalatio n Q4-6H 04/16/25 solution for nebulization PRN shortness of breath or wheezing #72 mL acetaminophen 325 mg tablet 650 mg (2 x 325 mg) PO Q6H PRN 04/22/25 (Tylenol) fever or pain #30 tabs ondansetron 4 mg disintegrating 4 mg PO Q6H PRN nausea and 04/22/25 tablet vomiting #14 tabs Allergies Allergy/AdvReac Type Severity Reaction Status Date / Time No Known Allergies Allergy Verified 04/22/25 05:00 Review of Systems 2 Review of Systems: Yes all other systems are reviewed and are negative [facility] Past Medical History Attestation statement: The following information was validated with the patient. Source: old records reviewed and nursing notes reviewed Medical History Asthma Allergic rhinitis Obesity (BMI 35.0-39.9 without comorbidity) Eosinophilia Asthma Social History Social History Household Members: Family Housing: House Do you presently have visiting nurse or other home services: No Alcohol intake: never Comment: refused bed alarm. pt rings appropriately Patient Tobacco Use Status: Never used Tobacco Smoked in Last 30 Days: No Second Hand Smoke Exposure: No Use of substances other than those prescribed or required for medical reasons: Yes Substance Use Type: Marijuana Substance Use Frequency: Daily Advance Directives: No Advance Directives Information Provided: Yes Do you have a plan to hurt others: No Plan Patient : No service: No Current occupational status: employed Physical Exam ED Exam Exam: Appearance: Alert.? Oriented X3.? No acute distress.? Head: Normocephalic, atraumatic, no step-offs or deformities Eyes: Pupils equal, round and reactive to light.? Neck: Normal inspection.? Neck supple.? CVS: Normal heart rate and rhythm.? Pulses normal.? Respiratory: No respiratory distress.? Breath sounds normal.? Abdomen: Soft and diffusely tender.? Skin: Skin warm and dry.? Normal skin color.? Normal skin turgor.? Extremities: No lower extremity edema.? No calf ttp. 5/5 strength to bilateral upper and lower extremities Back: No midline tenderness, no C-spine tenderness, full range of motion, no CVA tenderness bilaterally Neuro: Oriented X 3.? No motor deficit.? No sensory deficit. CN 2-12 intact Vital Signs: Vital Signs - 24 hr 04/22/25 04:57 04/22/25 08:13 04/22/25 10:42 Temperature 97.7 F Pulse Rate 90 103 H 76 Respiratory Rate 22 H 16 16 Blood Pressure 153/65 H 122/68 Pulse Oximetry 100 97 Oxygen Delivery Method Room Air Room Air 04/22/25 11:05 Temperature 97.9 F Pulse Rate 84 Respiratory Rate 16 Blood Pressure 131/77 Pulse Oximetry 97 Oxygen Delivery Method Room Air BMI result Body Mass Index 37.2 vss Course Reevaluation(s) Reevaluation #1: CBC with leukocytosis and left shift. Chemistry with no acute findings needing intervention. Lipase normal. Urine clean. Negative test. Time: 10:40 Reevaluation #2: Feeling better. CT pending Time: 11:30 Reevaluation #3: + marijuana on amador. She has presented like this in the past w/ similar story ? cyclic vomiting. Plan to discharge home with Ronn. However when I went in to speak to her about discharge she states she is nauseous again and feels like she is going to throw up. Dry heaving. Will order Haldol and Benadryl as this could be cyclic vomiting Time: 12:57 Additional Reevaluation(s): Pain resolved I did discuss possible diagnosis with patient patient tells me that this happens frequently in in the morning. She is no longer having pain or nausea or vomiting. At this time patient to be discharged Educated patient on diagnosis and treatment plan, answered all question, patient verbalizes understanding. At this time patient will be discharged home, advised to return with new or worsening symptoms. Educated on worrisome signs and symptoms and when to return. At this time I feel comfortable discharge home. Medications Administered Discontinued Medications Generic Name Dose Route Start Last Admin Trade Name Freq PRN Reason Stop Dose Admin Albuterol Sulfate 2.5 mg/ 0 mg 04/22/25 10:34 04/22/25 10:42 Albuterol/Ipratropium 3 ml INHALE 04/22/25 10:35 1 dose ONCE ONE Administration Diphenhydramine HCl 25 mg 04/22/25 13:06 04/22/25 13:21 Diphenhydramine Hcl 50 Mg/Ml Vial IVPUSH 04/22/25 13:07 25 mg ONCE ONE Administration Haloperidol Lactate 2.5 mg 04/22/25 13:06 04/22/25 13:20 Haloperidol Lactate 5 Mg/Ml Vial IVPUSH 04/22/25 13:07 2.5 mg ONCE ONE Administration Acetaminophen 1,000 mg in 100 mls @ 400 mls/hr 04/22/25 11:31 04/22/25 12:55 Ofirmev IV 04/22/25 11:45 Infused ONCE ONE Infusion Iohexol 85 ml 04/22/25 10:05 04/22/25 10:06 Iohexol 350 Mg/Ml 100 Ml Infus..Btl IV 04/22/25 10:06 85 ml ONCE ONE Administration Morphine Sulfate 4 mg 04/22/25 07:58 04/22/25 08:13 Morphine Sulfate 4 Mg/Ml Cartridge IVPUSH 04/22/25 07:59 4 mg ONCE ONE Administration Protocol Ondansetron HCl 4 mg 04/22/25 05:05 04/22/25 05:15 Ondansetron Hcl 4 Mg/2 Ml Vial IVPUSH 04/22/25 05:06 4 mg ONCE ONE Administration Medical Decision Making Medical Decision Making MDM Narrative: 24-year-old female with acute severe mid-abdominal pain and associated nausea/vomiting. Differential includes appendicitis and cholecystitis; viral gastroenteritis also considered. CT abdomen/pelvis with contrast ordered. Supportive care initiated. Problem #1: Acute abdominal pain ? r/o appendicitis vs cholecystitis Assessment: Severe mid-abdominal pain since early AM with associated nausea and one vomit. No fevers. Exam notable for mid-abdominal tenderness; lungs clear, heart regular. Plan: * CT abdomen/pelvis with IV contrast ? ordered. * NPO status until imaging completed. * IV fluids for hydration. * IV analgesia for pain control (avoid Percocet due to intolerance). * Re-evaluate after imaging results; adjust management accordingly. Problem #3: Asthma Assessment: History of asthma; no current respiratory symptoms. Plan: * No intervention required during this visit. Differential Diagnosis Differential Diagnoses: The differential diagnosis associated with the presentation includes * Appendicitis: Acute onset of severe mid-abdominal pain, nausea, and vomiting are classic features. The pain may initially be periumbilical before localizing to the right lower quadrant, but early presentations can be mid- abdominal. No prior similar episodes. No fever reported, but absence of fever does not exclude diagnosis. * Cholecystitis: Cholecystitis typically presents with right upper quadrant pain, but can occasionally manifest as mid-abdominal pain, especially early in the course. Associated nausea and vomiting are common. No history of cholecystectomy. * Viral Gastroenteritis: Presents with abdominal pain, nausea, and vomiting. The patient had a cold last week, which may suggest a viral prodrome. However, lack of diarrhea and the severity of pain make this less likely. * Urinary Tract Infection (UTI): Can cause lower abdominal pain, but patient does not report dysuria, frequency, or urgency. No urinary symptoms discussed in transcript. * Ovarian Pathology (e.g., cyst, torsion): Ovarian cysts or torsion can present with acute abdominal pain in young women. No gynecologic history or symptoms (e.g., pelvic pain, vaginal bleeding) provided. * Diabetic Ketoacidosis (DKA): History of diabetes, but no mention of polyuria, polydipsia, or altered mental status. No laboratory data available to assess for DKA. * Bowel Obstruction: Typically presents with abdominal pain, vomiting, and obstipation. Patient reports normal bowel movements, making this less likely. * Mesenteric Adenitis: Can mimic appendicitis, especially in young patients, but is less common and usually associated with viral illness. Admission/Observation Consideration of admission/observation: Escalation of care including admission/observation considered Lab Data MDM Lab Attestation statement: I reviewed the patient's lab results. 04/22/25 05:11 04/22/25 05:11 Labs: Lab Results 04/22/25 04/22/25 04/22/25 Range/Units 05:11 05:53 11:02 WBC 14.0 H (4.8-10.8) X10*3/uL RBC 4.42 (4.20-5.50) X10*6/uL Hgb 14.0 (12.0-16.0) g/dl Hct 40.6 (37.0-47.0) % MCV 91.9 (80.0-98.0) fL MCH 31.7 (27.0-33.0) pg MCHC 34.5 (31.0-35.0) g/dl RDW 12.1 (11.0-16.0) % Plt Count 316 (160-400) X10*3/uL MPV 9.3 L (9.4-12.3) fL Immature Gran % (Auto) 0.4 (0.0-0.4) % Neut % (Auto) 85.8 H (45-73) % Lymph % (Auto) 9.1 L (20-40) % Graves % (Auto) 3.4 (2-11) % Eos % (Auto) 0.8 (0-4) % Baso % (Auto) 0.5 (0-2) % Lymph # (Auto) 1.3 (1.2-4.9) X10*3/uL Graves # (Auto) 0.5 (0.1-1.2) X10*3/uL Eos # (Auto) 0.1 (0.0-0.4) X10*3/uL Baso # (Auto) 0.1 (0.0-0.2) X10*3/uL Abs Immat Gran (auto) 0.06 H (0.00-0.03) X10*3/uL Absolute Neuts (auto) 12.0 H (2.0-8.3) x10*3/uL Absolute Nucleated RBC 0.000 (0.0-0.012) X10*3/uL Nucleated RBC % (auto) 0.0 (0.0-0.2) /100WBC Sodium 143 (135-145) mmol/L Potassium 3.6 (3.3-5.1) mmol/L Chloride 112 H (96-108) mmol/L Carbon Dioxide 22 (22-29) mmol/L Anion Gap 13 (12-20) BUN 8 L (9-16) mg/dL Creatinine 0.65 (0.5-1.4) mg/dL Estim Creat Clear Calc 147.7 Estimated GFR > 60 Random Glucose 133 H (60-115) mg/dL Calcium 9.1 (8.4-10.2) mg/dL Magnesium 1.7 (1.6-2.6) mg/dL Total Bilirubin 0.3 (0.0-1.0) mg/dL AST 30 (5-31) U/L ALT 20 (0-31) U/L Alkaline Phosphatase 77 (39-117) U/L Total Protein 7.1 (6.5-8.0) g/dL Albumin 4.6 (3.5-5.0) g/dL Lipase 13 (8-78) U/L Urine Color Yellow Urine Appearance Clear Urine pH 8.5 (5.0-9.0) Ur Specific Tracy 1.020 (1.005-1.025) Urine Protein Negative (Neg-Trace) mg/dL Urine Glucose (UA) Negative (Negative) mg/dL Urine Ketones 15 (Negative) mg/dL Urine Blood Negative (Negative) Urine Nitrite Negative (Negative) Ur Leukocyte Esterase Negative (Negative) Urine Test NEGATIVE (NEGATIVE) Urine Opiates Screen Not Detected (Not Detect) Ur Buprenorphine Scrn Not Detected (Not Detect) ng/mL Ur Oxycodone Screen Not Detected (Not Detect) ng/mL Urine Methadone Screen Not Detected (Not Detect) ng/mL Urine Fentanyl Screen Not Detected (Not Detect) Ur Barbiturates Screen Not Detected (Not Detect) Ur Phencyclidine Scrn Not Detected (Not Detect) Ur Amphetamines Screen Not Detected (Not Detect) U Benzodiazepines Scrn Not Detected (Not Detect) Urine Cocaine Screen Not Detected (Not Detect) U Marijuana (THC) Screen POSITIVE H (Not Detect) Influenza Type A (PCR) NEGATIVE (Negative) Influenza Type B (PCR) NEGATIVE (Negative) RSV RNA Qual (PCR) NEGATIVE (Negative) SARS-CoV-2 RNA (RT-PCR) NEGATIVE (Negative) Independent Interpretation I performed an independent interpretation of an: CT Scan (Findings: Lungs are clear without consolidation or effusion. Subcentimeter right hepatic lobe cyst is unremarkable. Gallbladder, spleen, pancreas, bilateral adrenal glands, and bilateral kidneys are unremarkable. No nephrolithiasis. No abdominal or pelvic free fluid. No retroperitoneal lymphaden) Radiology Impression Discussion of test interpretation with radiology: I have reviewed the radiologist's reading. External Record Review External record reviewed: Inpatient record, Office record, Outpatient record, Prior outpatient labs, Prior outpatient radiology, Primary care record and Outside ED record Chronic Conditions Patient?s care impacted by: Other (see hpi ) Critical Care Time Critical Care Time Critical Care Time: Yes Total Critical Care Time: 35 Attestation: I attest to this time spent taking care of the patient, obtaining history, physical, reviewing labs, imaging, treatment of patients condition +/- specialist/hospitalist consult +/- procedure Discharge Plan Discharge Clinical Impression: Abdominal pain, Nausea & vomiting Patient Disposition: Home, Self-Care Instructions: Acute Nausea and Vomiting (ED), Abdominal Pain (ED) Additional Instructions: Take your medications as prescribed. If you were prescribed antibiotics today, it is important that you take your medication to their entirety, do not skip any doses, do not finish them early. Follow-up with your primary care provider this week. Return to the emergency department with new or worsening symptoms. Such as fevers, chills, chest pain, shortness of breath, nausea, vomiting, dizziness, headache, vision changes, lethargy In case of emergency call 911 Findings: Lungs are clear without consolidation or effusion. Subcentimeter right hepatic lobe cyst is unremarkable. Gallbladder, spleen, pancreas, bilateral adrenal glands, and bilateral kidneys are unremarkable. No nephrolithiasis. No abdominal or pelvic free fluid. No retroperitoneal lymphadenopathy. Aorta is nonaneurysmal. IVC is patent. No bowel obstruction, pneumoperitoneum, or pneumatosis. Appendix is normal. Uterus and bladder are unremarkable. No acute osseous abnormality. IMPRESSION: No acute intra-abdominal or pelvic findings. Prescriptions: New acetaminophen [Tylenol] 325 mg tablet 650 mg PO Q6H PRN (Reason: fever or pain) Qty: 30 0RF ondansetron 4 mg tablet,disintegrating 4 mg PO Q6H PRN (Reason: nausea and vomiting) Qty: 14 0RF No Action albuterol sulfate 90 mcg/actuation HFA aerosol inhaler 2 puff inhalation Q4-6H PRN (Reason: for wheezing) Qty: 8.5 3RF fluticasone propion-salmeterol [[employer]hub] 250-50 mcg/dose blister with device 1 ea inhalation BID Qty: 180 1RF montelukast 10 mg tablet 10 mg PO BEDTIME 90 Days Qty: 90 0RF fluticasone propionate 50 mcg/actuation spray,suspension 2 spray intranasal DAILY Qty: 48 1RF Dupixent Pen 300 mg/2 mL pen injector 300 mg subcut Q2W Qty: 4 11RF levalbuterol HCl 1.25 mg/3 mL solution for nebulization 1.25 mg inhalation Q4-6H PRN (Reason: shortness of breath or wheezing) Qty: 72 0RF acetaminophen 500 mg Tablet 1,500 mg PO BID PRN (Reason: Pain) Nexplanon 68 mg Implant 68 mg SUBDERMAL DIRECTED Rx Instructions: good for 3 years codeine-guaifenesin 10-100 mg/5 mL Liquid 10 ml PO Q4H PRN (Reason: Cough) Qty: 200 0RF prednisone 10 mg tablet See Rx Instructions .Route .COMPLEX Qty: 45 0RF Rx Instructions: 10 mg orally; 5 tabs p.o. daily x3 days; 4 tabs p.o. daily x3 days; 3 tabs daily x3 days; 2 tabs daily x3 days; 1 tab daily x3 days azithromycin 500 mg tablet 500 mg PO DAILY 3 Days Qty: 3 0RF (DME) peak flow meter Device See Rx Instructions .Route Qty: 1 0RF Rx Instructions: As directed cetirizine 10 mg tablet 10 mg PO DAILY Referrals: Physician,Unknown J [Primary Care Provider, Medical] Print Language: Barbadian
[2025-04-22] MEDS: iohexoL 350 MG/ML 100 ML INFUS..BTL 85 ML IV (10:06)
[2025-04-22 10:42] VITALS: PULSE 76; RESP 16; O2SAT 98
[2025-04-22] MEDS: Albuterol Sulfate 2.5 MG, Albuterol/Iprat 2.5/0.5MG 3 ML 3 ML INHALE (10:42)
[2025-04-22 11:05] VITALS: BP 131/77; PULSE 84; RESP 16; TEMP 36.6; O2SAT 97
[2025-04-22 11:33] LABS: Cannabinoid Screen Urine POSITIVE (Not Detect)
[2025-04-22 11:49] LABS: Resp Syncy Virus RNA Qual PCR NEGATIVE (Negative); SARS COV2 PCR INHOUSE NEGATIVE (Negative)
[2025-04-22 14:04] VITALS: BP 128/58; PULSE 81; RESP 16; TEMP 36.9; O2SAT 97
[2025-04-22 14:13] VITALS: BP 128/58; PULSE 81; RESP 16; TEMP 36.9; O2SAT 97
== END 2025-04-22 14:15 | disposition home or self-care (01) ==
PROVIDERS: Physician Assistant; Emergency Provider Emergency Medicine Emergency Medical Services
DX: R10.9 Unspecified abdominal pain (principal); R11.2 Nausea with vomiting, unspecified; J45.909 Unspecified asthma, uncomplicated; Z03.818 Encounter for observation for suspected exposure to other biological agents ruled out
CPT/HCPCS: 36415; 74177; 80053; 80307; 81003; 81025; 83690; 83735; 85025; 87637; 94640; 96365; 96375; 99285; J0131; J1200; J1630; J2270; J2405; Q9967

== ENCOUNTER → 2025-04-22 07:58 | Outpatient (BNV) | payer BC, SELFPAY | PROVIDERS: Emergency Provider Emergency Medicine Emergency Medical Services; Visit Provider Radiology Vascular & Interventional Radiology | DX: R10.13 Epigastric pain (principal); R10.816 Epigastric abdominal tenderness | CPT/HCPCS: 74177 ==